=== PATIENT | female | born 1955 | race Caucasian/White ===

== ENCOUNTER 2016-10-30 17:52 | Emergency (ER) | payer OTHER, MEDICAID ==
--- NOTE | 2016-10-30 17:57 | EDPHY ---
H & P Time Seen by Provider: 10/30/16 17:57 - Personal History Tetanus Vaccine Date: Within last 5 years - Medical/Surgical History Hx Asthma: No Hx Chronic Respiratory Disease: No Hx Diabetes: Yes Hx Cardiac Disease: Yes Hx Renal Disease: No Hx Cirrhosis: No Hx Alcoholism: No Hx HIV/AIDS: No Hx Splenectomy or Spleen Trauma: No Other PMH: PMH: Quadripalegia, A-fib, HTN, GERD, hypothyroid, T2DM, anxiety, insomnia - Social History Smoking Status: Never smoked Constitutional: Initial Vital Signs Temperature (C) 36.6 C 10/30/16 18:04 Heart Rate 67 10/30/16 18:04 Respiratory Rate 16 10/30/16 18:04 Blood Pressure 104/75 10/30/16 18:04 O2 Sat (%) 91 L 10/30/16 18:04 O2 Delivery Mode Room Air Allergies/Adverse Reactions: codeine [Codeine] Allergy (Verified 11/03/15 02:46) Home Medications: Medication Instructions Recorded Baclofen [Baclofen 10 mg (*)] 10 mg PO QID 11/03/15 Bisacodyl [Dulcolax] 10 mg RC Q2D@09 11/03/15 Citalopram Hydrobromide [Celexa] 40 mg PO DAILY 11/03/15 Diazepam [Valium 10 MG (*)] 10 mg PO Q8 PRN 11/03/15 Docusate Sodium [Colace 100 MG (*)] 100 mg PO DAILY 11/03/15 Gabapentin [Neurontin 100 MG (*)] 200 mg PO TID 11/03/15 Herbals/Supplements -Info Only 1 ea PO DAILY 11/03/15 Insulin Glargine [Lantus 100 10 units SC HS 11/03/15 UNITS/ML (*)] Levothyroxine [Synthroid 88 mcg 88 mcg PO DAILY06 11/03/15 (*)] Metformin HCl [Metformin 1000 mg] 1,000 mg PO DAILY 11/03/15 Multivitamins [Multivitamin (*)] 1 each PO DAILY 11/03/15 Ondansetron Odt [Zofran Odt 4 mg 4 mg PO Q8 PRN 11/03/15 (*)] Polyethylene Glycol 3350 [Miralax 17 gm PO DAILY PRN 11/03/15 17 gm (*)] QUEtiapine FUMARATE [Seroquel 50 50 mg PO HS 11/03/15 mg (*)] Ranitidine HCl 150 mg PO BID 11/03/15 Sennosides/Docusate Sodium 1 each PO BID 11/03/15 [Senokot-S] Simethicone [GAS-X] 160 mg PO Q4 PRN 11/03/15 metFORMIN HCL [Glucophage 500 mg 500 mg PO DAILY@17 11/03/15 (*)] traMADol [Ultram 50 mg (*)] 11/03/15 traZODone [traZODONE 50MG (*)] 50 mg PO HS 11/03/15 Lidoderm 5% Patch (*) 06/26/16 Methenamine Estephania 06/26/16 Mucinex 06/26/16 Medical Decision Making - Diagnostics Imaging: Imaging Impressions Shoulder X-Ray 10/30/16 18:38 Impression: Nothing acute identified in this severely osteoporotic patient. Recommendation: This patient might benefit from a DEXA scan and bone building pharmacologic intervention. 2. Left Shoulder , 3 Views History: Pain post trauma. Fall from wheelchair. Findings: The humeral head is well rounded and normally located. No shoulder joint fracture or dislocation is identified. It is difficult for me to exclude a distal clavicle fracture, which is suggested on the axillary view.. Impression: Possible distal clavicle fracture. Consider dedicated clavicle ankle x-rays. Wrist X-Ray 10/30/16 18:38 Impression: Nothing acute identified in this severely osteoporotic patient. Recommendation: This patient might benefit from a DEXA scan and bone building pharmacologic intervention. 2. Left Shoulder , 3 Views History: Pain post trauma. Fall from wheelchair. Findings: The humeral head is well rounded and normally located. No shoulder joint fracture or dislocation is identified. It is difficult for me to exclude a distal clavicle fracture, which is suggested on the axillary view.. Impression: Possible distal clavicle fracture. Consider dedicated clavicle ankle x-rays. ED Course/Re-evaluation: CHIEF COMPLAINT: Headache, left shoulder pain, right wrist pain. HISTORY OF PRESENT ILLNESS: The patient is a 60-year-old female with a history of quadriplegia who presents after falling backwards in her wheelchair earlier today, striking her head and left shoulder. She did not lose consciousness. She is complaining of left shoulder pain, right wrist pain, and headache. She denies numbness, weakness, confusion, vomiting, or other complaints at this time. REVIEW OF SYSTEMS: A 10 point review of systems was performed and is negative with the exception of the elements mentioned in the history of present illness. PHYSICAL EXAM: HR, BP, O2 Sat, RR. Temp noted General Appearance: Alert, well hydrated, appropriate, and non-toxic appearing. Head: Atraumatic without scalp tenderness or obvious injury Eyes: Pupils equal, round, reactive to light and accommodation, EOMI, no trauma , no injection. Ears: Clear bilaterally, no perforation, normal landmarks Nose: Atraumatic, no rhinorrhea, clear. Throat: There is no erythema or exudates, no lesions, normal tonsils, mucus membranes moist. Neck: Supple, 2+ carotid upstroke, nontender, no lymphadenopathy. Respiratory: No retractions, no distress, no wheezes, and no accessory muscle use. Lungs are clear to auscultation bilaterally. Cardiovascular: Regular rate and rhythm, no murmurs, rubs, or gallops. Bilateral carotid, radial, dorsalis pedis, and posterior tibial pulses intact. Good capillary refill all extremities. Gastrointestinal: Abdomen is soft, nontender, non-distended, no masses, no rebound, no guarding, no peritoneal signs. Musculoskeletal: Normal active ROM of all extremities, atraumatic. Neurological: Alert, appropriate, and interactive. The patient has normal DTRs and non-focal cranial nerves, motor, sensory, and cerebellar exam. Skin: No rashes, good turgor, no nodules on palpation. Past medical history: Quadriplegia, atrial fibrillation, HTN, GERD, hypothyroid , type II diabetes, anxiety, insomnia. Past surgical history: Unknown. Family history: N/A. Social history: Lives in [place]. DIAGNOSTICS/PROCEDURES/CRITICAL CARE TIME: I independently reviewed the patient's films on the PACS system. See "imaging" section for radiologist reports. DIFFERENTIAL DIAGNOSIS: The differential diagnosis includes but is not limited to: fracture, rotator cuff injury, sprain, strain, intracranial injury. MEDICAL DECISION MAKIN-year-old quadriplegic female presents after she fell backward in her wheelchair, striking her head, left shoulder, and right wrist on pavement. She has no neuro deficits on exam. She did not lose consciousness and has not vomited. I do not believe head imaging is warranted at this time and she is [place] Head CT criteria negative. We will obtain x-rays of the shoulder and wrist. 1919: Dr. Maria reports distal left clavicle fracture and no fracture on the wrist. Staff is looking into whether or not the patient can be safely discharged with this diagnosis as she is quadriplegic and relies on a wheelchair. 2005: [facility] reports they will be unable to take care of the patient tonight with the nature of her injury. Hospitalist paged. 2014: Consulted with Dr. Barraza, hospitalist. She accepts admission. 2023: [facility] will re-accept the patient and she will be discharged home. Departure - Departure Disposition: Home, Routine, Self-Care Clinical Impression: Closed head injury Qualifiers: Encounter type: initial encounter Qualified Code(s): S09.90XA - Unspecified injury of head, initial encounter Clavicle fracture Qualifiers: Encounter type: initial encounter Clavicle location: lateral end Fracture type : closed Fracture alignment: nondisplaced Laterality: left Qualified Code(s): S42.035A - Nondisplaced fracture of lateral end of left clavicle, initial encounter for closed fracture Condition: Good Instructions: Head Injury (ED), Clavicle Fracture (ED) Additional Instructions: Take 600mg Ibuprofen every 6-8 hours as needed for pain. Follow up with Dr. Hansen, orthopedics, this week for reevaluation. Return to the emergency department for any serious worsening of condition. Referrals: Brandt Hansen MD [Medical Doctor] - As per Instructions Report Scribed for: Gabo Bass Report Scribed by: Juan Bui Date of Report: 10/30/16 Time of Report: 18:36
[2016-10-30 18:08] VITALS: RESP 16; TEMP 97.9
[2016-10-30] MEDS ORDERED: HYDROCODONE/APAP 5/325 TAB PO ONE (20:40)
[2016-10-30 22:00] VITALS: BP 115/74; PULSE 78; O2SAT 93
[2016-10-30] MEDS ORDERED: HYDROCOD/APAP 5/325 PREPACK#6 BTL TAKEHOME ONE (22:00)
== END 2016-10-30 22:21 | disposition home or self-care (01) ==
LOC: EDUNIT#
DX: S42.035A Nondisplaced fracture of lateral end of left clavicle, initial encounter for closed fracture (principal); S09.90XA Unspecified injury of head, initial encounter; E11.9 Type 2 diabetes mellitus without complications; I10 Essential (primary) hypertension; Z79.4 Long term (current) use of insulin; Z79.84 Long term (current) use of oral hypoglycemic drugs; W05.0XXA Fall from non-moving wheelchair, initial encounter
CPT/HCPCS: 73030; 73110; 99284; A4565

== ENCOUNTER 2017-01-02 07:34 | Inpatient (IN) | payer OTHER, MEDICAID ==
--- NOTE | 2017-01-02 07:38 | EDPHY ---
H & P Time Seen by Provider: 01/02/17 07:38 HPI/ROS: CHIEF COMPLAINT: Right-sided weakness HISTORY OF PRESENT ILLNESS: The patient is a 60-year-old female, quadripalegic , who presents via EMS as a stroke alert. The patient has known quadriplegia from a fall. She is currently half-way resident. She does have use of her bilateral hands and minimal arm movement. She states that for the past 2- 3 days she has felt more weak than normal. This morning at 3:00 a.m. she felt "crummy." On my evaluation, she denies any new weakness or numbness since this morning. No visual change or focal deficits. She states she just generally feels weak and fatigued. This is similar to her previous UTIs. When EMS initially evaluated the patient, the paramedics felt that she has slightly decreased parking lot chauffeur on the right when compared to the left. This is why activated the stroke alert. The radio communication coordinator reports that upon arrival to the hospital the patient's parking lot chauffeur strength seemed equal. The patient denies chest pain or shortness of breath. No abdominal pain. No nausea or vomiting. No fevers or chills. REVIEW OF SYSTEMS: My complete review of systems is negative except as mentioned in the HPI. Past Medical/Surgical History: Includes quadriplegia, atrial fibrillation, hypertension, GERD, hypothyroidism, anxiety, insomnia Past surgical history: Includes Social history: The patient is a half-way resident. Smoking Status: Never smoked Physical Exam: Vitals noted GENERAL: No acute distress, alert. Obese. HEENT: Eyes normal to inspection, normal pharynx, no signs of dehydration. NECK: No thyromegaly, no lymphadenopathy, supple. RESPIRATORY: Clear to auscultation bilaterally, no rales, rhonchi or wheezing. CVS: Regular rate and rhythm, no rubs, murmurs, or gallops. ABDOMEN: Soft, nontender, nondistended, no organomegaly. Benign. BACK: Decubitus ulcer, no CVA tenderness. SKIN: Normal color, no rash, warm, dry. No pallor. EXTREMITIES: No pedal edema, no Homans sign or cords, no joint swelling. NEURO/PSYCH: Higher functions: Alert and Oriented x3. Normal speech and cognition. Normal mood and affect. Cranial nerves: Normal as tested. Cerebellar: Difficult to test. The patient has no movement on her lower extremities and decreased movement on her upper extremities. Peripheral exam: Patient is a quadriplegic. She has minimal movement of her bilateral upper hands. Her parking lot chauffeur strength appears equal. She seems to have symmetric upper extremity movement. Constitutional: Initial Vital Signs Temperature (C) 36.8 C 01/02/17 07:40 Heart Rate 74 01/02/17 07:40 Respiratory Rate 18 01/02/17 07:40 Blood Pressure 136/79 H 01/02/17 07:40 O2 Sat (%) 96 01/02/17 07:40 O2 Delivery Mode Nasal Cannula O2 (L/minute) 2 Allergies/Adverse Reactions: codeine [Codeine] Allergy (Verified 11/03/15 02:46) Home Medications: Medication Instructions Recorded Baclofen [Baclofen 10 mg (*)] 10 mg PO QID 11/03/15 Bisacodyl [Dulcolax] 10 mg RC Q2D@09 11/03/15 Citalopram Hydrobromide [Celexa] 40 mg PO DAILY 11/03/15 Diazepam [Valium 10 MG (*)] 10 mg PO Q8 PRN 11/03/15 Docusate Sodium [Colace 100 MG (*)] 100 mg PO DAILY 11/03/15 Gabapentin [Neurontin 100 MG (*)] 200 mg PO TID 11/03/15 Herbals/Supplements -Info Only 1 ea PO DAILY 11/03/15 Insulin Glargine [Lantus 100 10 units SC HS 11/03/15 UNITS/ML (*)] Levothyroxine [Synthroid 88 mcg 88 mcg PO DAILY06 11/03/15 (*)] Metformin HCl [Metformin 1000 mg] 1,000 mg PO DAILY 11/03/15 Multivitamins [Multivitamin (*)] 1 each PO DAILY 11/03/15 Ondansetron Odt [Zofran Odt 4 mg 4 mg PO Q8 PRN 11/03/15 (*)] Polyethylene Glycol 3350 [Miralax 17 gm PO DAILY PRN 11/03/15 17 gm (*)] QUEtiapine FUMARATE [Seroquel 50 50 mg PO HS 11/03/15 mg (*)] Ranitidine HCl 150 mg PO BID 11/03/15 Sennosides/Docusate Sodium 1 each PO BID 11/03/15 [Senokot-S] Simethicone [GAS-X] 160 mg PO Q4 PRN 11/03/15 metFORMIN HCL [Glucophage 500 mg 500 mg PO DAILY@17 11/03/15 (*)] traMADol [Ultram 50 mg (*)] 11/03/15 traZODone [traZODONE 50MG (*)] 50 mg PO HS 11/03/15 Lidoderm 5% Patch (*) 06/26/16 Methenamine Estephania 06/26/16 Mucinex 06/26/16 HYDROcodone/APAP 10/325 [[place] 1 - 2 each PO Q4-6PRN PRN #20 tab 10/30/16 10325] Coumadin 01/02/17 Medical Decision Making - Diagnostics Imaging Results: Imaging Impressions Head CT 01/02/17 07:36 Impression: Normal CT scan of the head normal for age. Results called and discussed with CANDICE RODRIGUEZ M.D. on 01/02/2017 at 8:02 Chest X-Ray 01/02/17 07:58 Impression: Mild hypoventilatory and leftward rotational changes with stable borderline-cardiomegaly and some left basilar subsegmental atelectasis. ED Course/Re-evaluation: I met EMS on arrival. I took report from the radio communication coordinator. The patient was kept on the EMS prominent sent directly to CT imaging. I discussed the plan with the patient. Glucose 134. I reviewed the patient's previous medical record while she was at CT imaging. 745: The patient return to the ER. I met the patient in the room. I took further report from the patient. I discussed the plan with the patient. I answered all her questions. The patient is not a tPA candidate. After my evaluation I feel the patient does not have a new focal neurologic deficit. She has known quadriplegic that is unchanged. She states her subjective feeling of weakness started 2-3 days ago. This puts her outside the time window for tPA treatment. Head CT: No acute disease noted. Please refer the dictated report by the radiologist. I discussed the result with the patient. I answered all her questions. 855: I rechecked the patient. No change in her neuro exam. EKG: Sinus rhythm. Left anterior fascicular block. Flipped T-waves V2 through V5. 803: Head CT: Negative for acute disease. Please refer the dictated report by Dr. Papa Leslie. I discussed the case with Dr. Leslie. 805: xray in room. Pt's vitals stable. I rechecked the patient. She had no change. I reviewed the patient's laboratory studies. Of note the patient has a mildly elevated white count of 10. The patient is anemic with hematocrit 31. The patient's chemistry panel was abnormal with a low sodium 121. I compared this with a previous values. She has not previously been significantly hyponatremic in the past. I discussed the results with the patient. I answered all her questions. She had no change on her repeat exam. The hospitalist was paged for admission. Dr. Marx will admit. Wound care was consulted. Differential Diagnosis: My differential includes but is not limited to ischemic CVA, hemorrhagic CVA, dissection, aneurysm, electrolyte abnormality, sugar abnormality, ACS, acute [place] , dehydration UTI, bacteremia, sepsis Critical Care Time: The patient required 35 minutes of critical care time. This was exclusive of any unbundled procedure. This was due to the patient's presentation, stroke alert, need for multiple re-evaluations, time spent at the bedside., noted significant hyponatremia the knee oscar fluid hydration - Data Points Laboratory Results: Laboratory Results 01/02/17 07:50 01/02/17 07:50 01/02/17 01/02/17 01/02/17 08:04 08:04 07:50 WBC RBC Hgb Hct MCV MCH MCHC RDW Plt Count MPV Neut % (Auto) Lymph % (Auto) [place] % (Auto) Eos % (Auto) Baso % (Auto) Nucleat RBC Rel Count Absolute Neuts (auto) Absolute Lymphs (auto) Absolute Monos (auto) Absolute Eos (auto) Absolute Basos (auto) Absolute Nucleated RBC Immature Gran % Immature Gran # PT INR APTT Sodium 121 mEq/L L mEq/L (134-144) Potassium 4.2 mEq/L mEq/L (3.5-5.2) Chloride 87 mEq/L L mEq/L (97-110) Carbon Dioxide 24 mEq/l mEq/l (22-31) Anion Gap 10 mEq/L mEq/L (8-16) BUN 11 mg/dL mg/dL (7-23) Creatinine 0.5 mg/dL L mg/dL (0.6-1.0) Estimated GFR > 60 Glucose 157 mg/dL H mg/dL (70-100) Calcium 8.1 mg/dL L mg/dL (8.5-10.4) Troponin I < 0.012 ng/mL ng/mL (0-0.034) Urine Color PALE YELLOW Urine Appearance CLEAR Urine pH 6.0 (5.0-7.5) Ur Specific [place] 1.002 (1.002-1.030) Urine Protein NEGATIVE (NEGATIVE) Urine Ketones NEGATIVE (NEGATIVE) Urine Blood 3+ H (NEGATIVE) Urine Nitrate NEGATIVE (NEGATIVE) Urine Bilirubin NEGATIVE (NEGATIVE) Urine Urobilinogen NEGATIVE EU EU (0.2-1.0) Ur Leukocyte Esterase TRACE H (NEGATIVE) Urine RBC 1-3 /hpf /hpf (0-3) Urine WBC 1-3 /hpf /hpf (0-3) Ur Epithelial Cells NONE SEEN /lpf /lpf (NONE-1+) Urine Bacteria 1+ /hpf H /hpf (NONE SEEN) Urine Mucus TRACE /lpf /lpf (NONE-1+) Urine Osmolality 93 mosmo/kg L mosmo/kg (300-900) Ur Random Sodium Pending Urine Glucose NEGATIVE (NEGATIVE) 01/02/17 01/02/17 07:50 07:50 WBC 10.90 10^3/uL H 10^3/uL (3.80-9.50) RBC 3.76 10^6/uL L 10^6/uL (4.18-5.33) Hgb 11.1 g/dL L g/dL (12.6-16.3) Hct 31.8 % L % (38.0-47.0) MCV 84.6 fL fL (81.5-99.8) MCH 29.5 pg pg (27.9-34.1) MCHC 34.9 g/dL g/dL (32.4-36.7) RDW 13.8 % % (11.5-15.2) Plt Count 295 10^3/uL 10^3/uL (150-400) MPV 10.1 fL fL (8.7-11.7) Neut % (Auto) 69.5 % % (39.3-74.2) Lymph % (Auto) 17.2 % % (15.0-45.0) [place] % (Auto) 11.4 % % (4.5-13.0) Eos % (Auto) 0.6 % % (0.6-7.6) Baso % (Auto) 0.1 % L % (0.3-1.7) Nucleat RBC Rel Count 0.0 % % (0.0-0.2) Absolute Neuts (auto) 7.58 10^3/uL H 10^3/uL (1.70-6.50) Absolute Lymphs (auto) 1.87 10^3/uL 10^3/uL (1.00-3.00) Absolute Monos (auto) 1.24 10^3/uL H 10^3/uL (0.30-0.80) Absolute Eos (auto) 0.07 10^3/uL 10^3/uL (0.03-0.40) Absolute Basos (auto) 0.01 10^3/uL L 10^3/uL (0.02-0.10) Absolute Nucleated RBC 0.00 10^3/uL 10^3/uL (0-0.01) Immature Gran % 1.2 % H % (0.0-1.1) Immature Gran # 0.13 10^3/uL H 10^3/uL (0.00-0.10) PT 15.4 SEC H SEC (12.0-15.0) INR 1.22 H (0.83-1.16) APTT 21.8 SEC L SEC (23.0-38.0) Sodium Potassium Chloride Carbon Dioxide Anion Gap BUN Creatinine Estimated GFR Glucose Calcium Troponin I Urine Color Urine Appearance Urine pH Ur Specific [place] Urine Protein Urine Ketones Urine Blood Urine Nitrate Urine Bilirubin Urine Urobilinogen Ur Leukocyte Esterase Urine RBC Urine WBC Ur Epithelial Cells Urine Bacteria Urine Mucus Urine Osmolality Ur Random Sodium Urine Glucose Medications Given: Discontinued Medications Sodium Chloride (Ns) 500 mls @ 500 mls/hr IV EDNOW ONE PRN Reason: Protocol Stop: 01/02/17 08:56 Last Admin: 01/02/17 08:10 Dose: 500 mls Ceftriaxone Sodium/Dextrose (Rocephin 1 Gm (Premix)) 50 mls @ 100 mls/hr IV EDNOW ONE PRN Reason: Protocol Stop: 01/02/17 10:39 Last Admin: 01/02/17 10:24 Dose: 50 mls Departure - Departure Disposition: [facility] Inpatient Acute Clinical Impression: Weakness, Quadriplegia, Hyponatremia Condition: Good
[2017-01-02] MEDS ORDERED: NS 500 ML IV ONE (07:57)
--- NOTE | 2017-01-02 08:00 | CPEKG ---
Heart Rate: 72 RR Interval: 833 P-R Interval: 156 QRSD Interval: 118 QT Interval: 468 QTC Interval: 513 P [place]: -4 QRS [place]: -55 T Wave [place]: -13 EKG Severity - ABNORMAL ECG - EKG Impression: SINUS RHYTHM EKG Impression: LEFT ANTERIOR FASCICULAR BLOCK EKG Impression: PROBABLE LEFT VENTRICULAR HYPERTROPHY Electronically Signed By: Laly Erickson 02-Jan-2017 15:37:30
[2017-01-02 08:13] LABS: % IMMATURE GRANULYOCYTES 1.2 % (0.0-1.1); ABSOLUTE IMMATURE GRANULOCYTES 0.13 10^3/uL (0.00-0.10); ADD DIFF? NO; ADD MORPH? NO; ADD SCAN? NO; ATYPICAL LYMPHOCYTE FLAG 10 (0-99); FRAGMENT RBC FLAG 0 (0-99); HEMATOCRIT 31.8 % (38.0-47.0); HEMOGLOBIN 11.1 g/dL (12.6-16.3); LEFT SHIFT FLG 0 (0-99); LIPEMIA HEMOLYSIS FLAG 90 (0-99); MEAN CELL HEMOGLOBIN 29.5 pg (27.9-34.1); MEAN CELL HEMOGLOBIN CONCENTR. 34.9 g/dL (32.4-36.7); MEAN CELL VOLUME 84.6 fL (81.5-99.8); MEAN PLATELET VOLUME 10.1 fL (8.7-11.7); PLATELET CLUMPS FLAG 20 (0-99); PLATELET COUNT 295 10^3/uL (150-400); RED BLOOD CELL COUNT 3.76 10^6/uL (4.18-5.33); RED CELL DISTRIBUTION WIDTH 13.8 % (11.5-15.2)
[2017-01-02 08:19] LABS: COLOR PALE YELLOW; LEUKOCYTE ESTERASE,URINE TRACE (NEGATIVE); NITRITE,URINE NEGATIVE (NEGATIVE)
[2017-01-02 08:23] LABS: INR 1.22 (0.83-1.16); PROTIME(PATIENT) 15.4 SEC (12.0-15.0)
[2017-01-02 08:24] LABS: APTT 21.8 SEC (23.0-38.0)
[2017-01-02 08:27] LABS: ANION GAP 10 mEq/L (8-16); CALCIUM 8.1 mg/dL (8.5-10.4); CARBON DIOXIDE 24 mEq/l (22-31); CHLORIDE 87 mEq/L (97-110); CREATININE 0.5 mg/dL (0.6-1.0); GLOMERULAR FILTRATION RATE > 60; GLUCOSE 157 mg/dL (70-100); POTASSIUM 4.2 mEq/L (3.5-5.2); SODIUM 121 mEq/L (134-144)
[2017-01-02 08:30] LABS: BACTERIA 1+ /hpf (NONE SEEN); MUCUS TRACE /lpf (NONE-1+)
[2017-01-02 08:39] LABS: TROPONIN I < 0.012 ng/mL (0-0.034)
[2017-01-02] MEDS ORDERED: ONDANSETRON DISINTEGRATING 4 MG TAB PO PRN (11:29)
[2017-01-02] MEDS ORDERED: ONDANSETRON 4 MG/2 ML VIAL IVP PRN (11:29)
--- NOTE | 2017-01-02 13:29 | GHP ---
[f rep st] HISTORY AND PHYSICAL DATE OF ADMISSION: 01/02/2017 CHIEF COMPLAINT: Weakness. HISTORY OF PRESENT ILLNESS: The patient is a 61-year-old female with a history of partial quadriplegia and an indwelling Morris catheter as well as diabetes who presents to the emergency department from her halfway facility with new onset of weakness. She came in as a stroke alert but had a normal neuro exam and a negative head CT. She reports being treated for a urinary tract infection approximately 1 week ago. During that time, she did have some fevers. Since she completed her antibiotic course, she denies any further fevers, abdominal pain, or flank pain. She has been depressed lately and has had decreased oral intake. She denies nausea or vomiting. She has no chest pain, shortness of breath, cough, or respiratory symptoms. She denies headaches or vision changes. Over the past 1-2 days, she has felt foggy in her head. She has limited use of her upper extremities and was thought to be maybe slightly weaker on the right side at her halfway facility, [facility]. Thus, she was transferred to the emergency department. In the emergency department, she had a negative head CT. Her laboratory studies revealed a sodium of 121, which is new for this patient. She is admitted to the hospital for further management. PAST MEDICAL HISTORY: 1. Partial quadriplegia, C6-7 spinal cord injury secondary to a fall on the stairs. 2. Indwelling Morris catheter secondary to neurogenic bladder. 3. Diabetes mellitus. 4. Anxiety and depression. 5. Hypothyroidism. 6. GERD. 7. History of paroxysmal atrial fibrillation. MEDICATIONS: Please see CallApp for complete updated outpatient medication list. ALLERGIES: Codeine. FAMILY HISTORY: Reviewed and noncontributory. SOCIAL HISTORY: The patient lives at [facility]. She denies tobacco or alcohol use. REVIEW OF SYSTEMS: A 10-point review of systems was performed and was negative except as per HPI. OBJECTIVE: VITAL SIGNS: Temperature is 36.8, blood pressure 124/78, heart rate 68, respiratory rate 18. She is 99% on 2 L of oxygen by nasal cannula. GENERAL: The patient is awake, alert, and oriented, in no acute distress. She has a flat affect, appears depressed. HEENT: Head is atraumatic, normocephalic. Pupils equal, round, reactive to light. Extraocular muscles intact. Conjunctivae are pale. Oropharynx is clear. Mucous membranes are moist. NECK: Supple. There is no JVD. HEART: Regular rate and rhythm without murmur. LUNGS: Clear to auscultation bilaterally with decreased breath sounds secondary to poor effort. ABDOMEN: Soft, obese, nondistended. She has mild suprapubic tenderness to palpation. No rebound, rigidity, or guarding. Normoactive bowel sounds. EXTREMITIES: She has chronic flexures of her hands with minimal and symmetric self pay specialist strength. She moves both upper extremities equally. Lower extremities reveal trace edema. 2+ peripheral pulses. She has involuntary movements of the lower extremities, which are warm and well perfused. Her right lower extremity has an old scar with some chronic tissue changes. SKIN: She has chronic pressure injuries of her buttocks and bilateral ischia. NEUROLOGIC: Pronator drift is negative. There is no facial droop. Quadriplegia, as above. Decreased sensation of the lower extremities. Her speech is fluent. LABORATORY DATA: CBC reveals a white count of 10.9, hemoglobin 11.8. She has 69% neutrophils. INR is 1.2. Basic metabolic panel reveals a sodium of 121, a chloride of 87, creatinine 0.5, glucose 157. Troponin is negative. Urinalysis shows 3+ blood, trace leukocytes, 1+ bacteria. Urine osmolality is 93. Urine sodium is pending. Blood cultures and urine culture are pending. ASSESSMENT AND PLAN: The patient is a 61-year-old female with a history of quadriplegia, indwelling Morris catheter, diabetes, and depression, who presents to the hospital with weakness and is admitted for hyponatremia. 1. Hyponatremia. I suspect this is hypovolemic hyponatremia, given her poor oral intake in the setting of recent infection. Celexa can cause this, though she has been on this for a number of years and has previously had sodiums in the high 130s. Her urine osmolality is low. Urine sodium is also low. She received 500 cc's NS in ED and Na corrected from 121 to 127 in less than 8 hrs ( delay in labs due to difficulty with IV access and blood draws). Thus, will slow down her rate of correction with D5W at 100/hr for now. PICC line placed. Follow q4h BMP's. Renal consult if difficulty with rate of correction. 2. Possible urinary tract infection. The patient is afebrile and recently completed an antibiotic course for a previous urinary tract infection. UCx is pending from ED. She received 1g IV Ceftriaxone in ED. Given her indwelling Morris catheter, she is likely to be colonized. In the absence of fever or classic symptoms, I am going to defer further antibiotics and await her culture data. 3. Neurogenic bladder with indwelling Morris catheter. As above. 4. Diabetes mellitus type 2. Her blood sugar on arrival is 157. We have no recent A1c data, so we will check a hemoglobin A1c. We will plan to continue her outpatient insulin regimen along with metformin once her medication reconciliation is completed. 5. Anxiety and depression. I will go ahead and hold her SSRI for now in the setting of acute hyponatremia, though I think it is unlikely this is the cause. We will continue her Seroquel and other outpatient medications. 6. Hypothyroidism. Check a TSH and continue her outpatient meds. 7. Gastroesophageal reflux disease. Continue PPI. 8. Deep venous thrombosis prophylaxis, Lovenox. 9. Code status. I reviewed her MOLST form from her halfway facility. She is a DNR. 10. Disposition. The patient is admitted to inpatient status, as she will likely require greater than 48 hours' hospitalization for ongoing management of her weakness and hyponatremia. /[id number]/MODL MTDD
[2017-01-02] MEDS ORDERED: NS 1,000 ML IV SCH (13:30)
[2017-01-02 13:34] LABS: HEMOGLOBIN A1C 6.6 % (4.0-6.0)
[2017-01-02] MEDS ORDERED: ALTEPLASE 2 MG VIAL IVP PRN (14:05)
--- NOTE | 2017-01-02 14:53 | WOCRNPDOC ---
JESSICA Advanced Assessment Note - Skin Integrity Problem, Advanced Assess Coccyx Pressure Injury Dressing Type: Open to Air Exudate Amount: Minimal Exudate Color: Reddish/Yellow Exudate Characteristic(s): Serosanguinous Integumentary Issue Intervention: Dressing Applied, Dressing Initialed & Dated, Hydrogel Applied Tatum Wound Tissue: Blanching, Erythema, Non-blanching, Raw, Denuded, Scarred, Painful/Tender Tatum Wound Swelling: Mild Wound Bed Color: Black, Red, Yellow Wound Bed Constitution: Smooth Tissue, Mixed Loose & Adhered Slough/Eschar Wound Edges: Irregular Site Odor: None Site Measurement - Head-to-Toe Length X Width X Depth (cm): 3.1cmx2.5cmx0.5cm Pressure Injury Stage: Unstageable Pressure Injury Present on Admit: Yes (Noted in H&P) Skin Integrity Problem Comment: Full-thickness, slough and eschar-filled wound noted over coccyx, consistent in appearance w/ an unstageable pressure injury. Constellation of satellite wounds on tatum-wound skin, w/ a combination of blanching and non-blanching sites. Skin across this area is raw and denuded, and patient c/o pain during assessment and cleaning of the wound. Of note is copious, linear scar tissue extending from this wound across lower right buttock , indicating patient may have had a myocutaneous flap surgery for a previous pressure injury. She denies any surgical history to this site. Hydrogel wound gel applied to wound bed, and wound covered by a [employer] hydrocolloid to help w/ autolysis and softening of the necrotic tissue. Allevyn sacral dressing applied over this for additional protection. Patient was switched to an ICU sport bed, and placed on a TAPS system w/ orders for q2 turns. machine tank operator Carlie present and assisting w/ dressing changes. Wound RN will round on patient again on Friday 01/05. Right Ischial Tuberosity Pressure Injury Dressing Type: Open to Air Exudate Amount: None Exudate Characteristic(s): None Integumentary Issue Intervention: Dressing Applied, Hydrogel Applied Tatum Wound Tissue: Blanching, Erythema, Non-blanching, Raw, Denuded, Dry, Scarred Tatum Wound Swelling: None Wound Bed Color: Red Site Odor: None Site Measurement - Head-to-Toe Length X Width X Depth (cm): 0.4cmx0.5cmx0.1cm Pressure Injury Stage: Stage 2 Pressure Injury Present on Admit: Yes (Documented in H&P) Skin Integrity Problem Comment: Partial-thickness wound noted over R ischial tuberosity, consistent in appearance w/ stage 2 pressure injury. Presently wound bed is comprised of 100% dry, red tissue w/ no exudate. Tatum-wound skin is both xerotic and scarred (see above note regarding scar tissue). Covered site w/ Hydrogel wound gel and large Allevyn Life sacral dressing. Left Lower Buttock Pressure Injury Dressing Type: Open to Air Exudate Amount: None Exudate Characteristic(s): None Integumentary Issue Intervention: Dressing Applied Tatum Wound Tissue: Blanching, Ecchymotic, Erythema, Non-blanching, Raw, Denuded , Dry Tatum Wound Swelling: None Wound Bed Color: Red Site Odor: None Site Measurement - Head-to-Toe Length X Width X Depth (cm): 1.9cmx1.1cmx0.1cm Pressure Injury Stage: Stage 2 Pressure Injury Present on Admit: Yes (Documented in H&P) Skin Integrity Problem Comment: Partial-thickness tissue injury noted on L lower buttock, consistent in appearance w/ stage 2 pressure injury. This wound is comprised of 100% dry, red tissue w/ friable margins, suggesting a component of shear as well. Tatum-wound tissue has some ecchymosis noted, potentially a deep tissue injury. Protective dressing and pressure-relieving precautions initiated. Left Ischial Tuberosity Pressure Injury Dressing Type: Open to Air Exudate Amount: None Exudate Characteristic(s): None Integumentary Issue Intervention: Dressing Applied, Dressing Initialed & Dated Tatum Wound Tissue: Blanching, Erythema, Non-blanching, Raw, Dry Tatum Wound Swelling: None Wound Bed Color: Purple Site Measurement - Head-to-Toe Length X Width X Depth (cm): [id number] Pressure Injury Stage: Deep Tissue Injury (DTI) Pressure Injury Present on Admit: Yes (Documented in H&P) Skin Integrity Problem Comment: Small, circular area of ecchymosis noted over L ischial tuberosity, indicative of a suspected deep tissue injury. Presently skin is intact w/ negligible swelling. Wound care will continue to follow this wound as it evolves. Bilateral Heel Dressing Type: Open to Air Exudate Amount: None Exudate Characteristic(s): None Skin Integrity Problem Comment: Blanching erythema noted to bilateral heels, skin presently intact w/ no associated swelling. Given patient's generally immobile status, off-loading heel boots were ordered as a precaution.
[2017-01-02] MEDS ORDERED: traMADol 50 MG TAB PO PRN (16:57)
[2017-01-02] MEDS ORDERED: POLYETHYLENE GLYCOL 3350 17 GM PKT PO PRN (16:57)
[2017-01-02] MEDS ORDERED: guaiFENesin 600 MG TAB.ER PO PRN (16:57)
[2017-01-02] MEDS ORDERED: SIMETHICONE 80 MG TAB CHEW PO PRN (16:57)
[2017-01-02] MEDS ORDERED: DIAZEPAM 2 MG TAB PO PRN (16:57)
[2017-01-02] MEDS ORDERED: BISACODYL 10 MG SUPP PR PRN (16:57)
[2017-01-02] MEDS ORDERED: D50W 25 GM/50 ML SYR IVP PRN (17:03)
[2017-01-02 17:13] LABS: ANION GAP 9 mEq/L (8-16); CALCIUM 8.1 mg/dL (8.5-10.4); CARBON DIOXIDE 28 mEq/l (22-31); CHLORIDE 90 mEq/L (97-110); CREATININE 0.6 mg/dL (0.6-1.0); GLOMERULAR FILTRATION RATE > 60; GLUCOSE 122 mg/dL (70-100); POTASSIUM 3.6 mEq/L (3.5-5.2); SODIUM 127 mEq/L (134-144)
[2017-01-02] MEDS ORDERED: D5W 1,000 ML IV SCH (17:30)
[2017-01-02] MEDS: INSULIN LISPRO 100 UNIT/ML SC SCH (17:37)
[2017-01-02] MEDS: oxyCODONE IR 5 MG TAB PO PRN ×2 (17:37→21:21)
[2017-01-02] MEDS: MICONAZOLE 2% TP SCH (20:26)
[2017-01-02] MEDS: DIAZEPAM 2 MG TAB PO SCH (20:31)
[2017-01-02 20:54] LABS: ANION GAP 7 mEq/L (8-16); CALCIUM 8.2 mg/dL (8.5-10.4); CARBON DIOXIDE 26 mEq/l (22-31); CHLORIDE 89 mEq/L (97-110); CREATININE 0.5 mg/dL (0.6-1.0); GLOMERULAR FILTRATION RATE > 60; GLUCOSE 199 mg/dL (70-100); POTASSIUM 3.2 mEq/L (3.5-5.2); SODIUM 122 mEq/L (134-144)
[2017-01-02] MEDS: GABAPENTIN 100 MG CAP PO SCH (21:20)
[2017-01-02] MEDS: QUEtiapine FUMARATE 25 MG TAB PO SCH (21:20)
[2017-01-02] MEDS: traZODone 50 MG TAB PO SCH (21:21)
[2017-01-02] MEDS: BACLOFEN 10 MG TAB PO SCH (21:21)
[2017-01-02] MEDS: SENNOSIDES/DOCUSATE SODIUM TAB PO SCH (21:21)
[2017-01-02] MEDS: ACETAMINOPHEN 325 MG TAB PO PRN (21:22)
[2017-01-02] MEDS: METHENAMINE HIPP 1 GM TAB PO SCH (21:22)
[2017-01-02] MEDS: INSULIN GLARGINE 100 UNITS/ML SYRINGE SC SCH (21:22)
[2017-01-02] MEDS ORDERED: D5W 1/2 NS W/ 20 KCl/L 1,000 ML IV SCH (23:00)
[2017-01-03] MEDS: oxyCODONE IR 5 MG TAB PO PRN ×3 (01:23→21:24)
[2017-01-03 01:50] LABS: ANION GAP 9 mEq/L (8-16); CALCIUM 7.9 mg/dL (8.5-10.4); CARBON DIOXIDE 27 mEq/l (22-31); CHLORIDE 92 mEq/L (97-110); CREATININE 0.5 mg/dL (0.6-1.0); GLOMERULAR FILTRATION RATE > 60; GLUCOSE 167 mg/dL (70-100); POTASSIUM 3.3 mEq/L (3.5-5.2); SODIUM 128 mEq/L (134-144)
[2017-01-03] MEDS ORDERED: D5W 1,000 ML IV SCH (02:05)
[2017-01-03 06:19] LABS: % IMMATURE GRANULYOCYTES 0.7 % (0.0-1.1); ABSOLUTE IMMATURE GRANULOCYTES 0.06 10^3/uL (0.00-0.10); ADD DIFF? NO; ADD MORPH? NO; ADD SCAN? NO; ATYPICAL LYMPHOCYTE FLAG 0 (0-99); FRAGMENT RBC FLAG 0 (0-99); HEMATOCRIT 30.3 % (38.0-47.0); HEMOGLOBIN 10.3 g/dL (12.6-16.3); LEFT SHIFT FLG 0 (0-99); LIPEMIA HEMOLYSIS FLAG 90 (0-99); MEAN CELL HEMOGLOBIN 29.3 pg (27.9-34.1); MEAN CELL VOLUME 86.3 fL (81.5-99.8); MEAN PLATELET VOLUME 9.7 fL (8.7-11.7); PLATELET CLUMPS FLAG 0 (0-99); PLATELET COUNT 292 10^3/uL (150-400); RED BLOOD CELL COUNT 3.51 10^6/uL (4.18-5.33)
[2017-01-03] MEDS: MICONAZOLE 2% TP SCH ×4 (06:30→20:09)
[2017-01-03] MEDS: LEVOTHYROXINE 88 MCG TAB PO SCH (06:32)
[2017-01-03] MEDS: BACLOFEN 10 MG TAB PO SCH ×4 (06:32→19:59)
[2017-01-03 06:45] LABS: ANION GAP 8 mEq/L (8-16); CARBON DIOXIDE 28 mEq/l (22-31); CHLORIDE 96 mEq/L (97-110); CREATININE 0.5 mg/dL (0.6-1.0); GLOMERULAR FILTRATION RATE > 60; GLUCOSE 132 mg/dL (70-100); POTASSIUM 3.1 mEq/L (3.5-5.2); SODIUM 132 mEq/L (134-144)
[2017-01-03 07:15] LABS: CORTISOL-AM 5.5 ug/dL (4.5-22.7)
[2017-01-03] MEDS: INSULIN LISPRO 100 UNIT/ML SC SCH ×3 (08:05→17:50)
[2017-01-03] MEDS: METHENAMINE HIPP 1 GM TAB PO SCH ×2 (09:11→22:37)
[2017-01-03] MEDS: GABAPENTIN 100 MG CAP PO SCH ×3 (09:12→22:36)
[2017-01-03] MEDS: LIDOCAINE 5% 1 EA PATCH TD SCH (09:12)
[2017-01-03] MEDS: CHOLECALCIFEROL VIT D3 1,000 UNITS TAB PO SCH (09:12)
[2017-01-03] MEDS: ENOXAPARIN 40 MG/0.4 ML SYR SC SCH (09:12)
[2017-01-03] MEDS: SENNOSIDES/DOCUSATE SODIUM TAB PO SCH ×2 (09:13→19:59)
[2017-01-03] MEDS: DOCUSATE SODIUM 100 MG CAP PO SCH (09:13)
[2017-01-03] MEDS: ACETAMINOPHEN 325 MG TAB PO PRN ×2 (10:13→19:58)
[2017-01-03] MEDS ORDERED: PROTOCOL MAGNESIUM 1 DOSE IV PRN (10:20)
[2017-01-03] MEDS ORDERED: PROTOCOL POTASSIUM 1 DOSE MISC PRN (10:20)
[2017-01-03] MEDS ORDERED: K PHOS 20 MMOL in D5W 250 ML IV ONE (10:21)
--- NOTE | 2017-01-03 11:58 | HOSPPROG ---
Hospitalist Progress Note Assessment/Plan: Hyponatremia - Symptoms improved. Initial urine Na and urine osm low. Rapidly corrected with NS bolus in ED (121 --> 128) and required D5W overnight to slow down rate of correction. Na now up to 131 from 121. Appears euvolemic though bp 90's/40's this am. Less concern for ODS with Na now >130 and presenting Na > 120. AM cortisol 5.5 concerning for adrenal insufficiency. -Stop D5W -cont fluid restriction -repeat BMP this afternoon -recheck urine studies -ACTH stim test in am to eval for adrenal insufficiency -encouraged high solute diet ?UTI - doubt. UCx low colony count. Received IV Ceftriaxone in ED -defer further atbx Partial quad with C6-7 spinal cord injury due to fall down stairs >10 yrs ago - has some UE movement. Neurogenic bladder with chronic indwelling mirza Pressure injury b/l buttocks - wound care consult DM type 2 - BG's 100's. Cont basal / bolus insulin Hypothyroidism - check TSH, cont outpt meds Anxiety and Depression - Celexa held on admission with hyponatremia, though this can probably be resumed at discharge as she's been on this for years thus is unlikely to be cause of low Na. GERD - cont PPI. DVT PPLX - Lovenox DNR Dispo - cont inpt, transfer to med/surg Subjective: Pt feels better. Mentation is improved, her cloudy feeling is resolved. No fevers, abdominal pain, N/V. Taking better po. Objective: Vital Signs Temp Pulse Resp BP Pulse Ox 35.8 C L 66 14 96/58 L 98 01/03/17 07:42 01/03/17 07:42 01/03/17 07:42 01/03/17 07:42 01/03/17 07:42 Laboratory Results 01/03/17 06:05 01/03/17 10:10 01/02/17 01/03/17 01/04/17 05:59 05:59 05:59 Intake Total 1601 Output Total 4400 400 Balance -2799 -400 PT 15.4 SEC (12.0-15.0) H 01/02/17 07:50 INR 1.22 (0.83-1.16) H 01/02/17 07:50 - Physical Exam Constitutional: no apparent distress Eyes: PERRL Ears, Nose, Mouth, Throat: moist mucous membranes Cardiovascular: regular rate and rhythym Respiratory: no respiratory distress Gastrointestinal: normoactive bowel sounds, soft, non-tender abdomen Skin: warm Musculoskeletal: other (decreased sensation b/l LE's) Neurologic: AAOx3 Psychiatric: interacting appropriately ICD10 Worksheet Patient Problems: Problems Problem Status Onset Hyponatremia Acute Quadriplegia Acute Weakness Acute Chronic incomplete flaccid quadriplegia Acute Severe sepsis Acute UTI (urinary tract infection) Acute
[2017-01-03] MEDS ORDERED: NS 1,000 ML IV SCH (12:00)
[2017-01-03] MEDS ORDERED: MAGNESIUM SULF 1 GM/DEXTROSE 100 ML IV ONE (12:20)
[2017-01-03] MEDS ORDERED: NS 500 ML IV ONE (16:19)
[2017-01-03 16:54] LABS: ANION GAP 6 mEq/L (8-16); CALCIUM 8.1 mg/dL (8.5-10.4); CARBON DIOXIDE 29 mEq/l (22-31); CHLORIDE 94 mEq/L (97-110); CREATININE 0.5 mg/dL (0.6-1.0); GLOMERULAR FILTRATION RATE > 60; GLUCOSE 106 mg/dL (70-100); POTASSIUM 3.6 mEq/L (3.5-5.2); SODIUM 129 mEq/L (134-144)
[2017-01-03] MEDS: QUEtiapine FUMARATE 25 MG TAB PO SCH (19:59)
[2017-01-03] MEDS: DIAZEPAM 2 MG TAB PO SCH (19:59)
[2017-01-03] MEDS: traZODone 50 MG TAB PO SCH (19:59)
[2017-01-03] MEDS ORDERED: PATCH REMOVAL 1 EA PATCH TD SCH (21:00)
[2017-01-03] MEDS: INSULIN GLARGINE 100 UNITS/ML SYRINGE SC SCH (22:36)
[2017-01-04] MEDS: MICONAZOLE 2% TP SCH ×2 (05:32→12:03)
[2017-01-04] MEDS: BACLOFEN 10 MG TAB PO SCH ×2 (05:32→12:34)
[2017-01-04] MEDS: LEVOTHYROXINE 88 MCG TAB PO SCH (05:32)
[2017-01-04 05:51] LABS: ANION GAP 7 mEq/L (8-16); CALCIUM 8.1 mg/dL (8.5-10.4); CARBON DIOXIDE 28 mEq/l (22-31); CHLORIDE 99 mEq/L (97-110); CREATININE 0.5 mg/dL (0.6-1.0); GLOMERULAR FILTRATION RATE > 60; GLUCOSE 109 mg/dL (70-100); POTASSIUM 3.7 mEq/L (3.5-5.2); SODIUM 134 mEq/L (134-144)
[2017-01-04] MEDS ORDERED: COSYNTROPIN 0.25 MG/2 ML SYRINGE IVP ONE (06:00)
[2017-01-04] MEDS: INSULIN LISPRO 100 UNIT/ML SC SCH ×2 (07:47→12:34)
[2017-01-04] MEDS ORDERED: POTASSIUM CL 10 MEQ TAB PO ONE (08:47)
[2017-01-04] MEDS: LIDOCAINE 5% 1 EA PATCH TD SCH (09:29)
[2017-01-04] MEDS: CHOLECALCIFEROL VIT D3 1,000 UNITS TAB PO SCH (09:30)
[2017-01-04] MEDS: ENOXAPARIN 40 MG/0.4 ML SYR SC SCH (09:30)
[2017-01-04] MEDS: GABAPENTIN 100 MG CAP PO SCH (09:30)
[2017-01-04] MEDS: SENNOSIDES/DOCUSATE SODIUM TAB PO SCH (09:30)
[2017-01-04] MEDS: DOCUSATE SODIUM 100 MG CAP PO SCH (09:30)
[2017-01-04] MEDS: METHENAMINE HIPP 1 GM TAB PO SCH (09:31)
[2017-01-04 11:35] VITALS: BP 96/51; PULSE 87; RESP 17; TEMP 99.8; O2SAT 91
--- NOTE | 2017-01-04 12:12 | GDS ---
[f rep st] DISCHARGE SUMMARY DISCHARGE DIAGNOSES: 1. Weakness, thought to be due to hypovolemic hyponatremia. 2. Possible urinary tract infection. 3. Neurogenic bladder with indwelling Morris. 4. Type 2 diabetes mellitus. 5. Anxiety and depression. 6. Hypothyroidism. 7. Gastroesophageal reflux disease. HOSPITAL COURSE: Weakness and hyponatremia: The patient was admitted to the hospital, where her in itial sodium was 121. Within 24 hours, her sodium increased to 132; and on the day of discharge, he r sodium is up to 134. Currently, she states she is feeling well and is much stronger. The diagnos is of adrenal insufficiency was entertained. Cortisol level was sent that was within normal range a t 5.5. A cosyntropin test was attempted; however, the cortisol levels, pre and post, were not drawn . On the day of discharge, the patient states she is feeling better and is agreeable to discharge h ome. Her urine culture has grown Enterococcus with 20-30,000 colonies. This likely represents colo nization. She has not received antibiotics while here in the hospital. PHYSICAL EXAM: VITAL SIGNS: On the day of discharge, blood pressure 96/51, pulse of 87, respirator y rate 17, O2 sat 91% on 0.5 L. GENERAL: No acute distress. PERTINENT LABORATORY AND X-RAY DATA: Urine culture grew 20-30,000 colonies of Enterococcus faecalis . Sensitivities are pending. Chest x-ray done 01/02/2017, refer to report. DISCHARGE MEDICATIONS: Please refer to discharge medication reconciliation in [facility] for details. DISCHARGE INSTRUCTIONS: The patient will be discharged back to her residential facility. She s hould be monitored to ensure that she is maintaining adequate hydration and oral nutrition. If she does develop signs and symptoms of a urinary tract infection, I would recommend following up the uri ne culture done to see the sensitivities for the Enterococcus that was in her urine. It would be re asonable to pursue further diagnosis of adrenal insufficiency if she continues to have problems with hyponatremia. Greater than 30 minutes were spent on the discharge of this patient. /[id number]/MODL
--- NOTE | 2017-01-04 13:45 | PDIAF ---
- Diagnosis Diagnosis: hyponatremia Code Status: Do Not Resuscitate - Medication Management Discharge Medications: Medications to Continue on Transfer Baclofen [Baclofen 10 mg (*)] 10 mg PO QID 11/03/15 [Last Taken 07/11/16 07:30] Citalopram Hydrobromide [Celexa] 40 mg PO DAILY 11/03/15 [Last Taken 07/11/16 07 :30] Docusate Sodium [Colace 100 MG (*)] 100 mg PO DAILY 11/03/15 [Last Taken 1 Day Ago] Gabapentin [Neurontin 100 MG (*)] 200 mg PO TID 11/03/15 [Last Taken 07/11/16 07 :30] Insulin Glargine [Lantus 100 UNITS/ML (*)] 10 units SC HS 11/03/15 [Last Taken 07/10/16 20:00] Levothyroxine [Synthroid 88 mcg (*)] 88 mcg PO DAILY06 11/03/15 [Last Taken 1 Day Ago] Multivitamins [Multivitamin (*)] 1 each PO DAILY 11/03/15 [Last Taken 07/04/16] Ondansetron Odt [Zofran Odt 4 mg (*)] 4 mg PO Q8 PRN 11/03/15 [Last Taken 1 Month Ago] Polyethylene Glycol 3350 [Miralax 17 gm (*)] 17 gm PO DAILY PRN 11/03/15 [Last Taken 1 Day Ago] Sennosides/Docusate Sodium [Senokot-S] 1 each PO BID 11/03/15 [Last Taken 1 Day Ago] Simethicone [GAS-X] 160 mg PO Q4 PRN 11/03/15 [Last Taken 1 Day Ago] traMADol [Ultram 50 mg (*)] 50 mg PO Q6HRS PRN 11/03/15 [Last Taken 1 Day Ago] traZODone [traZODONE 50MG (*)] 50 mg PO HS 11/03/15 [Last Taken 1 Day Ago] Lidocaine 5% [Lidoderm 5% Patch (*)] 1 ea TD DAILY 06/26/16 [Last Taken Unknown] Acetaminophen [Tylenol 325mg (*)] 650 mg PO Q6HRS PRN 01/02/17 [Last Taken Unknown] Amox Tr/K Clav (Augmentin) [Augmentin 500/125 MG TAB (*)] 1 each PO BID [Last Taken Unknown] Bisacodyl [Dulcolax] 10 mg NV Q2D PRN 01/02/17 [Last Taken Unknown] Cholecalciferol Vit D3 [Vitamin D3 (*)] 1,000 units PO DAILY 01/02/17 [Last Taken Unknown] Dextrose Oral Gel [Glucose Gel (*)] 15 gm PO PRN PRN 01/02/17 [Last Taken Unknown] Diazepam [Valium 2 MG (*)] 2 mg PO DAILY PRN 01/02/17 [Last Taken Unknown] Diazepam [Valium 2 MG (*)] 2 mg PO HS 01/02/17 [Last Taken Unknown] Glucagon,Human Recombinant [Glucagon Emergency Kit] 1 mg IM PRN PRN 01/02/17 [ Last Taken Unknown] LORazepam [Ativan (*)] 0.5 mg PO BID PRN 01/02/17 [Last Taken Unknown] Metformin HCl [Metformin 1000 mg] 1,000 mg PO DAILY 01/02/17 [Last Taken Unknown ] Methenamine Estephania [Hiprex 1 gm (*)] 0.5 gm PO BID 01/02/17 [Last Taken Unknown] Miconazole Powder 2% 1 jaron TP QID 01/02/17 [Last Taken Unknown] QUEtiapine FUMARATE [Seroquel 25 mg (*)] 37.5 mg PO HS 01/02/17 [Last Taken Unknown] Santyl/Mupirocin 1:1 Oint 1 jaron TP DAILY 01/02/17 [Last Taken Unknown] guaiFENesin [Mucinex 600 MG (*)] 600 mg PO Q12HRS PRN 01/02/17 [Last Taken Unknown] metFORMIN HCL [Glucophage 500 mg (*)] 500 mg PO HS 01/02/17 [Last Taken Unknown] oxyCODONE IR [Oxycodone Ir (*)] 5 mg PO Q4HRS PRN 01/02/17 [Last Taken Unknown] oxyCODONE IR [Oxycodone Ir (*)] 10 mg PO Q4HRS PRN 01/02/17 [Last Taken Unknown] traMADol [Ultram 50 mg (*)] 50 mg PO DAILY 01/02/17 [Last Taken Unknown] Discharge Medications: Refer to the Discharge Home Medication list for PRN reason. - Orders Diet Recommendation: no restrictions on diet Diet Texture: Regular Texture Diet - Follow Up Care Current Providers and Referrals: Patient,NotPresent [Unknown] - As per Instructions
== END 2017-01-04 14:38 | DRG 640 ==
LOC: EDUNIT# → OBSVTOIN 11:29 → F2N 13:27 → F3E 01-03 14:44
PROVIDERS: ADMIT Hospitalist; ATTEND Hospitalist
PROC: 02HV33Z Insertion of Infusion Device into Superior Vena Cava, Percutaneous Approach (ICD-10-PCS; principal; 2017-01-02)
DX: E87.1 Hypo-osmolality and hyponatremia (principal); N39.0 Urinary tract infection, site not specified; G82.54 Quadriplegia, C5-C7 incomplete; N31.9 Neuromuscular dysfunction of bladder, unspecified; E11.9 Type 2 diabetes mellitus without complications; L89.150 Pressure ulcer of sacral region, unstageable; L89.302 Pressure ulcer of unspecified buttock, stage 2; I48.0 Paroxysmal atrial fibrillation; E03.9 Hypothyroidism, unspecified; K21.9 Gastro-esophageal reflux disease without esophagitis; Z96.0 Presence of urogenital implants
CPT/HCPCS: 96365; C1751; J0696; J0834; J1650; J1815; J2405; J3475

== ENCOUNTER → 2017-01-07 | Outpatient (CLI) | payer OTHER, MEDICAID | LOC: FIMAGING 10:37 | DX: Z13.820 Encounter for screening for osteoporosis (principal); M81.0 Age-related osteoporosis without current pathological fracture; Z78.0 Asymptomatic menopausal state; S42.002D Fracture of unspecified part of left clavicle, subsequent encounter for fracture with routine healing ==

== ENCOUNTER 2017-01-23 06:17 | Day surgery (SDC) | payer OTHER, MEDICAID ==
--- NOTE | 2017-01-22 15:25 | GHP ---
[f rep st] PREOP HISTORY AND PHYSICAL DATE OF ADMISSION: 01/23/2017 ADMISSION DIAGNOSIS: Neurogenic bladder with urinary incontinence. HISTORY OF PRESENT ILLNESS: This is a 61-year-old lady who has presented from [facility] because of neurogenic bladder and desiring to have a suprapubic catheter placed. She has had indwelling joseph ter and has had multiple UTIs with Proteus, Enterococcus and E coli in the past. We have discussed the various options and at the present time, with her being a quadriplegic secondary to a C-spine in [facility], she has requested a suprapubic catheter and she is admitted for the above procedure. MEDICATIONS: Include Ativan, Celexa, Colace, Dulcolax. She has a Glucagon emergency kit, Lantus, l evothyroxine, methenamine. PAST SURGERIES: Back surgery and neck surgery. PAST MEDICAL HISTORY: Adrenal mass left, arthritis, neurologic deficit. ALLERGIES: Codeine. FAMILY HISTORY: Noncontributory. SOCIAL HISTORY: Nondrinker and nonsmoker. . REVIEW OF SYSTEMS: Negative cardiac, respiratory, GI and endocrine. Positive musculoskeletal, whee lchair confined. PHYSICAL EXAMINATION: GENERAL: She is confined to the wheelchair. EYES: Normal, no scleral icter us. RESPIRATORY: Effort normal without accessory muscle use. ABDOMEN: Obese. SKIN: Normal. LO WER EXTREMITIES: Normal. At the present time she is admitted for suprapubic catheter placement. Indications and complication s have all been discussed. Written and verbal consent was obtained. /[id number]/MODL
[2017-01-23] MEDS ORDERED: CLINDAMYCIN 900 MG/DEXTROSE 50 ML IV ONE (06:42)
--- NOTE | 2017-01-23 06:42 | PDHPUP ---
History & Physical Update H&P update statement: This history and physical update is based on an assessment of the patient which was completed after admission or registration (within 24 hours), but prior to the surgery/procedure.
[2017-01-23] MEDS ORDERED: PROPOFOL 200 MG/20 ML VIAL ONE ×2 (06:52)
[2017-01-23] MEDS ORDERED: fentaNYL 100 MCG/2 ML INJ ONE (06:52)
--- NOTE | 2017-01-23 07:06 | PDANEPAE ---
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 MINIMAL USE OF ARMS - Endocrine History Hx Diabetes: Yes Endocrine History Comment: DMII. HYPOTHYROID - Renal History Hx Renal Disorders: Yes Renal History Comment: NEUROGENIC BLADDER. S/P CATHETER - Neurological & Psychiatric Hx Hx Neurological and Psychiatric Disorders: Yes Neurological / Psychiatric History Comment: ANXIETY/DEPRESSION - GI History Hx Gastrointestinal Disorders: Yes Gastrointestinal History Comment: GERD - Chronic Pain History Chronic Pain: Yes ANE Review of Systems - Exercise capacity Exercise capacity: limited by disability (paraplegic, wheelchair bound) ANE Patient History - Allergies Allergies/Adverse Reactions: codeine [Codeine] Allergy (Verified 11/03/15 02:46) - Home Medications Home medications: home medication list seen and reviewed Home Medications: Baclofen [Baclofen 10 mg (*)] 10 mg PO QID 11/03/15 [Last Taken 07/11/16 07:30] Citalopram Hydrobromide [Celexa] 40 mg PO DAILY 11/03/15 [Last Taken 07/11/16 07 :30] Docusate Sodium [Colace 100 MG (*)] 100 mg PO DAILY 11/03/15 [Last Taken 1 Day Ago] Gabapentin [Neurontin 100 MG (*)] 200 mg PO TID 11/03/15 [Last Taken 07/11/16 07 :30] Insulin Glargine [Lantus 100 UNITS/ML (*)] 10 units SC HS 11/03/15 [Last Taken 07/10/16 20:00] Levothyroxine [Synthroid 88 mcg (*)] 88 mcg PO DAILY06 11/03/15 [Last Taken 1 Day Ago] Multivitamins [Multivitamin (*)] 1 each PO DAILY 11/03/15 [Last Taken 07/04/16] Ondansetron Odt [Zofran Odt 4 mg (*)] 4 mg PO Q8 PRN 11/03/15 [Last Taken 1 Month Ago] Polyethylene Glycol 3350 [Miralax 17 gm (*)] 17 gm PO DAILY PRN 11/03/15 [Last Taken 1 Day Ago] Sennosides/Docusate Sodium [Senokot-S] 1 each PO BID 11/03/15 [Last Taken 1 Day Ago] Simethicone [GAS-X] 160 mg PO Q4 PRN 11/03/15 [Last Taken 1 Day Ago] traMADol [Ultram 50 mg (*)] 50 mg PO Q6HRS PRN 11/03/15 [Last Taken 1 Day Ago] traZODone [traZODONE 50MG (*)] 50 mg PO HS 11/03/15 [Last Taken 1 Day Ago] Lidocaine 5% [Lidoderm 5% Patch (*)] 1 ea TD DAILY 06/26/16 [Last Taken Unknown] Acetaminophen [Tylenol 325mg (*)] 650 mg PO Q6HRS PRN 01/02/17 [Last Taken Unknown] Amox Tr/K Clav (Augmentin) [Augmentin 500/125 MG TAB (*)] 1 each PO BID [Last Taken Unknown] Bisacodyl [Dulcolax] 10 mg [place] Q2D PRN 01/02/17 [Last Taken Unknown] Cholecalciferol Vit D3 [Vitamin D3 (*)] 1,000 units PO DAILY 01/02/17 [Last Taken Unknown] Dextrose Oral Gel [Glucose Gel (*)] 15 gm PO PRN PRN 01/02/17 [Last Taken Unknown] Diazepam [Valium 2 MG (*)] 2 mg PO DAILY PRN 01/02/17 [Last Taken Unknown] Diazepam [Valium 2 MG (*)] 2 mg PO HS 01/02/17 [Last Taken Unknown] Glucagon,Human Recombinant [Glucagon Emergency Kit] 1 mg IM PRN PRN 01/02/17 [ Last Taken Unknown] LORazepam [Ativan (*)] 0.5 mg PO BID PRN 01/02/17 [Last Taken Unknown] Metformin HCl [Metformin 1000 mg] 1,000 mg PO DAILY 01/02/17 [Last Taken Unknown ] Methenamine Estephania [Hiprex 1 gm (*)] 0.5 gm PO BID 01/02/17 [Last Taken Unknown] Miconazole Powder 2% 1 jaron TP QID 01/02/17 [Last Taken Unknown] QUEtiapine FUMARATE [Seroquel 25 mg (*)] 37.5 mg PO HS 01/02/17 [Last Taken Unknown] Santyl/Mupirocin 1:1 Oint 1 jaron TP DAILY 01/02/17 [Last Taken Unknown] guaiFENesin [Mucinex 600 MG (*)] 600 mg PO Q12HRS PRN 01/02/17 [Last Taken Unknown] metFORMIN HCL [Glucophage 500 mg (*)] 500 mg PO HS 01/02/17 [Last Taken Unknown] oxyCODONE IR [Oxycodone Ir (*)] 5 mg PO Q4HRS PRN 01/02/17 [Last Taken Unknown] oxyCODONE IR [Oxycodone Ir (*)] 10 mg PO Q4HRS PRN 01/02/17 [Last Taken Unknown] traMADol [Ultram 50 mg (*)] 50 mg PO DAILY 01/02/17 [Last Taken Unknown] - NPO status NPO Since - Liquids (Date): 01/23/17 NPO Since - Liquids (Time): 04:00 NPO Since - Solids (Date): 01/22/17 NPO Since - Solids (Time): 18:00 - Anes Hx Anes Hx: no prior problems - Smoking Hx Smoking Status: Never smoked ANE Labs/Vital Signs - Vital Signs Height: 157.48 cm Weight: 82.024 kg ANE Physical Exam - Airway Neck exam: FROM Mallampati Score: Class 3 Mouth exam: small mouth opening - Pulmonary Pulmonary: no respiratory distress - Cardiovascular Cardiovascular: regular rate and rhythym - ASA Status ASA Status: III ANE Anesthesia Plan Anesthesia Plan: general endotracheal anesthesia
[2017-01-23] MEDS ORDERED: MIDAZOLAM 2 MG/2 ML VIAL IVP ONE (07:10)
[2017-01-23] MEDS ORDERED: LIDOCAINE 1% 2 ML INJ ONE (07:11)
[2017-01-23] MEDS ORDERED: MIDAZOLAM 2 MG/2 ML VIAL ONE (07:15)
[2017-01-23] MEDS ORDERED: LR 1,000 ML IV ONE (07:33)
[2017-01-23] MEDS ORDERED: LIDOCAINE 1% 2 ML INJ ID PRN (07:33)
[2017-01-23] MEDS ORDERED: ROCURONIUM 100 MG/10 ML VIAL ONE (08:10)
[2017-01-23] MEDS ORDERED: ONDANSETRON 4 MG/2 ML VIAL IVP PRN (08:11)
[2017-01-23] MEDS ORDERED: OXYCODONE/APAP 5/325 TAB PO PRN (08:11)
[2017-01-23] MEDS ORDERED: fentaNYL 100 MCG/2 ML INJ IVP PRN (08:11)
[2017-01-23] MEDS ORDERED: NALOXONE HCL 0.4 MG/ML INJ IVP PRN (08:11)
[2017-01-23] MEDS ORDERED: DEXAMETHASONE 4 MG/ML VIAL IVP PRN (08:11)
[2017-01-23] MEDS ORDERED: HYDROmorphONE/DILAUDID 1 MG/ML SYR IVP PRN (08:11)
[2017-01-23] MEDS ORDERED: ACETAMINOPHEN 500 MG TAB PO PRN (08:11)
[2017-01-23] MEDS ORDERED: SUGAMMADEX SODIUM 200 MG/2 ML VIAL IVP ONE ×2 (08:15)
--- NOTE | 2017-01-23 08:31 | POSTANESTH ---
Post Anesthetic Evaluation Cardiovascular Status: Normal, Stable Respiratory Status: Normal, Stable Level of Consciousness/Mental Status: Can Participate in Eval Pain Control: Adequate, Prn Tx Ordered Nausea/Vomiting Control: Adequate, Prn Tx Ordered Complications Possibly Related to Anesthesia: None Noted
--- NOTE | 2017-01-23 08:52 | POSTOPPROG ---
Post Op Note Date of Operation: 01/23/17 Surgeon: Kevin De León Anesthesia: GET(General Endotracheal) Pre-op Diagnosis: neurogenic bladder Post-op Diagnosis: same + patulous incompetent bladder neck / ext sphincter Procedure: Transurethral Suprapubic endo-Cystostomy (TSPeC T14) Findings: pataulous urethra Inf/Abcess present in the surg proc area at time of surgery?: No EBL: Minimal Complications: none Drains: Other (SP cath 16 luxembourgish, dictated note)
--- NOTE | 2017-01-23 09:04 | GOP ---
[f rep st] OPERATIVE REPORT DATE OF OPERATION: 01/23/2017 SURGEON: Kevin De León MD PREOPERATIVE DIAGNOSIS: Neurogenic bladder with urinary incontinence. POSTOPERATIVE DIAGNOSIS: Neurogenic bladder with urinary incontinence. PROCEDURE PERFORMED: Suprapubic catheter placement. FINDINGS: SPECIMENS: No specimens obtained. ESTIMATED BLOOD LOSS: Less than 5 mL. DESCRIPTION OF PROCEDURE: After undergoing appropriate discussion preoperatively, a time-out was pe rformed. After being prepped and draped in normal sterile fashion and with general anesthesia, insp ection of her urethra noted a large patulous urethra. Catheter was removed. Cystoscopy revealed a normal bladder with no tumors. I filled her bladder to capacity and then was able to take a T-SPeC T14 transurethral suprapubic endo cystotomy device, place that in the urethra, and then went to the posterior part of the pubis and drove back so there was pressure on the top of the pubic bone. Coul d feel the device just above that. At that point, the skin guidance attachment was placed, then eng aged the cystotomy blade, and it was brought up through the skin. I was able to undo the blade from the device and attach the catheter. Then at that point, I brought the catheter out to the urethra and was able to pass it back into the bladder where I could identify the balloon. Inflated the ball oon and that irrigated well. My concern on this patient is she has a very large patulous urethra th at could accommodate my index finger and could feel inside the bladder. This was definitely not in the vagina. This may not be effective, and she may need to have her bladder neck closed off in the future because of the wide patulous urethra from her long-term catheterization with her neurologic s tatus. We will discuss that with her postop, and she will need to be in diapers. If she has total incontinence, then further procedure in the future will be recommended. COMPLICATIONS: None. /[id number]/MODL
[2017-01-23 10:01] VITALS: PULSE 86; RESP 16; TEMP 98.1
[2017-01-23 11:37] VITALS: BP 133/64; O2SAT 96
== END 2017-01-23 10:31 | disposition home or self-care (01) ==
LOC: FSGY 06:17
PROVIDERS: ATTEND Specialist
PROC: 0T9B30Z Drainage of Bladder with Drainage Device, Percutaneous Approach (ICD-10-PCS; principal; 2017-01-23 07:15)
DX: N31.9 Neuromuscular dysfunction of bladder, unspecified (principal); R32 Unspecified urinary incontinence; Z66 Do not resuscitate
CPT/HCPCS: 51102; C2627; J2250; J2704; J3010

== ENCOUNTER 2017-01-29 10:47 | Inpatient (IN) | payer OTHER, MEDICAID ==
--- NOTE | 2017-01-29 12:27 | EDPHY ---
H & P Stated Complaint: eval pressure ulcer and hyponatremia Time Seen by Provider: 01/29/17 12:26 - Personal History Current Tetanus/Diphtheria Vaccine: Yes Current Tetanus Diphtheria and Acellular Pertussis (TDAP): Yes Tetanus Vaccine Date: Within last 5 years - Medical/Surgical History Hx Asthma: No Hx Chronic Respiratory Disease: No Hx Diabetes: Yes Hx Cardiac Disease: Yes Hx Renal Disease: No Hx Cirrhosis: No Hx Alcoholism: No Hx HIV/AIDS: No Hx Splenectomy or Spleen Trauma: No Other PMH: PMH: Quadripalegia, A-fib, HTN, GERD, hypothyroid, DM2, anxiety, insomnia, chronic hyponatremia, pressure ulcer coccyx - Social History Smoking Status: Never smoked Constitutional: Initial Vital Signs Temperature (C) 37.1 C 01/29/17 11:01 Heart Rate 88 01/29/17 11:01 Respiratory Rate 16 01/29/17 11:01 Blood Pressure 96/63 L 01/29/17 11:01 O2 Sat (%) 86 L 01/29/17 11:01 O2 Delivery Mode Nasal Cannula O2 (L/minute) 2 Allergies/Adverse Reactions: ceftriaxone Allergy (Verified 01/29/17 16:00) codeine [Codeine] Allergy (Verified 11/03/15 02:46) Home Medications: Medication Instructions Recorded Baclofen [Baclofen 10 mg (*)] 10 mg PO QID 11/03/15 Citalopram Hydrobromide [Celexa] 40 mg PO DAILY 11/03/15 Docusate Sodium [Colace 100 MG (*)] 100 mg PO DAILY 11/03/15 Gabapentin [Neurontin 100 MG (*)] 200 mg PO TID 11/03/15 Insulin Glargine [Lantus 100 10 units SC HS 11/03/15 UNITS/ML (*)] Levothyroxine [Synthroid 88 mcg 88 mcg PO DAILY06 11/03/15 (*)] Multivitamins [Multivitamin (*)] 1 each PO DAILY 11/03/15 Ondansetron Odt [Zofran Odt 4 mg 4 mg PO Q8 PRN 11/03/15 (*)] Polyethylene Glycol 3350 [Miralax 17 gm PO DAILY PRN 11/03/15 17 gm (*)] Sennosides/Docusate Sodium 1 each PO BID 11/03/15 [Senokot-S] Simethicone [GAS-X] 160 mg PO Q4 PRN 11/03/15 traZODone [traZODONE 50MG (*)] 50 mg PO HS 11/03/15 Acetaminophen [Tylenol 325mg (*)] 650 mg PO Q6HRS PRN 01/02/17 Bisacodyl [Dulcolax] 10 mg [place] Q2D PRN 01/02/17 Cholecalciferol Vit D3 [Vitamin D3 1,000 units PO DAILY 01/02/17 (*)] Dextrose Oral Gel [Glucose Gel (*)] 15 gm PO PRN PRN 01/02/17 Diazepam [Valium 2 MG (*)] 2 mg PO DAILY PRN 01/02/17 Diazepam [Valium 2 MG (*)] 2 mg PO HS 01/02/17 Glucagon,Human Recombinant 1 mg IM PRN PRN 01/02/17 [Glucagon Emergency Kit] Metformin HCl [Metformin 1000 mg] 1,000 mg PO DAILY 01/02/17 Methenamine Estephania [Hiprex 1 gm (*)] 0.5 gm PO BID 01/02/17 Miconazole Powder 2% 1 jaron TP QID 01/02/17 QUEtiapine FUMARATE [Seroquel 25 37.5 mg PO HS 01/02/17 mg (*)] guaiFENesin [Mucinex 600 MG (*)] 600 mg PO Q12HRS PRN 01/02/17 oxyCODONE IR [Oxycodone Ir (*)] 5 mg PO Q4HRS PRN 01/02/17 oxyCODONE IR [Oxycodone Ir (*)] 10 mg PO Q4HRS PRN 01/02/17 Albuterol [Proventil Neb] 3 ml IH Q6HRS PRN 01/29/17 Budesonide/Formoterol 160/4.5 2 puffs IH BID 01/29/17 [Symbicort 160-4.5 Mcg Inh (*)] Herbals/Supplements -Info Only 1 ea PO DAILY 01/29/17 cefTRIAXone [Rocephin 1 gm Vial] 1 gm IM DAILY PRN 01/29/17 clonazePAM [klonoPIN (*)] 1 mg PO BID PRN 01/29/17 metFORMIN HCL [Glucophage 500 mg 500 mg PO HS 01/29/17 (*)] Medical Decision Making - Diagnostics Imaging Results: Imaging Impressions Chest X-Ray 01/29/17 14:42 Impression: 1. No definite pneumonia or pulmonary edema. 2. Consider chest two views when the patient's medical condition permits. ED Course/Re-evaluation: CHIEF COMPLAINT: Decubitus ulcer management HISTORY OF PRESENT ILLNESS: This patient is a pleasant 61 year old female with partial quadriplegia secondary to trauma 8 years ago presenting with worsening decubitus ulcer to her back and buttocks. She is followed by wound care for this, and presents today due to worsening condition and development of systemic symptoms including fever, loss of appetite, and nausea. She has been treated with antibiotics by her wound care team. REVIEW OF SYSTEMS: A 10 point review of systems was performed and is negative with the exception of the elements mentioned in the history of present illness. PHYSICAL EXAM: HR, BP, O2 Sat, RR. Temp noted General Appearance: Alert, well hydrated, appropriate, and non-toxic appearing. Head: Atraumatic without scalp tenderness or obvious injury Throat: Mucus membranes moist. Neck: Supple Respiratory: No retractions, no distress, no wheezes, and no accessory muscle use. Cardiovascular: Regular rate and rhythm. Good capillary refill all extremities. Gastrointestinal: Abdomen is soft, non-distended. Musculoskeletal: Atraumatic. Neurological: Quadriplegic Skin: [id number] stage 4 decubitus ulcer to back and buttocks. Eschar and cellulitis present. Truncal distribution rash. Past medical/surgical history: Quadripalegia (C5, 8 years ago), A-fib, Hypertension, GERD, hypothyroid, type II diabetes mellitus, anxiety, insomnia, chronic hyponatremia Family history: Noncontributory. Social history: [facility] at [facility]. DIFFERENTIAL DIAGNOSIS: Includes but not limited to decubitus ulcer stage IV, acute anaphylactoid reaction, urticarial reaction, and other infectious causes for skin rash MEDICAL DECISION MAKING: This patient is a 61 year old female with history of chronic decubitus ulcer presenting for advanced management of this wound. Physical exam reveals [id number] stage 4 decubitus ulcer to back and buttocks with eschar and cellulitis. Truncal distribution rash, likely secondary to antibiotic administration. The wound will require surgical debridement and continuing wound care management. Plan to admit. Plan for labs including I-Stat, CBC, BMP. Plan to administer 125mg IV methylprednisolone for symptom management. 12:[address] Spoke to hospitalist service. Dr. Escobar accepts admission for decubitus ulcer and wound management. - Data Points Laboratory Results: Laboratory Results 01/29/17 15:56 01/29/17 15:56 01/29/17 01/29/17 01/29/17 15:56 15:56 15:56 WBC Pending 12.73 10^3/uL H 10^3/uL (3.80-9.50) RBC Pending 3.93 10^6/uL L 10^6/uL (4.18-5.33) Hgb Pending 11.0 g/dL L g/dL (12.6-16.3) POC Hgb Hct Pending 33.8 % L % (38.0-47.0) POC Hct MCV Pending 86.0 fL fL (81.5-99.8) MCH Pending 28.0 pg pg (27.9-34.1) MCHC Pending 32.5 g/dL g/dL (32.4-36.7) RDW Pending 14.4 % % (11.5-15.2) Plt Count Pending 442 10^3/uL H 10^3/uL (150-400) MPV 9.2 fL fL (8.7-11.7) Neut % (Auto) 66.5 % % (39.3-74.2) Lymph % (Auto) 20.8 % % (15.0-45.0) Benzie % (Auto) 9.1 % % (4.5-13.0) Eos % (Auto) 2.7 % % (0.6-7.6) Baso % (Auto) 0.4 % % (0.3-1.7) Nucleat RBC Rel Count 0.0 % % (0.0-0.2) Absolute Neuts (auto) 8.47 10^3/uL H 10^3/uL (1.70-6.50) Absolute Lymphs (auto) 2.65 10^3/uL 10^3/uL (1.00-3.00) Absolute Monos (auto) 1.16 10^3/uL H 10^3/uL (0.30-0.80) Absolute Eos (auto) 0.34 10^3/uL 10^3/uL (0.03-0.40) Absolute Basos (auto) 0.05 10^3/uL 10^3/uL (0.02-0.10) Absolute Nucleated RBC 0.00 10^3/uL 10^3/uL (0-0.01) Immature Gran % 0.5 % % (0.0-1.1) Immature Gran # 0.06 10^3/uL 10^3/uL (0.00-0.10) POC Sodium Sodium 134 mEq/L mEq/L (134-144) POC Potassium Potassium 4.2 mEq/L mEq/L (3.5-5.2) POC Chloride Chloride 101 mEq/L mEq/L (97-110) Carbon Dioxide 27 mEq/l mEq/l (22-31) Anion Gap 6 mEq/L L mEq/L (8-16) POC BUN BUN 8 mg/dL mg/dL (7-23) Creatinine 0.5 mg/dL L mg/dL (0.6-1.0) POC Creatinine Estimated GFR > 60 Glucose 116 mg/dL H mg/dL (70-100) POC Glucose Calcium 8.6 mg/dL mg/dL (8.5-10.4) 01/29/17 11:45 WBC RBC Hgb POC Hgb 12.2 gm/dL L gm/dL (12.6-16.3) Hct POC Hct 36 % L % (38-47) MCV MCH MCHC RDW Plt Count MPV Neut % (Auto) Lymph % (Auto) Benzie % (Auto) Eos % (Auto) Baso % (Auto) Nucleat RBC Rel Count Absolute Neuts (auto) Absolute Lymphs (auto) Absolute Monos (auto) Absolute Eos (auto) Absolute Basos (auto) Absolute Nucleated RBC Immature Gran % Immature Gran # POC Sodium 135 mEq/L mEq/L (134-144) Sodium POC Potassium 4.6 mEq/L mEq/L (3.3-5.0) Potassium POC Chloride 95 mEq/L L mEq/L (97-110) Chloride Carbon Dioxide Anion Gap POC BUN 5 mg/dL L mg/dL (7-23) BUN Creatinine POC Creatinine 0.6 mg/dL mg/dL (0.6-1.0) Estimated GFR Glucose POC Glucose 130 mg/dL H mg/dL (70-100) Calcium Medications Given: Discontinued Medications Methylprednisolone Sodium Succinate (Solu-Medrol) 125 mg IVP EDNOW ONE Stop: 01/29/17 12:53 Last Admin: 01/29/17 16:52 Dose: Not Given Point of Care Test Results: 01/29/17 11:45 POC Sodium 135 POC Potassium 4.6 POC Chloride 95 L POC BUN 5 L POC Creatinine 0.6 POC Glucose 130 H Departure - Departure Disposition: [facility] Inpatient Acute Clinical Impression: Decubital ulcer Qualifiers: Pressure ulcer location: contiguous region involving back and buttock Pressure ulcer stage: stage 4 Laterality: unspecified laterality Qualified Code(s): L89.44 - Pressure ulcer of contiguous site of back, buttock and hip, stage 4 Condition: Fair Instructions: [facility] Patient Education, Infection Prevention Referrals: REY OSMAN [Other] - As per Instructions Report Scribed for: Gabo Bass Report Scribed by: Garima Hurtado Date of Report: 01/29/17 Time of Report: 12:36
[2017-01-29] MEDS ORDERED: methylPREDNISolone SOD SUCC 125 MG/2 ML VIAL IVP ONE (12:52)
[2017-01-29] MEDS ORDERED: ACETAMINOPHEN 325 MG TAB PO PRN (14:36)
[2017-01-29] MEDS ORDERED: NS 1,000 ML IV ONE (14:36)
[2017-01-29] MEDS ORDERED: ONDANSETRON DISINTEGRATING 4 MG TAB PO PRN (14:36)
[2017-01-29] MEDS ORDERED: ONDANSETRON 4 MG/2 ML VIAL IVP PRN ×2 (14:36→20:43)
--- NOTE | 2017-01-29 14:36 | WOCRNPDOC ---
JESSICA Advanced Assessment Note - Skin Integrity Problem, Advanced Assess Sacrum Pressure Injury Dressing Type: Gauze Dressing Description: Intact, Shadowed Exudate Amount: Minimal Exudate Characteristic(s): Serosanguinous Integumentary Issue Intervention: Dressing Changed Candis Wound Tissue: Erythema Candis Wound Swelling: None Wound Bed Color: Black, Red, Yellow Wound Bed Constitution: Granulation Tissue (10%), Undermining (12-5 oclock 4 cm) , Bone (approx 5 cm of sacrum palpable/exposed), Adhered Slough (10%), Unstable Eschar (80%) Wound Edges: Not Attached Site Odor: Strong, Foul Site Measurement - Head-to-Toe Length X Width X Depth (cm): 7.5x12.5x3 Pressure Injury Stage: Stage 4 Pressure Injury Present on Admit: Yes Skin Integrity Problem Comment: Large necrotic pressure injury with extensive exposed sacrum. Candis wound skin is erythematic to 1.5 cm around edges of wound. Patient has a large scar approximately 12 cm long extending from right ischial tuberosity through right buttock and joining in sacral pressure injury at 3 oclock. Patient reports having only had surgery on her leg as a result of her fall several years ago. Patient denies any previous surgical pressure injury repair. Discussed findings with patient as well as need for surgical debridement. Also discussed likely wound vac application after debridement and the need to order a clinitron support surface for her. All questions answered. Susan STAFFORD in room for care. Education done with patient about need to offload the area at all times and completely for pressure injury healing to be possible. Consent to photograph signed by patient and a photograph was obtained and placed in the patient's chart. Right Ischial Tuberosity Pressure Injury Dressing Type: Open to Air Exudate Amount: None Wound Bed Constitution: Smooth Tissue Site Measurement - Head-to-Toe Length X Width X Depth (cm): 1.2x0.5x0.1 Pressure Injury Stage: Stage 3 Pressure Injury Present on Admit: Yes Skin Integrity Problem Comment: Healing pressure injury that was a full thickness injury and is now healing. Unknow original stage (charting it as a stage 3 as it is a best guess) and now presents as a partial thickness wound. No sign of infection. Healing appropriately. Left First Toe Pressure Injury Dressing Type: Open to Air Site Measurement - Head-to-Toe Length X Width X Depth (cm): 0.5x0.5x0 Pressure Injury Stage: Stage 1 Pressure Injury Present on Admit: Yes Skin Integrity Problem Comment: Tip of toe. Likely device related. Bilateral heels intact and blanching. Offloading boots placed.
[2017-01-29] MEDS ORDERED: ALTEPLASE 2 MG VIAL IVP PRN (14:40)
[2017-01-29] MEDS ORDERED: guaiFENesin 600 MG TAB.ER PO PRN (15:00)
[2017-01-29] MEDS ORDERED: GLUCOSE-INSTA 15 GM TUBE PO PRN (15:00)
[2017-01-29] MEDS ORDERED: POLYETHYLENE GLYCOL 3350 17 GM PKT PO PRN (15:00)
[2017-01-29] MEDS ORDERED: ALBUTEROL 3 ML DEYVIAL IH PRN (15:00)
[2017-01-29] MEDS ORDERED: SIMETHICONE 80 MG TAB CHEW PO PRN (15:00)
[2017-01-29] MEDS ORDERED: clonazePAM 1 MG TAB PO PRN (15:00)
[2017-01-29] MEDS ORDERED: D50W 25 GM/50 ML SYR IVP PRN (15:14)
--- NOTE | 2017-01-29 15:44 | GHP ---
[f rep st] HISTORY AND PHYSICAL DATE OF ADMISSION: 01/29/2017 CHIEF COMPLAINT: Rash and fever. HISTORY OF PRESENT ILLNESS: A 61-year-old female with a history of a C6 spinal cord injury with par tial quadriplegia and a chronic decubitus wound, who presents with 2 days of subjective fevers and c hills, anorexia, fatigue, and mild nausea, and no vomiting. The patient has had a chronic, large, d ecubitus wound managed by the wound team at [facility] for many months and has not had systemic symp toms during her care and then developed new fevers and systemic symptoms in the last [address] [facility] districte, they initiated IV ceftriaxone therapy, which the patient developed a diffuse, maculopapular rash to. She was transferred to the emergency department for evaluation of her wound and more aggr essive wound management. Patient denies any vomiting, denies any diarrhea, denies any known changes to her urine color or smell from her suprapubic catheter. Patient reports increasing pain of her d ecubitus ulceration. Denies any chest pain. Endorses some increased shortness of breath recently, particularly when she is lying flat. Denies any dysphagia, vision changes, or headache. PAST MEDICAL HISTORY: 1. Partial quadriplegia C6-7 spinal cord injury secondary to a fall. 2. Neurogenic bladder status post suprapubic catheter placement in December 2016. 3. Diabetes mellitus. 4. Hypothyroidism. 5. Gastroesophageal reflux disease. 6. History of paroxysmal atrial fibrillation. 7. Anxiety and depression. SOCIAL HISTORY: Patient lives at [facility]. Denies tobacco, alcohol, or illicit drugs. FAMILY HISTORY: Negative for any heart or lung disease. REVIEW OF SYSTEMS: A 10-point review of systems is negative with the exception of that reported in the HPI. PHYSICAL EXAMINATION: VITAL SIGNS: Blood pressure is 86/51, respiratory rate 17, 95% on 2 L, 37.4. GENERAL: This is a very pleasant, middle-aged female, lying flat in bed, in no acute distress. H EENT: Notable for dry mucous membranes. Eye exam is negative for any icterus. CARDIAC: Patient i s regular rate and rhythm. PULMONARY: Diminished breath sounds at bilateral bases. GASTROINTESTIN AL: Positive bowel sounds. ABDOMEN: Obese, soft, and nontender. MUSCULOSKELETAL: Negative for a ny lower extremity edema. SKIN: Notable for maculopapular rash that involves bilateral arms, the a bdomen, legs, and chest. NEUROLOGIC: Patient is alert and oriented x3. PSYCHIATRIC: She is pleas ant and cooperative on interview and examination. LABORATORY AND X-RAY DATA: Hemoglobin is 12, which is up from recent baseline. Creatinine is 0.6. Blood glucose is 130. Chest x-ray, which I personally reviewed and interpreted, showed no acute in filtrates or edema. ASSESSMENT AND PLAN: This is a 61-year-old diabetic female, presenting with fever and rash. 1. Acute drug reaction. Patient appears to be having a reaction to the ceftriaxone received at [facility]. Will list this as an active allergy and discuss other options with Infectious Disease afte r wound debridement. Can use Benadryl p.r.n. if needed. 2. Severe decubitus ulceration stage IV. This is a large wound extending across the back and botto m depths with visible bone at deepest areas and notable eschars on the periphery of the wound. Have consulted General Surgery, Wound Care, and Infectious Disease. Plan is for original debridement th is evening and then initiation of IV antibiotics with ongoing wound care and a wound plan ongoing, w hich may involve an LTAC and flap. Have ordered a PICC for IV antibiotics and will decide on what a ntibiotics later with Infectious Disease. Blood cultures are being ordered now and p.r.n. pain medi cations written for. 3. Hypotension. It does appear the patient can have fluctuations in her blood pressure. Will flui d resuscitate as she is n.p.o. and monitor. 4. Diabetes mellitus. Will continue her scheduled Lantus and add sliding scale insulin as needed. 5. Partial quadriplegia. Will continue patient's chronic medication regimens for bowel, bladder, a nd musculoskeletal health. 6. Hypothyroidism. Will continue her levothyroxine. 7. Acute hypoxic respiratory failure. I have ordered a chest x-ray that does not show an infiltrat e. Suspect patient may benefit from incentive spirometry alone. Will continue her inhaled medicati ons. 8. Prophylaxis. Will hold Lovenox until after the operating room. 9. Diet. N.p.o. for the operating room. 10. Disposition: Expecting greater than 2 midnights as patient is presenting with complicated medi sarah situation requiring surgical debridement, additional diagnostics, IV antibiotics, and pain medic ations. Discussed the case with Dr. Hernandez, Dr. Garner. We will proceed first with original debridem ent and then treat with IV antibiotics. /[id number]/MODL
[2017-01-29] MEDS ORDERED: MICONAZOLE 2% TP SCH (16:00)
[2017-01-29 16:07] LABS: % IMMATURE GRANULYOCYTES 0.5 % (0.0-1.1); ABSOLUTE IMMATURE GRANULOCYTES 0.06 10^3/uL (0.00-0.10); ADD DIFF? NO; ADD MORPH? NO; ADD SCAN? NO; ATYPICAL LYMPHOCYTE FLAG 20 (0-99); FRAGMENT RBC FLAG 0 (0-99); HEMATOCRIT 33.8 % (38.0-47.0); LEFT SHIFT FLG 10 (0-99); LIPEMIA HEMOLYSIS FLAG 80 (0-99); MEAN CELL HEMOGLOBIN CONCENTR. 32.5 g/dL (32.4-36.7); MEAN PLATELET VOLUME 9.2 fL (8.7-11.7); PLATELET CLUMPS FLAG 0 (0-99); PLATELET COUNT 442 10^3/uL (150-400); RED BLOOD CELL COUNT 3.93 10^6/uL (4.18-5.33); RED CELL DISTRIBUTION WIDTH 14.4 % (11.5-15.2)
[2017-01-29 16:23] LABS: ANION GAP 6 mEq/L (8-16); CALCIUM 8.6 mg/dL (8.5-10.4); CARBON DIOXIDE 27 mEq/l (22-31); CHLORIDE 101 mEq/L (97-110); CREATININE 0.5 mg/dL (0.6-1.0); GLOMERULAR FILTRATION RATE > 60; GLUCOSE 116 mg/dL (70-100); POTASSIUM 4.2 mEq/L (3.5-5.2); SODIUM 134 mEq/L (134-144)
[2017-01-29] MEDS ORDERED: IOPAMIDOL (ISOVUE-300) 100 ML BTL ONE (16:57)
[2017-01-29] MEDS: MICONAZOLE 2% TP SCH ×2 (17:09→22:42)
[2017-01-29] MEDS ORDERED: IOPAMIDOL (ISOVUE 370) 100 ML BTL IV ONE (17:42)
[2017-01-29] MEDS: GABAPENTIN 100 MG CAP PO SCH ×2 (18:08→22:41)
[2017-01-29] MEDS: BACLOFEN 10 MG TAB PO SCH ×2 (18:08→22:41)
[2017-01-29] MEDS: INSULIN LISPRO 100 UNIT/ML SC SCH (18:09)
[2017-01-29] MEDS ORDERED: fentaNYL 100 MCG/2 ML INJ IVP PRN (20:43)
[2017-01-29] MEDS ORDERED: HYDROmorphONE/DILAUDID 1 MG/ML SYR IVP PRN (20:43)
[2017-01-29] MEDS ORDERED: MIDAZOLAM 2 MG/2 ML VIAL IVP ONE (20:43)
[2017-01-29] MEDS ORDERED: NALOXONE HCL 0.4 MG/ML INJ IVP PRN (20:43)
--- NOTE | 2017-01-29 20:43 | PDANEPAE ---
ANE History of Present Illness HERE FOR SURGERY FOR DECUBITUS ULCER ANE Past Medical History - Cardiovascular History Hx Hypertension: No Hx Arrhythmias: No Hx Chest Pain: No Hx Coronary Artery / Peripheral Vascular Disease: No Hx CHF / Valvular Disease: No Hx Palpitations: No Cardiovascular History Comment: PER H&P - REMOTE HX PAF - Pulmonary History Hx COPD: No Hx Asthma/Reactive Airway Disease: No Hx Recent Upper Respiratory Infection: No Hx Oxygen in Use at Home: Yes O2 in Use at Home (L/minute): 2 Hx Sleep Apnea: No Sleep Apnea Screening Result - Last Documented: Positive - Neurologic History Hx Cerebrovascular Accident: No Hx Seizures: No Hx Dementia: No Neurologic History Comment: 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 MINIMAL USE OF ARMS - Endocrine History Hx Diabetes: Yes Endocrine History Comment: DMII. HYPOTHYROID - Renal History Hx Renal Disorders: Yes Renal History Comment: NEUROGENIC BLADDER. S/P CATHETER - Neurological & Psychiatric Hx Hx Neurological and Psychiatric Disorders: Yes Neurological / Psychiatric History Comment: ANXIETY/DEPRESSION - GI History Hx Gastrointestinal Disorders: Yes Gastrointestinal History Comment: GERD - Chronic Pain History Chronic Pain: Yes - Surgical History Prior Surgeries: CYSTO ANE Review of Systems Review of systems is: negative - Exercise capacity Exercise capacity: <4 METS ANE Patient History - Allergies Allergies/Adverse Reactions: ceftriaxone Allergy (Verified 01/29/17 16:00) codeine [Codeine] Allergy (Verified 11/03/15 02:46) - Home Medications Home Medications: Baclofen [Baclofen 10 mg (*)] 10 mg PO QID 11/03/15 [Last Taken 01/22/17] Citalopram Hydrobromide [Celexa] 40 mg PO DAILY 11/03/15 [Last Taken 01/22/17] Docusate Sodium [Colace 100 MG (*)] 100 mg PO DAILY 11/03/15 [Last Taken ] Gabapentin [Neurontin 100 MG (*)] 200 mg PO TID 11/03/15 [Last Taken 01/22/17] Insulin Glargine [Lantus 100 UNITS/ML (*)] 10 units SC HS 11/03/15 [Last Taken 01/22/17] Levothyroxine [Synthroid 88 mcg (*)] 88 mcg PO DAILY06 11/03/15 [Last Taken ] Multivitamins [Multivitamin (*)] 1 each PO DAILY 11/03/15 [Last Taken 01/22/17] Ondansetron Odt [Zofran Odt 4 mg (*)] 4 mg PO Q8 PRN 11/03/15 [Last Taken 1 Month Ago] Polyethylene Glycol 3350 [Miralax 17 gm (*)] 17 gm PO DAILY PRN 11/03/15 [Last Taken 1 Day Ago] Sennosides/Docusate Sodium [Senokot-S] 1 each PO BID 11/03/15 [Last Taken ] Simethicone [GAS-X] 160 mg PO Q4 PRN 11/03/15 [Last Taken 01/22/17] traZODone [traZODONE 50MG (*)] 50 mg PO HS 11/03/15 [Last Taken 01/22/17] Acetaminophen [Tylenol 325mg (*)] 650 mg PO Q6HRS PRN 01/02/17 [Last Taken Unknown] Bisacodyl [Dulcolax] 10 mg MO Q2D 01/02/17 [Last Taken Unknown] Cholecalciferol Vit D3 [Vitamin D3 (*)] 1,000 units PO DAILY 01/02/17 [Last Taken 01/22/17] Dextrose Oral Gel [Glucose Gel (*)] 15 gm PO PRN PRN 01/02/17 [Last Taken Unknown] Diazepam [Valium 2 MG (*)] 2 mg PO DAILY PRN 01/02/17 [Last Taken Unknown] Diazepam [Valium 2 MG (*)] 2 mg PO HS 01/02/17 [Last Taken 01/22/17] Glucagon,Human Recombinant [Glucagon Emergency Kit] 1 mg IM PRN PRN 01/02/17 [ Last Taken Unknown] Metformin HCl [Metformin 1000 mg] 1,000 mg PO DAILY 01/02/17 [Last Taken ] Methenamine Estephania [Hiprex 1 gm (*)] 0.5 gm PO BID 01/02/17 [Last Taken 01/22/17] Miconazole Powder 2% 1 jaron TP QID 01/02/17 [Last Taken 01/22/17] QUEtiapine FUMARATE [Seroquel 25 mg (*)] 37.5 mg PO HS 01/02/17 [Last Taken ] guaiFENesin [Mucinex 600 MG (*)] 600 mg PO Q12HRS PRN 01/02/17 [Last Taken Unknown] oxyCODONE IR [Oxycodone Ir (*)] 5 mg PO Q4HRS PRN 01/02/17 [Last Taken 01/22/17] oxyCODONE IR [Oxycodone Ir (*)] 10 mg PO Q4HRS PRN 01/02/17 [Last Taken Unknown] Albuterol [Proventil Neb] 3 ml IH Q6HRS PRN 01/29/17 [Last Taken Unknown] Budesonide/Formoterol 160/4.5 [Symbicort 160-4.5 Mcg Inh (*)] 2 puffs IH BID 12/11 [Last Taken Unknown] Herbals/Supplements -Info Only 1 ea PO DAILY 01/29/17 [Last Taken Unknown] cefTRIAXone [Rocephin 1 gm Vial] 1 gm IM DAILY PRN 01/29/17 [Last Taken Unknown] clonazePAM [klonoPIN (*)] 1 mg PO BID PRN 01/29/17 [Last Taken Unknown] metFORMIN HCL [Glucophage 500 mg (*)] 500 mg PO HS 01/29/17 [Last Taken Unknown] - NPO status NPO Status: no food or drink >8 hours NPO Since - Liquids (Date): 01/29/17 NPO Since - Liquids (Time): 10:00 NPO Since - Solids (Date): 01/29/17 NPO Since - Solids (Time): 10:00 - Smoking Hx Smoking Status: Never smoked ANE Labs/Vital Signs - Labs Result Diagrams: 01/29/17 15:56 01/29/17 15:56 - Vital Signs Blood Pressure: 109/56 Heart Rate: 74 Respiratory Rate: 12 O2 Sat (%): 99 Height: 162.56 cm Weight: 83.91 kg ANE Physical Exam - Airway Neck exam: FROM Mallampati Score: Class 2 Mouth exam: normal dental/mouth exam - Pulmonary Pulmonary: no respiratory distress - Cardiovascular Cardiovascular: regular rate and rhythym - ASA Status ASA Status: III ANE Anesthesia Plan Anesthesia Plan: general endotracheal anesthesia
[2017-01-29] MEDS ORDERED: fentaNYL 100 MCG/2 ML INJ ONE (20:47)
[2017-01-29] MEDS ORDERED: PROPOFOL 200 MG/20 ML VIAL ONE ×2 (20:48→22:11)
[2017-01-29] MEDS ORDERED: MIDAZOLAM 2 MG/2 ML VIAL ONE (20:52)
[2017-01-29] MEDS ORDERED: PHENYLEPHRINE HCL 100 MCG/ML SYR ONE ×2 (22:17)
--- NOTE | 2017-01-29 22:30 | POSTOPPROG ---
Post Op Note Date of Operation: 01/29/17 Surgeon: Emre Hernandez Anesthesiologist: Donnie Livingston Anesthesia: GET(General Endotracheal) Pre-op Diagnosis: stage IV sacral decubitus Post-op Diagnosis: same Procedure: debridement skin, subcut fat, muscle and bone/wound vac placement Inf/Abcess present in the surg proc area at time of surgery?: Yes Depth: Deep Incisional (Fascial) EBL: 100-500 (150) Drains: Wound Vac
[2017-01-29] MEDS: INSULIN GLARGINE 100 UNITS/ML SYRINGE SC SCH (22:41)
[2017-01-29] MEDS: SENNOSIDES/DOCUSATE SODIUM TAB PO SCH (23:12)
[2017-01-29] MEDS: traZODone 50 MG TAB PO SCH (23:12)
[2017-01-29] MEDS: QUEtiapine FUMARATE 25 MG TAB PO SCH (23:13)
[2017-01-29] MEDS: DIAZEPAM 2 MG TAB PO SCH (23:14)
[2017-01-29] MEDS: BUDESONIDE/FORMOTEROL 160/4.5 60 PUFFS/MDI IH SCH (23:21)
[2017-01-30] MEDS: traZODone 50 MG TAB PO SCH ×2 (00:43→21:10)
[2017-01-30] MEDS: METHENAMINE HIPP 1 GM TAB PO SCH ×3 (00:43→21:07)
--- NOTE | 2017-01-30 04:02 | GCON ---
[f rep st] CONSULTATION INFECTIOUS DISEASE CONSULTATION. DATE OF CONSULTATION: 01/29/2017 REFERRING PHYSICIAN: Shama Escobar MD REASON FOR CONSULTATION: Antibiotic rash and decubitus ulcer. HISTORY OF PRESENT ILLNESS: A 61-year-old woman with a C6 spinal cord injury 8 years ago secondary to a fall with partial quadriplegia, who presents to the emergency room following a dose of Rocephin and subsequent diffuse maculopapular rash. Apparently patient was given a dose of Rocephin after 2 days of subjective fevers, chills, anorexia, fatigue, mild nausea. The patient also was found to have a large decubitus wound that is significantly larger than her admission on 01/02/2017, per documentation. Specifically, wound was a couple centimeter large and is now 7.5 x 12.5 x 3. In addition, it was noticed that the wound tracked to bone and patient was unaware of that until today. She says she has some mild discomfort related to this wound at baseline. She states that she is only rotated at [facility] per request. PAST MEDICAL HISTORY: 1. Partial quadriplegia C6-C7 secondary to fall approximately 8 years ago. 2. Neurogenic bladder. Has a suprapubic catheter in place, December 2016. 3. Diabetes. 4. Hypothyroidism. 5. Gastroesophageal reflux disease. 6. History of paroxysmal atrial fibrillation. 7. Anxiety and depression. SOCIAL HISTORY: Patient lives at [facility]. She has a daughter who is present in the room. No tobacco, alcohol, or illicit drugs. No recent travel. FAMILY HISTORY: Negative for heart and lung disease. ALLERGIES: Previous to today NKDA but today had a rash to ceftriaxone. MEDICATIONS: Include Tylenol, [place], Proventil, Kaflo, baclofen, Dulcolax, Symbicort 2 puffs b.i.d., vitamin D, Celexa, Klonopin, Valium, Benadryl, Colace , glucose gel for hypoglycemia, Mucinex as needed, Dilaudid as needed, Lantus, lispro, methenamine 0.5 g twice daily, multivitamin, Zofran, Seroquel 37.5 at night, Senokot 1 twice daily, simethicone 160 q.4 p.r.n., and trazodone 50 mg q.h.s. REVIEW OF SYSTEMS: A complete 10-point review of systems is performed and is negative. PHYSICAL EXAM: VITAL SIGNS: Blood pressure 138/96 to 86/51. Heart rate is 99. Saturation 95% on 2 L. temperature 37.4. GENERAL: This is a mildly obese woman, sitting in bed, pleasant, in no acute distress. HEENT: Fair dentition. Moist mucous membranes. No conjunctival hemorrhages. NECK: Supple. No lymphadenopathy. CARDIOVASCULAR: Regular rate and rhythm. No murmurs. CHEST: Clear to auscultation bilaterally. ABDOMEN: Soft, nontender. : She has a suprapubic catheter in place with no abnormalities at the insertion site. EXTREMITIES: Lower extremities demonstrated some wasting consistent with paralysis. NEUROLOGIC: She has strength in upper extremities and she is alert and oriented x4. SKIN: Patient is examined with Wound Care. She has a stage IV wound on her sacrum with a foul odor, that has obvious palpable bone but a large area of necrotic tissue that is approximately 7.5 x 12.5 x 3. No surrounding cellulitis. LABS: Creatinine 0.5. CBC is pending. IMAGING: CT scan of the pelvis is pending. Chest x-ray showed no focal infiltrates. ASSESSMENT AND PLAN: This is a 61-year-old woman with partial quadriplegia, who has a rapidly progressive # sacral decubitus stage IV with obvious exposed bone (clinical OM) but majority of the wound is not non-stageable. Patient is hemodynamically currently stageable. Would recommend: 1. Surgical consult for assessment of initial debridement. 2. Agree with imaging. CT scan or MRI imaging as recommended by surgery to understand extent of disease. 3. Cultures in the OR to guide antibiotic therapy, to treat likely osteomyelitis of the sacral bone. 4. Obtain blood cultures. 5. Would start IV antibiotic therapy after debridement. Would recommend empiric IV vancomycin and ertapenem. Ertapenem was selected due to recent reaction to ceftriaxone. Suspect Enterobacteriaceae, staphylococcus and streptococcus. Primary gap in coverage includes pseudomonas. # Allergy to Ceftriaxone 1. Would discontinue steroids for rash as patient without respiratory compromise and would treat with Benadryl alone. 2. Would add ceftriaxone to allergy list Thank you for this consultation. Will continue to see on a daily basis. Cased discussed with Dr. Escobar and Dr. Hernandez /[id number]/MODL MTDD
[2017-01-30] MEDS: HYDROCODONE/APAP 5/325 TAB PO PRN ×3 (04:49→14:50)
[2017-01-30] MEDS: LEVOTHYROXINE 88 MCG TAB PO SCH (04:49)
[2017-01-30] MEDS: BACLOFEN 10 MG TAB PO SCH ×4 (04:49→21:10)
[2017-01-30 04:54] LABS: % IMMATURE GRANULYOCYTES 0.6 % (0.0-1.1); ABSOLUTE IMMATURE GRANULOCYTES 0.07 10^3/uL (0.00-0.10); ADD DIFF? NO; ADD MORPH? NO; ADD SCAN? NO; ATYPICAL LYMPHOCYTE FLAG 20 (0-99); FRAGMENT RBC FLAG 0 (0-99); HEMATOCRIT 29.3 % (38.0-47.0); HEMOGLOBIN 9.2 g/dL (12.6-16.3); LEFT SHIFT FLG 0 (0-99); LIPEMIA HEMOLYSIS FLAG 80 (0-99); MEAN CELL HEMOGLOBIN CONCENTR. 31.4 g/dL (32.4-36.7); MEAN CELL VOLUME 89.3 fL (81.5-99.8); PLATELET CLUMPS FLAG 40 (0-99); PLATELET COUNT 386 10^3/uL (150-400); RED BLOOD CELL COUNT 3.28 10^6/uL (4.18-5.33); RED CELL DISTRIBUTION WIDTH 14.7 % (11.5-15.2)
[2017-01-30 05:15] LABS: ANION GAP 6 mEq/L (8-16); CARBON DIOXIDE 27 mEq/l (22-31); CHLORIDE 105 mEq/L (97-110); CREATININE 0.5 mg/dL (0.6-1.0); GLOMERULAR FILTRATION RATE > 60; GLUCOSE 92 mg/dL (70-100); POTASSIUM 3.9 mEq/L (3.5-5.2); SODIUM 138 mEq/L (134-144)
--- NOTE | 2017-01-30 06:07 | GOP ---
[f rep st] OPERATIVE REPORT DATE OF OPERATION: 01/29/2017 SURGEON: Emre Hernandez MD, FACS PREOPERATIVE DIAGNOSIS: 1. C6 paraplegia. 2. Stage IV sacrococcygeal decubitus ulcer. POSTOPERATIVE DIAGNOSIS: 1. C6 paraplegia. 2. Stage IV sacrococcygeal decubitus ulcer. PROCEDURE PERFORMED: Debridement of skin, subcutaneous tissue, muscle and bone with subsequent application of wound VAC. Final wound dimensions 15 x 9 x 2 cm. Tissue is submitted for permanent section. FINDINGS: ESTIMATED BLOOD LOSS: 150 mL. DESCRIPTION OF PROCEDURE: After informed consent was obtained, the patient was brought to the operating room and placed under general anesthesia. She was then positioned prone, carefully padding all pressure points. The large eschar around the open sacrococcygeal wound displayed full-thickness necrosis and was excised sharply down to healthy bleeding tissue. This included skin, subcutaneous tissues, muscle and subsequently rongeuring of the bone specimens of the bone were submitted for deep wound culture. Hemostasis was secured with cautery and 3-0 Vicryl suture ligature. Subsequently, after hemostasis was secured, the wound was irrigated aggressively with a Pulsavac and a wound VAC applied with Adaptic over the bone followed by white foam, followed by black foam. There was a good seal on the wound VAC. She was extubated and brought to the recovery room in satisfactory condition. Needle, sponge, and instrument count were correct. COMPLICATIONS: None. /[id number]/MODL MTDD
[2017-01-30] MEDS: MICONAZOLE 2% TP SCH ×4 (06:28→21:27)
[2017-01-30] MEDS: diphenhydrAMINE 25 MG CAP PO PRN ×3 (07:23→23:37)
[2017-01-30] MEDS: GABAPENTIN 100 MG CAP PO SCH ×3 (08:24→21:10)
[2017-01-30] MEDS: CHOLECALCIFEROL VIT D3 1,000 UNITS TAB PO SCH (08:25)
[2017-01-30] MEDS: CITALOPRAM 20 MG TAB PO SCH (08:25)
[2017-01-30] MEDS: MULTIVITAMINS 1 EACH TAB PO SCH (08:25)
[2017-01-30] MEDS: SENNOSIDES/DOCUSATE SODIUM TAB PO SCH ×2 (08:25→21:09)
[2017-01-30] MEDS: INSULIN LISPRO 100 UNIT/ML SC SCH ×4 (08:26→21:11)
[2017-01-30] MEDS: VANCOMYCIN 1.25 GM in D5W 250 ML IV SCH ×2 (08:28→19:28)
[2017-01-30 08:40] LABS: ALBUMIN 2.1 g/dL (3.5-5.0); BILIRUBIN,TOTAL 0.6 mg/dL (0.1-1.4); BILIRUBIN-CONJUGATED 0.3 mg/dL (0.0-0.5); BILIRUBIN-UNCONJUGATED 0.3 mg/dL (0.0-1.1); TOTAL PROTEIN 5.1 g/dL (6.3-8.2)
[2017-01-30] MEDS: DOCUSATE SODIUM 100 MG CAP PO SCH (08:42)
[2017-01-30] MEDS: BUDESONIDE/FORMOTEROL 160/4.5 60 PUFFS/MDI IH SCH ×2 (08:54→21:18)
[2017-01-30 08:58] LABS: C-REACTIVE PROTEIN 140.6 mg/L (<10.0)
[2017-01-30] MEDS ORDERED: NON-FORMULARY NEW DRUG (Citalopram Hydrobromide [Celexa] 40 MG) PO SCH (09:00)
[2017-01-30] MEDS ORDERED: ENOXAPARIN 40 MG/0.4 ML SYR SC SCH (09:00)
[2017-01-30] MEDS ORDERED: Herbals/Supplements -Info Only PO SCH (09:00)
[2017-01-30] MEDS: ERTAPENEM 1 GM in NS 100 ML IV SCH (10:30)
[2017-01-30] MEDS: DIAZEPAM 2 MG TAB PO PRN (13:33)
--- NOTE | 2017-01-30 13:56 | SOAPPROG ---
SOAP Progress Note Assessment/Plan: Assessment: Plan: Subjective: vss, af s/p debridement of sacral decub yesterday. wound vac in place and functioning. Objective: Vital Signs Temp Pulse Resp BP Pulse Ox 36.6 C 82 16 83/34 L 94 01/30/17 11:43 01/30/17 11:43 01/30/17 11:43 01/30/17 11:43 01/30/17 11:43 Microbiology 01/29/17 22:10 Gram Stain - Final Other - Tissue Laboratory Results 01/30/17 04:45 01/30/17 04:45 01/29/17 01/30/17 01/31/17 05:59 05:59 05:59 Intake Total 1350 1000 Output Total 1950 Balance -600 1000 ICD10 Worksheet Patient Problems: Problems Problem Status Onset Decubital ulcer Acute Chronic incomplete flaccid quadriplegia Acute Hyponatremia Acute Quadriplegia Acute Severe sepsis Acute UTI (urinary tract infection) Acute Weakness Acute
--- NOTE | 2017-01-30 14:30 | HOSPPROG ---
Hospitalist Progress Note Assessment/Plan: # severe decubitus ulceration- status post surgical debridement yesterday- surgery/Infectious Disease/wound care all following CT pelvis(personally reviewed and interpreted) shows medial gluteal phlegmon right greater than left - cultures from OR pending - continue empiric vancomycin and ertapenem - continue wound care/ rotation /air bed # acute drug reaction presumed secondary to ceftriaxone- maculopapular rash persists- oxygen saturations 94% on 2 L - continue p.r.n. Benadryl - ceftriaxone listed as an allergy # diabetes mellitus- glycemic control will be important for wound healing- blood sugars well controlled overnight 92-137 - Continue Lantus and sliding scale insulin # partial quadriplegia- suprapubic catheter in place - continue home meds and supportive care # anxiety/depression-certainly contributing to the patient's compliance at [facility] - continue home medication # prophylaxis Lovenox # diet diabetic # disposition greater than 2 midnights as the patient requiring aggressive care for serious decubitus wound Have discussed the case with ancillary services manager therapy- appears the patient was very noncompliant [facility] in her wheelchair all day long not rotating offer wound Subjective: Did not sleep great Objective: Vital Signs Temp Pulse Resp BP Pulse Ox 36.6 C 82 16 83/34 L 94 01/30/17 11:43 01/30/17 11:43 01/30/17 11:43 01/30/17 11:43 01/30/17 11:43 Microbiology 01/29/17 22:10 Gram Stain - Final Other - Tissue Laboratory Results 01/30/17 04:45 01/30/17 04:45 01/29/17 01/30/17 01/31/17 05:59 05:59 05:59 Intake Total 1350 1000 Output Total 1950 Balance -600 1000 - Physical Exam Constitutional: appears nourished, chronically ill appearing Eyes: anicteric sclera Ears, Nose, Mouth, Throat: moist mucous membranes Cardiovascular: regular rate and rhythym Respiratory: no respiratory distress, no rales or rhonchi Gastrointestinal: normoactive bowel sounds, soft, non-tender abdomen Genitourinary: no bladder fullness Skin: warm Musculoskeletal: No asymmetric calves Neurologic: AAOx3 Psychiatric: interacting appropriately Lymph, Heme, Immunologic: no cervical LAD ICD10 Worksheet Patient Problems: Problems Problem Status Onset Decubital ulcer Acute Chronic incomplete flaccid quadriplegia Acute Hyponatremia Acute Quadriplegia Acute Severe sepsis Acute UTI (urinary tract infection) Acute Weakness Acute
--- NOTE | 2017-01-30 17:46 | PCMIDPN ---
Assessment/Plan: Assessment: stage IV sacral decubitus ulcer. Covered with Vanco in ertapenem empirically. Definition is de facto osteomyelitis. Plan: 1. continue empiric vancomycin ertapenem. 2. follow up with surgery about if wound care stools with improvement in granulation whether we can direct the patient for flap coverage. 01/30/17 19:42 01/30/17 19:44 Subjective: Patient resting in her hospital bed. No new complaint. She states that the sacral area is somewhat tender. No fevers or chills. Objective: Vancomycin # 2 Ertapenem # 2 Vital Signs Temp Pulse Resp BP Pulse Ox 36.8 C 78 16 88/63 L 99 01/30/17 15:13 01/30/17 15:13 01/30/17 15:13 01/30/17 15:13 01/30/17 15:13 Microbiology 01/29/17 22:10 Gram Stain - Final Other - Tissue Laboratory Results 01/30/17 04:45 01/30/17 04:45 01/29/17 01/30/17 01/31/17 05:59 05:59 05:59 Intake Total 1350 2250 Output Total 1950 650 Balance -600 1600 C-Reactive Protein 140.6 mg/L (<10.0) H 01/30/17 00:45 - Physical Exam General Appearance: WD/WN, alert, no apparent distress, non-toxic Respiratory: lungs clear, normal breath sounds, No respiratory distress Cardiac/Chest: regular rate, rhythm, No tachycardia Skin: normal color, warm/dry, No rash Neuro/Psych: alert, normal mood/affect, oriented x 3 ICD10 Worksheet Patient Problems: Problems Problem Status Onset Decubital ulcer Acute Chronic incomplete flaccid quadriplegia Acute Hyponatremia Acute Quadriplegia Acute Severe sepsis Acute UTI (urinary tract infection) Acute Weakness Acute
[2017-01-30] MEDS: QUEtiapine FUMARATE 25 MG TAB PO SCH (21:08)
[2017-01-30] MEDS: DIAZEPAM 2 MG TAB PO SCH (21:10)
[2017-01-30] MEDS: INSULIN GLARGINE 100 UNITS/ML SYRINGE SC SCH (21:11)
[2017-01-31] MEDS: BACLOFEN 10 MG TAB PO SCH ×4 (06:17→20:48)
[2017-01-31] MEDS: MICONAZOLE 2% TP SCH ×4 (06:17→20:53)
[2017-01-31] MEDS: LEVOTHYROXINE 88 MCG TAB PO SCH (06:17)
[2017-01-31 06:24] LABS: HEMATOCRIT 28.1 % (38.0-47.0); HEMOGLOBIN 8.9 g/dL (12.6-16.3); MEAN CELL HEMOGLOBIN 27.9 pg (27.9-34.1); MEAN CELL HEMOGLOBIN CONCENTR. 31.7 g/dL (32.4-36.7); MEAN CELL VOLUME 88.1 fL (81.5-99.8); RED BLOOD CELL COUNT 3.19 10^6/uL (4.18-5.33); RED CELL DISTRIBUTION WIDTH 14.7 % (11.5-15.2)
[2017-01-31] MEDS: BISACODYL 10 MG SUPP PR SCH (08:57)
[2017-01-31] MEDS: GABAPENTIN 100 MG CAP PO SCH ×3 (08:57→20:48)
[2017-01-31] MEDS: MULTIVITAMINS 1 EACH TAB PO SCH (08:57)
[2017-01-31] MEDS: DOCUSATE SODIUM 100 MG CAP PO SCH (08:57)
[2017-01-31] MEDS: METHENAMINE HIPP 1 GM TAB PO SCH ×2 (08:57→20:49)
[2017-01-31] MEDS: CITALOPRAM 20 MG TAB PO SCH (08:57)
[2017-01-31] MEDS: CHOLECALCIFEROL VIT D3 1,000 UNITS TAB PO SCH (08:57)
[2017-01-31] MEDS: INSULIN LISPRO 100 UNIT/ML SC SCH ×3 (08:58→17:13)
[2017-01-31] MEDS: VANCOMYCIN 1.25 GM in D5W 250 ML IV SCH (08:58)
[2017-01-31] MEDS: ERTAPENEM 1 GM in NS 100 ML IV SCH (08:58)
[2017-01-31] MEDS: SENNOSIDES/DOCUSATE SODIUM TAB PO SCH ×2 (08:59→20:50)
[2017-01-31] MEDS: BUDESONIDE/FORMOTEROL 160/4.5 60 PUFFS/MDI IH SCH ×2 (09:14→23:41)
--- NOTE | 2017-01-31 10:45 | HOSPPROG ---
Hospitalist Progress Note Assessment/Plan: # severe decubitus ulceration- status post surgical debridement yesterday- surgery/Infectious Disease/wound care all following CT pelvis- shows medial gluteal phlegmon right greater than left WBC 12->6 on antibiotics - cultures from OR still pending - continue empiric vancomycin and ertapenem - continue wound care/ rotation /air bed # Acute hypoxic Respiratory failure - CXR (personally reviewed and interpreted) no infiltrates or edema-oxygen saturations 96% on 1 L suspect much is body habitus and atelectasis - cont IS # acute drug reaction presumed secondary to ceftriaxone- maculopapular rash persists today on chest/arms/abd and legs - continue p.r.n. Benadryl - ceftriaxone listed as an allergy # diabetes mellitus- glycemic control will be important for wound healing- blood sugars well controlled overnight 100-201 - Continue Lantus and sliding scale insulin # partial quadriplegia- suprapubic catheter in place - continue home meds and supportive care # anxiety/depression-certainly contributing to the patient's compliance at [facility] - continue home medication # prophylaxis Lovenox # diet diabetic # disposition greater than 2 midnights as the patient requiring aggressive care for serious decubitus wound Have discussed the case with ID - patient will need coordinated disposition planning for rat exterminator care of her wound Subjective: rash less pruritic - tolerating normal PO Objective: Vital Signs Temp Pulse Resp BP Pulse Ox 37.1 C 77 18 128/67 H 96 01/31/17 08:00 01/31/17 08:00 01/31/17 08:00 01/31/17 08:00 01/31/17 08:00 Microbiology 01/29/17 22:10 Gram Stain - Final Other - Tissue Laboratory Results 01/31/17 06:05 01/30/17 04:45 01/30/17 01/31/17 02/01/17 05:59 05:59 05:59 Intake Total 1350 2800 Output Total 1950 2600 Balance -600 200 - Physical Exam Constitutional: appears nourished, obese Eyes: anicteric sclera Ears, Nose, Mouth, Throat: moist mucous membranes Cardiovascular: regular rate and rhythym Respiratory: no respiratory distress, no rales or rhonchi Gastrointestinal: normoactive bowel sounds Genitourinary: no bladder fullness Skin: rash Musculoskeletal: No asymmetric calves Neurologic: AAOx3 Psychiatric: interacting appropriately, not anxious Lymph, Heme, Immunologic: no cervical LAD ICD10 Worksheet Patient Problems: Problems Problem Status Onset Decubital ulcer Acute Chronic incomplete flaccid quadriplegia Acute Hyponatremia Acute Quadriplegia Acute Severe sepsis Acute UTI (urinary tract infection) Acute Weakness Acute
[2017-01-31] MEDS: diphenhydrAMINE 25 MG CAP PO PRN ×2 (11:15→17:13)
[2017-01-31] MEDS: HYDROmorphONE/DILAUDID 1 MG/ML SYR IVP PRN (13:36)
--- NOTE | 2017-01-31 13:54 | PCMIDPN ---
Assessment/Plan: #Stage 4 Sacral decubitus s/p debridement. Will eventually need advanced wound care, likely flap to cure. WBC elevated at admit, now normalized --plan 2 weeks of antibiotics --no staph aureus, dc vancomycin #drug rash to ceftriaxone: improved today --prn Benadryl micro 01/29 blood cx (2) 01/29 tissue cx: polymicrobial GI hazel meds, #2 vancomycin 1.25gm IV q12 ertapenem 1gm IV daily Subjective: denies pain associated with sacral decub Objective: Vital Signs Temp Pulse Resp BP Pulse Ox 36.9 C 72 18 108/67 97 01/31/17 11:29 01/31/17 11:29 01/31/17 11:29 01/31/17 11:29 01/31/17 11:29 Microbiology 01/29/17 22:10 Gram Stain - Final Other - Tissue Laboratory Results 01/31/17 06:05 01/30/17 04:45 01/30/17 01/31/17 02/01/17 05:59 05:59 05:59 Intake Total 1350 2800 500 Output Total 1950 2600 450 Balance -600 200 50 C-Reactive Protein 140.6 mg/L (<10.0) H 01/30/17 00:45 - Physical Exam General Appearance: alert, no apparent distress EENT: No scleral icterus Respiratory: No accessory muscle use Cardiac/Chest: regular rate, rhythm Back: other (large sacral decub s/p debridement [id number]; bone easily palpable but much less necrotic material, 10% or less ) Skin: rash (Diffuse maculopapular eruption mush less prominent today) Neuro/Psych: alert, oriented x 3, depressed affect - Line/s RUE PICC Lines: No drainage, No erythema ICD10 Worksheet Patient Problems: Problems Problem Status Onset Decubital ulcer Acute Chronic incomplete flaccid quadriplegia Acute Hyponatremia Acute Quadriplegia Acute Severe sepsis Acute UTI (urinary tract infection) Acute Weakness Acute
[2017-01-31] MEDS: HYDROCODONE/APAP 5/325 TAB PO PRN (15:48)
--- NOTE | 2017-01-31 17:07 | WOCRNPDOC ---
WOCRN Advanced Assessment Note - Skin Integrity Problem, Advanced Assess Sacrum Pressure Injury Dressing Type: Adaptic Touch, Black Vac Foam, White Vac Foam, Wound Vac Dressing Description: Not Intact (open along distal margin, no vac alarm.) Exudate Amount: Moderate Exudate Color: Red Exudate Characteristic(s): Serosanguinous Integumentary Issue Intervention: Dressing Changed Candis Wound Tissue: Erythema, Macerated Candis Wound Swelling: Mild Wound Bed Color: Black, Red, Yellow Wound Bed Constitution: Granulation Tissue, Smooth Tissue, Undermining, Bone, Mixed Loose & Adhered Slough/Eschar Site Odor: Slight Site Measurement - Head-to-Toe Length X Width X Depth (cm): [id number], undermining 3cm from 11-3 o'clock Pressure Injury Stage: Stage 4 Pressure Injury Present on Admit: Yes (documented) Skin Integrity Problem Comment: Large sacral wound w/ visible sacrum at wound base, consistent w/ stage 4 pressure injury. Site was debrided in the OR on 01/29 , and vac was placed at that time. During this assessment, the vac dressing had come loose r/t moisture along the distal aspect, but no vac alarm was sounding. Wound bed is 20% granulation, 30% smooth tissue, 40% adhered slough, and 10% scattered eschar. There is undermining between 11-3 o'clock, varying in depths between 3cm and 1.5cm, with the greatest depth noted at 12 o'clock. Conversely, wound is most shallow along the distal aspect. This pattern is consistent w/ additional shearing injury, in addition to pressure. Adaptic touch placed over visible bone, and two pieces of white vac foam placed to cover the Adpatic and fill undermined areas. 2 pieces of black vac foam were applied over this in the wound bed, and then 2 additional pieces of black vac foam were used to bridge this dressing over patient's R hip to her R flank. Vac set to 125mmHg, low continuous suction w/ no leaks. Report given to Dr. Hernandez and active directory architectNYDIA Callahan.
[2017-01-31] MEDS: INSULIN GLARGINE 100 UNITS/ML SYRINGE SC SCH (20:48)
[2017-01-31] MEDS: QUEtiapine FUMARATE 25 MG TAB PO SCH (20:50)
[2017-01-31] MEDS: traZODone 50 MG TAB PO SCH (20:51)
[2017-01-31] MEDS: DIAZEPAM 2 MG TAB PO SCH (20:51)
[2017-01-31] MEDS ORDERED: VANCOMYCIN 1.25 GM in D5W 250 ML IV SCH (21:00)
[2017-02-01] MEDS: BACLOFEN 10 MG TAB PO SCH ×4 (05:35→22:07)
[2017-02-01] MEDS: LEVOTHYROXINE 88 MCG TAB PO SCH (05:35)
[2017-02-01] MEDS: MICONAZOLE 2% TP SCH ×4 (05:36→22:09)
[2017-02-01 06:00] LABS: HEMATOCRIT 29.3 % (38.0-47.0); HEMOGLOBIN 9.1 g/dL (12.6-16.3); MEAN CELL HEMOGLOBIN 27.8 pg (27.9-34.1); MEAN CELL HEMOGLOBIN CONCENTR. 31.1 g/dL (32.4-36.7); MEAN CELL VOLUME 89.6 fL (81.5-99.8); RED BLOOD CELL COUNT 3.27 10^6/uL (4.18-5.33); RED CELL DISTRIBUTION WIDTH 14.7 % (11.5-15.2)
[2017-02-01] MEDS: BUDESONIDE/FORMOTEROL 160/4.5 60 PUFFS/MDI IH SCH ×2 (08:56→19:26)
[2017-02-01] MEDS: ERTAPENEM 1 GM in NS 100 ML IV SCH (09:15)
[2017-02-01] MEDS: diphenhydrAMINE 25 MG CAP PO PRN ×3 (09:15→23:57)
[2017-02-01] MEDS: MULTIVITAMINS 1 EACH TAB PO SCH (09:17)
[2017-02-01] MEDS: GABAPENTIN 100 MG CAP PO SCH ×3 (09:17→22:00)
[2017-02-01] MEDS: CHOLECALCIFEROL VIT D3 1,000 UNITS TAB PO SCH (09:17)
[2017-02-01] MEDS: METHENAMINE HIPP 1 GM TAB PO SCH ×2 (09:17→22:05)
[2017-02-01] MEDS: DOCUSATE SODIUM 100 MG CAP PO SCH (09:22)
[2017-02-01] MEDS: INSULIN LISPRO 100 UNIT/ML SC SCH ×3 (09:23→17:44)
[2017-02-01] MEDS: SENNOSIDES/DOCUSATE SODIUM TAB PO SCH ×2 (09:23→22:05)
[2017-02-01] MEDS: CITALOPRAM 20 MG TAB PO SCH (09:27)
--- NOTE | 2017-02-01 10:32 | HOSPPROG ---
Hospitalist Progress Note Assessment/Plan: 61-year-old with a history of a C6 spinal cord injury and partial quadriplegia who was in long-term care at [facility], essentially bed-bound. She has a suprapubic catheter in place and a history of a decubitus ulceration that has been treated at [facility]. They started her on ceftriaxone when she develops systemic symptoms including fevers and chills. She developed a maculopapular rash thought secondary to this ceftriaxone and was transferred here for more aggressive wound care and treatment. # severe decubitus ulceration- status post surgical debridement 01/30- surgery/ Infectious Disease/wound care all following * CT pelvis- shows medial gluteal phlegmon right greater than left WBC 12->6 on antibiotics * cultures from show enterococcus and Proteus, currently on Vanco and ertapenem until final sensitivities are done * Continue air mattress * Appreciate ID and surgery follow-up, antibiotics per ID # Acute hypoxic Respiratory failure - CXR show no infiltrates or edema-oxygen saturations 96% on 1 L, she typically does need oxygen at night chronically * Continue oxygen and IS as needed # acute drug reaction presumed secondary to ceftriaxone- maculopapular rash persists today on chest/arms/abd and legs * Slow improvement * Continue Benadryl p.r.n. # diabetes mellitus- glycemic control will be important for wound healing- blood sugars well controlled overnight 100-201 * Continue Lantus and sliding scale insulin # partial quadriplegia- suprapubic catheter in place * continue home meds and supportive care, will return to [facility] post hospitalization # anxiety/depression-certainly contributing to the patient's compliance at [facility] * continue home medication # prophylaxis Lovenox # diet diabetic Subjective: Patient new to me and chart reviewed. No new complaints today. Specifically she denies any itching from her rash, denies any nausea vomiting. Denies any shortness of breath or chest pain. She denies any bowel changes. Objective: Vital Signs Temp Pulse Resp BP Pulse Ox 37.1 C 83 16 101/64 95 02/01/17 08:10 02/01/17 08:10 02/01/17 08:10 02/01/17 08:10 02/01/17 08:10 Microbiology 01/29/17 22:10 Gram Stain - Final Other - Tissue Laboratory Results 02/01/17 05:50 01/30/17 04:45 01/31/17 02/01/17 02/02/17 05:59 05:59 05:59 Intake Total 2800 2260 Output Total 2600 1925 Balance 200 335 - Physical Exam Constitutional: chronically ill appearing, uncomfortable Eyes: PERRL, anicteric sclera, EOMI Ears, Nose, Mouth, Throat: moist mucous membranes Cardiovascular: regular rate and rhythym Respiratory: no respiratory distress, clear to auscultation, reduced air movement Gastrointestinal: normoactive bowel sounds, soft, non-tender abdomen Genitourinary: other (Suprapubic catheter) Skin: warm, rash (Diffuse maculopapular rash most notable on her upper extremities and thorax) Musculoskeletal: other (Partial quadriplegia from C6 injury, chronic. Significant atrophy noted) Neurologic: AAOx3 Psychiatric: interacting appropriately, not anxious ICD10 Worksheet Patient Problems: Problems Problem Status Onset Chronic incomplete flaccid quadriplegia Acute UTI (urinary tract infection) Acute Severe sepsis Acute Weakness Acute Quadriplegia Acute Hyponatremia Acute Decubital ulcer Acute
[2017-02-01] MEDS ORDERED: methylPREDNISolone SOD SUCC 125 MG/2 ML VIAL IVP ONE (14:40)
--- NOTE | 2017-02-01 14:40 | PCMIDPN ---
Assessment/Plan: #Stage 4 Sacral decubitus s/p debridement. Will eventually need advanced wound care, likely flap to cure. WBC elevated at admit, subsequently normalized --plan 2 weeks of antibiotics and may have to retreat at time of formal flapping --resume vancomycin for enterococcal coverage. Reluctant to change to Zosyn due to reaction to ceftriaxone #drug rash to ceftriaxone: Unchanged as compared to yesterday -- try dose of Solu-Medrol, if persists may have to consider cross reactivity with ertapenem -- continue Benadryl micro 01/29 blood cx (2) NGTD 01/29 tissue cx: Proteus and Enterococcus meds, resume today 02/01 : vancomycin 1.25gm IV q12 ertapenem 1gm IV daily, #3 Subjective: c/o itching from rash no issues with BMs no oral pain Objective: Vital Signs Temp Pulse Resp BP Pulse Ox 37 C 77 16 92/46 L 97 02/01/17 12:05 02/01/17 12:05 02/01/17 12:05 02/01/17 12:05 02/01/17 12:05 Microbiology 01/29/17 22:10 Gram Stain - Final Other - Tissue Laboratory Results 02/01/17 05:50 01/30/17 04:45 01/31/17 02/01/17 02/02/17 05:59 05:59 05:59 Intake Total 2800 2260 320 Output Total 2600 1925 Balance 200 335 320 C-Reactive Protein 140.6 mg/L (<10.0) H 01/30/17 00:45 - Physical Exam General Appearance: alert, no apparent distress EENT: other (no oral lesions), No scleral icterus Respiratory: lungs clear Cardiac/Chest: regular rate, rhythm Extremities: No pedal edema Pelvic Exam: other ( suprapubic catheter) Skin: rash ( diffuse maculopapular eruption, flatter than at admission but stable as compared to yesterday) Neuro/Psych: alert, normal mood/affect, oriented x 3 - Line/s RUE PICC Lines: No drainage, No erythema - Time Spent With Patient Time Spent with Patient: greater than 25 minutes Time Spent with Patient: Greater than 25 minutes spent on this patients care, greater than 50% of time spent counseling, educating, and coordinating care regarding the above mentioned plan. ICD10 Worksheet Patient Problems: Problems Problem Status Onset Decubital ulcer Acute Chronic incomplete flaccid quadriplegia Acute Hyponatremia Acute Quadriplegia Acute Severe sepsis Acute UTI (urinary tract infection) Acute Weakness Acute
[2017-02-01] MEDS: VANCOMYCIN 1.25 GM in D5W 250 ML IV SCH (14:56)
[2017-02-01] MEDS: DIAZEPAM 2 MG TAB PO SCH (22:04)
[2017-02-01] MEDS: QUEtiapine FUMARATE 25 MG TAB PO SCH (22:06)
[2017-02-01] MEDS: traZODone 50 MG TAB PO SCH (22:07)
[2017-02-01] MEDS: INSULIN GLARGINE 100 UNITS/ML SYRINGE SC SCH (22:08)
[2017-02-02] MEDS: VANCOMYCIN 1.25 GM in D5W 250 ML IV SCH ×2 (02:23→15:27)
[2017-02-02] MEDS: BACLOFEN 10 MG TAB PO SCH ×4 (05:07→21:08)
[2017-02-02] MEDS: LEVOTHYROXINE 88 MCG TAB PO SCH (05:07)
[2017-02-02] MEDS: INSULIN GLARGINE 100 UNITS/ML SYRINGE SC SCH ×2 (05:08→21:05)
[2017-02-02] MEDS: MICONAZOLE 2% TP SCH ×4 (05:09→23:08)
[2017-02-02] MEDS: diphenhydrAMINE 25 MG CAP PO PRN ×3 (08:21→21:11)
[2017-02-02] MEDS: BUDESONIDE/FORMOTEROL 160/4.5 60 PUFFS/MDI IH SCH ×2 (08:41→19:19)
--- NOTE | 2017-02-02 09:06 | HOSPPROG ---
Hospitalist Progress Note Assessment/Plan: 61-year-old with a history of a C6 spinal cord injury and partial quadriplegia who was in long-term care at [facility], essentially bed-bound. She has a suprapubic catheter in place and a history of a decubitus ulceration that has been treated at [facility]. They started her on ceftriaxone when she develops systemic symptoms including fevers and chills. She developed a maculopapular rash thought secondary to this ceftriaxone and was transferred here for more aggressive wound care and treatment. # severe decubitus ulceration- status post surgical debridement 01/30- surgery/ Infectious Disease/wound care all following * CT pelvis- shows medial gluteal phlegmon right greater than left WBC 12->6 on antibiotics * cultures from show enterococcus and Proteus, currently on Vanco and ertapenem Defer to ID re: LOT and abx * Continue air mattress * Appreciate ID and surgery follow-up, antibiotics per ID # Acute hypoxic Respiratory failure - CXR show no infiltrates or edema-oxygen saturations 96% on 1 L, she typically does need oxygen at night chronically * Continue oxygen and IS as needed # acute drug reaction presumed secondary to ceftriaxone- maculopapular rash persists today on chest/arms/abd and legs. Better but still present. * Slow improvement * Continue Benadryl p.r.n. * Add steroid cream to localized areas of itching only. # diabetes mellitus- glycemic control will be important for wound healing- blood sugars well controlled overnight 100-201 * Continue Lantus and sliding scale insulin # partial quadriplegia- suprapubic catheter in place * continue home meds and supportive care, will return to [facility] post hospitalization # anxiety/depression-certainly contributing to the patient's compliance at [facility] * continue home medication # prophylaxis Lovenox # diet diabetic Subjective: no new complaints today. still some itching but better. Localized spot on left shoulder and neck. the right side is OK Objective: Vital Signs Temp Pulse Resp BP Pulse Ox 36.7 C 82 16 157/90 H 96 02/02/17 04:00 02/02/17 08:48 02/02/17 08:48 02/02/17 04:00 02/02/17 08:48 Microbiology 01/29/17 22:10 Gram Stain - Final Other - Tissue Laboratory Results 02/01/17 05:50 01/30/17 04:45 02/01/17 02/02/17 02/03/17 05:59 05:59 05:59 Intake Total 2259 2016 Output Total 0788 4404 Balance 335 -183 - Physical Exam Constitutional: chronically ill appearing, uncomfortable Eyes: PERRL Ears, Nose, Mouth, Throat: moist mucous membranes Cardiovascular: regular rate and rhythym, no murmur, rub, or gallop Respiratory: no respiratory distress, no rales or rhonchi, reduced air movement Skin: warm, rash (mac/pap on arms and chest, back pretty clear.) Neurologic: AAOx3, weakness Psychiatric: interacting appropriately, not anxious ICD10 Worksheet Patient Problems: Problems Problem Status Onset Chronic incomplete flaccid quadriplegia Acute UTI (urinary tract infection) Acute Severe sepsis Acute Weakness Acute Quadriplegia Acute Hyponatremia Acute Decubital ulcer Acute
[2017-02-02] MEDS: MULTIVITAMINS 1 EACH TAB PO SCH (09:16)
[2017-02-02] MEDS: ERTAPENEM 1 GM in NS 100 ML IV SCH (09:16)
[2017-02-02] MEDS: CHOLECALCIFEROL VIT D3 1,000 UNITS TAB PO SCH (09:18)
[2017-02-02] MEDS: GABAPENTIN 100 MG CAP PO SCH ×3 (09:18→21:08)
[2017-02-02] MEDS: SENNOSIDES/DOCUSATE SODIUM TAB PO SCH ×2 (09:18→21:09)
[2017-02-02] MEDS: CITALOPRAM 20 MG TAB PO SCH (09:18)
[2017-02-02] MEDS: METHENAMINE HIPP 1 GM TAB PO SCH ×2 (09:19→21:07)
[2017-02-02] MEDS: DOCUSATE SODIUM 100 MG CAP PO SCH (09:21)
[2017-02-02] MEDS: INSULIN LISPRO 100 UNIT/ML SC SCH ×3 (09:42→18:21)
[2017-02-02] MEDS: BISACODYL 10 MG SUPP PR SCH (11:53)
[2017-02-02] MEDS: ENOXAPARIN 40 MG/0.4 ML SYR SC SCH (15:28)
--- NOTE | 2017-02-02 16:10 | PCMIDPN ---
Assessment/Plan: #Stage 4 Sacral decubitus s/p debridement, de facto OM but also Bone cx positive for enterococcus and proteus . My exam on Friday showed excellent debridement --plan approx 2 weeks of antibiotics then could dc until definitive therapy with coverage of bone then can re-assess length of treatment needed --continue ertapenem + vancomycin --check vanco T tomorrow -- plan placement in LTAC for further wound management, discussed w case management #drug rash to ceftriaxone - better today after 1 dose steroid micro 01/29 blood cx (2) NGTD 01/29 tissue cx: Proteus and Enterococcus meds, vancomycin 1.25gm IV q12, #1 ertapenem 1gm IV daily, #4 Subjective: patient without specific complaints. She notes less itching than yesterday Objective: Vital Signs Temp Pulse Resp BP Pulse Ox 36.6 C 78 16 103/49 L 95 02/02/17 12:00 02/02/17 12:00 02/02/17 12:00 02/02/17 12:00 02/02/17 12:00 Microbiology 01/29/17 22:10 Gram Stain - Final Other - Tissue Laboratory Results 02/01/17 05:50 01/30/17 04:45 02/01/17 02/02/17 02/03/17 05:59 05:59 05:59 Intake Total 2260 2016 Output Total 1925 2200 Balance 335 -183 C-Reactive Protein 140.6 mg/L (<10.0) H 01/30/17 00:45 - Physical Exam General Appearance: alert, no apparent distress EENT: No scleral icterus Respiratory: No accessory muscle use Neck: supple Cardiac/Chest: regular rate, rhythm Abdomen: non-tender, soft Skin: rash ( faint maculopapular rash most prominent on abdomen) Neuro/Psych: alert, normal mood/affect, oriented x 3 - Line/s RUE PICC Lines: No drainage, No erythema ICD10 Worksheet Patient Problems: Problems Problem Status Onset Decubital ulcer Acute Chronic incomplete flaccid quadriplegia Acute Hyponatremia Acute Quadriplegia Acute Severe sepsis Acute UTI (urinary tract infection) Acute Weakness Acute
[2017-02-02] MEDS: QUEtiapine FUMARATE 25 MG TAB PO SCH (21:06)
[2017-02-02] MEDS: traZODone 50 MG TAB PO SCH (21:08)
[2017-02-02] MEDS: DIAZEPAM 2 MG TAB PO SCH (21:09)
[2017-02-03] MEDS: VANCOMYCIN 1.25 GM in D5W 250 ML IV SCH ×2 (03:31→14:29)
[2017-02-03] MEDS: LEVOTHYROXINE 88 MCG TAB PO SCH (05:48)
[2017-02-03] MEDS: BACLOFEN 10 MG TAB PO SCH ×4 (05:48→21:27)
[2017-02-03] MEDS: diphenhydrAMINE 25 MG CAP PO PRN ×2 (05:48→12:54)
[2017-02-03] MEDS: MICONAZOLE 2% TP SCH ×4 (06:07→22:37)
[2017-02-03 06:13] LABS: HEMATOCRIT 30.2 % (38.0-47.0); HEMOGLOBIN 9.6 g/dL (12.6-16.3); MEAN CELL HEMOGLOBIN 28.5 pg (27.9-34.1); MEAN CELL HEMOGLOBIN CONCENTR. 31.8 g/dL (32.4-36.7); MEAN CELL VOLUME 89.6 fL (81.5-99.8); RED BLOOD CELL COUNT 3.37 10^6/uL (4.18-5.33); RED CELL DISTRIBUTION WIDTH 14.8 % (11.5-15.2)
[2017-02-03 06:27] LABS: ANION GAP 5 mEq/L (8-16); CALCIUM 8.4 mg/dL (8.5-10.4); CARBON DIOXIDE 31 mEq/l (22-31); CHLORIDE 105 mEq/L (97-110); CREATININE 0.5 mg/dL (0.6-1.0); GLOMERULAR FILTRATION RATE > 60; GLUCOSE 93 mg/dL (70-100); POTASSIUM 4.2 mEq/L (3.5-5.2); SODIUM 141 mEq/L (134-144)
[2017-02-03] MEDS: INSULIN LISPRO 100 UNIT/ML SC SCH ×3 (08:31→17:41)
[2017-02-03] MEDS: BUDESONIDE/FORMOTEROL 160/4.5 60 PUFFS/MDI IH SCH ×2 (09:16→21:31)
[2017-02-03] MEDS: METHENAMINE HIPP 1 GM TAB PO SCH ×2 (09:58→21:29)
[2017-02-03] MEDS: CHOLECALCIFEROL VIT D3 1,000 UNITS TAB PO SCH (09:59)
[2017-02-03] MEDS: GABAPENTIN 100 MG CAP PO SCH ×3 (09:59→21:28)
[2017-02-03] MEDS: ENOXAPARIN 40 MG/0.4 ML SYR SC SCH (09:59)
[2017-02-03] MEDS: DOCUSATE SODIUM 100 MG CAP PO SCH (09:59)
[2017-02-03] MEDS: MULTIVITAMINS 1 EACH TAB PO SCH (09:59)
[2017-02-03] MEDS: CITALOPRAM 20 MG TAB PO SCH (09:59)
[2017-02-03] MEDS: SENNOSIDES/DOCUSATE SODIUM TAB PO SCH ×2 (09:59→21:27)
[2017-02-03] MEDS: ERTAPENEM 1 GM in NS 100 ML IV SCH (10:06)
--- NOTE | 2017-02-03 10:26 | HOSPPROG ---
Hospitalist Progress Note Assessment/Plan: 61-year-old with a history of a C6 spinal cord injury and partial quadriplegia who was in long-term care at [facility], essentially bed-bound. She has a suprapubic catheter in place and a history of a decubitus ulceration that has been treated at [facility]. They started her on ceftriaxone when she develops systemic symptoms including fevers and chills. She developed a maculopapular rash thought secondary to this ceftriaxone and was transferred here for more aggressive wound care and treatment. # severe decubitus ulceration- status post surgical debridement 01/30- surgery/ Infectious Disease/wound care all following * CT pelvis- shows medial gluteal phlegmon right greater than left WBC 12->6 on antibiotics * cultures from show enterococcus and Proteus, currently on Vanco and ertapenem Defer to ID re: LOT and abx * Continue air mattress * Appreciate ID and surgery follow-up, antibiotics per ID * Will likely need LTAC on discharge for ongoing wound care, patient high risk for worsening ulcerations. # Acute hypoxic Respiratory failure - CXR show no infiltrates or edema-oxygen saturations 96% on 1 L, she typically does need oxygen at night chronically * Continue oxygen and IS as needed # acute drug reaction presumed secondary to ceftriaxone- maculopapular rash persists today on chest/arms/abd and legs. Better but still present. * Slow improvement * Continue Benadryl p.r.n. * Add steroid cream to localized areas of itching only. # diabetes mellitus- glycemic control will be important for wound healing- blood sugars well controlled overnight 100-201 * Continue Lantus and sliding scale insulin # partial quadriplegia- suprapubic catheter in place * continue home meds and supportive care, will return to [facility] post hospitalization # anxiety/depression-certainly contributing to the patient's compliance at [facility] * continue home medication # prophylaxis Lovenox # diet diabetic Subjective: No new complaints. Less itchy today Objective: Vital Signs Temp Pulse Resp BP Pulse Ox 36.6 C 68 16 125/69 H 95 02/03/17 09:10 02/03/17 09:10 02/03/17 09:10 02/03/17 09:10 02/03/17 09:10 Microbiology 01/29/17 22:10 Gram Stain - Final Other - Tissue Laboratory Results 02/03/17 05:50 02/03/17 05:50 02/02/17 02/03/17 02/04/17 05:59 05:59 05:59 Intake Total 2016 Output Total 0633 2400 Balance -183 -227 - Physical Exam Constitutional: no apparent distress Eyes: PERRL Cardiovascular: regular rate and rhythym Respiratory: no respiratory distress Skin: rash (Maculopapular seem slightly improved.) Psychiatric: interacting appropriately ICD10 Worksheet Patient Problems: Problems Problem Status Onset Chronic incomplete flaccid quadriplegia Acute UTI (urinary tract infection) Acute Severe sepsis Acute Weakness Acute Quadriplegia Acute Hyponatremia Acute Decubital ulcer Acute
[2017-02-03] MEDS: DIAZEPAM 2 MG TAB PO PRN (10:40)
[2017-02-03] MEDS: HYDROmorphONE/DILAUDID 1 MG/ML SYR IVP PRN (10:40)
--- NOTE | 2017-02-03 13:17 | WOCRNPDOC ---
WOCRN Advanced Assessment Note - Skin Integrity Problem, Advanced Assess Sacrum Pressure Injury Dressing Type: Adaptic Touch, Black Vac Foam, White Vac Foam, Wound Vac Dressing Description: Intact Exudate Amount: Moderate Exudate Color: Reddish/Yellow Exudate Characteristic(s): Serosanguinous Integumentary Issue Intervention: Dressing Changed Tatum Wound Tissue: Macerated, Weeping, Denuded, Hypertrophic Tatum Wound Swelling: Mild Wound Bed Color: Black, Red, Yellow Wound Bed Constitution: Granulation Tissue, Smooth Tissue, Undermining, Mixed Loose & Adhered Slough/Eschar Wound Edges: Irregular Site Odor: None Site Measurement - Head-to-Toe Length X Width X Depth (cm): [id number], undermining 1-3cm from 11-3 o'clock Pressure Injury Stage: Stage 4 Skin Integrity Problem Comment: Per nursing report, wound continuing to be exudative; 500 mL cannister replaced x 2 since Friday. While wound dimensions are smaller, and previously exposed bone is now covered by a thin layer of granulation, wound continues to be slough-filled, approximately 40%. There is tatum-wound denudement noted from 1-7 o'clock. To this I applied a light layer of stoma powder, followed by hydrocolloid dressing. Area with previously exposed bone in medial aspect was covered w/ Adaptic touch contact layer, and two pieces of black vac foam applied and bridged over patient's R hip. Vac set to 125mmHg, low, continuous, no leaks. Discussed with Richard YU the possiblity of adding Veraflo to vac tx to help with debridement, but the concern is that there will not be an adequate seal w/ the addition of instillation fluid. Per report from data assistant Elma, nursing has struggled to maintain a seal on this dressing, due in large part to the wound's location. Wound vac orders include instruction to apply wet to dry dressing in the event that a seal cannot be established, and nursing should not attempt to reapply the dressing. Case managment working to place patient in an LTAC that specialized in sacral wound closures.
[2017-02-03] MEDS: HYDROCODONE/APAP 5/325 TAB PO PRN ×2 (13:37→19:43)
[2017-02-03] MEDS: QUEtiapine FUMARATE 25 MG TAB PO SCH (21:26)
[2017-02-03] MEDS: traZODone 50 MG TAB PO SCH (21:27)
[2017-02-03] MEDS: DIAZEPAM 2 MG TAB PO SCH (21:28)
[2017-02-04] MEDS: VANCOMYCIN 1.25 GM in D5W 250 ML IV SCH ×2 (02:36→15:05)
[2017-02-04] MEDS: BACLOFEN 10 MG TAB PO SCH ×4 (05:03→21:44)
[2017-02-04] MEDS: MICONAZOLE 2% TP SCH ×4 (05:03→22:00)
[2017-02-04] MEDS: LEVOTHYROXINE 88 MCG TAB PO SCH (05:03)
[2017-02-04] MEDS: ENOXAPARIN 40 MG/0.4 ML SYR SC SCH (09:14)
[2017-02-04] MEDS: GABAPENTIN 100 MG CAP PO SCH ×3 (09:15→21:44)
[2017-02-04] MEDS: CITALOPRAM 20 MG TAB PO SCH (09:15)
[2017-02-04] MEDS: DOCUSATE SODIUM 100 MG CAP PO SCH (09:15)
[2017-02-04] MEDS: METHENAMINE HIPP 1 GM TAB PO SCH ×2 (09:15→21:45)
[2017-02-04] MEDS: SENNOSIDES/DOCUSATE SODIUM TAB PO SCH ×2 (09:15→21:45)
[2017-02-04] MEDS: MULTIVITAMINS 1 EACH TAB PO SCH (09:15)
[2017-02-04] MEDS: CHOLECALCIFEROL VIT D3 1,000 UNITS TAB PO SCH (09:15)
[2017-02-04] MEDS: BISACODYL 10 MG SUPP PR SCH (09:15)
[2017-02-04] MEDS: INSULIN LISPRO 100 UNIT/ML SC SCH ×3 (09:16→18:24)
[2017-02-04] MEDS: ERTAPENEM 1 GM in NS 100 ML IV SCH (09:16)
[2017-02-04] MEDS: BUDESONIDE/FORMOTEROL 160/4.5 60 PUFFS/MDI IH SCH ×2 (10:24→21:08)
--- NOTE | 2017-02-04 15:08 | HOSPPROG ---
Hospitalist Progress Note Assessment/Plan: 61-year-old with a history of a C6 spinal cord injury and partial quadriplegia who was in long-term care at [facility], essentially bed-bound. She has a suprapubic catheter in place and a history of a decubitus ulceration that has been treated at [facility]. They started her on ceftriaxone when she develops systemic symptoms including fevers and chills. She developed a maculopapular rash thought secondary to this ceftriaxone and was transferred here for more aggressive wound care and treatment. # severe decubitus ulceration- status post surgical debridement 01/30- surgery/ Infectious Disease/wound care all following * CT pelvis- shows medial gluteal phlegmon right greater than left WBC 12->6 on antibiotics * cultures from show enterococcus and Proteus, currently on Vanco and ertapenem Defer to ID re: LOT and abx * Continue air mattress * Appreciate ID and surgery follow-up, antibiotics per ID * Will likely need LTAC on discharge for ongoing wound care, patient high risk for worsening ulcerations. # Acute hypoxic Respiratory failure - CXR show no infiltrates or edema-oxygen saturations 96% on 1 L, she typically does need oxygen at night chronically * Continue oxygen and IS as needed # acute drug reaction presumed secondary to ceftriaxone- maculopapular rash persists today on chest/arms/abd and legs. Better but still present. * Slow improvement * Continue Benadryl p.r.n. * Add steroid cream to localized areas of itching only. # diabetes mellitus- glycemic control will be important for wound healing- blood sugars well controlled overnight 100-201 * Continue Lantus and sliding scale insulin # partial quadriplegia- suprapubic catheter in place * continue home meds and supportive care, will return to [facility] post hospitalization # anxiety/depression-certainly contributing to the patient's compliance at [facility] * continue home medication # prophylaxis Lovenox # diet diabetic disposition: Has been evaluated and accepted by [facility] but currently waiting for insurance to agree to pay for LTAC. Can transfer as soon as lets us know she can go to [facility]. Subjective: no new complaints Objective: Vital Signs Temp Pulse Resp BP Pulse Ox 37.1 C 80 16 107/66 93 02/04/17 15:02 02/04/17 15:02 02/04/17 15:02 02/04/17 15:02 02/04/17 15:02 Microbiology 01/29/17 22:10 Gram Stain - Final Other - Tissue 01/29/17 18:38 Blood Culture - Final Blood 01/29/17 15:56 Blood Culture - Final Blood Laboratory Results 02/03/17 05:50 02/03/17 05:50 02/03/17 02/04/17 02/05/17 05:59 05:59 05:59 Intake Total 2340 2425 Output Total 2575 2100 Balance -227 325 - Physical Exam Constitutional: chronically ill appearing, obese Cardiovascular: regular rate and rhythym Respiratory: no respiratory distress Skin: rash (continues to improve) Neurologic: AAOx3, weakness (incomplete quad) ICD10 Worksheet Patient Problems: Problems Problem Status Onset Chronic incomplete flaccid quadriplegia Acute UTI (urinary tract infection) Acute Severe sepsis Acute Weakness Acute Quadriplegia Acute Hyponatremia Acute Decubital ulcer Acute
[2017-02-04] MEDS: diphenhydrAMINE 25 MG CAP PO PRN (18:13)
[2017-02-04] MEDS: INSULIN GLARGINE 100 UNITS/ML SYRINGE SC SCH (21:43)
[2017-02-04] MEDS: traZODone 50 MG TAB PO SCH (21:44)
[2017-02-04] MEDS: DIAZEPAM 2 MG TAB PO SCH (21:44)
[2017-02-04] MEDS: QUEtiapine FUMARATE 25 MG TAB PO SCH (21:45)
[2017-02-05] MEDS: VANCOMYCIN 1.25 GM in D5W 250 ML IV SCH ×2 (02:40→16:12)
[2017-02-05] MEDS: LEVOTHYROXINE 88 MCG TAB PO SCH (05:00)
[2017-02-05] MEDS: BACLOFEN 10 MG TAB PO SCH ×3 (05:00→16:45)
[2017-02-05] MEDS: MICONAZOLE 2% TP SCH ×3 (05:04→16:45)
[2017-02-05] MEDS: BUDESONIDE/FORMOTEROL 160/4.5 60 PUFFS/MDI IH SCH (08:45)
[2017-02-05] MEDS: METHENAMINE HIPP 1 GM TAB PO SCH (09:53)
[2017-02-05] MEDS: MULTIVITAMINS 1 EACH TAB PO SCH (09:54)
[2017-02-05] MEDS: CITALOPRAM 20 MG TAB PO SCH (09:54)
[2017-02-05] MEDS: ENOXAPARIN 40 MG/0.4 ML SYR SC SCH (09:54)
[2017-02-05] MEDS: DOCUSATE SODIUM 100 MG CAP PO SCH (09:54)
[2017-02-05] MEDS: SENNOSIDES/DOCUSATE SODIUM TAB PO SCH (09:54)
[2017-02-05] MEDS: ERTAPENEM 1 GM in NS 100 ML IV SCH (09:54)
[2017-02-05] MEDS: CHOLECALCIFEROL VIT D3 1,000 UNITS TAB PO SCH (09:54)
[2017-02-05] MEDS: GABAPENTIN 100 MG CAP PO SCH ×2 (09:54→16:45)
[2017-02-05] MEDS: INSULIN LISPRO 100 UNIT/ML SC SCH ×3 (09:55→18:40)
--- NOTE | 2017-02-05 12:48 | HOSPPROG ---
Hospitalist Progress Note Assessment/Plan: 61-year-old with a history of a C6 spinal cord injury and partial quadriplegia who was in long-term care at [facility], essentially bed-bound. She has a suprapubic catheter in place and a history of a decubitus ulceration that has been treated at [facility]. They started her on ceftriaxone when she develops systemic symptoms including fevers and chills. She developed a maculopapular rash thought secondary to this ceftriaxone and was transferred here for more aggressive wound care and treatment. # severe Stage 4 decubitus ulceration- status post surgical debridement 01/30- surgery/Infectious Disease/wound care all following * CT pelvis- shows medial gluteal phlegmon right greater than left WBC 12->6 on antibiotics * cultures from show enterococcus and Proteus, currently on Vanco and ertapenem Defer to ID re: LOT and abx * Continue air mattress * Appreciate ID and surgery follow-up, antibiotics per ID * Will likely need LTAC on discharge for ongoing wound care, patient high risk for worsening ulcerations. #Hypotension, ?Autonomic insufficiency: She reports that she often has a low BP but not as low as 80's. She is not symptomatic and there is no evidence of worsening infection. Denies SOB, Cough, or other. Urine output is good. Urine is not concentrated, she is afebrile. Does not look dehydrated. There is no leukocytosis. She is on Vancomycin and Ertapenem. The etiology is likely due to Autonomic insufficiency * Start Midodrine. * Follow clinical response # Acute hypoxic Respiratory failure - CXR show no infiltrates or edema-oxygen saturations 96% on 1 L, she typically does need oxygen at night chronically * Continue oxygen and IS as needed # acute drug reaction presumed secondary to ceftriaxone- maculopapular rash persists today on chest/arms/abd and legs. Better but still present. * Slow improvement * Continue Benadryl p.r.n. * Add steroid cream to localized areas of itching only. # diabetes mellitus- glycemic control will be important for wound healing- blood sugars well controlled overnight 100-201 * Continue Lantus and sliding scale insulin # partial quadriplegia- suprapubic catheter in place * continue home meds and supportive care, will return to [facility] post hospitalization # anxiety/depression-certainly contributing to the patient's compliance at [facility] * continue home medication # PCMN: She has been given protein supplements. Will check protein tomorrow. Needs to optimize this for adequate wound healing. # prophylaxis Lovenox # diet diabetic disposition: Has been evaluated and accepted by [facility] but currently waiting for insurance to agree to pay for LTAC. Can transfer as soon as lets us know she can go to [facility]. Subjective: Low BP. No fever or SOB. No cough. Good urine output. Denies Fever. Objective: Vital Signs Temp Pulse Resp BP Pulse Ox 36.8 C 87 16 87/48 L 94 02/05/17 08:00 02/05/17 08:00 02/05/17 08:00 02/05/17 08:00 02/05/17 08:00 Microbiology 01/29/17 22:10 Gram Stain - Final Other - Tissue 01/29/17 18:38 Blood Culture - Final Blood Laboratory Results 02/03/17 05:50 02/03/17 05:50 02/04/17 02/05/17 02/06/17 05:59 05:59 05:59 Intake Total 2425 1100 Output Total 2100 2150 650 Balance 325 -1050 -650 - Physical Exam Constitutional: no apparent distress, appears nourished, not in pain Eyes: PERRL, EOMI Ears, Nose, Mouth, Throat: moist mucous membranes, hearing normal Cardiovascular: regular rate and rhythym, No JVD, No tachycardia Respiratory: no respiratory distress, reduced air movement Gastrointestinal: normoactive bowel sounds, soft, non-tender abdomen Genitourinary: no bladder fullness, other (mirza draining dilute urine) Skin: warm Neurologic: AAOx3, No weakness Psychiatric: interacting appropriately, not anxious, not encephalopathic, thought process linear ICD10 Worksheet Patient Problems: Problems Problem Status Onset Decubital ulcer Acute Chronic incomplete flaccid quadriplegia Acute Hyponatremia Acute Quadriplegia Acute Severe sepsis Acute UTI (urinary tract infection) Acute Weakness Acute
[2017-02-05] MEDS: MIDODRINE HCL 5 MG TAB PO SCH ×2 (14:14→16:45)
[2017-02-05 14:57] LABS: ALANINE AMINOTRANSFERASE 26 IU/L (9-52); ALBUMIN 2.6 g/dL (3.5-5.0); ALKALINE PHOSPHATASE 82 IU/L (38-126); ANION GAP 6 mEq/L (8-16); ASPARTATE AMINOTRANSFERASE 18 IU/L (14-46); BILIRUBIN,TOTAL 0.3 mg/dL (0.1-1.4); CALCIUM 8.4 mg/dL (8.5-10.4); CARBON DIOXIDE 29 mEq/l (22-31); CHLORIDE 102 mEq/L (97-110); CREATININE 0.6 mg/dL (0.6-1.0); GLOMERULAR FILTRATION RATE > 60; GLUCOSE 113 mg/dL (70-100); POTASSIUM 4.2 mEq/L (3.5-5.2); SODIUM 137 mEq/L (134-144); TOTAL PROTEIN 5.5 g/dL (6.3-8.2)
[2017-02-05] MEDS: HYDROmorphONE/DILAUDID 1 MG/ML SYR IVP PRN (15:31)
--- NOTE | 2017-02-05 15:35 | PDDCSUM ---
Discharge Summary Discharge Summary: HPI/Hospital Course: 61-year-old with a history of a C6 spinal cord injury and partial quadriplegia who was in long-term care at [facility], essentially bed- bound. She has a suprapubic catheter in place and a history of a decubitus ulceration that has been treated at [facility]. They started her on ceftriaxone when she develops systemic symptoms including fevers and chills. She developed a maculopapular rash thought secondary to this ceftriaxone and was transferred here for more aggressive wound care and treatment. Ceftriaxone has been added to her allergy list. She was evaluated by our wound care team and ID team. She had a wound vac placed. Wound cx's were c/w Proteus and Enterococcus and she was started on Vancomycin and Ertapenem. She is to continue with this until February 13 per our ID team. Wound vac has been removed in anticipation of possible wound culture [facility] Wound Care team. She has been noted to have labile BP and today had BP in the mid 80's during which she was not symptomatic. She had no Leukocytosis, fever, or signs of poor urine output. She has been started on Midodrine with improvement to her BP. She has PCMN and will need a complete evaluation at [facility]. DDX: # severe Stage 4 decubitus ulceration- status post surgical debridement 01/30- surgery/Infectious Disease/wound care all following * CT pelvis- shows medial gluteal phlegmon right greater than left WBC 12->6 on antibiotics * cultures from show enterococcus and Proteus, currently on Vanco and ertapenem * Continue air mattress #Hypotension, ?Autonomic insufficiency: She reports that she often has a low BP but not as low as 80's. She is not symptomatic and there is no evidence of worsening infection. Denies SOB, Cough, or other. Urine output is good. Urine is not concentrated, she is afebrile. Does not look dehydrated. There is no leukocytosis. She is on Vancomycin and Ertapenem. The etiology is likely due to Autonomic insufficiency * Start Midodrine today. * Follow clinical response # Acute hypoxic Respiratory failure - CXR show no infiltrates or edema-oxygen saturations 96% on 1 L, she typically does need oxygen at night chronically * Continue oxygen and IS as needed # acute drug reaction presumed secondary to ceftriaxone- maculopapular rash persists today on chest/arms/abd and legs. Better but still present. * Slow improvement * Continue Benadryl p.r.n. * Add steroid cream to localized areas of itching only. # diabetes mellitus- glycemic control will be important for wound healing- blood sugars well controlled overnight 100-201 * Continue Lantus and sliding scale insulin # partial quadriplegia- suprapubic catheter in place # anxiety/depression-certainly contributing to the patient's compliance at [facility] * continue home medication # PCMN: She has been given protein supplements. # prophylaxis Lovenox # diet diabetic Exam: see progress note from today Discharge meds: see med rec F/u: Per [place] [facility].
--- NOTE | 2017-02-05 15:41 | PDIAF ---
- Diagnosis Diagnosis: Sacral decubitus wound, The patient is being transferred to [facility] ([facility]) Code Status: Full Code - Medication Management Discharge Medications: Medications to Continue on Transfer Baclofen [Baclofen 10 mg (*)] 10 mg PO QID 11/03/15 [Last Taken 01/22/17] Citalopram Hydrobromide [Celexa] 40 mg PO DAILY 11/03/15 [Last Taken 01/22/17] Docusate Sodium [Colace 100 MG (*)] 100 mg PO DAILY 11/03/15 [Last Taken ] Gabapentin [Neurontin 100 MG (*)] 200 mg PO TID 11/03/15 [Last Taken 01/22/17] Insulin Glargine [Lantus 100 UNITS/ML (*)] 10 units SC HS 11/03/15 [Last Taken 01/22/17] Levothyroxine [Synthroid 88 mcg (*)] 88 mcg PO DAILY06 11/03/15 [Last Taken ] Multivitamins [Multivitamin (*)] 1 each PO DAILY 11/03/15 [Last Taken 01/22/17] Ondansetron Odt [Zofran Odt 4 mg (*)] 4 mg PO Q8 PRN 11/03/15 [Last Taken 1 Month Ago] Polyethylene Glycol 3350 [Miralax 17 gm (*)] 17 gm PO DAILY PRN 11/03/15 [Last Taken 1 Day Ago] Sennosides/Docusate Sodium [Senokot-S] 1 each PO BID 11/03/15 [Last Taken ] Simethicone [GAS-X] 160 mg PO Q4 PRN 11/03/15 [Last Taken 01/22/17] traZODone [traZODONE 50MG (*)] 50 mg PO HS 11/03/15 [Last Taken 01/22/17] Acetaminophen [Tylenol 325mg (*)] 650 mg PO Q6HRS PRN 01/02/17 [Last Taken Unknown] Bisacodyl [Dulcolax] 10 mg IL Q2D 01/02/17 [Last Taken Unknown] Cholecalciferol Vit D3 [Vitamin D3 (*)] 1,000 units PO DAILY 01/02/17 [Last Taken 01/22/17] Dextrose Oral Gel [Glucose Gel (*)] 15 gm PO PRN PRN 01/02/17 [Last Taken Unknown] Diazepam [Valium 2 MG (*)] 2 mg PO DAILY PRN 01/02/17 [Last Taken Unknown] Diazepam [Valium 2 MG (*)] 2 mg PO HS 01/02/17 [Last Taken 01/22/17] Glucagon,Human Recombinant [Glucagon Emergency Kit] 1 mg IM PRN PRN 01/02/17 [ Last Taken Unknown] Metformin HCl [Metformin 1000 mg] 1,000 mg PO DAILY 01/02/17 [Last Taken ] Methenamine Estephania [Hiprex 1 gm (*)] 0.5 gm PO BID 01/02/17 [Last Taken 01/22/17] Miconazole Powder 2% 1 jaron TP QID 01/02/17 [Last Taken 01/22/17] QUEtiapine FUMARATE [Seroquel 25 mg (*)] 37.5 mg PO HS 01/02/17 [Last Taken ] guaiFENesin [Mucinex 600 MG (*)] 600 mg PO Q12HRS PRN 01/02/17 [Last Taken Unknown] oxyCODONE IR [Oxycodone Ir (*)] 5 mg PO Q4HRS PRN 01/02/17 [Last Taken 01/22/17] oxyCODONE IR [Oxycodone Ir (*)] 10 mg PO Q4HRS PRN 01/02/17 [Last Taken Unknown] Albuterol [Proventil Neb] 3 ml IH Q6HRS PRN 01/29/17 [Last Taken Unknown] Budesonide/Formoterol 160/4.5 [Symbicort 160-4.5 Mcg Inh (*)] 2 puffs IH BID 12/11 [Last Taken Unknown] Herbals/Supplements -Info Only 1 ea PO DAILY 01/29/17 [Last Taken Unknown] cefTRIAXone [Rocephin 1 gm Vial] 1 gm IM DAILY PRN 01/29/17 [Last Taken Unknown] clonazePAM [klonoPIN (*)] 1 mg PO BID PRN 01/29/17 [Last Taken Unknown] metFORMIN HCL [Glucophage 500 mg (*)] 500 mg PO HS 01/29/17 [Last Taken Unknown] Discharge Medications: Refer to the Discharge Home Medication list for PRN reason. - Follow Up Care Current Providers and Referrals: REY OSMAN [Other] - As per Instructions
[2017-02-05 16:03] VITALS: BP 121/67; PULSE 85; RESP 18; TEMP 98.9; O2SAT 92
[2017-02-05] MEDS: diphenhydrAMINE 25 MG CAP PO PRN (17:51)
--- NOTE | 2017-02-05 18:37 | WOCRNPDOC ---
WOCRN Advanced Assessment Note - Skin Integrity Problem, Advanced Assess Sacrum Pressure Injury Dressing Type: Adaptic Touch, Black Vac Foam, Wound Vac Dressing Description: Not Intact (vac not intact at distal end) Exudate Amount: Minimal Exudate Color: Yellow Exudate Characteristic(s): Cloudy, Thick Integumentary Issue Intervention: Dressing Changed Candis Wound Tissue: Erythema, Macerated, Raw Candis Wound Swelling: None Wound Bed Color: Red, Yellow Wound Bed Constitution: Granulation Tissue (30%), Smooth Tissue (30%), Undermining, Adhered Slough (40%) Pressure Injury Stage: Stage 4 Pressure Injury Present on Admit: Yes Skin Integrity Problem Comment: Vac dressing with inferior 1/3 not intact and leaking with part of the black foam hanging out. May have been reinforced with an Allevyn Life dressing as there was one covering some of the vac dressing. Removed all foam and contact layer. Cleaned with ns. Moist to dry placed. NYDIA Daigle observed dressing change. Wound care will round again Wednesday 02/07.
[2017-02-05] MEDS ORDERED: VANCOMYCIN HCL/NORMAL SALINE 250 ML IV SCH (20:00)
== END 2017-02-05 18:42 | DRG 579 ==
LOC: EDUNIT# → F1N 13:49 → OBSVTOIN 14:36 → F1N 02-02 12:18
PROVIDERS: ADMIT Hospitalist; ATTEND Hospitalist
PROC: 02HV33Z Insertion of Infusion Device into Superior Vena Cava, Percutaneous Approach (ICD-10-PCS; 2017-01-29)
PROC: 0KBP0ZZ Excision of Left Hip Muscle, Open Approach (ICD-10-PCS; principal; 2017-01-29 20:00)
PROC: 2W15X6Z Compression of Back using Pressure Dressing (ICD-10-PCS; principal; 2017-01-29 20:00)
PROC: 0KBN0ZZ Excision of Right Hip Muscle, Open Approach (ICD-10-PCS; principal; 2017-01-29 20:00)
DX: L89.154 Pressure ulcer of sacral region, stage 4 (principal); L27.0 Generalized skin eruption due to drugs and medicaments taken internally; T36.1X5A Adverse effect of cephalosporins and other beta-lactam antibiotics, initial encounter; J96.01 Acute respiratory failure with hypoxia; M60.08 Infective myositis, other site; B96.4 Proteus (mirabilis) (morganii) as the cause of diseases classified elsewhere; B95.2 Enterococcus as the cause of diseases classified elsewhere; G82.54 Quadriplegia, C5-C7 incomplete; N31.9 Neuromuscular dysfunction of bladder, unspecified; E87.1 Hypo-osmolality and hyponatremia; L89.891 Pressure ulcer of other site, stage 1; L89.43 Pressure ulcer of contiguous site of back, buttock and hip, stage 3; I48.0 Paroxysmal atrial fibrillation; G47.00 Insomnia, unspecified; I10 Essential (primary) hypertension; K21.9 Gastro-esophageal reflux disease without esophagitis; E03.9 Hypothyroidism, unspecified; E11.9 Type 2 diabetes mellitus without complications; F41.8 Other specified anxiety disorders; Z79.4 Long term (current) use of insulin; Z96.0 Presence of urogenital implants
CPT/HCPCS: 82947-QW; C1751; C1769; J1170; J1335; J1650; J1815; J2250; J2370; J2405; J2704; J2997; J3010; J3370; Q9967

== ENCOUNTER 2017-07-17 13:47 | Emergency (ER) | payer OTHER, MEDICAID ==
--- NOTE | 2017-07-17 13:57 | EDPHY ---
H & P HPI/ROS: Chief Complaint: Morris catheter out, possible UTI HPI: 61-year-old paraplegic woman coming from home. Patient states her Morris catheter came out last night. She currently has both a Morris catheter and suprapubic catheter. She is scheduled to have her urethra sewn shut because of persistent leakage which is why she continues to have a Morris catheter in addition to her suprapubic catheter. Last night the Morris catheter came out. She also believes she might have a urinary tract infection because she has got pain in her lower pelvis consistent with prior UTIs. She does have a history of colonization. She denies any fevers or chills. No nausea or vomiting. No abdominal pain. No back pain. ROS: 10 point Review of Systems is negative except as noted in the HPI. PMH: Paraplegia, diabetes, chronic indwelling Morris catheter Social History: No smoking, no alcohol, no recreational drug use Family History: non-contributory Physical Exam: Gen: Awake, Alert, No Distress HEENT: Nose: no rhinorrhea Eyes: PERRLA, EOMI Mouth: Moist mucosa Neck: Supple, no JVD Chest: nontender, lungs clear to auscultation Heart: S1, S2 normal, no murmur Abd: Soft, non-tender, no guarding, obese, suprapubic catheter with scant erythema, no purulent discharge. Ext: no edema, non-tender Skin: no rash Neuro: CN II-XII intact, Sensation grossly intact in upper extremities, Strength 5/5 in bilateral upper extremities. - Personal History Tetanus Vaccine Date: Within last 5 years - Medical/Surgical History Hx Asthma: No Hx Chronic Respiratory Disease: No Hx Diabetes: Yes Hx Cardiac Disease: Yes Hx Renal Disease: No Hx Cirrhosis: No Hx Alcoholism: No Hx HIV/AIDS: No Hx Splenectomy or Spleen Trauma: No Other PMH: PMH: Quadripalegia, A-fib, HTN, GERD, hypothyroid, DM2, anxiety, insomnia, chronic hyponatremia, pressure ulcer coccyx - Social History Smoking Status: Never smoked Constitutional: Initial Vital Signs Temperature (C) 37.4 C 07/17/17 13:59 Heart Rate 70 07/17/17 13:59 Respiratory Rate 16 07/17/17 13:59 Blood Pressure 106/57 L 07/17/17 13:59 O2 Sat (%) 93 07/17/17 13:59 O2 Delivery Mode Room Air Allergies/Adverse Reactions: ceftriaxone Allergy (Intermediate, Verified 07/09/17 16:48) Other-Enter Comments codeine [Codeine] Allergy (Verified 11/03/15 02:46) Home Medications: Medication Instructions Recorded Baclofen [Baclofen 10 mg (*)] 11/03/15 Citalopram Hydrobromide [Celexa] 11/03/15 Docusate Sodium [Colace 100 MG (*)] 11/03/15 Gabapentin [Neurontin 100 MG (*)] 11/03/15 Levothyroxine [Synthroid 88 mcg 11/03/15 (*)] Multivitamins [Multivitamin (*)] 11/03/15 Ondansetron Odt [Zofran Odt 4 mg 11/03/15 (*)] Polyethylene Glycol 3350 [Miralax 11/03/15 17 gm (*)] Sennosides/Docusate Sodium 11/03/15 [Senokot-S] Simethicone [GAS-X] 11/03/15 traZODone [traZODONE 50MG (*)] 11/03/15 Acetaminophen [Tylenol 325mg (*)] 01/02/17 Bisacodyl [Dulcolax] 01/02/17 Cholecalciferol Vit D3 [Vitamin D3 01/02/17 (*)] Dextrose Oral Gel [Glucose Gel (*)] 01/02/17 Diazepam [Valium 2 MG (*)] 01/02/17 Diazepam [Valium 2 MG (*)] 01/02/17 Glucagon,Human Recombinant 01/02/17 [Glucagon Emergency Kit] Methenamine Estephania [Hiprex 1 gm (*)] 01/02/17 Miconazole Powder 2% 01/02/17 QUEtiapine FUMARATE [Seroquel 25 01/02/17 mg (*)] guaiFENesin [Mucinex 600 MG (*)] 01/02/17 oxyCODONE IR [Oxycodone Ir (*)] 01/02/17 oxyCODONE IR [Oxycodone Ir (*)] 01/02/17 Albuterol [Proventil Neb] 01/29/17 Budesonide/Formoterol 160/4.5 01/29/17 [Symbicort 160-4.5 Mcg Inh (*)] Herbals/Supplements -Info Only 01/29/17 clonazePAM [klonoPIN (*)] 01/29/17 Acetaminophen [Tylenol 325mg (*)] 07/09/17 Hydrocodone/APAP 5/325 [Alpha 07/09/17 5/325 (*)] Midodrine HCl [Proamatine/Midodrin] 07/09/17 Ondansetron HCl Pf [Zofran 4 mg 07/09/17 Inj (*)] Ondansetron Odt [Zofran Odt 4 mg 07/09/17 (*)] diphenhydrAMINE [Benadryl 25 MG 07/09/17 (*)] Nitrofurantoin Monohyd/M-Cryst 100 mg PO BID #10 capsule 07/17/17 [Macrobid 100 mg Capsule] Medical Decision Making ED Course/Re-evaluation: Morris catheter placed. Urinalysis after catheter placement is consistent with urinary tract infection or chronic colonization. Given her increasing symptoms will start her on nitrofurantoin. Primary care physician can follow the urine cultures. Will discharge with instructions to return for any concerns. - Data Points Laboratory Results: 07/17/17 14:26 Urine Color YELLOW Urine Appearance MODERATELY TURBID Urine pH 5.0 (5.0-7.5) Ur Specific [place] 1.017 (1.002-1.030) Urine Protein NEGATIVE (NEGATIVE) Urine Ketones NEGATIVE (NEGATIVE) Urine Blood 1+ H (NEGATIVE) Urine Nitrate NEGATIVE (NEGATIVE) Urine Bilirubin NEGATIVE (NEGATIVE) Urine Urobilinogen NEGATIVE EU EU (0.2-1.0) Ur Leukocyte Esterase 3+ H (NEGATIVE) Urine RBC 50-182 /hpf H /hpf (0-3) Urine WBC 50-182 /hpf H /hpf (0-3) Ur Epithelial Cells TRACE /lpf /lpf (NONE-1+) Urine Mucus TRACE /lpf /lpf (NONE-1+) Urine Yeast PRESENT /hpf /hpf (NONE SEEN) Urine Glucose NEGATIVE (NEGATIVE) Medications Given: Discontinued Medications Sodium Chloride (Ns) 1,000 mls @ 0 mls/hr IV ONCE ONE PRN Reason: Wide Open Stop: 07/17/17 15:02 Last Admin: 07/17/17 15:04 Dose: 1,000 mls Departure - Departure Disposition: Home, Routine, Self-Care Clinical Impression: Morris catheter problem, UTI (urinary tract infection) Condition: Good Instructions: Urinary Tract Infection in Women (ED), Morris Catheter Placement and Care (ED) Additional Instructions: Please take her full course of antibiotics. Follow up with her primary care physician in the next 1-2 days to check on your urine culture results. Return to the emergency department for increasing pain, confusion, nausea, vomiting, fevers, chills, or any other concerns. Referrals: Patient,NotPresent [Unknown] - As per Instructions Prescriptions: Nitrofurantoin Monohyd/M-Cryst [Macrobid 100 mg Capsule] 100 mg PO BID #10 capsule
[2017-07-17 14:01] VITALS: RESP 16
[2017-07-17] MEDS ORDERED: NS 1,000 ML IV ONE (15:01)
[2017-07-17] MEDS ORDERED: NITROFURANTOIN MACROBID 100 MG CAP PO ONE (15:09)
[2017-07-17] MEDS ORDERED: HYDROCODONE/APAP 5/325 TAB PO ONE (15:09)
[2017-07-17] MEDS ORDERED: NITROFURANTOIN 100MG PREPACK#2 BTL TAKEHOME ONE (15:11)
[2017-07-17 15:41] VITALS: O2SAT 93
[2017-07-17 16:27] VITALS: BP 108/60; PULSE 68; TEMP 99
== END 2017-07-17 16:33 | disposition home or self-care (01) ==
LOC: EDUNIT#
PROC: 0T9B70Z Drainage of Bladder with Drainage Device, Via Natural or Artificial Opening (ICD-10-PCS; principal; 2017-07-17)
DX: T83.098A Other mechanical complication of other urinary catheter, initial encounter (principal); T83.511A Infection and inflammatory reaction due to indwelling urethral catheter, initial encounter; E11.9 Type 2 diabetes mellitus without complications; I10 Essential (primary) hypertension; Y73.2 Prosthetic and other implants, materials and accessory gastroenterology and urology devices associated with adverse incidents

== ENCOUNTER 2017-07-20 11:12 | Observation (INO) | payer OTHER, MEDICAID ==
--- NOTE | 2017-07-20 11:13 | EDPHY ---
H & P HPI/ROS: CHIEF COMPLAINT: Diarrhea HISTORY OF PRESENT ILLNESS: The patient is a 51 y/o female arriving via EMS complaining of diarrhea for the last 5 days. She is a T9 quadriplegic from a partial spinal injury 8 years ago and retains some use of her upper extremities and sensation below the waist. She lives independently and has a caregiver come over for a few hours every day. She was diagnosed with a UTI recently and has been on Macrobid for 3 days. She reports 3-4 episodes of watery diarrhea daily and has been using Imodium without change in symptoms. She is only able to feel bowel movements occasionally. She has some associated chills, but denies fever, vomiting, abdominal pain, dyspnea, cough. She does report an ongoing pressure ulcer on her coccyx and c.difficile diagnosis 7 months ago, for which she was treated. REVIEW OF SYSTEMS: A ten point review of systems was performed and is negative with the exception of the items mentioned in the HPI. Past medical history: 1. Spinal cord injury C6 due to fall down stairs 18 years ago - full use of arms , reduced motor in hands, below waist has sensation only 2. Diabetes - not on medication 3. UTI 4. Pressure ulcer 5. C.diff 7 months ago 6. MRSA Past surgical history: Suprapubic catheter Family history: Noncontributory Social history: Recently moved from [facility] to independent living apartment. Not employed. . General Appearance: Alert. Vital signs reviewed. * Eyes: Pupils equal and round, no conjunctival injection, no discharge. Anicteric. ENT, Mouth: Mucous membranes are moist, no oropharyngeal erythema or edema. Neck: No lymphadenopathy, supple. Respiratory: Lungs are clear to auscultation; no wheezes, rales, or rhonchi. Cardiovascular: Regular rate and rhythm; no murmur, rub, or gallop. Gastrointestinal: Abdomen is soft and nontender, no masses or organomegaly, bowel sounds normal. Urinary catheter and suprapubic catheter in place with small amount of surrounding erythema. Skin: Warm and dry, no rashes on exposed skin, normal color. Back: Nontender to palpation over the thoracolumbar spine. No CVAT. Extremities: No lower extremity edema, no calf tenderness or swelling. Neurological: Alert and oriented. Movement and sensation at baseline. Psychiatric: Normal affect. Constitutional: Initial Vital Signs Temperature (C) 36.6 C 07/20/17 11:15 Heart Rate 59 L 07/20/17 11:15 Respiratory Rate 18 07/20/17 11:15 Blood Pressure 96/41 L 07/20/17 11:15 O2 Sat (%) 94 07/20/17 11:15 O2 Delivery Mode Room Air Allergies/Adverse Reactions: ceftriaxone Allergy (Intermediate, Verified 07/09/17 16:48) Other-Enter Comments codeine [Codeine] Allergy (Verified 11/03/15 02:46) Home Medications: Medication Instructions Recorded Baclofen [Baclofen 10 mg (*)] 11/03/15 Citalopram Hydrobromide [Celexa] 11/03/15 Docusate Sodium [Colace 100 MG (*)] 11/03/15 Gabapentin [Neurontin 100 MG (*)] 11/03/15 Levothyroxine [Synthroid 88 mcg 11/03/15 (*)] Multivitamins [Multivitamin (*)] 11/03/15 Ondansetron Odt [Zofran Odt 4 mg 11/03/15 (*)] Polyethylene Glycol 3350 [Miralax 11/03/15 17 gm (*)] Sennosides/Docusate Sodium 11/03/15 [Senokot-S] Simethicone [GAS-X] 11/03/15 traZODone [traZODONE 50MG (*)] 11/03/15 Acetaminophen [Tylenol 325mg (*)] 01/02/17 Bisacodyl [Dulcolax] 01/02/17 Cholecalciferol Vit D3 [Vitamin D3 01/02/17 (*)] Dextrose Oral Gel [Glucose Gel (*)] 01/02/17 Diazepam [Valium 2 MG (*)] 01/02/17 Diazepam [Valium 2 MG (*)] 01/02/17 Glucagon,Human Recombinant 01/02/17 [Glucagon Emergency Kit] Methenamine Estephania [Hiprex 1 gm (*)] 01/02/17 Miconazole Powder 2% 01/02/17 QUEtiapine FUMARATE [Seroquel 25 01/02/17 mg (*)] guaiFENesin [Mucinex 600 MG (*)] 01/02/17 oxyCODONE IR [Oxycodone Ir (*)] 01/02/17 oxyCODONE IR [Oxycodone Ir (*)] 01/02/17 Albuterol [Proventil Neb] 01/29/17 Budesonide/Formoterol 160/4.5 01/29/17 [Symbicort 160-4.5 Mcg Inh (*)] Herbals/Supplements -Info Only 01/29/17 clonazePAM [klonoPIN (*)] 01/29/17 Acetaminophen [Tylenol 325mg (*)] 07/09/17 Hydrocodone/APAP 5/325 [[place] 07/09/17 5/325 (*)] Midodrine HCl [Proamatine/Midodrin] 07/09/17 Ondansetron HCl Pf [Zofran 4 mg 07/09/17 Inj (*)] Ondansetron Odt [Zofran Odt 4 mg 07/09/17 (*)] diphenhydrAMINE [Benadryl 25 MG 07/09/17 (*)] Nitrofurantoin Monohyd/M-Cryst 100 mg PO BID #10 capsule 07/17/17 [Macrobid 100 mg Capsule] Medical Decision Making ED Course/Re-evaluation: This is a 61 y/o female with quadriplegia who retains some use of her upper body and sensation in her lower extremities who presents with a 5-day history of watery diarrhea. Her exam is at baseline. Plan for IV, labs, stool sample, UA , and symptom management. 1L IV NS administered. - Data Points Laboratory Results: Laboratory Results 07/20/17 12:30 07/20/17 07/20/17 12:30 12:30 WBC 11.02 10^3/uL H 10^3/uL (3.80-9.50) RBC 4.34 10^6/uL 10^6/uL (4.18-5.33) Hgb 12.8 g/dL g/dL (12.6-16.3) Hct 37.2 % L % (38.0-47.0) MCV 85.7 fL fL (81.5-99.8) MCH 29.5 pg pg (27.9-34.1) MCHC 34.4 g/dL g/dL (32.4-36.7) RDW 15.4 % H % (11.5-15.2) Plt Count 290 10^3/uL 10^3/uL (150-400) MPV 9.3 fL fL (8.7-11.7) Neut % (Auto) 64.8 % % (39.3-74.2) Lymph % (Auto) 26.9 % % (15.0-45.0) [place] % (Auto) 6.2 % % (4.5-13.0) Eos % (Auto) 1.2 % % (0.6-7.6) Baso % (Auto) 0.4 % % (0.3-1.7) Nucleat RBC Rel Count 0.0 % % (0.0-0.2) Absolute Neuts (auto) 7.16 10^3/uL H 10^3/uL (1.70-6.50) Absolute Lymphs (auto) 2.96 10^3/uL 10^3/uL (1.00-3.00) Absolute Monos (auto) 0.68 10^3/uL 10^3/uL (0.30-0.80) Absolute Eos (auto) 0.13 10^3/uL 10^3/uL (0.03-0.40) Absolute Basos (auto) 0.04 10^3/uL 10^3/uL (0.02-0.10) Absolute Nucleated RBC 0.00 10^3/uL 10^3/uL (0-0.01) Immature Gran % 0.5 % % (0.0-1.1) Immature Gran # 0.05 10^3/uL 10^3/uL (0.00-0.10) Sodium Pending Potassium Pending Chloride Pending Carbon Dioxide Pending Anion Gap Pending BUN Pending Creatinine Pending Estimated GFR Pending Glucose Pending Calcium Pending Medications Given: Discontinued Medications Sodium Chloride (Ns) 1,000 mls @ 0 mls/hr IV EDNOW ONE; Wide Open PRN Reason: Protocol Stop: 07/20/17 11:32 Last Admin: 07/20/17 12:31 Dose: 1,000 mls Departure - Departure Referrals: Patient,NotPresent [Primary Care Provider] - As per Instructions Report Scribed for: Isela Winkler Report Scribed by: Tatiana Ibarra Date of Report: 07/20/17 Time of Report: 11:13 Physician Review and Approval Statement: 07/20/17 11:12 Portions of this note were transcribed by the medical device sales. I, Dr. Isela Winkler, personally performed the history, physical exam, and medical decision- making; and confirmed the accuracy of the information in the transcribed note.
[2017-07-20] MEDS ORDERED: NS 1,000 ML IV ONE (11:31)
[2017-07-20 12:35] LABS: % IMMATURE GRANULYOCYTES 0.5 % (0.0-1.1); ABSOLUTE IMMATURE GRANULOCYTES 0.05 10^3/uL (0.00-0.10); ADD DIFF? NO; ADD MORPH? NO; ADD SCAN? NO; ATYPICAL LYMPHOCYTE FLAG 0 (0-99); FRAGMENT RBC FLAG 0 (0-99); HEMATOCRIT 37.2 % (38.0-47.0); HEMOGLOBIN 12.8 g/dL (12.6-16.3); LEFT SHIFT FLG 0 (0-99); LIPEMIA HEMOLYSIS FLAG 90 (0-99); MEAN CELL HEMOGLOBIN 29.5 pg (27.9-34.1); MEAN CELL HEMOGLOBIN CONCENTR. 34.4 g/dL (32.4-36.7); MEAN CELL VOLUME 85.7 fL (81.5-99.8); MEAN PLATELET VOLUME 9.3 fL (8.7-11.7); PLATELET CLUMPS FLAG 0 (0-99); PLATELET COUNT 290 10^3/uL (150-400); RED BLOOD CELL COUNT 4.34 10^6/uL (4.18-5.33); RED CELL DISTRIBUTION WIDTH 15.4 % (11.5-15.2)
[2017-07-20 12:50] LABS: ANION GAP 10 mEq/L (8-16); CARBON DIOXIDE 23 mEq/l (22-31); CHLORIDE 109 mEq/L (97-110); CREATININE 0.5 mg/dL (0.6-1.0); GLOMERULAR FILTRATION RATE > 60; GLUCOSE 122 mg/dL (70-100); POTASSIUM 3.9 mEq/L (3.5-5.2); SODIUM 142 mEq/L (134-144)
[2017-07-20] MEDS ORDERED: oxyCODONE IR 5 MG TAB PO PRN (13:53)
[2017-07-20] MEDS ORDERED: PROMETHAZINE HCL 25 MG/ML INJ IVP PRN (13:53)
[2017-07-20] MEDS ORDERED: ONDANSETRON DISINTEGRATING 4 MG TAB PO PRN ×2 (13:53→13:55)
[2017-07-20] MEDS ORDERED: LORazepam 0.5 MG TAB PO PRN (13:53)
[2017-07-20] MEDS ORDERED: ONDANSETRON 4 MG/2 ML VIAL IVP PRN (13:53)
[2017-07-20] MEDS ORDERED: HYDROCODONE/APAP 5/325 TAB PO PRN (13:55)
[2017-07-20] MEDS ORDERED: DIAZEPAM 5 MG TAB PO PRN (13:55)
--- NOTE | 2017-07-20 15:11 | PDGENHP ---
History and Physical - Chief Complaint diarrhea - History of Present Illness 61 yo F with hx of partial quadriplegia s/p fall down the stairs in 2010 with chronic neurogenic bladder, chronic indwelling mirza and recurrent UTIs presenting with diarrhea several days into treatment for presumed UTI. Patient was having her typical urinary sxs that she gets with UTI and was seen in ER and prescribed macrobid that she has been on for several days. Yesterday she developed diarrhea that was occurring about every 2 hours without associated abdominal pain/n/v or fever or chills. She stopped having diarrhea yesterday evening around 10pm and has had no BM today. She came to the ER because she was concerned that the diarrhea was related to her abx medication. History Information - Allergies/Home Medication List Allergies/Adverse Reactions: ceftriaxone Allergy (Intermediate, Verified 07/09/17 16:48) Other-Enter Comments codeine [Codeine] Allergy (Verified 11/03/15 02:46) Home Medications: Baclofen [Baclofen 10 mg (*)] 10 mg PO TID 07/20/17 [Last Taken Unknown] Baclofen [Baclofen 20 mg (*)] 20 mg PO HS 07/20/17 [Last Taken Unknown] Citalopram Hydrobromide [Celexa] 40 mg PO DAILY 07/20/17 [Last Taken Unknown] Diazepam [Valium 5 MG (*)] 2.5 mg PO DAILY PRN 07/20/17 [Last Taken Unknown] Gabapentin [Neurontin 100 MG (*)] 100 mg PO TID 07/20/17 [Last Taken Unknown] Glucagon,Human Recombinant [Glucagon Emergency Kit] 1 mg IJ ONCE 07/20/17 [Last Taken Unknown] Hydrocodone/APAP 5/325 [[place] 5/325 (*)] 1 tab PO Q6H PRN 07/20/17 [Last Taken Unknown] Levothyroxine [Synthroid 88 mcg (*)] 88 mcg PO DAILY06 07/20/17 [Last Taken Unknown] Methenamine Estephania [Hiprex 1 gm (*)] 1 gm PO DAILY 07/20/17 [Last Taken Unknown] Nitrofurantoin Monohyd/M-Cryst [Macrobid 100 mg Capsule] 100 mg PO BID 07/20/17 [Last Taken Unknown] Ondansetron Odt [Zofran Odt 4 mg (*)] 4 mg PO Q6H PRN 07/20/17 [Last Taken Unknown] traZODone [traZODONE 50MG (*)] 150 mg PO HS 07/20/17 [Last Taken Unknown] I have personally reviewed and updated: family history, medical history, social history, surgical history - Past Medical History atrial fibrillation, diabetes type 2, GERD Additional medical history: chronic decubs. partial c6-c7 quad. neurogenic bladder/recurrent uti - Surgical History Reports: no pertinent surgical hx - Family History Positive for: non-pertinent - Social History Smoking Status: Never smoked Alcohol Use: Rarely Drug Use: None Review of Systems Review of Systems: ROS: 10pt was reviewed & negative except for what was stated in HPI & below Physical Exam Physical Exam: Temp Pulse Resp BP Pulse Ox 36.6 C 58 L 18 101/48 L 93 07/20/17 13:48 07/20/17 13:48 07/20/17 13:48 07/20/17 13:48 07/20/17 13:48 Constitutional: no apparent distress, appears nourished Eyes: PERRL Ears, Nose, Mouth, Throat: moist mucous membranes Cardiovascular: regular rate and rhythym, no murmur, rub, or gallop, systolic murmur Respiratory: no respiratory distress, no rales or rhonchi Gastrointestinal: normoactive bowel sounds, soft, non-tender abdomen Genitourinary: no bladder tenderness Skin: warm, normal color Musculoskeletal: full muscle strength Neurologic: AAOx3, weakness Psychiatric: interacting appropriately, not anxious, not encephalopathic Lab Data & Imaging Review 07/20/17 12:30 07/20/17 12:30 WBC 11.02 10^3/uL (3.80-9.50) H 07/20/17 12:30 RBC 4.34 10^6/uL (4.18-5.33) 07/20/17 12:30 Hgb 12.8 g/dL (12.6-16.3) 07/20/17 12:30 Hct 37.2 % (38.0-47.0) L 07/20/17 12:30 MCV 85.7 fL (81.5-99.8) 07/20/17 12:30 MCH 29.5 pg (27.9-34.1) 07/20/17 12:30 MCHC 34.4 g/dL (32.4-36.7) 07/20/17 12:30 RDW 15.4 % (11.5-15.2) H 07/20/17 12:30 Plt Count 290 10^3/uL (150-400) 07/20/17 12:30 MPV 9.3 fL (8.7-11.7) 07/20/17 12:30 Neut % (Auto) 64.8 % (39.3-74.2) 07/20/17 12:30 Lymph % (Auto) 26.9 % (15.0-45.0) 07/20/17 12:30 [place] % (Auto) 6.2 % (4.5-13.0) 07/20/17 12:30 Eos % (Auto) 1.2 % (0.6-7.6) 07/20/17 12:30 Baso % (Auto) 0.4 % (0.3-1.7) 07/20/17 12:30 Nucleat RBC Rel Count 0.0 % (0.0-0.2) 07/20/17 12:30 Absolute Neuts (auto) 7.16 10^3/uL (1.70-6.50) H 07/20/17 12:30 Absolute Lymphs (auto) 2.96 10^3/uL (1.00-3.00) 07/20/17 12:30 Absolute Monos (auto) 0.68 10^3/uL (0.30-0.80) 07/20/17 12:30 Absolute Eos (auto) 0.13 10^3/uL (0.03-0.40) 07/20/17 12:30 Absolute Basos (auto) 0.04 10^3/uL (0.02-0.10) 07/20/17 12:30 Absolute Nucleated RBC 0.00 10^3/uL (0-0.01) 07/20/17 12:30 Immature Gran % 0.5 % (0.0-1.1) 07/20/17 12:30 Immature Gran # 0.05 10^3/uL (0.00-0.10) 07/20/17 12:30 Sodium 142 mEq/L (134-144) 07/20/17 12:30 Potassium 3.9 mEq/L (3.5-5.2) 07/20/17 12:30 Chloride 109 mEq/L (97-110) 07/20/17 12:30 Carbon Dioxide 23 mEq/l (22-31) 07/20/17 12:30 Anion Gap 10 mEq/L (8-16) 07/20/17 12:30 BUN 9 mg/dL (7-23) 07/20/17 12:30 Creatinine 0.5 mg/dL (0.6-1.0) L 07/20/17 12:30 Estimated GFR > 60 07/20/17 12:30 Glucose 122 mg/dL (70-100) H 07/20/17 12:30 Calcium 9.0 mg/dL (8.5-10.4) 07/20/17 12:30 Assessment & Plan Assessment: 61 yo F with hx of partial quadriplegia admitted with diarrhea # diarrhea: now resolved, in the setting of abx therapy and possibly related to the same versus related to GI infection such as c diff. Given complete lack of sxs currently and rapid resolution will not tx empirically. GI pathogen panel pending. # UTI: recent diagnosis of UTI in setting of chronic indwelling mirza, staph growing that is garland sensitive, was on macrobid but possibly with diarrhea related to abx so will transition to bactrim # chronic decubs: will have wound care evaluate # chronic medical issues: dm2, hypothyroid, obesity, GERD, p af--no change in oupatient management observation status, if no recurrence of diarrhea will likely be ready for dc in am
[2017-07-20] MEDS: BACLOFEN 10 MG TAB PO SCH (16:12)
[2017-07-20] MEDS: GABAPENTIN 100 MG CAP PO SCH ×2 (16:12→21:14)
[2017-07-20 19:02] VITALS: O2SAT 93
[2017-07-20] MEDS ORDERED: BACLOFEN 20 MG TAB PO SCH (21:00)
[2017-07-20] MEDS ORDERED: traZODone 50 MG TAB PO SCH (21:00)
[2017-07-20] MEDS ORDERED: NITROFURANTOIN MACROBID 100 MG CAP PO SCH (21:00)
[2017-07-20] MEDS: SULFAMETHOX/TMP 800/160 MG 1 TAB PO SCH (21:14)
[2017-07-20] MEDS: ACETAMINOPHEN 325 MG TAB PO PRN (21:25)
[2017-07-21 04:40] VITALS: RESP 16
[2017-07-21 04:48] LABS: % IMMATURE GRANULYOCYTES 0.7 % (0.0-1.1); ABSOLUTE IMMATURE GRANULOCYTES 0.06 10^3/uL (0.00-0.10); ADD DIFF? NO; ADD MORPH? NO; ADD SCAN? NO; ATYPICAL LYMPHOCYTE FLAG 10 (0-99); FRAGMENT RBC FLAG 0 (0-99); HEMATOCRIT 34.5 % (38.0-47.0); HEMOGLOBIN 11.5 g/dL (12.6-16.3); LEFT SHIFT FLG 0 (0-99); LIPEMIA HEMOLYSIS FLAG 80 (0-99); MEAN CELL HEMOGLOBIN CONCENTR. 33.3 g/dL (32.4-36.7); MEAN CELL VOLUME 87.1 fL (81.5-99.8); MEAN PLATELET VOLUME 10.1 fL (8.7-11.7); PLATELET CLUMPS FLAG 0 (0-99); PLATELET COUNT 262 10^3/uL (150-400); RED BLOOD CELL COUNT 3.96 10^6/uL (4.18-5.33); RED CELL DISTRIBUTION WIDTH 15.4 % (11.5-15.2)
[2017-07-21 05:00] LABS: ANION GAP 12 mEq/L (8-16); CALCIUM 8.7 mg/dL (8.5-10.4); CARBON DIOXIDE 24 mEq/l (22-31); CHLORIDE 107 mEq/L (97-110); CREATININE 0.6 mg/dL (0.6-1.0); GLOMERULAR FILTRATION RATE > 60; GLUCOSE 124 mg/dL (70-100); POTASSIUM 3.6 mEq/L (3.5-5.2); SODIUM 143 mEq/L (134-144)
[2017-07-21] MEDS: ACETAMINOPHEN 325 MG TAB PO PRN (05:15)
[2017-07-21] MEDS ORDERED: LR 1,000 ML IV SCH (05:30)
[2017-07-21] MEDS ORDERED: LEVOTHYROXINE 88 MCG TAB PO SCH (06:00)
[2017-07-21 08:13] VITALS: BP 125/66; PULSE 66; TEMP 97.7
[2017-07-21] MEDS: SULFAMETHOX/TMP 800/160 MG 1 TAB PO SCH (08:17)
[2017-07-21] MEDS: BACLOFEN 10 MG TAB PO SCH ×2 (08:18→12:02)
[2017-07-21] MEDS: GABAPENTIN 100 MG CAP PO SCH (08:18)
--- NOTE | 2017-07-21 08:29 | HOSPPROG ---
Hospitalist Progress Note Objective: Vital Signs Temp Pulse Resp BP Pulse Ox 36.5 C 66 16 125/66 H 93 07/21/17 08:00 07/21/17 08:00 07/21/17 08:00 07/21/17 08:00 07/21/17 08:00 Laboratory Results 07/21/17 06:00 07/21/17 04:17 07/20/17 07/21/17 07/22/17 05:59 05:59 05:59 Intake Total 2460 Output Total 800 Balance 1660 ICD10 Worksheet Patient Problems: Problems Problem Status Onset Chronic incomplete flaccid quadriplegia Acute Decubital ulcer Acute Hyponatremia Acute Quadriplegia Acute Severe sepsis Acute UTI (urinary tract infection) Acute Weakness Acute
--- NOTE | 2017-07-21 08:30 | WOCRNPDOC ---
WOCRN Advanced Assessment Note - Skin Integrity Problem, Advanced Assess Coccyx Dressing Type: Allevyn Life Dressing Description: Clean/Dry, Intact Exudate Amount: Minimal Exudate Color: Clear, Yellow Exudate Characteristic(s): Serous Integumentary Issue Intervention: Dressing Changed Candis Wound Tissue: Erythema, Scarred (extensive from previous flap) Candis Wound Swelling: None Wound Bed Color: Red Wound Bed Constitution: Granulation Tissue (100%), Undermining (8 to 11 oclocl 0.6 cm with patient on right side. ) Wound Edges: Attached Site Measurement - Head-to-Toe Length X Width X Depth (cm): 2.5x2.2x0.9 Pressure Injury Stage: Stage 4 Pressure Injury Present on Admit: Yes Skin Integrity Problem Comment: Healing. Continue with plan of care. Wound care will round again next week. NYDIA Holm in room for care. Be cautious placing the TAPS that patient isnt lying on the bottom wedge.
[2017-07-21] MEDS ORDERED: METHENAMINE HIPP 1 GM TAB PO SCH (09:00)
[2017-07-21] MEDS ORDERED: ENOXAPARIN 40 MG/0.4 ML SYR SC SCH (09:00)
[2017-07-21] MEDS ORDERED: NON-FORMULARY NEW DRUG (Citalopram Hydrobromide [Celexa] 40 MG) PO SCH (09:00)
[2017-07-21] MEDS ORDERED: CITALOPRAM 20 MG TAB PO SCH (09:00)
--- NOTE | 2017-07-21 11:52 | PDIAF ---
- Diagnosis Diagnosis: UTI Code Status: Do Not Resuscitate - Medication Management Discharge Medications: Medications to Continue on Transfer Baclofen [Baclofen 10 mg (*)] 10 mg PO TID 07/20/17 [Last Taken Unknown] Baclofen [Baclofen 20 mg (*)] 20 mg PO HS 07/20/17 [Last Taken Unknown] Citalopram Hydrobromide [Celexa] 40 mg PO DAILY 07/20/17 [Last Taken Unknown] Diazepam [Valium 5 MG (*)] 2.5 mg PO DAILY PRN 07/20/17 [Last Taken Unknown] Gabapentin [Neurontin 100 MG (*)] 100 mg PO TID 07/20/17 [Last Taken Unknown] Glucagon,Human Recombinant [Glucagon Emergency Kit] 1 mg IJ ONCE 07/20/17 [Last Taken Unknown] Hydrocodone/APAP 5/325 [[place] 5/325 (*)] 1 tab PO Q6H PRN 07/20/17 [Last Taken Unknown] Levothyroxine [Synthroid 88 mcg (*)] 88 mcg PO DAILY06 07/20/17 [Last Taken Unknown] Methenamine Estephania [Hiprex 1 gm (*)] 1 gm PO DAILY 07/20/17 [Last Taken Unknown] Ondansetron Odt [Zofran Odt 4 mg (*)] 4 mg PO Q6H PRN 07/20/17 [Last Taken Unknown] traZODone [traZODONE 50MG (*)] 150 mg PO HS 07/20/17 [Last Taken Unknown] Sulfamethox/Tmp 800/160 mg [Bactrim DS] 1 ea PO BID #6 tab 07/21/17 [Last Taken Unknown] Discharge Medications: Refer to the Discharge Home Medication list for PRN reason. - Orders Services needed: Home Care, Registered Nurse Home Care Face to Face: I certify that this patient was under my care and that I had the required [id number] encounter meeting the encounter requirements on the discharge day. My findings support the fact that the patient is homebound as defined in Home Care Face to Face Continued: CMS Chapter 7 Medicare Benefits Manual 30.1.1 , The condition of the patient is such that there exists a normal inability to leave home and consequently, leaving home would require a considerable and taxing effort. Isolation Type: Contact Isolation Diet Recommendation: no restrictions on diet Diet Texture: Regular Texture Diet - Follow Up Care Current Providers and Referrals: Patient,NotPresent [Unknown] - As per Instructions
--- NOTE | 2017-07-21 12:07 | ASMTCMCOM ---
CM Note CM Note Notes: Patient is a T9 quadriplegic, admitted with diarrhea. Symptoms have resolved and she is being discharged home. Per patient, she is current with [facility] RN for wound care; I sent orders for them to resume care. Transport home arranged through [facility] stretcher. PCS form filled out and given to transporters. Date Signed: 07/21/2017 12:08 PM Electronically Signed By:Elma Souza RN
--- NOTE | 2017-07-21 12:20 | GDS ---
[f rep st] DISCHARGE SUMMARY DISCHARGE DIAGNOSES: 1. Staph aureus urinary tract infection. 2. Diarrhea. 3. Quadriplegia, chronic neurogenic bladder, chronic indwelling Morris. 4. Recurrent urinary tract infections. 5. Chronic decubitus ulcers present on admission. 6. Diabetes type 2. 7. Hypothyroidism. 8. Obesity. 9. Gastroesophageal reflux disease. 10. Paroxysmal atrial fibrillation. 11. Hypotension. A 61-year-old female with history of partial quadriplegia, status post fall in 2010 with chronic neur ogenic bladder, indwelling Morris, and recurrent UTIs, presents with diarrhea for several days. She h ad a urine drawn 07/17 that was positive for Staph aureus and was started on Macrobid. She was havin g her typical urinary symptoms when she is getting a UTI and was prescribed Macrobid. She had diarrh ea day before admission every 2 hours without associated nausea, vomiting, or blood. No fevers or ch ills. She stopped having diarrhea at 10 p.m. last night. She came to the ER because she was concern ed the diarrhea was related to her antibiotics. 1. Diarrhea, now resolved, likely secondary to antibiotics. Her Macrobid has been switched to Bactr im. I advised her if this was to recur, she needs to go to her primary care physician and be checked for C diff. 2. Complicated UTI: Secondary to chronic indwelling Morris. Positive culture 07/17 for Staph aureus . Switched to Bactrim to complete 7 days total antibiotics. Given Macrobid may have been causing di arrhea. She has a Urology appointment 08/09 and recommend this to be exchanged. 3. Chronic decubitus ulcers: Present on admission, stable. 4. Diabetes, not on home medications for that. 5. Hypothyroidism. Levothyroxine. 6. Obesity. 7. GERD. 8. Paroxysmal atrial fibrillation. She is not on anticoagulations or beta amanda. She is normal s inus rhythm here. 9. Hypotension: Systolic 75 last night, asymptomatic. This quickly resolved with IV fluids. Likel y dehydrated with diffuse diarrhea and decreased p.o. intake. PHYSICAL EXAMINATION: VITAL SIGNS: Temperature 36.5, blood pressure 125/66, heart rate 66, respirat ions 16, 93% on room air. GENERAL: Well-appearing female, obese, in no acute distress. HEENT: PER RLA. EOMI. Oropharynx clear. CV: Regular rate and rhythm. No murmurs, gallops, rubs. LUNGS: Cl ear anteriorly. ABDOMEN: Obese, soft, nontender. No distention. : Chronic Morris in place. No significant tenderness. MUSCULOSKELETAL: Moving upper extremities. NEURO: Two through 12 intact. PSYCH: Alert and oriented x3. DISPOSITION: Patient chooses to go home. I have advised her she will not receive her evening dose o f Bactrim. I have explained the risks of progression of infection, and she is okay with this risk. I have sent a script to [facility] to be picked up in the morning. NEW MEDICATIONS: Bactrim Double Strength for 3 more days. FOLLOWUP: 1. Her primary care physician. 2. Urology. /[id number]/MODL
--- NOTE | 2017-07-22 10:07 | ASDISCHSUM ---
Discharge Information Plan Status:Home with Home Health Medically Cleared to Leave: Discharge Date:07/21/2017 01:03 PM CM D/C Disposition:Home Health Service ADT D/C Disposition:Home, Routine, Self-Care Projected Discharge Date:07/21/2017 11:00 AM Transportation at D/C:ALS/BLS Discharge Delay Reason: Follow-Up Date:07/21/2017 11:00 AM Discharge Slot: Final Diagnosis: Placement Information Referral Type:*Home Health Care Services Referral ID:[id number] Provider Name:[facility] Address 1:[address] Address 2: City:[place] Selection Factors: State:[place] Patient Contact Information Contact Name:SERGO Relationship:Cousin Address: Work Phone: City: [facility] Phone: [facility] Code: Email: Financial Information Financial Class:Medicare Advantage Plans Primary Plan Desc:[facility] [employer] Primary Plan Number:[id number] Secondary Plan Desc:[employer] [place] Secondary Plan Number:[id number] Assessment Information [facility] CM Progress Note CM Note CM Note Notes: Patient is a T9 quadriplegic, admitted with diarrhea. Symptoms have resolved and she is being discharged home. Per patient, she is current with [facility] RN for wound care; I sent orders for them to resume care. Transport home arranged through [facility]. PCS form filled out and given to transporters. Date Signed: 07/21/2017 12:08 PM Electronically Signed By:Elma Souza RN Intervention Information
== END 2017-07-21 13:03 | disposition home or self-care (01) ==
LOC: EDUNIT# → INTOOBSV 12:45 → F3E 13:26
PROVIDERS: ADMIT Internal Medicine; ATTEND Internal Medicine
DX: N39.0 Urinary tract infection, site not specified (principal); B95.8 Unspecified staphylococcus as the cause of diseases classified elsewhere; R19.7 Diarrhea, unspecified; G82.50 Quadriplegia, unspecified; L89.159 Pressure ulcer of sacral region, unspecified stage; E11.9 Type 2 diabetes mellitus without complications; E03.9 Hypothyroidism, unspecified; E66.9 Obesity, unspecified; K21.9 Gastro-esophageal reflux disease without esophagitis; I48.0 Paroxysmal atrial fibrillation; I95.9 Hypotension, unspecified
CPT/HCPCS: G0378; J1650; J2405

== ENCOUNTER 2017-07-28 20:22 | Inpatient (IN) | payer OTHER, MEDICAID ==
--- NOTE | 2017-07-28 20:44 | EDPHY ---
H & P Time Seen by Provider: 07/28/17 20:41 HPI/ROS: CHIEF COMPLAINT: Diarrhea HISTORY OF PRESENT ILLNESS: The patient presents to the ED with a several day history of mucousy diarrhea. The patient has a history of partial quadriplegia from a prior accident. She has a history of neurogenic bladder and chronic decubitus ulcers. The patient was recently in the hospital with diarrhea and and a urinary tract infection. She has been on several antibiotics recently including Bactrim and Macrobid. The patient denies any fever, vomiting, cough for shaking chills. She denies any complaints of acute abdominal pain. The patient typically has 24 hr home care nursing however her home care nurse this evening did not feel that he could adequately care for her and sent her to the hospital for admission. REVIEW OF SYSTEMS: A comprehensive 10 point review of systems is otherwise negative aside from elements mentioned in the history of present illness. Source: Patient Exam Limitations: No limitations - Personal History Tetanus Vaccine Date: Within last 5 years - Medical/Surgical History Hx Asthma: No Hx Chronic Respiratory Disease: No Hx Diabetes: Yes Hx Cardiac Disease: Yes Hx Renal Disease: No Hx Cirrhosis: No Hx Alcoholism: No Hx HIV/AIDS: No Hx Splenectomy or Spleen Trauma: No Other PMH: PMH: Quadripalegia, A-fib, HTN, GERD, hypothyroid, DM2, anxiety, insomnia, chronic hyponatremia, pressure ulcer coccyx - Social History Smoking Status: Never smoked - Physical Exam Exam: General Appearance: Obese female, no acute distress Eyes: Pupils equal and round no pallor or injection ENT, Mouth: Mucous membranes moist Respiratory: There are no retractions, lungs are clear to auscultation Cardiovascular: Regular rate and rhythm Gastrointestinal: Abdomen is soft and nontender, no masses, bowel sounds normal , chronic catheter Neurological: Alert and oriented x4, chronic weakness secondary to quadriplegia Musculoskeletal: Neck is supple nontender Extremities: symmetrical, full range of motion Constitutional: Initial Vital Signs Temperature (C) 37.2 C 07/28/17 20:37 Heart Rate 83 07/28/17 20:37 Respiratory Rate 16 07/28/17 20:37 Blood Pressure 97/57 L 07/28/17 20:37 O2 Sat (%) 91 L 07/28/17 20:37 O2 Delivery Mode Room Air Allergies/Adverse Reactions: ceftriaxone Allergy (Intermediate, Verified 07/09/17 16:48) Other-Enter Comments codeine [Codeine] Allergy (Verified 11/03/15 02:46) Home Medications: Medication Instructions Recorded Baclofen [Baclofen 10 mg (*)] 10 mg PO TID 07/20/17 Baclofen [Baclofen 20 mg (*)] 20 mg PO HS 07/20/17 Citalopram Hydrobromide [Celexa] 40 mg PO DAILY 07/20/17 Diazepam [Valium 5 MG (*)] 2.5 mg PO DAILY PRN 07/20/17 Gabapentin [Neurontin 100 MG (*)] 100 mg PO TID 07/20/17 Glucagon,Human Recombinant 1 mg IJ ONCE 07/20/17 [Glucagon Emergency Kit] Hydrocodone/APAP 5/325 [[place] 1 tab PO Q6H PRN 07/20/17 5/325 (*)] Levothyroxine [Synthroid 88 mcg 88 mcg PO DAILY06 07/20/17 (*)] Methenamine Estephania [Hiprex 1 gm (*)] 1 gm PO DAILY 07/20/17 Ondansetron Odt [Zofran Odt 4 mg 4 mg PO Q6H PRN 07/20/17 (*)] traZODone [traZODONE 50MG (*)] 150 mg PO HS 07/20/17 Sulfamethox/Tmp 800/160 mg 1 ea PO BID #6 tab 07/21/17 [Bactrim DS] Medical Decision Making ED Course/Re-evaluation: The patient presents to the ED with several days of mucousy diarrhea and leukocytosis. The patient certainly is at risk for Clostridium difficile colitis given her recent antibiotic use. The patient tells me that her home care nurse is unable to care for her this evening and that she needs to be admitted to the hospital. The patient is nontoxic and otherwise well- appearing. We will attempt to obtain a stool sample in the emergency department.. I did discuss the case with Dr. Pepe Sherwood from the hospitalist service who is willing to admit the patient for observation this evening. The patient will be started on empiric vancomycin orally pending the results of her C diff test. Differential Diagnosis: Differential diagnosis considered includes Clostridium difficile colitis, dehydration, renal failure - Data Points Laboratory Results: Laboratory Results 07/28/17 20:28 07/28/17 20:28 07/28/17 07/28/17 20:28 20:28 WBC 17.93 10^3/uL H 10^3/uL (3.80-9.50) RBC 4.37 10^6/uL 10^6/uL (4.18-5.33) Hgb 12.7 g/dL g/dL (12.6-16.3) Hct 37.7 % L % (38.0-47.0) MCV 86.3 fL fL (81.5-99.8) MCH 29.1 pg pg (27.9-34.1) MCHC 33.7 g/dL g/dL (32.4-36.7) RDW 15.8 % H % (11.5-15.2) Plt Count 311 10^3/uL 10^3/uL (150-400) MPV 9.5 fL fL (8.7-11.7) Neut % (Auto) 72.0 % % (39.3-74.2) Lymph % (Auto) 20.0 % % (15.0-45.0) [place] % (Auto) 5.8 % % (4.5-13.0) Eos % (Auto) 1.4 % % (0.6-7.6) Baso % (Auto) 0.4 % % (0.3-1.7) Nucleat RBC Rel Count 0.0 % % (0.0-0.2) Absolute Neuts (auto) 12.90 10^3/uL H 10^3/uL (1.70-6.50) Absolute Lymphs (auto) 3.58 10^3/uL H 10^3/uL (1.00-3.00) Absolute Monos (auto) 1.04 10^3/uL H 10^3/uL (0.30-0.80) Absolute Eos (auto) 0.25 10^3/uL 10^3/uL (0.03-0.40) Absolute Basos (auto) 0.08 10^3/uL 10^3/uL (0.02-0.10) Absolute Nucleated RBC 0.00 10^3/uL 10^3/uL (0-0.01) Immature Gran % 0.4 % % (0.0-1.1) Immature Gran # 0.08 10^3/uL 10^3/uL (0.00-0.10) Sodium 140 mEq/L mEq/L (134-144) Potassium 4.4 mEq/L mEq/L (3.5-5.2) Chloride 105 mEq/L mEq/L (97-110) Carbon Dioxide 22 mEq/l mEq/l (22-31) Anion Gap 13 mEq/L mEq/L (8-16) BUN 17 mg/dL mg/dL (7-23) Creatinine 0.7 mg/dL mg/dL (0.6-1.0) Estimated GFR > 60 Glucose 146 mg/dL H mg/dL (70-100) Calcium 9.5 mg/dL mg/dL (8.5-10.4) Medications Given: Discontinued Medications Sodium Chloride (Ns) 1,000 mls @ 0 mls/hr IV EDNOW ONE; Wide Open PRN Reason: Protocol Stop: 07/28/17 20:55 Last Admin: 07/28/17 21:04 Dose: 1,000 mls Departure - Departure Disposition: [facility] Inpatient Acute Clinical Impression: Diarrhea, Chronic incomplete flaccid quadriplegia Condition: Good Referrals: Patient,NotPresent [Unknown] - As per Instructions
[2017-07-28 20:50] LABS: PLATELET COUNT 311 10^3/uL (150-400)
[2017-07-28] MEDS ORDERED: NS 1,000 ML IV ONE (20:54)
[2017-07-28] MEDS ORDERED: VANCOMYCIN 125 MG/2.5 ML UDL PO ONE (21:06)
[2017-07-28] MEDS ORDERED: VANCOMYCIN 125 MG/2.5 ML UDL ONE (21:23)
[2017-07-28] MEDS ORDERED: ONDANSETRON DISINTEGRATING 4 MG TAB PO PRN (22:38)
[2017-07-28] MEDS ORDERED: ONDANSETRON 4 MG/2 ML VIAL IVP PRN (22:38)
[2017-07-29] MEDS: LR 1,000 ML IV SCH ×2 (00:59→07:58)
[2017-07-29] MEDS: ACETAMINOPHEN 325 MG TAB PO PRN (04:06)
[2017-07-29 05:21] LABS: PLATELET COUNT 226 10^3/uL (150-400)
[2017-07-29] MEDS: ENOXAPARIN 40 MG/0.4 ML SYR SC SCH (07:58)
[2017-07-29] MEDS ORDERED: NON-FORMULARY NEW DRUG (Citalopram Hydrobromide [Celexa] 40 MG) PO SCH (09:00)
--- NOTE | 2017-07-29 10:09 | PDGENHP ---
History and Physical - Chief Complaint diarrhea - History of Present Illness DATE OF SERVICE: Please note this is a late entry note. Patient was seen prior to midnight on 07/28/2017. Source-patient provides history appears reliable. Her EMR was reviewed and case discussed with accepting provider. Chief complaint - diarrhea HPI-this is a pleasant 61-year-old female with past medical history significant for partial quadriplegia related to fall down the stairs with injury to the C6- 7 who is bed bound with chronic decubitus ulcer on chronic neurogenic bladder with placement of suprapubic catheter and also patient has an indwelling catheter as well with history of recurrent UTIs who presents to the emergency department today with complaints of several days of diarrhea. Patient denies any fever she denies any abdominal pain. She denies any knowledge of melena or hematochezia. Patient denies any shortness of breath cough rhinorrhea fevers or chills. Given patient's increased acuity of need her home health nurse was felt that she was not able to care for the patient and so she was transferred to the emergency department. Patient does have a known history of C difficile . Patient was recently placed on Macrobid and subsequently transitioned to Bactrim for a recurrent and persistent UTI. History Information - Allergies/Home Medication List Allergies/Adverse Reactions: ceftriaxone Allergy (Intermediate, Verified 07/09/17 16:48) Other-Enter Comments codeine [Codeine] Allergy (Verified 11/03/15 02:46) Home Medications: Acetaminophen [Tylenol 325mg (*)] 650 mg PO TID 07/28/17 [Last Taken Unknown] Acetic Acid Irr Soln 0.25% 30 ml IRR HS 07/28/17 [Last Taken Unknown] Baclofen [Baclofen 10 mg (*)] 10 mg PO BID@,12 07/28/17 [Last Taken Unknown] Baclofen [Baclofen 20 mg (*)] 20 mg PO HS 07/28/17 [Last Taken Unknown] Bisacodyl [Dulcolax] 10 mg RC EVERY OTHER DAY@07/28/17 [Last Taken Unknown] Bisacodyl [Dulcolax] 10 mg RC Q24H PRN 07/28/17 [Last Taken Unknown] Citalopram Hydrobromide [Celexa] 40 mg PO DAILY 07/28/17 [Last Taken Unknown] Dextran 70/Hypromellose [Artificial Tears] 2 drops EACHEYE DAILY PRN 07/28/17 [ Last Taken Unknown] Diazepam [Valium 5 MG (*)] 2.5 mg PO Q8H PRN 07/28/17 [Last Taken Unknown] Gabapentin [Neurontin 100 MG (*)] 200 mg PO TID 07/28/17 [Last Taken Unknown] Hydrocodone/Acetaminophen [[place] 5/325 (*)] 1 each PO Q4H PRN 07/28/17 [Last Taken Unknown] Levothyroxine [Synthroid 88 mcg (*)] 88 mcg PO DAILY06 07/28/17 [Last Taken Unknown] Methenamine Estephania [Hiprex 1 gm (*)] 500 mg PO BID 07/28/17 [Last Taken Unknown] Ondansetron Odt [Zofran Odt 4 mg (*)] 4 mg PO Q6H PRN 07/28/17 [Last Taken Unknown] Sennosides/Docusate Sodium [Senna-Docusate Sodium Tablet] 1 each PO TID [Last Taken Unknown] diphenhydrAMINE [Benadryl 25 MG (*)] 25 mg PO Q6H PRN 07/28/17 [Last Taken Unknown] traZODone [traZODONE 50MG (*)] 75 mg PO HS 07/28/17 [Last Taken Unknown] I have personally reviewed and updated: family history, medical history, social history, surgical history - Past Medical History atrial fibrillation, diabetes type 2, GERD Additional medical history: chronic decubs. partial c6-c7 quad - injury 2011 fall downstairs. neurogenic bladder/recurrent uti - indwelling and suprapubic catheters. C diff colitis. History of clavicular fracture. History close head injury. Hypothyroidism. Obesity BMI 36. GERD - Surgical History Additional surgical history: Suprapubic catheter. Patient with lower mid abdominal scar - Family History Positive for: non-pertinent. Negative for: vascular disease, CAD - Social History Smoking Status: Never smoked Alcohol Use: None Drug Use: None Additional social history: Patient resides in her private apartment with home care. Code status is full Review of Systems Review of Systems: ROS: 10pt was reviewed & negative except for what was stated in HPI & below Physical Exam Physical Exam: Selected Entries 07/28/17 07/28/1718 20:37 22:47 23:01 Blood Pressure Automatic Automatic Method Heart Rate 83 77 71 Respiratory 16 18 16 Rate O2 Sat (%) 91 L 92 93 Temperature (C) 37.2 C 36.9 C 37.1 C Blood Pressure 97/57 L 90/60 L 106/54 L Mean Arterial 70 70 71 Pressure (MAP) Activity During At Rest Vital Signs O2 Delivery Room Air Room Air Room Air Mode Blood Pressure Right Source Upper Arm Heart Rate/ Monitor Temperature Oral Oral Oral Source Heart Rate Heart Rate/ Source Monitor Constitutional: no apparent distress, appears nourished, chronically ill appearing, obese Eyes: PERRL, anicteric sclera, EOMI, No scleral injection Ears, Nose, Mouth, Throat: dry mucous membranes, other (No nasal discharge) Cardiovascular: regular rate and rhythym, no murmur, rub, or gallop, edema ( Trace) Peripheral Pulses: 1+: dorsalis-pedis (R), dorsalis-pedis (L) Respiratory: no respiratory distress, no rales or rhonchi, clear to auscultation , reduced air movement (Diminished at the bases. Poor inspiratory effort.) Gastrointestinal: normoactive bowel sounds, soft, non-tender abdomen, no palpable masses, No distension Genitourinary: no bladder tenderness, mirza in urethra (For suprapubic and indwelling Mirza present over) Skin: warm, pressure ulcer (Sacral additional areas of healed scarring noted on buttock and leg), No rash Neurologic: AAOx3, CN II-XII Intact, other (Partial quadriplegia), No sensation intact bilaterally (Diminished), No facial droop Psychiatric: interacting appropriately, not anxious, not encephalopathic, thought process linear, flat affect, No poor insight, No poor judgement, No poor memory Lab Data & Imaging Review 07/29/17 05:08 07/29/17 05:08 Laboratory Tests 07/28/17 07/28/17 20:28 20:28 WBC 17.93 H RBC 4.37 Hgb 12.7 Hct 37.7 L MCV 86.3 MCH 29.1 MCHC 33.7 RDW 15.8 H Plt Count 311 MPV 9.5 Neut % (Auto) 72.0 Lymph % (Auto) 20.0 [place] % (Auto) 5.8 Eos % (Auto) 1.4 Baso % (Auto) 0.4 Nucleat RBC Rel Count 0.0 Absolute Neuts (auto) 12.90 H Absolute Lymphs (auto) 3.58 H Absolute Monos (auto) 1.04 H Absolute Eos (auto) 0.25 Absolute Basos (auto) 0.08 Absolute Nucleated RBC 0.00 Immature Gran % 0.4 Immature Gran # 0.08 Sodium 140 Potassium 4.4 Chloride 105 Carbon Dioxide 22 Anion Gap 13 BUN 17 Creatinine 0.7 Estimated GFR > 60 Glucose 146 H Calcium 9.5 WBC 12.66 10^3/uL (3.80-9.50) H 07/29/17 05:08 RBC 3.84 10^6/uL (4.18-5.33) L 07/29/17 05:08 Hgb 11.3 g/dL (12.6-16.3) L 07/29/17 05:08 Hct 33.4 % (38.0-47.0) L 07/29/17 05:08 MCV 87.0 fL (81.5-99.8) 07/29/17 05:08 MCH 29.4 pg (27.9-34.1) 07/29/17 05:08 MCHC 33.8 g/dL (32.4-36.7) 07/29/17 05:08 RDW 15.8 % (11.5-15.2) H 07/29/17 05:08 Plt Count 226 10^3/uL (150-400) D 07/29/17 05:08 MPV 9.7 fL (8.7-11.7) 07/29/17 05:08 Neut % (Auto) 68.7 % (39.3-74.2) 07/29/17 05:08 Lymph % (Auto) 23.1 % (15.0-45.0) 07/29/17 05:08 [place] % (Auto) 5.6 % (4.5-13.0) 07/29/17 05:08 Eos % (Auto) 1.7 % (0.6-7.6) 07/29/17 05:08 Baso % (Auto) 0.5 % (0.3-1.7) 07/29/17 05:08 Nucleat RBC Rel Count 0.0 % (0.0-0.2) 07/29/17 05:08 Absolute Neuts (auto) 8.71 10^3/uL (1.70-6.50) H 07/29/17 05:08 Absolute Lymphs (auto) 2.92 10^3/uL (1.00-3.00) 07/29/17 05:08 Absolute Monos (auto) 0.71 10^3/uL (0.30-0.80) 07/29/17 05:08 Absolute Eos (auto) 0.21 10^3/uL (0.03-0.40) 07/29/17 05:08 Absolute Basos (auto) 0.06 10^3/uL (0.02-0.10) 07/29/17 05:08 Absolute Nucleated RBC 0.00 10^3/uL (0-0.01) 07/29/17 05:08 Immature Gran % 0.4 % (0.0-1.1) 07/29/17 05:08 Immature Gran # 0.05 10^3/uL (0.00-0.10) 07/29/17 05:08 Sodium 138 mEq/L (134-144) 07/29/17 05:08 Potassium 4.1 mEq/L (3.5-5.2) 07/29/17 05:08 Chloride 107 mEq/L (97-110) 07/29/17 05:08 Carbon Dioxide 24 mEq/l (22-31) 07/29/17 05:08 Anion Gap 7 mEq/L (8-16) L 07/29/17 05:08 BUN 13 mg/dL (7-23) 07/29/17 05:08 Creatinine 0.6 mg/dL (0.6-1.0) 07/29/17 05:08 Estimated GFR > 60 07/29/17 05:08 Glucose 133 mg/dL (70-100) H 07/29/17 05:08 Calcium 8.6 mg/dL (8.5-10.4) 07/29/17 05:08 Magnesium 1.8 mg/dL (1.6-2.3) 07/29/17 05:08 Total Bilirubin 0.6 mg/dL (0.1-1.4) 07/29/17 05:08 AST 10 IU/L (14-46) L 07/29/17 05:08 ALT 21 IU/L (9-52) 07/29/17 05:08 Alkaline Phosphatase 74 IU/L (38-126) 07/29/17 05:08 Total Protein 5.9 g/dL (6.3-8.2) L 07/29/17 05:08 Albumin 2.9 g/dL (3.5-5.0) L 07/29/17 05:08 Urine Color YELLOW 07/29/17 01:03 Urine Appearance MODERATELY TURBID 07/29/17 01:03 Urine pH 5.0 (5.0-7.5) 07/29/17 01:03 Ur Specific [place] 1.013 (1.002-1.030) 07/29/17 01:03 Urine Protein 2+ (NEGATIVE) H 07/29/17 01:03 Urine Ketones NEGATIVE (NEGATIVE) 07/29/17 01:03 Urine Blood 1+ (NEGATIVE) H 07/29/17 01:03 Urine Nitrate NEGATIVE (NEGATIVE) 07/29/17 01:03 Urine Bilirubin NEGATIVE (NEGATIVE) 07/29/17 01:03 Urine Urobilinogen NEGATIVE EU (0.2-1.0) 07/29/17 01:03 Ur Leukocyte Esterase 2+ (NEGATIVE) H 07/29/17 01:03 Urine RBC 10-15 /hpf (0-3) H 07/29/17 01:03 Urine WBC 50-182 /hpf (0-3) H 07/29/17 01:03 Ur Epithelial Cells TRACE /lpf (NONE-1+) 07/29/17 01:03 Amorphous Sediment PRESENT /hpf (NONE-1+) 07/29/17 01:03 Urine Bacteria 4+ /hpf (NONE SEEN) H 07/29/17 01:03 Urine Mucus TRACE /lpf (NONE-1+) 07/29/17 01:03 Urine Glucose NEGATIVE (NEGATIVE) 07/29/17 01:03 Assessment & Plan Assessment: #Diarrhea (Acute) - patient with recent antibiotic course and a history of C diff. She did receive a single dose of enteric vancomycin. Patient has not had any further episodes of diarrhea since arrival to the floor and will wait until we have a sample confirming C diff before continuing. #Hypotension - patient reports a history of some low blood pressures in the systolic of 90 she is asymptomatic however she does appear dehydrated will plan to provide patient with supplemental IV fluids overnight. Previous hospital stays had noted some #hypotension but also responded appropriately to IV fluids suspect that she has some more GI losses that she has been able to the compensated for with p.o. hydration so will assist with IV fluid hydration overnight. #Dehydration - IV fluids as noted above #History of recurrent UTI - exchange suprapubic and indwelling Mirza catheter. Obtain a new UA Chronic medical problems #Chronic incomplete flaccid quadriplegia - specialty mattress if available. #Decubitus ulcer POA - wound care consultation #Paroxysmal Atrial fib heart rate within normal regular. Monitor heart rate as Colace. Patient not currently on any rate control #Hypothyroidism-resume L-thyroxine next obesity BMI 36.3 limited mobility in this lady with the partial quadriplegia #GERD-patient without complaints of symptoms and not currently listed on any antacid. Will treat p.r.n. #FEN - IV fluids as noted above. Electrolyte replacement p.r.n.. Diet as tolerated. #PPX - SCDs if tolerated. Prophylactic anticoagulation #COR - FULL #Dispo - admitted to observation pending further evaluation of stool studies and possible need for treatment for C diff versus a viral illness.
[2017-07-29] MEDS: SENNOSIDES/DOCUSATE SODIUM TAB PO SCH ×3 (10:14→20:57)
[2017-07-29] MEDS: HYDROCODONE/APAP 5/325 TAB PO PRN ×3 (10:21→22:17)
[2017-07-29] MEDS: GABAPENTIN 100 MG CAP PO SCH ×3 (10:21→20:57)
[2017-07-29] MEDS: METHENAMINE HIPP 1 GM TAB PO SCH ×2 (10:22→20:56)
[2017-07-29] MEDS: BACLOFEN 10 MG TAB PO SCH ×2 (10:22→13:42)
[2017-07-29] MEDS: CITALOPRAM 20 MG TAB PO SCH (10:22)
[2017-07-29] MEDS: DIAZEPAM 5 MG TAB PO PRN (10:22)
[2017-07-29] MEDS: LEVOTHYROXINE 88 MCG TAB PO SCH (10:33)
[2017-07-29] MEDS: VANCOMYCIN 125 MG/2.5 ML UDL PO SCH ×3 (13:42→20:59)
--- NOTE | 2017-07-29 15:43 | ASMTCASEMG ---
Living Arrangements What is your living Answers: Alone arrangement? Who do you live with? Type Of Residence What kind of residence do Answers: House you live in? Discharge Plan Comments Coordination Status Comments Notes: Pt is a 61 y/o female admitted for diarrhea, positive c diff and dehydration. Pt is a quadriplegic. Pt has limited upper extremity mobility. Therapies have been ordered and awaiting recommendations. CM met w/ pt for dispo planning. Pt reports that she has caregivers and a RN through [facility] that come on a daily basis for 12hrs a day. CM left a msg for Ronda at [facility] and requested a call back. Therapies have been ordered and awaiting recommendations. Needs are TBD at this time. CM to follow. Plan: TBD Date Signed: 07/29/2017 03:43 PM Electronically Signed By:GRIFFIN Loredo
--- NOTE | 2017-07-29 18:54 | SOAPPROG ---
SOAP Progress Note Assessment/Plan: c diff colitis -po vanco -isolation precautions Decub coccyx area -local wound care as best as able -wound care consult pending Quadripelagic -lives at home with home health -? need for SNF depending upon wound care eval Hypotension, asymptomatic -IVFs, will stop as doesn't clinically appear dehydrated now and is taking diet/fluids History of recurrent UTI/neurogenic bladder/chronic cath in place -urology Dr De León per prev record review - suprapubic and indwelling Mirza cath -was supposed to FU with urology this month 'to sew shut' urethra/remove mirza per her report History of paroxysmal Atrial fib -sinus currently Hypothyroidism -home med #PPX - SCDs if tolerated. Prophylactic anticoagulation #COR - FULL #Dispo - changed to inpt bc of + c diff colitis with ongoing diarrhea/need for wound care Subjective: Burning type pain around decub sometimes.Denies n/v. No SOB/CP. Objective: Vital Signs Temp Pulse Resp BP Pulse Ox 98.3 F 81 18 121/65 H 91 L 07/29/17 15:31 07/29/17 15:31 07/29/17 15:31 07/29/17 15:31 07/29/17 15:31 Laboratory Results 07/29/17 05:08 07/29/17 05:08 07/28/17 07/29/17 07/30/17 11:59 11:59 11:59 Intake Total 2099 1649 Output Total 2049 2099 Balance 50 -450 - Time Spent With Patient Time Spent With Patient: 40 Physical Exam - Physical Exam General Appearance: alert, no apparent distress Respiratory: lungs clear, normal breath sounds, No respiratory distress Cardiac/Chest: regular rate, rhythm Abdomen: normal bowel sounds, non-tender, soft, No guarding, No rebound Neuro/Psych: alert, normal mood/affect, No cognition abnormalities, No speech abnormalities ICD10 Worksheet Patient Problems: Problems Problem Status Onset Chronic incomplete flaccid quadriplegia Acute Diarrhea Acute Decubital ulcer Acute Hyponatremia Acute Quadriplegia Acute Severe sepsis Acute UTI (urinary tract infection) Acute Weakness Acute
[2017-07-29] MEDS: traZODone 50 MG TAB PO SCH (20:56)
[2017-07-29] MEDS: BACLOFEN 20 MG TAB PO SCH (20:57)
[2017-07-29] MEDS: ACETIC ACID IRR SOLN 0.25% 1,000 ML BTL IRR SCH (22:54)
[2017-07-30] MEDS: DIAZEPAM 5 MG TAB PO PRN (00:10)
[2017-07-30] MEDS: ACETAMINOPHEN 325 MG TAB PO PRN (00:15)
[2017-07-30] MEDS: HYDROCODONE/APAP 5/325 TAB PO PRN ×2 (04:25→17:26)
[2017-07-30] MEDS: LEVOTHYROXINE 88 MCG TAB PO SCH (04:25)
[2017-07-30] MEDS: VANCOMYCIN 125 MG/2.5 ML UDL PO SCH ×4 (04:26→21:51)
--- NOTE | 2017-07-30 08:25 | HOSPPROG ---
Hospitalist Progress Note Assessment/Plan: #C diff colitis: vancomycin PO #Coccyx decub: present on admission. Wound care. #Hypotension: improved with IVFs #h/o UTI/neurogenic bladder/suprapubic catheter #h/o a fibrillation: NSR #Hypothyroidism: LT4 #Leukocytosis: improved with abx #Quadraplegia: baclofen, Diazepam #DVT ppx: Lovenox #Disp: cont inpatient admission with ongoing diarrhea. She doesn't have homecare at night. If had diarrhea, then would not have assistance to clean up which places her at risk for progression of decubitus ulcers and subsequent infections. DC once diarrhea improved # Subjective: several episodes of diarrhea this morning. No dizziness or lightheadedness Objective: Vital Signs Temp Pulse Resp BP Pulse Ox 36.8 C 67 16 103/61 91 L 07/29/17 23:53 07/29/17 23:53 07/29/17 23:53 07/29/17 23:53 07/29/17 23:53 07/29/17 07/30/17 07/31/17 05:59 05:59 05:59 Intake Total 2200 Output Total 4750 Balance -2550 - Physical Exam Constitutional: obese Eyes: PERRL Ears, Nose, Mouth, Throat: moist mucous membranes, hearing normal Cardiovascular: regular rate and rhythym Respiratory: no respiratory distress Gastrointestinal: normoactive bowel sounds, soft, non-tender abdomen, No tenderness Genitourinary: other (chronic suprapubic catheter) Skin: warm Neurologic: AAOx3, CN II-XII Intact Psychiatric: interacting appropriately ICD10 Worksheet Patient Problems: Problems Problem Status Onset Chronic incomplete flaccid quadriplegia Acute Diarrhea Acute Decubital ulcer Acute Hyponatremia Acute Quadriplegia Acute Severe sepsis Acute UTI (urinary tract infection) Acute Weakness Acute
[2017-07-30] MEDS: GABAPENTIN 100 MG CAP PO SCH ×3 (09:04→21:51)
[2017-07-30] MEDS: CITALOPRAM 20 MG TAB PO SCH (09:04)
[2017-07-30] MEDS: SENNOSIDES/DOCUSATE SODIUM TAB PO SCH ×3 (09:05→23:21)
[2017-07-30] MEDS: METHENAMINE HIPP 1 GM TAB PO SCH ×2 (09:05→21:50)
[2017-07-30] MEDS: ENOXAPARIN 40 MG/0.4 ML SYR SC SCH (09:06)
[2017-07-30] MEDS: BACLOFEN 10 MG TAB PO SCH ×2 (09:06→12:07)
--- NOTE | 2017-07-30 14:09 | WOCRNPDOC ---
WOCRN Advanced Assessment Note - Skin Integrity Problem, Advanced Assess Sacrum Pressure Injury Dressing Type: Allevyn Life Dressing Description: Clean/Dry, Intact Exudate Amount: Minimal Exudate Characteristic(s): Cloudy, Serosanguinous Integumentary Issue Intervention: Visualized Under Dressing Candis Wound Tissue: Blanching, Erythema Wound Bed Color: 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 Flap closure was done several years ago. Full thickness wound is stagnant and shiny. Will treat biofilm and slough with iodoflex. May be slightly larger than when patient was last assessed at [place]. Will round again next week. Patient should be on clinitron and turned side to side. Reported to Shannan STAFFORD.
--- NOTE | 2017-07-30 16:19 | ASMTCMCOM ---
CM Note CM Note Notes: Per PT, pt is bedbound & dependent for all cares at baseline; no PT needs identified. Per OT, pt currently at baseline level of function for ADLs (feeding herself & performing some grooming w/set up); no OT needs identified. Spoke with MD; states pt is still having diarrhea & has no Caregiver support at her home during the night; dc not anticipated until pt's diarrhea improves. Left another voicemail for NYDIA Bond ([phone]) at [facility]. CM will continue to follow. Date Signed: 07/30/2017 04:19 PM Electronically Signed By:Agatha Santiago RN
--- NOTE | 2017-07-30 18:54 | PDMN ---
Medical Necessity Medical necessity: Patient transitioned to inpatient status per physician note and CMS guidelines as LOS will be > 2 midnights for ongoing IV Zofran, Vancomycin and treatment of C Diff diarrhea.
[2017-07-30] MEDS: traZODone 50 MG TAB PO SCH (21:50)
[2017-07-30] MEDS: BACLOFEN 20 MG TAB PO SCH (21:51)
[2017-07-30] MEDS: ACETIC ACID IRR SOLN 0.25% 1,000 ML BTL IRR SCH (21:54)
[2017-07-31] MEDS: LEVOTHYROXINE 88 MCG TAB PO SCH (06:16)
[2017-07-31] MEDS: VANCOMYCIN 125 MG/2.5 ML UDL PO SCH ×4 (06:16→21:29)
[2017-07-31] MEDS: GABAPENTIN 100 MG CAP PO SCH ×3 (08:50→21:28)
[2017-07-31] MEDS: METHENAMINE HIPP 1 GM TAB PO SCH ×2 (08:50→21:27)
[2017-07-31] MEDS: BACLOFEN 10 MG TAB PO SCH ×2 (08:50→11:46)
[2017-07-31] MEDS: SENNOSIDES/DOCUSATE SODIUM TAB PO SCH ×3 (08:51→21:28)
[2017-07-31] MEDS: CITALOPRAM 20 MG TAB PO SCH (08:51)
[2017-07-31] MEDS: ENOXAPARIN 40 MG/0.4 ML SYR SC SCH (08:51)
--- NOTE | 2017-07-31 12:05 | HOSPPROG ---
Hospitalist Progress Note Assessment/Plan: New encounter Medically complex #C diff colitis: vancomycin PO #Coccyx decub: present on admission. Wound care. #Hypotension: improved with IVFs #h/o UTI/neurogenic bladder/suprapubic catheter #h/o a fibrillation: NSR #Hypothyroidism: LT4 #Leukocytosis: improved, check CBC in a.m. #Quadraplegia: baclofen, Diazepam #DVT ppx: Lovenox Plan: -Bp is improved with IVF. No additional need for IVF at this time -Pain mgmt, denies pain -Cont Baclofen, Diazepam -cont inpatient with ongoing diarrhea -Has been evaluated by PT, no acute needs. She is also at baseline from an OT perspective -She doesn't have homecare at night. If had diarrhea, then would not have assistance to clean up which places her at risk for progression of decubitus ulcers and subsequent infections. DC once diarrhea improved Subjective: still with diarrhea, although improving. Objective: Vital Signs Temp Pulse Resp BP Pulse Ox 36.6 C 60 16 102/57 L 96 07/31/17 08:00 07/31/17 08:00 07/31/17 08:00 07/31/17 08:00 07/31/17 08:00 Laboratory Results 07/31/17 04:59 07/30/17 07/31/17 08/01/17 05:59 05:59 05:59 Intake Total 2200 740 Output Total 4750 1800 400 Balance -2550 -1060 -400 - Physical Exam Constitutional: no apparent distress Eyes: PERRL Ears, Nose, Mouth, Throat: moist mucous membranes, hearing normal Cardiovascular: regular rate and rhythym, no murmur, rub, or gallop, No edema Respiratory: no respiratory distress, no rales or rhonchi, clear to auscultation Gastrointestinal: normoactive bowel sounds, soft, non-tender abdomen Skin: warm Neurologic: AAOx3 Psychiatric: interacting appropriately, not anxious, not encephalopathic Lymph, Heme, Immunologic: No petechiae ICD10 Worksheet Patient Problems: Problems Problem Status Onset Chronic incomplete flaccid quadriplegia Acute Diarrhea Acute Decubital ulcer Acute Hyponatremia Acute Quadriplegia Acute Severe sepsis Acute UTI (urinary tract infection) Acute Weakness Acute
[2017-07-31] MEDS: HYDROCODONE/APAP 5/325 TAB PO PRN (17:56)
[2017-07-31] MEDS: traZODone 50 MG TAB PO SCH (21:26)
[2017-07-31] MEDS: BACLOFEN 20 MG TAB PO SCH (21:28)
[2017-07-31] MEDS: ACETIC ACID IRR SOLN 0.25% 1,000 ML BTL IRR SCH (22:42)
[2017-08-01] MEDS: HYDROCODONE/APAP 5/325 TAB PO PRN (00:55)
[2017-08-01] MEDS: LEVOTHYROXINE 88 MCG TAB PO SCH (04:22)
[2017-08-01] MEDS: VANCOMYCIN 125 MG/2.5 ML UDL PO SCH (04:23)
[2017-08-01 05:10] LABS: PLATELET COUNT 327 10^3/uL (150-400)
[2017-08-01 08:28] VITALS: BP 122/80; PULSE 59; RESP 16; TEMP 98.2; O2SAT 99
[2017-08-01] MEDS: SENNOSIDES/DOCUSATE SODIUM TAB PO SCH (09:10)
[2017-08-01] MEDS: GABAPENTIN 100 MG CAP PO SCH (09:10)
[2017-08-01] MEDS: ENOXAPARIN 40 MG/0.4 ML SYR SC SCH (09:11)
[2017-08-01] MEDS: BACLOFEN 10 MG TAB PO SCH (09:11)
[2017-08-01] MEDS: METHENAMINE HIPP 1 GM TAB PO SCH (09:11)
[2017-08-01] MEDS: CITALOPRAM 20 MG TAB PO SCH (09:11)
--- NOTE | 2017-08-01 10:14 | PDDCSUM ---
Discharge Summary Discharge Summary: 61 yo with quadraplegia admitted for diarrhea, found to have c-diff. Had some weakness worse than baseline, but better. diarrhea has resolved on po vanco. Treat for total of 14 days now back to baseline Has been evaluated by PT, no acute needs. She is also at baseline from an OT perspective will discharge back to home with C f/u: wound care, pcp DDX: #C diff colitis: vancomycin PO #Coccyx decub: present on admission. Wound care. #Hypotension: improved with IVFs #h/o UTI/neurogenic bladder/suprapubic catheter #h/o a fibrillation: NSR #Hypothyroidism: LT4 #Leukocytosis: improved, check CBC in a.m. #Quadraplegia: baclofen, Diazepam #DVT ppx: Lovenox Exam: vss nad aaox3 rrr cta b s/nt/nd no edema meds: see med rec. Vancomycin added to her home regimen.
--- NOTE | 2017-08-01 10:20 | PDIAF ---
- Diagnosis Diagnosis: c-diff colitis Code Status: Full Code - Medication Management Discharge Medications: Medications to Continue on Transfer Acetaminophen [Tylenol 325mg (*)] 650 mg PO TID 07/28/17 [Last Taken Unknown] Acetic Acid Irr Soln 0.25% 30 ml IRR HS 07/28/17 [Last Taken Unknown] Baclofen [Baclofen 10 mg (*)] 10 mg PO BID@09,12 07/28/17 [Last Taken Unknown] Baclofen [Baclofen 20 mg (*)] 20 mg PO HS 07/28/17 [Last Taken Unknown] Bisacodyl [Dulcolax] 10 mg RC EVERY OTHER DAY@07/28/17 [Last Taken Unknown] Bisacodyl [Dulcolax] 10 mg RC Q24H PRN 07/28/17 [Last Taken Unknown] Citalopram Hydrobromide [Celexa] 40 mg PO DAILY 07/28/17 [Last Taken Unknown] Dextran 70/Hypromellose [Artificial Tears] 2 drops EACHEYE DAILY PRN 07/28/17 [ Last Taken Unknown] Diazepam [Valium 5 MG (*)] 2.5 mg PO Q8H PRN 07/28/17 [Last Taken Unknown] Gabapentin [Neurontin 100 MG (*)] 200 mg PO TID 07/28/17 [Last Taken Unknown] Hydrocodone/Acetaminophen [[place] 5/325 (*)] 1 each PO Q4H PRN 07/28/17 [Last Taken Unknown] Levothyroxine [Synthroid 88 mcg (*)] 88 mcg PO DAILY06 07/28/17 [Last Taken Unknown] Methenamine Estephania [Hiprex 1 gm (*)] 500 mg PO BID 07/28/17 [Last Taken Unknown] Ondansetron Odt [Zofran Odt 4 mg (*)] 4 mg PO Q6H PRN 07/28/17 [Last Taken Unknown] Sennosides/Docusate Sodium [Senna-Docusate Sodium Tablet] 1 each PO TID [Last Taken Unknown] diphenhydrAMINE [Benadryl 25 MG (*)] 25 mg PO Q6H PRN 07/28/17 [Last Taken Unknown] traZODone [traZODONE 50MG (*)] 75 mg PO HS 07/28/17 [Last Taken Unknown] Vancomycin [Vancocin Oral Liquid] 125 mg PO QID #24 udl 08/01/17 [Last Taken Unknown] Discharge Medications: Refer to the Discharge Home Medication list for PRN reason. - Orders Services needed: Home Care, Registered Nurse Home Care Face to Face: I certify that this patient was under my care and that I had the required [id number] encounter meeting the encounter requirements on the discharge day. My findings support the fact that the patient is homebound as defined in Home Care Face to Face Continued: [facility] Chapter 7 Medicare Benefits Manual 30.1.1 , The condition of the patient is such that there exists a normal inability to leave home and consequently, leaving home would require a considerable and taxing effort. Isolation Type: CDIFF Isolation, Contact Isolation Diet Recommendation: no restrictions on diet Diet Texture: Regular Texture Diet - Follow Up Care Current Providers and Referrals: Patient,NotPresent [Unknown] - As per Instructions
--- NOTE | 2017-08-01 15:05 | ASDISCHSUM ---
Discharge Information Plan Status:Home with Home Health Medically Cleared to Leave: Discharge Date:08/01/2017 12:38 PM CM D/C Disposition:Home Health Service ADT D/C Disposition:[id number] Projected Discharge Date:08/01/2017 12:38 PM Transportation at D/C:ALS/BLS Discharge Delay Reason: Follow-Up Date:08/01/2017 12:38 PM Discharge Slot: Final Diagnosis: Placement Information Patient Contact Information Contact Name:SERGO Relationship:Cousin Address: Work Phone: City: [facility] Phone: State/Zip Code: Email: Financial Information Financial Class:Medicare Advantage Plans Primary Plan Desc:[facility] [place] Primary Plan Number:[id number] Secondary Plan Desc:MED[place] [place] Secondary Plan Number:[id number] Assessment Information [facility] Initial CM Assessment Living Arrangements What is your living Answers: Alone arrangement? Who do you live with? Type Of Residence What kind of residence do Answers: House you live in? Discharge Plan Comments Coordination Status Comments Notes: Pt is a 61 y/o female admitted for diarrhea, positive c diff and dehydration. Pt is a quadriplegic. Pt has limited upper extremity mobility. Therapies have been ordered and awaiting recommendations. CM met w/ pt for dispo planning. Pt reports that she has caregivers and a RN through [facility] that come on a daily basis for 12hrs a day. CM left a msg for Ronda at [facility] and requested a call back. Therapies have been ordered and awaiting recommendations. Needs are TBD at this time. CM to follow. Plan: TBD Date Signed: 07/29/2017 03:43 PM Electronically Signed By:GRIFFIN Loredo [facility] CM Progress Note CM Note CM Note Notes: Per PT, pt is bedbound & dependent for all cares at baseline; no PT needs identified. Per OT, pt currently at baseline level of function for ADLs (feeding herself & performing some grooming w/set up); no OT needs identified. Spoke with MD; states pt is still having diarrhea & has no Caregiver support at her home during the night; dc not anticipated until pt's diarrhea improves. Left another voicemail for NYDIA Bond ([phone]) at [facility]. CM will continue to follow. Date Signed: 07/30/2017 04:19 PM Electronically Signed By:Agatha Santiago RN Case Management Discharge Plan Note Case Management Discharge Discharge Order Complete? Answers: Yes Patient to Obtain Answers: Independently Medications Transportation Arranged Answers: [employer] [facility] will Pick (Date 08/01/2017 12:30 PM & Time) Discharge Comments Notes: Patient discharged to home. She will resume home nursing services with [facility]. Her RN Ronda was informed of her discharge and will meet the patient at home. Transport set up through [employer] and billed to Medicaid - [place] notified. Date Signed: 08/01/2017 12:29 PM Electronically Signed By:Elma Souza RN Intervention Information Intervention Type:*SUMMERS-Signed Date of Service:07/29/2017 10:40 AM Patient Type:Observation Staff Member:Kate Griffin Hours: Discipline: Severity: Comment: Intervention Type:*IM-Signed Date of Service:08/01/2017 10:57 AM Patient Type:Inpatient Staff Member:Kate Griffin Hours: Discipline: Severity: Comment:
== END 2017-08-01 12:38 | disposition home health service (06) | DRG 371 ==
LOC: EDBD → EDUNIT# → F3E 22:57 → OBSVTOIN 07-29 16:26
PROVIDERS: ADMIT Student in an Organized Health Care Education/Training Program; ATTEND Student in an Organized Health Care Education/Training Program
DX: A04.72 Enterocolitis due to Clostridium difficile, not specified as recurrent (principal); L89.154 Pressure ulcer of sacral region, stage 4; G82.53 Quadriplegia, C5-C7 complete; E87.1 Hypo-osmolality and hyponatremia; N31.9 Neuromuscular dysfunction of bladder, unspecified; E11.9 Type 2 diabetes mellitus without complications; I48.0 Paroxysmal atrial fibrillation; E03.9 Hypothyroidism, unspecified; E66.9 Obesity, unspecified; Z68.36 Body mass index [BMI] 36.0-36.9, adult; K21.9 Gastro-esophageal reflux disease without esophagitis; Z87.440 Personal history of urinary (tract) infections; Z74.01 Bed confinement status; Z96.0 Presence of urogenital implants
CPT/HCPCS: G0378; J1650; J2405

== ENCOUNTER 2017-08-07 05:23 | Inpatient (IN) | payer OTHER, MEDICAID ==
--- NOTE | 2017-08-06 17:27 | GHP ---
[f rep st] PREOP HISTORY AND PHYSICAL DATE OF ADMISSION: 08/07/17 ADMISSION DIAGNOSIS: Quadriplegic with neurogenic bladder and totally defunctional urethra. At the present time, she is admitted for possible attempted closure of her bladder or ileal conduit. She is totally incontinent. We have tried to treat it with a suprapubic catheter without success, and her urethra is so patulous and absent because of long-term catheterization, she has total incontinence. After considerable thought about this, my impression is she would benefit most from the ileal conduit and will initiate the procedures trying to save the bladder, but if not possible, then an ileal conduit will be performed. PAST MEDICAL HISTORY: She has had an adrenal mass on the left. She has had diabetes, neurogenic bladder, quadriplegia, and recurrent cystitis. PAST SURGERIES: Back, neck, and suprapubic catheter. MEDICATIONS: Ativan, Celexa, Dulcolax, glucagon, Lantus, Levothroid, methenamine. ALLERGIES: Codeine. FAMILY HISTORY: Noncontributory. SOCIAL HISTORY: Nonsmoker, nondrinker. REVIEW OF SYSTEMS: Negative cardiac, respiratory, GI. PHYSICAL EXAMINATION: GENERAL: She is bed ridden. She is communicates with some normal communication ability. HEART: Regular rate and rhythm. LUNGS: Breathing nonlabored. ABDOMEN: Obesity and soft. At the present time, she is admitted for the above assessment evaluation and attempt at urinary diversion. /[id number]/MODL MTDD
[2017-08-07] MEDS ORDERED: ERTAPENEM 1 GM VIAL IVP ONE (07:01)
--- NOTE | 2017-08-07 07:02 | PDHPUP ---
History & Physical Update H&P update statement: This history and physical update is based on an assessment of the patient which was completed after admission or registration (within 24 hours), but prior to the surgery/procedure. H&P update: H&P reviewed & patient examined, no change in patient's condition since H&P completed
[2017-08-07] MEDS ORDERED: MIDAZOLAM 2 MG/2 ML VIAL IVP ONE (07:13)
[2017-08-07] MEDS ORDERED: MIDAZOLAM 2 MG/2 ML VIAL ONE (07:13)
--- NOTE | 2017-08-07 07:15 | PDANEPAE ---
ANE History of Present Illness 61 year old female w/ history of C5 spine injury presents for urethral closure due to incontience and suprapubic catheter re-positioning. ANE Past Medical History - Cardiovascular History Hx Hypertension: No Hx Arrhythmias: No Hx Chest Pain: No Hx Coronary Artery / Peripheral Vascular Disease: No Hx CHF / Valvular Disease: No Hx Palpitations: No Cardiovascular History Comment: PER H&P - REMOTE HX PAF. AFIB - Pulmonary History Hx COPD: No Hx Asthma/Reactive Airway Disease: No Hx Recent Upper Respiratory Infection: No Hx Oxygen in Use at Home: No Hx Sleep Apnea: No Sleep Apnea Screening Result - Last Documented: Negative - Neurologic History Hx Cerebrovascular Accident: No Hx Seizures: No Hx Dementia: No Neurologic History Comment: paraplegic DUE TO C-SPINE INJURY able to use arms - Endocrine History Hx Diabetes: No Obesity: mild Endocrine History Comment: HYPOTHYROID - Renal History Hx Renal Disorders: Yes Renal History Comment: NEUROGENIC BLADDER. SUPRAPUBIC AND RODRIGUEZ CATHETER CHANGED ON 06/04 - Liver History Hx Hepatic Disorders: No - Neurological & Psychiatric Hx Hx Neurological and Psychiatric Disorders: Yes Neurological / Psychiatric History Comment: ANXIETY/DEPRESSION - Cancer History Hx Cancer: No Cancer History Comment: BLADDER - Congenital Disorder History Hx Congenital Disorders: No - GI History Hx Gastrointestinal Disorders: No Gastrointestinal History Comment: GERD - Other Health History Other Health History: STAGE 1V PRESSURE ULCER TO COCCYX - Chronic Pain History Chronic Pain: Yes (NECK,PAIN) - Surgical History Prior Surgeries: C -5. hysterectomy. CYSTO ANE Review of Systems Review of systems is: negative Review of Systems: - Exercise capacity Exercise capacity: <4 METS, limited by disability ANE Patient History - Allergies Allergies/Adverse Reactions: codeine [Codeine] Allergy (Severe, Verified 08/06/17 15:18) Swelling/neck,face,throat - Home Medications Home medications: home medication list seen and reviewed Home Medications: Acetaminophen [Tylenol 325mg (*)] 650 mg PO TID 07/28/17 [Last Taken Unknown] Baclofen [Baclofen 10 mg (*)] 10 mg PO BID@09,12 07/28/17 [Last Taken Unknown] Baclofen [Baclofen 20 mg (*)] 20 mg PO HS 07/28/17 [Last Taken Unknown] Bisacodyl [Dulcolax] 10 mg RC EVERY OTHER DAY@07/28/17 [Last Taken Unknown] Bisacodyl [Dulcolax] 10 mg RC Q24H PRN 07/28/17 [Last Taken Unknown] Citalopram Hydrobromide [Celexa] 40 mg PO DAILY 07/28/17 [Last Taken Unknown] Dextran 70/Hypromellose [Artificial Tears] 2 drops EACHEYE DAILY PRN 07/28/17 [ Last Taken Unknown] Diazepam [Valium 5 MG (*)] 2.5 mg PO Q8H PRN 07/28/17 [Last Taken Unknown] Gabapentin [Neurontin 100 MG (*)] 200 mg PO TID 07/28/17 [Last Taken Unknown] Hydrocodone/Acetaminophen [[place] 5/325 (*)] 1 each PO Q4H PRN 07/28/17 [Last Taken Unknown] Levothyroxine [Synthroid 88 mcg (*)] 88 mcg PO DAILY06 07/28/17 [Last Taken Unknown] Methenamine Estephania [Hiprex 1 gm (*)] 500 mg PO BID 07/28/17 [Last Taken Unknown] Ondansetron Odt [Zofran Odt 4 mg (*)] 4 mg PO Q6H PRN 07/28/17 [Last Taken Unknown] Sennosides/Docusate Sodium [Senna-Docusate Sodium Tablet] 1 each PO TID [Last Taken Unknown] diphenhydrAMINE [Benadryl 25 MG (*)] 25 mg PO Q6H PRN 07/28/17 [Last Taken Unknown] traZODone [traZODONE 50MG (*)] 75 mg PO HS 07/28/17 [Last Taken Unknown] - NPO status NPO Status: no food or drink >8 hours - Anes Hx Anes Hx: no prior problems - Smoking Hx Smoking Status: Never smoked Marijuana use: No - Alcohol Use Alcohol Use: Rarely - Family Anes Hx Family Anes Hx: neg - N/A ANE Labs/Vital Signs - Vital Signs Vital Signs: reviewed preoperatively; see RN documention for details Height: 157.48 cm Weight: 83.915 kg ANE Physical Exam - Airway Neck exam: decreased ROM, short neck Mallampati Score: Class 3 Mouth exam: normal dental/mouth exam - Pulmonary Pulmonary: no respiratory distress - Cardiovascular Cardiovascular: regular rate and rhythym - ASA Status ASA Status: III ANE Anesthesia Plan Anesthesia Plan: general endotracheal anesthesia Total IV Anesthesia: No
[2017-08-07] MEDS ORDERED: PROPOFOL 200 MG/20 ML VIAL ONE (07:17)
[2017-08-07] MEDS ORDERED: fentaNYL 100 MCG/2 ML INJ ONE (07:17)
[2017-08-07] MEDS ORDERED: BUPIVACAINE/EPI 0.5% 30 ML SDV ONE (07:20)
[2017-08-07] MEDS ORDERED: BUPIVACAINE 0.5% 30 ML SDV ONE (07:21)
[2017-08-07] MEDS ORDERED: LR 1,000 ML IV ONE (07:27)
[2017-08-07] MEDS ORDERED: ONDANSETRON 4 MG/2 ML VIAL ONE (08:03)
[2017-08-07] MEDS ORDERED: DEXAMETHASONE 4 MG/ML VIAL ONE (08:03)
[2017-08-07] MEDS ORDERED: ROCURONIUM 50 MG/5 ML VIAL ONE (08:03)
[2017-08-07] MEDS ORDERED: LIDOCAINE 2% 5 ML SDV ONE (08:03)
[2017-08-07] MEDS ORDERED: PHENYLEPHRINE HCL 100 MCG/ML SYR ONE ×2 (08:54→10:25)
[2017-08-07] MEDS ORDERED: ONDANSETRON 4 MG/2 ML VIAL IVP PRN (10:20)
[2017-08-07] MEDS ORDERED: ZOLPIDEM TARTRATE 5 MG TAB PO PRN (10:20)
[2017-08-07] MEDS ORDERED: ONDANSETRON DISINTEGRATING 4 MG TAB PO PRN (10:20)
--- NOTE | 2017-08-07 10:28 | POSTOPPROG ---
Post Op Note Date of Operation: 08/07/17 Surgeon: Kevin De León Rac Specialist: Ronnie Anesthesia: GET(General Endotracheal) Pre-op Diagnosis: fistula Procedure: ileal conduit Inf/Abcess present in the surg proc area at time of surgery?: No EBL: 100-500 Drains: Chuck Daniels, Other Specimen(s): none
--- NOTE | 2017-08-07 11:03 | GOP ---
[f rep st] OPERATIVE REPORT DATE OF OPERATION: 08/07/2017 SURGEON: Kevin De León MD IT COMPLIANCE ANALYST: Shubham. ANESTHESIA: This lady underwent general anesthesia. PREOPERATIVE DIAGNOSIS: Urethral vesicle vaginal fistula, urinary incontinence, neurogenic bladder. POSTOPERATIVE DIAGNOSIS: Urethral vesicle vaginal fistula, urinary incontinence, neurogenic bladder. PROCEDURE PERFORMED: FINDINGS: DESCRIPTION OF PROCEDURE: After undergoing general anesthesia and an appropriate time-out, a midline incision was carried down with adhesions taken down intra-abdominally. I mobilized the left colon, identified the ureter and took that down as it entered the bladder posteriorly and transected it. I made an attempt to preserve all the blood supply to the ureter with being well away from the edges fo r hemostasis with little small clips. At that point, the right ureter was identified, dissected out down to the bladder and mobilized. I was able to bring the left ureter across anterior to the great vessels behind the mesentery of the bowel and then secluded 20 cm of small distal bowel for exclusion for the ileal conduit. I made sure there was good vascular supply and the blood supply was managed w ith the Harmonic Scalpel. A VENECIA stapler was used to divide the bowel and then I did a primary side-t o-side anastomosis with the VENECIA stapler and a TA 55. At the end, there was a good patency. There wa s no apparent leakage of the bowel anastomosis and I closed the peritoneal defect. Then at that point , sewed in each of the right and left ureters using 4-0 Vicryl and then reinforced the anastomosis wi th 3-0 silk. They appeared to be watertight and patent so I elected not to stent them because some i ndications that increased risk from the stents. At that point, the sponge count was correct. Change d the instrumentation and re-sterilization technique for abdominal closure. I placed a VINCE drain in t he right lower quadrant near the ureteral ileal anastomosis, and at that point closed the linea alba with a running #1 looped Prolene and the subcutaneous tissue was irrigated and skin jaime placed. The stoma had been placed to the right side of the umbilicus and brought just to the lateral edge of the rectus sheath and that was pexed to the rectus sheath with interrupted 0 Vicryl and then it was m atured with 4-0 Vicryl. We bridged with an 18-Syrian red Hurt catheter to be sewn in place. Marleni erated the procedure and will be admitted for postoperative care. There were no complications, no spe cimens and she tolerated the procedure well. I tried to make sure there was no internal herniation a t all with respect to the ureters going into the bowel and at the mesentery where the ileal conduit s egment was removed, there was no suggestion for internal hernia there. It should be said she had dat acolon dilated to approximately 10 cm but everything was placed in the abdomen and no tension placed on any of the suture lines, the bowel anastomosis or the wound closure. PROCEDURE PERFORMED: Urinary diversion with ileal conduit. SURGEON: Kevin De León MD. /[id number]/MODL
[2017-08-07] MEDS: ACETAMINOPHEN 325 MG TAB PO PRN (14:22)
[2017-08-07] MEDS: D5W 1/2 NS W/ 20 KCl/L 1,000 ML IV SCH (14:36)
[2017-08-07] MEDS ORDERED: NS 1,000 ML IV ONE (16:10)
[2017-08-07] MEDS: HYDROCODONE/APAP 10/325 TAB PO PRN ×2 (16:11→22:39)
--- NOTE | 2017-08-07 17:33 | POSTANESTH ---
Post Anesthetic Evaluation Cardiovascular Status: Normal, Stable, Similar to Pre-Op Cond Respiratory Status: Normal, Stable, Similar to Pre-op Cond. Level of Consciousness/Mental Status: Can Participate in Eval, Alert and Oriented Pain Control: Adequate, Prn Tx Ordered Nausea/Vomiting Control: Adequate, Prn Tx Ordered Complications Possibly Related to Anesthesia: None Noted
[2017-08-07] MEDS: VANCOMYCIN 125 MG/2.5 ML UDL PO SCH (22:37)
[2017-08-07] MEDS: traZODone 50 MG TAB PO SCH (22:38)
[2017-08-07] MEDS: BACLOFEN 20 MG TAB PO SCH (22:39)
[2017-08-07] MEDS: GABAPENTIN 100 MG CAP PO SCH (22:39)
[2017-08-08] MEDS: CITALOPRAM 20 MG TAB PO SCH ×2 (00:04→08:17)
[2017-08-08] MEDS: D5W 1/2 NS W/ 20 KCl/L 1,000 ML IV SCH ×2 (05:03→15:18)
[2017-08-08] MEDS: HYDROCODONE/APAP 10/325 TAB PO PRN ×2 (05:03→20:33)
[2017-08-08] MEDS: VANCOMYCIN 125 MG/2.5 ML UDL PO SCH ×4 (05:03→20:32)
[2017-08-08 05:29] LABS: PLATELET COUNT 326 10^3/uL (150-400)
[2017-08-08] MEDS: GABAPENTIN 100 MG CAP PO SCH ×3 (08:17→22:17)
--- NOTE | 2017-08-08 10:41 | ASMTCMCOM ---
CM Note CM Note Notes: Chart reviewed. Patient s/p bladder surgery. In contact precautions. Just dcd 06/01/18. She is a 61 year female quadriplegic with 24 hour care through [facility]. She will needs transportation home and resumption of care upon discharge. CM to follow. Date Signed: 08/08/2017 10:40 AM Electronically Signed By:Rachel Richards RN
--- NOTE | 2017-08-08 11:11 | SOAPPROG ---
SOAP Progress Note Assessment/Plan: Assessment: Urethrovaginal fistula Acute POD # 1 ileal conduit doing well, draining very well Plan: continue post op care, need bowel program 08/08/17 12:11 Subjective: feeling well Objective: Vital Signs Temp Pulse Resp BP Pulse Ox 36.3 C 53 L 18 93/42 L 98 08/08/17 08:24 08/08/17 08:24 08/08/17 04:00 08/08/17 08:24 08/08/17 08:24 Laboratory Results 08/08/17 04:31 08/08/17 04:31 08/07/17 08/08/17 08/09/17 05:59 05:59 05:59 Intake Total 3404 200 Output Total 2205 200 Balance 1199 0 Physical Exam - Physical Exam General Appearance: alert Neck: normal inspection Respiratory: No respiratory distress Abdomen: soft (stoma ok and dressing dry, VINCE drain ok) Back: No CVA tenderness Neuro/Psych: alert, oriented x 3 ICD10 Worksheet Patient Problems: Problems Problem Status Onset 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
[2017-08-08] MEDS ORDERED: MAGNESIUM HYDROXIDE 30 ML UDCUP PO PRN (14:09)
[2017-08-08] MEDS ORDERED: LACTULOSE 20 GM/30 ML UDCUP PO PRN (14:09)
[2017-08-08] MEDS ORDERED: POLYETHYLENE GLYCOL 3350 17 GM PKT PO PRN (14:09)
--- NOTE | 2017-08-08 15:01 | WOCRNPDOC ---
ADENIKEEnmanuel Advanced Assessment Note - Skin Integrity Problem, Advanced Assess Sacrum Pressure Injury Dressing Type: Allevyn Life Dressing Description: Clean/Dry, Intact Exudate Color: Yellow, Brown Exudate Characteristic(s): Cloudy Integumentary Issue Intervention: Dressing Changed Tatum Wound Tissue: Erythema, Scarred (from previous flap closure) Wound Bed Color: Red Wound Bed Constitution: Granulation Tissue (80%), Undermining (11-2 oclock 0.5 cm), Adhered Slough (20%) Wound Edges: Attached (20%), Not Attached (80%), Epibole Site Odor: None Site Measurement - Head-to-Toe Length X Width X Depth (cm): 3x2.5x0.8 Pressure Injury Stage: Stage 4 Pressure Injury Present on Admit: Yes Skin Integrity Problem Comment: Flushed with ns and gauze. Skin prep tatum wound and iodosorb to wound bed. Covered with Allevyn life dressing. Patient on clinitron mattress. Wound appears to be steadily reopening. Please perform aggressive and contstant offloading. Wound care will follow weekly. - Urostomy Assessment, Advanced Right Lower Abdomen Urostomy Urostomy Appliance Intact: Yes Urostomy Appliance Currently in Use: Two Piece Flat, 2 1/4, Cut to Fit Stoma Color: Red Stoma Turgor: Moist, Stents (x1 red rubber catheter) Stoma Shape: Round Stoma Height: Protruding Urostomy Effluent: Urine Urostomy Details: Ileal Conduit Urostomy Comment/Treatment Details: Patient unable to empty/change pouch by herself. Will have to be managed by home health nurse and nursing aid. Discussed need to emtpy pouch when 1/3 to 1/2 full, night bag drainage, pouch options and one vs 2 piece appliances as well as frequency of pouch change. Education left with patient. Emphasized need for adequete hydration. Preliminary order of supplies with coloplast initiated along with starter sample program for coloplast.
--- NOTE | 2017-08-08 16:47 | ASMTCMCOM ---
CM Note CM Note Notes: Per wound care request [facility] is faxed order form for new urostomy products. Date Signed: 08/08/2017 04:47 PM Electronically Signed By:TONIO Gordon
[2017-08-08] MEDS: BISACODYL 10 MG SUPP PR PRN (17:19)
[2017-08-08] MEDS: traZODone 50 MG TAB PO SCH (20:32)
[2017-08-08] MEDS: BACLOFEN 20 MG TAB PO SCH (20:33)
[2017-08-08] MEDS: SENNOSIDES/DOCUSATE SODIUM TAB PO SCH (20:34)
[2017-08-09] MEDS: VANCOMYCIN 125 MG/2.5 ML UDL PO SCH ×4 (05:37→20:23)
[2017-08-09] MEDS: GABAPENTIN 100 MG CAP PO SCH ×3 (09:26→20:23)
[2017-08-09] MEDS: SENNOSIDES/DOCUSATE SODIUM TAB PO SCH ×2 (09:27→20:23)
[2017-08-09] MEDS: CITALOPRAM 20 MG TAB PO SCH (09:27)
[2017-08-09] MEDS: ACETAMINOPHEN 325 MG TAB PO PRN ×2 (09:33→20:35)
[2017-08-09] MEDS: BISACODYL 10 MG SUPP PR PRN (09:34)
--- NOTE | 2017-08-09 13:44 | SOAPPROG ---
SOAP Progress Note Assessment/Plan: Assessment: s/p ileal conduit Plan: Advance diet Recheck labs in am likely home tomorrow Already has [facility] d/w senior case manager regarding transport 08/09/17 13:42 Subjective: Feels well. Had a small BM today. Pain manageable Objective: Vital Signs Temp Pulse Resp BP Pulse Ox 36.9 C 70 16 87/41 L 98 08/09/17 12:00 08/09/17 12:00 08/09/17 12:00 08/09/17 12:00 08/09/17 12:00 Laboratory Results 08/08/17 04:31 08/08/17 04:31 08/08/17 08/09/17 08/10/17 05:59 05:59 05:59 Intake Total 3404 1400 Output Total 2205 2105 220 Balance 1199 -705 -220 Physical Exam - Physical Exam General Appearance: alert, no apparent distress Respiratory: No respiratory distress Abdomen: non-tender, soft, other (stoma pink. 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
--- NOTE | 2017-08-09 13:50 | PDIAF ---
- Diagnosis Code Status: Full Code - Medication Management Discharge Medications: Medications to Continue on Transfer Acetaminophen [Tylenol 325mg (*)] 650 mg PO TID 07/28/17 [Last Taken 08/06/17] Baclofen [Baclofen 10 mg (*)] 10 mg PO BID@09,12 07/28/17 [Last Taken 08/06/17 12:00] Baclofen [Baclofen 20 mg (*)] 20 mg PO HS 07/28/17 [Last Taken 08/06/17] Bisacodyl [Dulcolax] 10 mg RC EVERY OTHER DAY@07/28/17 [Last Taken 08/06/17] Bisacodyl [Dulcolax] 10 mg RC Q24H PRN 07/28/17 [Last Taken 08/06/17] Citalopram Hydrobromide [Celexa] 40 mg PO DAILY 07/28/17 [Last Taken 08/06/17] Diazepam [Valium 5 MG (*)] 2.5 mg PO Q8H PRN 07/28/17 [Last Taken Unknown] Gabapentin [Neurontin 100 MG (*)] 200 mg PO TID 07/28/17 [Last Taken 08/06/17 20 :00] Hydrocodone/Acetaminophen [[place] 5/325 (*)] 1 each PO Q4H PRN 07/28/17 [Last Taken Unknown] Levothyroxine [Synthroid 88 mcg (*)] 88 mcg PO DAILY06 07/28/17 [Last Taken 05/14] Ondansetron Odt [Zofran Odt 4 mg (*)] 4 mg PO Q6H PRN 07/28/17 [Last Taken 07/28] traZODone [traZODONE 50MG (*)] 75 mg PO HS 07/28/17 [Last Taken 08/06/17] Vancomycin [Vancocin Oral Liquid] 125 mg PO QID #24 udl 08/01/17 [Last Taken 05/14 20:00] HYDROcodone/APAP 10/325 [[place] 10/325 (*)] 1 tab PO Q4H PRN #40 tab 08/09/17 [ Last Taken Unknown] Ondansetron HCl Pf [Zofran 4 mg Inj (*)] 4 mg IVP Q4HRS PRN vial 08/09/17 [ Last Taken Unknown] Ondansetron Odt [Zofran Odt 4 mg (*)] 4 mg PO Q4HRS PRN tab 08/09/17 [Last Taken Unknown] Polyethylene Glycol 3350 [Miralax 17 gm (*)] 17 gm PO DAILY PRN pkt 08/09/17 [ Last Taken Unknown] Sennosides/Docusate Sodium [Senokot-S] 1 - 2 tab PO BID tab 08/09/17 [Last Taken Unknown] traZODone [traZODONE 50MG (*)] 75 mg PO HS tab 08/09/17 [Last Taken Unknown] Discharge Medications: Refer to the Discharge Home Medication list for PRN reason. - Orders Services needed: Home [facility] Face to Face: I certify that this patient was under my care and that I had the required [id number] encounter meeting the encounter requirements on the discharge day. My findings support the fact that the patient is homebound as defined in Home Care Face to Face Continued: CMS Chapter 7 Medicare Benefits Manual 30.1.1 , The condition of the patient is such that there exists a normal inability to leave home and consequently, leaving home would require a considerable and taxing effort. Isolation Type: CDIFF Isolation, Contact Isolation Diet Recommendation: no restrictions on diet Diet Texture: Regular Texture Diet Date to Remove Sutures/[place]: 08/18/17 Additional: Please provide ostomy teaching and supplies. - Follow Up Care Current Providers and Referrals: PHYSICIANS,HOUSE CALLS [Other] Kevin De León MD [Medical Doctor] -
[2017-08-09] MEDS: HYDROCODONE/APAP 10/325 TAB PO PRN ×2 (16:03→22:01)
--- NOTE | 2017-08-09 17:56 | ASMTCMCOM ---
CM Note CM Note Notes: Spoke with RN & MD; anticipate dc home tomorrow. Met with pt to discuss. Pt states she does not have transportation home; states she has "no money & her caregivers cannot provide her with transport"; requesting "Via voucher". Pt does have Medicaid. Recent CM notes indicate [facility] stretcher transport has been arranged in the past & billed to Medicaid-[place] notified. Discussed with Agatha RIVERA; Agatha agrees with plan to arrange [facility] stretcher transport & notify [place]; Agatha also recommending CM fill out a PCS form to give to [facility]. Pt's power wheelchair is at bedside & will need to be transported with pt in ambulance. RN updated. Pt's home care nurse, Ronda ([phone]), updated that pt will dc tomorrow. Updates faxed; confirmed received. Ronda requesting "skilled RN" to assist pt. Spoke with Yadira, at [facility]; referral faxed; awaiting on response as to whether or not [facility] can accept pt. RN updated. CM will continue to follow. Date Signed: 08/09/2017 05:55 PM Electronically Signed By:Bernie Loredo RN
[2017-08-09] MEDS: BACLOFEN 20 MG TAB PO SCH (20:23)
[2017-08-09] MEDS: traZODone 50 MG TAB PO SCH (22:01)
[2017-08-10] MEDS: VANCOMYCIN 125 MG/2.5 ML UDL PO SCH ×3 (06:14→15:53)
[2017-08-10] MEDS: GABAPENTIN 100 MG CAP PO SCH ×2 (08:14→15:53)
[2017-08-10] MEDS: CITALOPRAM 20 MG TAB PO SCH (08:14)
--- NOTE | 2017-08-10 09:47 | SOAPPROG ---
SOAP Progress Note Assessment/Plan: Assessment: s/p ileal conduit Plan: D/C home with [facility] Interagency form complete D/C summary complete 08/09/17 13:42 08/10/17 09:46 Subjective: Feels well. Pain controlled. No n/v. +BM Objective: Vital Signs Temp Pulse Resp BP Pulse Ox 36.9 C 62 16 112/62 98 08/10/17 08:00 08/10/17 08:00 08/10/17 08:00 08/10/17 08:00 08/10/17 08:00 Laboratory Results 08/09/17 17:58 08/09/17 17:58 08/09/17 08/10/17 08/11/17 05:59 05:59 05:59 Intake Total 1400 900 Output Total 2105 1165 200 Balance -705 -265 -200 Physical Exam - Physical Exam General Appearance: alert, no apparent distress Abdomen: non-tender, soft, other (jaime intact with no evidence of infection. 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
--- NOTE | 2017-08-10 10:03 | PDIAF ---
- Diagnosis Diagnosis: urethrovaginal fistula Code Status: Full Code - Medication Management Discharge Medications: Medications to Continue on Transfer Acetaminophen [Tylenol 325mg (*)] 650 mg PO TID 07/28/17 [Last Taken 08/06/17] Baclofen [Baclofen 10 mg (*)] 10 mg PO BID@09,12 07/28/17 [Last Taken 08/06/17 12:00] Baclofen [Baclofen 20 mg (*)] 20 mg PO HS 07/28/17 [Last Taken 08/06/17] Bisacodyl [Dulcolax] 10 mg RC EVERY OTHER DAY@21 07/28/17 [Last Taken 08/06/17] Bisacodyl [Dulcolax] 10 mg RC Q24H PRN 07/28/17 [Last Taken 08/06/17] Citalopram Hydrobromide [Celexa] 40 mg PO DAILY 07/28/17 [Last Taken 08/06/17] Diazepam [Valium 5 MG (*)] 2.5 mg PO Q8H PRN 07/28/17 [Last Taken Unknown] Gabapentin [Neurontin 100 MG (*)] 200 mg PO TID 07/28/17 [Last Taken 08/06/17 20 :00] Levothyroxine [Synthroid 88 mcg (*)] 88 mcg PO DAILY06 07/28/17 [Last Taken 05/14] Ondansetron Odt [Zofran Odt 4 mg (*)] 4 mg PO Q6H PRN 07/28/17 [Last Taken 07/28] traZODone [traZODONE 50MG (*)] 75 mg PO HS 07/28/17 [Last Taken 08/06/17] Vancomycin [Vancocin Oral Liquid] 125 mg PO QID #24 udl 08/01/17 [Last Taken 05/14 20:00] HYDROcodone/APAP 10/325 [Varna 10/325 (*)] 1 tab PO Q4H PRN #40 tab 08/09/17 [ Last Taken Unknown] Ondansetron HCl Pf [Zofran 4 mg Inj (*)] 4 mg IVP Q4HRS PRN vial 08/09/17 [ Last Taken Unknown] Ondansetron Odt [Zofran Odt 4 mg (*)] 4 mg PO Q4HRS PRN tab 08/09/17 [Last Taken Unknown] Polyethylene Glycol 3350 [Miralax 17 gm (*)] 17 gm PO DAILY PRN pkt 08/09/17 [ Last Taken Unknown] Sennosides/Docusate Sodium [Senokot-S] 1 - 2 tab PO BID tab 08/09/17 [Last Taken Unknown] traZODone [traZODONE 50MG (*)] 75 mg PO HS tab 08/09/17 [Last Taken Unknown] Hydrocodone/Acetaminophen [Varna 5/325 (*)] 1 each PO Q4H PRN #40 tablet [Last Taken Unknown] Discharge Medications: Refer to the Discharge Home Medication list for PRN reason. - Orders Services needed: Home Care, Registered Nurse Home Care Face to Face: I certify that this patient was under my care and that I had the required [id number]-[id number] encounter meeting the encounter requirements on the discharge day. My findings support the fact that the patient is homebound as defined in Home Care Face to Face Continued: CMS Chapter 7 Medicare Benefits Manual 30.1.1 , The condition of the patient is such that there exists a normal inability to leave home and consequently, leaving home would require a considerable and taxing effort. Isolation Type: CDIFF Isolation, Contact Isolation Diet Recommendation: no restrictions on diet Diet Texture: Regular Texture Diet Wound Care Instructions: remove jaime at ordered on 08/09/17 Date to Remove Sutures/Jaime: 08/18/17 Additional: Please provide ostomy teaching and supplies. - Follow Up Care Current Providers and Referrals: PHYSICIANS,HOUSE CALLS [Other] Kevin De León MD [Medical Doctor] -
[2017-08-10] MEDS: SENNOSIDES/DOCUSATE SODIUM TAB PO SCH (10:06)
--- NOTE | 2017-08-10 10:16 | GDS ---
[f rep st] DISCHARGE SUMMARY ADMISSION DIAGNOSIS: Urethrovaginal fistula. DISCHARGE DIAGNOSES: Urethrovaginal fistula. PROCEDURES PERFORMED: Ileal conduit. CONSULTATIONS: None. INDICATION FOR ADMISSION: The patient is a woman who has a large urethrovaginal fistula and has extr sari limited mobility, who came in for creation of ileal conduit. HOSPITAL COURSE: The patient was admitted, taken to the operating room where she underwent creation of an ileal conduit. Postoperatively, she was started on a clear liquid diet. Case Management was c onsulted to help make transportation arrangements. Her pain was initially controlled with IV pain me dicine, but she had a bowel movement on postoperative day #2. We slowly advanced her diet and conver lenore her over to oral pain medication. On postoperative day #3, she was tolerating a diet. Her bowel s were functioning. Stoma was pink and producing clear urine. Labs were stable and, therefore, she was declared stable for discharge to home. DISCHARGE MEDICATIONS: Please see discharge medication reconciliation for medications. DISPOSITION: Discharged to home with established home health care and our agency discharge plan perf ormed. The patient will follow up with Dr. De León in a few weeks. /[id number]/MODL
--- NOTE | 2017-08-10 13:21 | WOCRNPDOC ---
WOCRN Advanced Assessment Note - Urostomy Assessment, Advanced Right Abdomen Urostomy Urostomy Appliance Intact: Yes Urostomy Appliance Currently in Use: Two Piece Flat, 2 1/4, Cut to Fit Urostomy Comment/Treatment Details: Patient preparing to discharge. Day 2 teachings provided - catalog marked to show patient/caregivers what products have been ordered. Anticipate ordered products to be delivered to patient's home near the end of the week. Requested that NY[employer] Bean supply patient with 4 appliances to take home as well as a night bag to contain drainage. Reminded patient that in 6-8 weeks, once ostomy swelling subsides, products can be ordered pre-cut. Loida had no questions for us at this time. NYDIA Bean and JEROD Strong present in room.
[2017-08-10] MEDS: HYDROCODONE/APAP 10/325 TAB PO PRN (15:53)
[2017-08-10 16:02] VITALS: BP 98/58; PULSE 69; RESP 16; TEMP 98.1; O2SAT 98
--- NOTE | 2017-08-11 15:30 | ASDISCHSUM ---
Discharge Information Plan Status:Home with Home Health Medically Cleared to Leave:08/09/2017 Discharge Date:08/10/2017 05:30 PM CM D/C Disposition:Home Health Service ADT D/C Disposition:[id number] Projected Discharge Date:08/10/2017 05:00 PM Transportation at D/C:Wheelchair Van Discharge Delay Reason: Follow-Up Date:08/10/2017 05:00 PM Discharge Slot: Final Diagnosis:Urethrovaginal fistula Placement Information Referral Type:*Home Health Care Services Referral ID:[id number] Provider Name:[facility] Care Address 1:[address] Address 2: City:[place] Selection Factors: State:[place] Patient Contact Information Contact Name:SERGO Relationship:Cousin Address: Work Phone: City: [facility] Phone: [facility] Code: Email: Financial Information Financial Class:Medicare Advantage Plans Primary Plan Desc:[facility] [place] Primary Plan Number:[id number] Secondary Plan Desc:[place] Secondary Plan Number:[id number] Assessment Information [facility] CM Progress Note CM Note CM Note Notes: Chart reviewed. Patient s/p bladder surgery. In contact precautions. Just dcd 06/01/18. She is a 61 year female quadriplegic with 24 hour care through [facility] She will needs transportation home and resumption of care upon discharge. CM to follow. Date Signed: 08/08/2017 10:40 AM Electronically Signed By:Rachel Richards RN [facility] CM Progress Note CM Note CM Note Notes: Per wound care request [facility] is faxed order form for new urostomy products. Date Signed: 08/08/2017 04:47 PM Electronically Signed By:TONIO Gordon [facility] CM Progress Note CM Note CM Note Notes: Spoke with RN & MD; anticipate dc home tomorrow. Met with pt to discuss. Pt states she does not have transportation home; states she has "no money & her caregivers cannot provide her with transport"; requesting "Via voucher". Pt does have Medicaid. Recent CM notes indicate [facility] stretcher transport has been arranged in the past & billed to Medicaid-[place] notified. Discussed with Agatha RIVERA; Agatha agrees with plan to arrange [facility] stretcher transport & notify [place]; Agatha also recommending CM fill out a PCS form to give to [facility]. Pt's power wheelchair is at bedside & will need to be transported with pt in ambulance. RN updated. Pt's home care nurse, Ronda ([phone]), updated that pt will dc tomorrow. Updates faxed; confirmed received. Ronda requesting "skilled RN" to assist pt. Spoke with Yadira at [facility]; referral faxed; awaiting on response as to whether or not [facility] can accept pt. RN updated. CM will continue to follow. Date Signed: 08/09/2017 05:55 PM Electronically Signed By:Bernie Loredo RN Case Management Discharge Plan Note Case Management Discharge Discharge Order Complete? Answers: Yes Followup Appointment 08/10/2017 05:00 PM Patient to Obtain Answers: Independently Medications Transportation Arranged Answers: [facility] W/C Transport will Pick (Date 08/10/2017 05:00 PM & Time) Case Management Transport Answers: Yes Form Complete Faxed Final Orders Answers: Yes Notes: [facility] Discharge Comments Notes: Patient has been discharged. Patient is a quadriplegic with Stage iv sacrum woundd. Spoke to the butt welder who reports that patient could go home in her electric W/C, that the only way for Patient to be off her wound would be if she was laying on her side. A strecher had been lined up but changed to W/C van so that she could arrive home with her W/C. [facility] contacted as well as [facility]. Conf # [id number] Date Signed: 08/10/2017 01:16 PM Electronically Signed By:Janis Chavez LCSW Intervention Information
== END 2017-08-10 17:30 | disposition home health service (06) | DRG 749 ==
LOC: F1N 05:23 → F2W 12:24 → F3N 22:30
PROVIDERS: ADMIT Specialist; ATTEND Specialist
PROC: 0T1807C Bypass Bilateral Ureters to Ileocutaneous with Autologous Tissue Substitute, Open Approach (ICD-10-PCS; principal; 2017-08-07 07:15)
DX: N82.1 Other female urinary-genital tract fistulae (principal); N31.9 Neuromuscular dysfunction of bladder, unspecified; G82.50 Quadriplegia, unspecified; L89.154 Pressure ulcer of sacral region, stage 4; E11.9 Type 2 diabetes mellitus without complications; Z74.01 Bed confinement status
CPT/HCPCS: J1100; J1335; J2250; J2370; J2405; J2704; J3010

== ENCOUNTER 2017-09-11 00:30 | Inpatient (IN) | payer OTHER, MEDICAID ==
[2017-09-11] MEDS ORDERED: NS 1,000 ML IV ONE (00:42)
[2017-09-11] MEDS ORDERED: ACETAMINOPHEN 500 MG TAB PO ONE (00:42)
[2017-09-11 01:08] LABS: PLATELET COUNT 336 10^3/uL (150-400)
[2017-09-11] MEDS ORDERED: LORazepam 0.5 MG TAB PO ONE (01:17)
[2017-09-11] MEDS ORDERED: IOPAMIDOL (ISOVUE-300) 100 ML BTL ONE (01:28)
--- NOTE | 2017-09-11 01:29 | EDPHY ---
H & P Stated Complaint: difficulty breathing, nausea, vomiting since afternoon Time Seen by Provider: 09/11/17 01:26 HPI/ROS: HPI The patient presents brought in by ambulance from her home for fever which began at approximately 4:00 p.m. Yesterday. The patient had a temperature as high as 102.7. This is associated with general malaise, lightheadedness, shortness of breath. She also felt nauseated though did not vomit. The patient did any cough, rhinorrhea, sore throat. She is homebound with a [employer] which visits her daily. She denies any sick contacts. She in the ambulance had a blood glucose of 270. Blood pressure was 109/65. She was recently in the hospital for aura ureteral vesicular fistula which was repaired by Dr. De León. She also had C diff colitis and was treated with a course of vancomycin which she has now finished. REVIEW OF SYSTEMS Constitutional: Positive for fever Eyes: No discharge. ENT: No sore throat. Cardiovascular: No chest pain, no palpitations. Respiratory: No cough, positive for shortness of breath. Gastrointestinal: No abdominal pain, no vomiting. Genitourinary: No hematuria. Musculoskeletal: No back pain. Skin: No rashes. Neurological: No headache. PMHx: Paraplegic Soc Hx: Lives at home alone PHYSICAL General Appearance: Alert, no distress Eyes: Pupils equal and round no pallor or injection ENT, Mouth: Mucous membranes moist, posterior pharynx without exudate or erythema Respiratory: There are no retractions, lungs are clear to auscultation Cardiovascular: Tachycardic with regular rhythm Gastrointestinal: Ostomy bag in place in right abdomen, midline surgical abdominal incision scar with slight wound dehiscence superiorly, tender to palpation in left lower quadrant Neurological: A&O, paraplegic with contractures of her lower extremities Skin: Warm and dry, large area of erythema in her sacral region with ulceration at superior gluteal cleft at the midline Musculoskeletal: Neck is supple non tender Extremities: symmetrical, full range of motion Psychiatric: Patient is oriented X 3, there is no agitation Source: Patient Exam Limitations: No limitations - Personal History Tetanus Vaccine Date: Within last 5 years - Medical/Surgical History Hx Asthma: No Hx Chronic Respiratory Disease: No Hx Diabetes: No Hx Cardiac Disease: Yes Hx Renal Disease: No Hx Cirrhosis: No Hx Alcoholism: No Hx HIV/AIDS: No Hx Splenectomy or Spleen Trauma: No Other PMH: PMH: Quadripalegia, A-fib, HTN, GERD, hypothyroid, DM2, anxiety, insomnia, chronic hyponatremia, pressure ulcer coccyx - Social History Smoking Status: Never smoked Constitutional: Initial Vital Signs Temperature (C) 38.1 C 09/11/17 00:36 Heart Rate 98 09/11/17 00:36 Respiratory Rate 20 09/11/17 00:36 Blood Pressure 94/61 L 09/11/17 00:36 O2 Sat (%) 92 09/11/17 00:36 O2 Delivery Mode Nasal Cannula O2 (L/minute) 4 Allergies/Adverse Reactions: codeine [Codeine] Allergy (Severe, Verified 08/07/17 07:17) Swelling/neck,face,throat Home Medications: Medication Instructions Recorded Acetaminophen [Tylenol 325mg (*)] 650 mg PO TID 07/28/17 Baclofen [Baclofen 10 mg (*)] 10 mg PO BID@09,12 07/28/17 Baclofen [Baclofen 20 mg (*)] 20 mg PO HS 07/28/17 Bisacodyl [Dulcolax] 10 mg RC EVERY OTHER DAY@07/28/17 Bisacodyl [Dulcolax] 10 mg RC Q24H PRN 07/28/17 Citalopram Hydrobromide [Celexa] 40 mg PO DAILY 07/28/17 Diazepam [Valium 5 MG (*)] 2.5 mg PO Q8H PRN 07/28/17 Gabapentin [Neurontin 100 MG (*)] 200 mg PO TID 07/28/17 Levothyroxine [Synthroid 88 mcg 88 mcg PO DAILY06 07/28/17 (*)] Ondansetron Odt [Zofran Odt 4 mg 4 mg PO Q6H PRN 07/28/17 (*)] traZODone [traZODONE 50MG (*)] 75 mg PO HS 07/28/17 Vancomycin [Vancocin Oral Liquid] 125 mg PO QID #24 udl 08/01/17 HYDROcodone/APAP 10/325 [Beller[place] 1 tab PO Q4H PRN #40 tab 08/09/17 10/325 (*)] Ondansetron HCl Pf [Zofran 4 mg 4 mg IVP Q4HRS PRN vial 08/09/17 Inj (*)] Ondansetron Odt [Zofran Odt 4 mg 4 mg PO Q4HRS PRN tab 08/09/17 (*)] Polyethylene Glycol 3350 [Miralax 17 gm PO DAILY PRN pkt 08/09/17 17 gm (*)] Sennosides/Docusate Sodium 1 - 2 tab PO BID tab 08/09/17 [Senokot-S] traZODone [traZODONE 50MG (*)] 75 mg PO HS tab 08/09/17 Hydrocodone/Acetaminophen [Bellerose 1 each PO Q4H PRN #40 tablet 08/10/17 5/325 (*)] Lactobacillus Acidophilus 09/11/17 Methenamine Estephania 09/11/17 Medical Decision Making - Diagnostics Imaging Results: Chest x-ray one view shows no infiltrate, interpreted by me, radiology interpretation is pending. Imaging: I viewed and interpreted images myself Differential Diagnosis: This is a 61-year-old female brought in by ambulance past medical history of paraplegia, recent urethrovaginal fistula repair with ileal conduit last month, sacral decubitus ulcer, recent C diff, presents with fever and shortness of breath. On arrival, vital signs demonstrate fever, blood pressure is slightly low. She does have tenderness to her abdomen as well as sacral ulceration that could very well be infected. The emergency department, she received fluid bolus. Initial lactate was 3. Labs were checked and did reveal leukocytosis. Chest x-ray was unremarkable. Urine appeared infected, however this is likely chronic because of indwelling Morris catheter. Given abdominal tenderness, CT scan of her abdomen was performed which did demonstrate constipation which could explain her pain. Repeat lactate was normal. Her fever could be coming from skin infection. She has received broad-spectrum antibiotics at this time. I have discussed her case with the hospitalist Dr. Barraza who will admit her. - Data Points Laboratory Results: Laboratory Results 09/11/17 00:35 09/11/17 00:35 09/11/17 09/11/17 09/11/17 01:10 00:45 00:35 WBC RBC Hgb Hct MCV MCH MCHC RDW Plt Count MPV Neut % (Auto) Lymph % (Auto) [place]quette % (Auto) Eos % (Auto) Baso % (Auto) Nucleat RBC Rel Count Absolute Neuts (auto) Absolute Lymphs (auto) Absolute Monos (auto) Absolute Eos (auto) Absolute Basos (auto) Absolute Nucleated RBC Immature Gran % Immature Gran # VBG Lactic Acid 3.0 mmol/L H mmol/L (0.7-2.1) Sodium Potassium Chloride Carbon Dioxide Anion Gap BUN Creatinine Estimated GFR Glucose Calcium Total Bilirubin 0.4 mg/dL mg/dL (0.1-1.4) Conjugated Bilirubin 0.3 mg/dL mg/dL (0.0-0.5) Unconjugated Bilirubin 0.1 mg/dL mg/dL (0.0-1.1) AST 14 IU/L IU/L (14-46) ALT 18 IU/L IU/L (9-52) Alkaline Phosphatase 103 IU/L IU/L (38-126) Total Protein 6.8 g/dL g/dL (6.3-8.2) Albumin 3.5 g/dL g/dL (3.5-5.0) Urine Color PALE YELLOW Urine Appearance HAZY Urine pH 7.0 (5.0-7.5) Ur Specific Hallett 1.005 (1.002-1.030) Urine Protein NEGATIVE (NEGATIVE) Urine Ketones NEGATIVE (NEGATIVE) Urine Blood 1+ H (NEGATIVE) Urine Nitrate NEGATIVE (NEGATIVE) Urine Bilirubin NEGATIVE (NEGATIVE) Urine Urobilinogen NEGATIVE EU EU (0.2-1.0) Ur Leukocyte Esterase 3+ H (NEGATIVE) Urine RBC 3-5 /hpf H /hpf (0-3) Urine WBC 25-50 /hpf H /hpf (0-3) Ur Epithelial Cells NONE SEEN /lpf /lpf (NONE-1+) Urine Bacteria TRACE /hpf H /hpf (NONE SEEN) Urine Mucus TRACE /lpf /lpf (NONE-1+) Urine Glucose NEGATIVE (NEGATIVE) Nasal Influenza A PCR Nasal Influenza B PCR RSV (PCR) 09/11/17 09/11/17 09/11/17 00:35 00:35 00:35 WBC 12.71 10^3/uL H 10^3/uL (3.80-9.50) RBC 4.11 10^6/uL L 10^6/uL (4.18-5.33) Hgb 11.8 g/dL L g/dL (12.6-16.3) Hct 34.7 % L % (38.0-47.0) MCV 84.4 fL fL (81.5-99.8) MCH 28.7 pg pg (27.9-34.1) MCHC 34.0 g/dL g/dL (32.4-36.7) RDW 14.4 % % (11.5-15.2) Plt Count 336 10^3/uL 10^3/uL (150-400) MPV 10.7 fL fL (8.7-11.7) Neut % (Auto) 59.7 % % (39.3-74.2) Lymph % (Auto) 26.7 % % (15.0-45.0) Marquette % (Auto) 12.1 % % (4.5-13.0) Eos % (Auto) 0.6 % % (0.6-7.6) Baso % (Auto) 0.5 % % (0.3-1.7) Nucleat RBC Rel Count 0.0 % % (0.0-0.2) Absolute Neuts (auto) 7.60 10^3/uL H 10^3/uL (1.70-6.50) Absolute Lymphs (auto) 3.39 10^3/uL H 10^3/uL (1.00-3.00) Absolute Monos (auto) 1.54 10^3/uL H 10^3/uL (0.30-0.80) Absolute Eos (auto) 0.07 10^3/uL 10^3/uL (0.03-0.40) Absolute Basos (auto) 0.06 10^3/uL 10^3/uL (0.02-0.10) Absolute Nucleated RBC 0.00 10^3/uL 10^3/uL (0-0.01) Immature Gran % 0.4 % % (0.0-1.1) Immature Gran # 0.05 10^3/uL 10^3/uL (0.00-0.10) VBG Lactic Acid Sodium 136 mEq/L mEq/L (135-145) Potassium 4.4 mEq/L mEq/L (3.5-5.2) Chloride 102 mEq/L mEq/L (97-110) Carbon Dioxide 18 mEq/l L mEq/l (22-31) Anion Gap 16 mEq/L mEq/L (8-16) BUN 15 mg/dL mg/dL (7-23) Creatinine 0.6 mg/dL mg/dL (0.6-1.0) Estimated GFR > 60 Glucose 213 mg/dL H mg/dL (70-100) Calcium 9.5 mg/dL mg/dL (8.5-10.4) Total Bilirubin 0.4 mg/dL mg/dL (0.1-1.4) Conjugated Bilirubin Unconjugated Bilirubin AST ALT Alkaline Phosphatase Total Protein Albumin Urine Color Urine Appearance Urine pH Ur Specific Hallett Urine Protein Urine Ketones Urine Blood Urine Nitrate Urine Bilirubin Urine Urobilinogen Ur Leukocyte Esterase Urine RBC Urine WBC Ur Epithelial Cells Urine Bacteria Urine Mucus Urine Glucose Nasal Influenza A PCR NEGATIVE FOR FLU A (NEGATIVE) Nasal Influenza B PCR NEGATIVE FOR FLU B (NEGATIVE) RSV (PCR) NEGATIVE FOR RSV (NEGATIVE) Medications Given: Sodium Chloride (Ns) 1,000 mls @ 100 mls/hr IV CONT MADISYN Stop: 03/10/18 04:14 Last Admin: 09/11/17 05:47 Dose: 1,000 mls Discontinued Medications Acetaminophen (Tylenol) 1,000 mg PO EDNOW ONE Stop: 09/11/17 00:43 Last Admin: 09/11/17 01:08 Dose: 1,000 mg Sodium Chloride (Ns) 1,000 mls @ 0 mls/hr IV EDNOW ONE; Wide Open PRN Reason: Protocol Stop: 09/11/17 00:43 Last Admin: 09/11/17 01:08 Dose: 1,000 mls Cefazolin Sodium/Dextrose (Ancef 2 Gm (Premix)) 100 mls @ 200 mls/hr IV EDNOW ONE PRN Reason: Protocol Stop: 09/11/17 02:03 Last Admin: 09/11/17 01:54 Dose: 100 mls Sodium Chloride (Ns) 2,500 mls @ 5,000 mls/hr 30 ml/kg infuse over 30 min ( 2500 ml) IV EDNOW ONE PRN Reason: Protocol Stop: 09/11/17 02:00 Last Admin: 09/11/17 01:47 Dose: 2,500 mls Vancomycin HCl 1.5 gm/ Sodium (Chloride) 250 mls @ 166.67 mls/hr IV EDNOW ONE PRN Reason: Protocol Stop: 09/11/17 03:59 Last Admin: 09/11/17 02:28 Dose: 250 mls Ceftriaxone Sodium/Dextrose (Rocephin 1 Gm (Premix)) 50 mls @ 100 mls/hr IV EDNOW ONE Stop: 09/11/17 06:29 Last Admin: 09/11/17 06:07 Dose: 50 mls Lorazepam (Ativan) 0.5 mg PO ONCE ONE Stop: 09/11/17 01:18 Last Admin: 09/11/17 01:20 Dose: 0.5 mg Morphine Sulfate (Morphine) 2 mg IVP EDNOW ONE Stop: 09/11/17 02:21 Last Admin: 09/11/17 02:21 Dose: 2 mg Departure - Departure Disposition: [facility] Inpatient Acute Clinical Impression: Decubital ulcer, Urethrovaginal fistula, Sepsis, Paraplegia Condition: Fair
[2017-09-11] MEDS ORDERED: NS 2,500 ML IV ONE (01:31)
[2017-09-11] MEDS ORDERED: ceFAZolin 2 GM/DEXTROSE 100 ML IV ONE (01:34)
[2017-09-11] MEDS ORDERED: VANCOMYCIN 1.5 GM in D5W 250 ML IV ONE (02:11)
[2017-09-11] MEDS ORDERED: VANCOMYCIN 1.5 GM in NS 250 ML IV ONE (02:30)
[2017-09-11] MEDS ORDERED: ONDANSETRON 4 MG/2 ML VIAL IVP PRN (02:54)
[2017-09-11] MEDS ORDERED: ONDANSETRON DISINTEGRATING 4 MG TAB PO PRN (02:54)
[2017-09-11] MEDS ORDERED: D50W 25 GM/50 ML SYR IVP PRN (03:02)
--- NOTE | 2017-09-11 05:02 | GHP ---
[f rep st] HISTORY AND PHYSICAL DATE OF ADMISSION: 09/11/2017 CHIEF COMPLAINT: Fever. PRIMARY UROLOGIST: Kevin De León MD. HISTORY OF PRESENT ILLNESS: A 61-year-old female, who is a partial quadriplegic , with neurogenic bladder, recent C difficile infection in July 2017, presenting with fever. This started yesterday at approximately 4 p.m. and it was as high as 102. She also reports malaise, dizziness, and left upper quadrant abdominal pain. Describes the pain as burning in nature that was relieved with morphine. She is having formed stools. "My sacral ulcer is angry ", stating it is more red than usual, which she attributes to sitting up more in the chair. She underwent urinary diversion with ileal conduit by Dr. De León on 08/07/2017. He removed the surgical sutures this week without issue. REVIEW OF SYSTEMS: I completed a 10-point review of systems, negative except as noted in HPI. PAST MEDICAL HISTORY: 1. 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 2. GERD. 3. Diet-controlled diabetes. 4. Atrial fibrillation. 5. Recent C difficile infection July 2017, completed vancomycin. 6. Stage IV sacrococcygeal ulcer status post debridement in January [address] Hernandez. 7. Hypothyroidism. 8. History of UTIs with E coli Enterococcus, Pseudomonas. PAST SURGICAL HISTORY: 1. Back surgery. 2. Suprapubic catheter placement. 3. Urinary diversion with ileal conduit, July 2017. ALLERGIES: Codeine. MEDICATIONS: At home, Methenamine hippurate, lactobacillus, trazodone 75 mg h.s., vancomycin course completed for C diff, senna, MiraLAX, Zofran, Synthroid 88 mcg, [place] 5/325 one q.4 hours p.r.n., 10/325 one tab q.4 p.r.n., gabapentin 200 mg t.i.d., Valium 2.5 q.8 p.r.n., citalopram 40 daily, Dulcolax, baclofen 20 q.h.s., 10 b.i.d., Tylenol as needed. PHYSICAL EXAMINATION: VITAL SIGNS: Temperature 38.1, now 37, blood pressure 108/60, heart rate in the 80s, respiration 20, 92% on 3 L. GENERAL: Tired- appearing falling asleep during interview. No acute distress. HEENT: PERRLA. Dry mucous membranes. CV: Regular rate and rhythm. No murmurs, gallops, rubs. LUNGS: Clear. No crackles or wheezing. ABDOMEN: Soft. Left upper quadrant tenderness to palpation, but no rebound or guarding. Positive bowel sounds. Has a formed stool. Abdominal surgical incision healing scabbed over lesion. No purulence or surrounding erythema. : Ileal conduit with clear yellow urine. MUSCULOSKELETAL: 5/5 upper extremity strength. NEURO: 2 through 12 intact. SKIN: Sacral stage III decubitus ulcer present on admission with granulation tissue, has surrounding erythema and warmth. No induration. PSYCH: Alert and oriented x3. LABORATORY DATA: WBC 12, hemoglobin 11, hematocrit 34, platelets 336. Lactate was 3, repeat is 1.9. Sodium 136, potassium 4.4, chloride 102, carbon dioxide 18, creatinine is 0.6, glucose is 213, calcium is 9.5. UA +3 leuks, 25-50 whites. Influenza negative. Negative RSV. Chest x-ray is personally reviewed by me. No effusion or opacity suggestive of pneumonia. Abdominal CT radiology read, gas and thick walled bladder, possible cysto rectal fistula, fecal impaction, mildly dilated renal collecting system with SP pouch right lower quadrant, gallstones, stable left adrenal adenoma, previous fusion L2, 3, 4. ASSESSMENT/PLAN: 1. Sepsis: Elevated white count,lactate of 3.8, and possible urinary versus skin source. Lactate normalized with intravenous fluids. No overt abscess on CT, CXR and influenza negative. Having formed stools and completed course of vanc for recent C diff infection. There is some gas in bladder wall that may be related to recent surgery; possible cysto rectal fistula. Will have Urology evaluate in the morning. The decubitus ulcer itself appears to be healing, but there is surrounding erythema. Treat broadly with vancomycin and CTX. Urine and blood cultures are pending. 2. Leukocytosis: plan as stated above. 3. Fever low-grade here. Urine and blood cultures pending. 4. Partial quadriplegia. Continue home medications. 5. Mild hypertension: Initially 94/61. This improved with intravenous fluids. Will continue these. 6. Lactic acidosis. Suspect decreased due to acute illness, dehydration. This resolved nicely with intravenous fluids. 7. Abdominal pain: constipation on CT, no overt abscess. 8. Hypothyroidism. Levothyroxine. 9. Sacral decubitus ulcer: present at admission. Wound care consult. IV Vanc for now 10. Urethrovaginal fistula: urinary diversion/ileal conduit Jul. 11. Deep venous thrombosis prophylaxis Lovenox. DIET: Regular. DISPOSITION: Patient warrants inpatient admission given acute sepsis warranting IV antibiotics, fluids, and urologic evaluation. /[id number]/MODL MTDD
[2017-09-11] MEDS: NS 1,000 ML IV SCH ×2 (05:47→20:13)
[2017-09-11] MEDS ORDERED: PIPERACILLIN/TAZO 3.375 GM/DEX 50 ML IV SCH (06:00)
[2017-09-11] MEDS ORDERED: cefTRIAXone 1 GM in STERILE WATER INJ 10 ML IV ONE (06:00)
[2017-09-11] MEDS: INSULIN LISPRO 100 UNIT/ML SC SCH ×3 (08:40→18:29)
[2017-09-11] MEDS ORDERED: cefTRIAXone 1 GM in STERILE WATER INJ 10 ML IV SCH (09:00)
[2017-09-11] MEDS: ENOXAPARIN 40 MG/0.4 ML SYR SC SCH (10:15)
--- NOTE | 2017-09-11 11:55 | WOCRNPDOC ---
WOCRN Advanced Assessment Note - Skin Integrity Problem, Advanced Assess Coccyx Pressure Injury Dressing Type: Open to Air Integumentary Issue Intervention: Dressing Applied, Silver Gel Applied Wound Bed Color: [place], Yellow Wound Bed Constitution: Red/[place] - Non Granular Tissue, Undermining (from 12-3 o 'clock, 0.7cm) Site Measurement - Head-to-Toe Length X Width X Depth (cm): 2.2x3.1x0.4 Pressure Injury Stage: Stage 4 Pressure Injury Present on Admit: Yes (MD aware) Skin Integrity Problem Comment: Patient rolled to her left side with assist from RN Carisa. Open, full thickness, chronic wound revealed. Patient states that this wound is "angry" and has been hurting her more recently. Wound cleaned with NS and gauze. Undermining present between 12-3 o'clock of up to 0.7cm. Candis wound skin prepped with skin prep and covered with Allevyn for now. Will initiate wound orders and wound care will round again next week.
--- NOTE | 2017-09-11 13:13 | PDMN ---
Medical Necessity Medical necessity: Patient meets inpatient criteria per physician note and MCG M -160 Sepsis and Other Febrile Illness, without Focal Infection (sepsis, poss urinary vs skin source: leukocytosis/WBC > 12,000 ; lactate of 3.0, presents with fever to 102, malaise, dizziness, LUQ abd pain; hx of partial quadriplegia , neurogenic bladder, recent C Diff infection 07/2017; anticipated LOS > 2 midnights for ongoing IV hydration, IV antibiotics, pending cultures.)
[2017-09-11] MEDS: VANCOMYCIN HCL/NORMAL SALINE 250 ML IV SCH (17:03)
[2017-09-11] MEDS: LORazepam 0.5 MG TAB PO PRN (23:56)
[2017-09-12] MEDS: VANCOMYCIN HCL/NORMAL SALINE 250 ML IV SCH ×2 (02:36→15:55)
[2017-09-12] MEDS: ACETAMINOPHEN 325 MG TAB PO PRN ×2 (04:02→22:33)
[2017-09-12] MEDS ORDERED: TEARS/DEXTRAN 70/HYPROMELLOSE 15 ML OPHT.BTL EACHEYE PRN (06:02)
[2017-09-12] MEDS ORDERED: BISACODYL 10 MG SUPP PR PRN (06:02)
[2017-09-12] MEDS: LEVOTHYROXINE 88 MCG TAB PO SCH (06:31)
[2017-09-12] MEDS: HYDROCODONE/APAP 5/325 TAB PO PRN (06:31)
[2017-09-12] MEDS: DIAZEPAM 5 MG TAB PO PRN (06:32)
[2017-09-12] MEDS: INSULIN LISPRO 100 UNIT/ML SC SCH ×3 (07:39→17:46)
[2017-09-12] MEDS: SENNOSIDES/DOCUSATE SODIUM TAB PO SCH ×4 (08:29→21:42)
[2017-09-12] MEDS: GABAPENTIN 100 MG CAP PO SCH ×3 (08:29→21:41)
[2017-09-12] MEDS: CITALOPRAM 20 MG TAB PO SCH (08:29)
[2017-09-12] MEDS: ENOXAPARIN 40 MG/0.4 ML SYR SC SCH (08:30)
--- NOTE | 2017-09-12 09:38 | HOSPPROG ---
Hospitalist Progress Note Assessment/Plan: 61-year-old with C6-7 quadriplegia and chronic sacral wound with recent ileal conduit creation presenting with sepsis and probable sacral decubitus ulcer cellulitis * stage IV chronic sacral decubitus with new cellulitis * Some surrounding erythema * Wound Care has seen and has written orders * Was started on vancomycin and ceftriaxone however there seems to be documentation of an allergy to ceftriaxone and she probably needs a little broader coverage anyway. Will have Infectious Disease see the patient and discontinue ceftriaxone until they see her. * status post recent ileal conduit * Discussed abdominal CT scan findings with Urology. They do not feel that she has a cysto rectal fistula after they reviewed CT scan findings * history of recent C diff colitis * Oral vancomycin while on antibiotics * history of paroxysmal atrial fibrillation * diet controlled diabetes * DVT prophylaxis - Lovenox Subjective: Feels little better overall. Back feels less painful. Objective: Vital Signs Temp Pulse Resp BP Pulse Ox 37.2 C 76 15 125/70 H 93 09/12/17 07:32 09/12/17 07:32 09/12/17 07:32 09/12/17 07:32 09/12/17 07:32 Laboratory Results 09/12/17 04:38 09/11/17 09/12/17 09/13/17 05:59 05:59 05:59 Intake Total 6213 Output Total 4750 900 Balance 1463 -900 - Physical Exam Constitutional: no apparent distress, appears nourished, not in pain Eyes: anicteric sclera, EOMI Ears, Nose, Mouth, Throat: moist mucous membranes, hearing normal Cardiovascular: regular rate and rhythym Respiratory: no respiratory distress Gastrointestinal: normoactive bowel sounds, soft, non-tender abdomen, other ( Ileal conduit intact) Skin: warm, other (Dressed sacral wound) Neurologic: AAOx3 Psychiatric: interacting appropriately, not anxious, not encephalopathic, thought process linear ICD10 Worksheet Patient Problems: Problems Problem Status Onset Decubital ulcer Acute Paraplegia Acute Sepsis Acute 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
--- NOTE | 2017-09-12 10:58 | ASMTCMCOM ---
CM Note CM Note Notes: Pt admitted with sepsi and sacral ulcer. Pt currently on IV ABX. ID to see pt. Pt's DC needs unclear at this time. CM to follow. Date Signed: 09/12/2017 10:57 AM Electronically Signed By:Jerri Phillips LCSW
--- NOTE | 2017-09-12 11:10 | WOCRNPDOC ---
WOCRN Advanced Assessment Note - Skin Integrity Problem, Advanced Assess Medial Abdomen Dressing Type: Gauze Dressing Description: Shadowed Exudate Amount: Minimal Exudate Color: Red, Reddish/Yellow Exudate Characteristic(s): Bloody Integumentary Issue Intervention: Visualized Under Dressing Candis Wound Tissue: Erythema (mild), Scarred Candis Wound Swelling: Mild Wound Bed Color: Red, Yellow Wound Bed Constitution: Red/[place] - Non Granular Tissue Site Odor: None Site Measurement - Head-to-Toe Length X Width X Depth (cm): proximal: 1.6cmx1.5cmx0.2cm. distal: 2cmx1.7cmx0.1cm Skin Integrity Problem Comment: Two, discrete wounds noted on patient's medial abdomen, both located on suture line from previous abdominal surgery. No apparent dehiscence, wounds both currently partial-thickness w/ no fluctuance evident. Proximal wound is bloody, and distal wound has pale yellow layer of biofilm over it. No apparent necrosis in either wound. Will have nursing apply dressing today to help manage wound better than gauze. Report given to radiology interventional physician December.
[2017-09-12] MEDS: VANCOMYCIN 125 MG/2.5 ML UDL PO SCH ×3 (11:19→21:40)
[2017-09-12] MEDS: BACLOFEN 10 MG TAB PO SCH ×2 (11:19→15:56)
[2017-09-12] MEDS: PIPERACILLIN/TAZO 3.375 GM/DEX 50 ML IV SCH ×2 (12:13→17:25)
--- NOTE | 2017-09-12 15:18 | GCON ---
[f rep st] CONSULTATION INPATIENT INFECTIOUS DISEASE CONSULTATION REFERRING PHYSICIAN: Sergio Hayes. REASON FOR REFERRAL: Possible infected chronic sacral decubitus ulcer. HISTORY OF PRESENT ILLNESS: Patient is a 61-year-old female, who is paraplegic, who was admitted to [facility] through the emergency department in the [place] of 09/11/2017. The pa kuldip complained upon presentation of fevers as high as 102 over the last few days. She also reporte d malaise, dizziness and left upper quadrant abdominal pain. She also complains that her sacral ulce r was angry and more red than usual, which she attributed to sitting up in the chair more. Patient w as evaluated in the emergency room and admitted to the hospitalist service. Abdominal CT scan showed some mild fecal impaction involving the rectosigmoid colon and some cholelithiasis, but no other mane rce for her abdominal discomfort. The patient also had a chest x-ray, which showed no acute thoracic abnormality. She was admitted, and since admission has not had any temperature elevation. Wound ca re has come by and made recommendations on management of the sacral decubitus ulcer. We are consulte d to adjudicate the treatment of possible infection there. The patient was started empirically on in travenous vancomycin and Zosyn. Currently, she is resting in her hospital bed. No other new complai nt. PAST MEDICAL HISTORY: 1. Paraplegia secondary to a fall down the stairs a number of years ago. 2. Diabetes mellitus. 3. Gastroesophageal reflux disease. 4. Atrial fibrillation. 5. Recent C difficile infection last month. 6. History of multiple urinary tract infections. 7. Bladder cancer. PAST SURGICAL HISTORY: 1. Status post back surgery. 2. Status post suprapubic catheter placement. 3. Status post urinary diversion with an ileal conduit construction in July of 2017. ANTIBIOTICS: 1. Vancomycin. 2. Zosyn. ALLERGIES: Patient is allergic to codeine. SOCIAL HISTORY: No significant tobacco, alcohol or drug use. FAMILY HISTORY: Reviewed, but noncontributory. REVIEW OF SYSTEMS: Other than that detailed above in history of present illness, a comprehensive 10- system review is negative. PHYSICAL EXAMINATION: VITAL SIGNS: Temperature maximum is 38.1, temperature current is 36.8, heart rate is 93, respiratory rate is 16, blood pressure is 113/64. GENERAL: The patient is a well- formed, overweight, older female, who is paraplegic. She is in no acute distress. She is not toxic in appearance. She is alert and oriented x3. She is pleasant in demeanor. HEENT: Normocephalic fo r age. Atraumatic. No scleral icterus. No oral lesion. No drainage from the nares. Eyes: Lids a nd conjunctivae are within normal limits. Pupils are equal and round bilaterally. NECK: Supple. N o meningismus. LUNGS: Clear to auscultation bilaterally, with good effort. HEART: Regular rate an d rhythm. No murmur, rub, or gallop noted. SKIN: Warm and dry to the touch. Patient has 2 areas o f breakdown on her abdomen, which are superficial. Patient also has a sacral decubitus ulcer, which was unable to be observed given the patient's ability to turn and recent dressing by wound care. No significant erythema noted around. MUSCULOSKELETAL: No muscle or belly tenderness is noted. No hillary nt line effusion or arthritis seen. NEURO: Cranial nerves 2 through 12 seem to be intact. Peripher al sensation obviously absent from chest down. LABORATORY DATA: Patient has a CBC dated 09/12/2017, shows a white blood cell count of 11.3, hemoglo bin 11.1, hematocrit of 33.6, platelet count of 326. Serum chemistries on 09/11, show a sodium of 13 6, potassium 4.4, chloride of 102, bicarbonate of 18, BUN of 15, creatinine is 0.6. Urinalysis on , shows 3-5 red cells and 25-50 white cells per high-power field. Influenza A and B, PCR is negative on 09/11. RSV, PCR are also negative on 09/11. MICROBIOLOGIC DATA: Patient has blood cultures dated 09/11/2017, which are no growth to date. Urine culture dated 09/11/2017 is growing Staph aureus and Proteus mirabilis. ASSESSMENT: 1. Initial fever complaint. No repetition of fever for over 24 hours. The patient has no other loc alizing complaint, although with paraplegia this can be quite misleading. Abdominal CT does not show any clear source of fever. Concern about sacral decubitus ulcer having some overlying wound infecti on or cellulitis quality. The patient is adequately covered with choice of vancomycin and Zosyn. I think we should observe the wound further over the next couple of days to decide duration of empiric treatment. The urine findings are typical for urine and an ileal conduit. Would not expect this uri ne to be sterile, and would expect there to be both red cells and white cells, likely with urine. At this point, I will not make any changes in empiric antibiotic regimen. We will follow he r clinical course and decide over the next 2 days about duration, extent of treatment. PLAN: 1. Continue vancomycin and Zosyn at current dose. 2. Follow culture data and clinical course. /[id number]/MODL
[2017-09-12] MEDS: LORazepam 0.5 MG TAB PO PRN (15:42)
[2017-09-12] MEDS: traZODone 50 MG TAB PO SCH (21:40)
[2017-09-12] MEDS: BACLOFEN 20 MG TAB PO SCH (21:40)
[2017-09-13] MEDS: PIPERACILLIN/TAZO 3.375 GM/DEX 50 ML IV SCH ×3 (00:03→13:03)
[2017-09-13] MEDS: VANCOMYCIN HCL/NORMAL SALINE 250 ML IV SCH ×2 (03:08→13:55)
[2017-09-13 04:45] LABS: PLATELET COUNT 352 10^3/uL (150-400)
[2017-09-13] MEDS: LEVOTHYROXINE 88 MCG TAB PO SCH (06:09)
[2017-09-13] MEDS: VANCOMYCIN 125 MG/2.5 ML UDL PO SCH ×3 (06:09→20:52)
[2017-09-13] MEDS: BACLOFEN 10 MG TAB PO SCH ×3 (06:09→16:46)
[2017-09-13] MEDS: INSULIN LISPRO 100 UNIT/ML SC SCH ×3 (08:56→18:35)
[2017-09-13] MEDS: CITALOPRAM 20 MG TAB PO SCH (08:57)
[2017-09-13] MEDS: GABAPENTIN 100 MG CAP PO SCH ×3 (08:57→20:51)
[2017-09-13] MEDS: ENOXAPARIN 40 MG/0.4 ML SYR SC SCH (08:57)
--- NOTE | 2017-09-13 13:52 | HOSPPROG ---
Hospitalist Progress Note Assessment/Plan: DIAGNOSES: -acute sepsis, most likely due to infection in her chronic pressure wound at the sacrum -chronic pressure wound of the sacrum -colostomy could looks good, 2 small skin ulcers adjacent to the incision near her colostomy are healing nicely and did not look infected -minimal pyuria and poly microbial growth from a urine culture and a woman with suprapubic catheter and no current urinary symptoms, doubtful clinical significance -chronic anemia -diabetes type 2 well controlled at present -history of atrial fibrillation currently stable PLANS: -continue current antibiotics -continue current wound care for her decubitus ulcer -follow sugars closely -will not specifically make any changes related to the urinary findings as I think they are of doubtful clinical significance -continue routine colostomy care and continue current wound care for the small skin wounds at the adjacent incision line I will review this with Dr. Shah and with surgery team, at this point I think she is getting appropriate care. As I have not seen her sacral wound it is unclear to me how long think we will be planning on antibiotic care but this will be 1 of the main questions moving forward SUBJECTIVE: States she feels better overall No pain at her wound sites No chills or sweats Eating well, ostomy working OBJECTIVE Vitals reviewed: Have been stable through night without any fever, however around mid day today there are some lower blood pressures without any other vital sign changes as low as 64 systolic Exam: alert oriented looks quite relaxed and comfortable skin warm dry color ok resps not labored lungs clear BSs heart regular abd her incision is healing nicely, the open wounds along it are looking very good with no sign of infection, good granulation, minimal fresh blood but no other drainage; ostomy looks good; Otherwise soft nondistended nontender, bowel sounds present limbs warm, no edema iv site ok Laboratory data: Stable anemia, otherwise unremarkable CBC and metabolic panel, sugars in good range Microbiologic data: There is growth of a Proteus organism from her urine, resistant to a couple of antibiotics as well as Staph aureus; if she really has no urinary symptoms and has a chronic suprapubic catheter, the presence of 2 different bacteria and a small number of white cells is of questionable significance Objective: Vital Signs Temp Pulse Resp BP Pulse Ox 36.7 C 79 15 66/40 L 95 09/13/17 12:36 09/13/17 12:36 09/13/17 12:36 09/13/17 12:36 09/13/17 12:36 Laboratory Results 09/13/17 04:32 09/13/17 04:32 09/12/17 09/13/17 09/14/17 06:59 06:59 06:59 Intake Total 6213 1550 Output Total 4750 4300 400 Balance 1463 -2750 -400 - Time Spent With Patient Time Spent with Patient: greater than 35 minutes Time Spent with Patient: Greater than 35 minutes spent on this patients care, greater than 50% of time spent counseling, educating, and coordinating care regarding the above mentioned plan. 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
--- NOTE | 2017-09-13 14:15 | PCMIDPN ---
Assessment/Plan: 1. History of fever with unclear source: I looked at her sacral decubitus ulceration. It looks clean, with no evidence of infection whatsoever. Growth of 2 different organisms from her ileal conduit is not particularly helpful, either. Blood cultures remain sterile. Her stools are formed. For now, will discontinue vancomycin intravenously and Zosyn, and narrow antibiotics to ceftriaxone 2 g IV daily for another few days, to complete perhaps 5 days of therapy. 2. History of C difficile colitis: Her stools are formed, and she is on treatment dose of vancomycin orally. Will back down to prophylactic dose of 125 twice daily, and continue for at least a week after antibiotics stop. 3. Sacral decubitus ulcer/abdominal wounds: These look clean. Continue wound care. I do not feel that additional imaging is necessary this point in time. 09/13/17 14:18 Subjective: Patient states feels much better. No shaking chills, stools are formed. Objective: Zosyn 3.375 g IV q.6 hours day 1 Vancomycin orally 125 four times daily day 1 Vancomycin intravenously 1 g IV q.12 hours day 2 Afebrile Vital Signs Temp Pulse Resp BP Pulse Ox 36.7 C 79 15 66/40 L 95 09/13/17 12:36 09/13/17 12:36 09/13/17 12:36 09/13/17 12:36 09/13/17 12:36 Laboratory Results 09/13/17 04:32 09/13/17 04:32 09/12/17 09/13/17 09/14/17 05:59 05:59 05:59 Intake Total 6213 1550 Output Total 4750 4300 400 Balance 1463 -2750 -400 Blood cultures negative Urine from ileal conduit with Proteus mirabilis and Staphylococcus aureus . previous staphylococci in this patient have been MSSA. - Physical Exam General Appearance: no apparent distress, obese EENT: pharynx normal, No thrush Respiratory: lungs clear Abdomen: non-tender, soft Skin: other (Nickel size ulceration consistent with sacral decubitus has a clean base, with no surrounding cellulitis. 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
[2017-09-13] MEDS ORDERED: cefTRIAXone 2 GM in STERILE WATER INJ 20 ML IV SCH (14:30)
[2017-09-13] MEDS: SENNOSIDES/DOCUSATE SODIUM TAB PO SCH ×3 (15:14→23:39)
[2017-09-13] MEDS: cefTRIAXone 2 GM in STERILE WATER INJ 20 ML IV SCH (16:50)
[2017-09-13] MEDS: traZODone 50 MG TAB PO SCH (20:51)
[2017-09-13] MEDS: BACLOFEN 20 MG TAB PO SCH (20:52)
[2017-09-14] MEDS: LEVOTHYROXINE 88 MCG TAB PO SCH (06:40)
[2017-09-14] MEDS: BACLOFEN 10 MG TAB PO SCH ×3 (06:40→18:12)
[2017-09-14] MEDS: ENOXAPARIN 40 MG/0.4 ML SYR SC SCH (08:50)
[2017-09-14] MEDS: GABAPENTIN 100 MG CAP PO SCH ×3 (08:50→20:44)
[2017-09-14] MEDS: VANCOMYCIN 125 MG/2.5 ML UDL PO SCH ×2 (08:50→20:47)
[2017-09-14] MEDS: CITALOPRAM 20 MG TAB PO SCH (08:50)
[2017-09-14] MEDS ORDERED: IBUPROFEN 200 MG TAB PO PRN (09:29)
[2017-09-14] MEDS: ACETAMINOPHEN 325 MG TAB PO PRN (09:43)
--- NOTE | 2017-09-14 10:03 | HOSPPROG ---
Hospitalist Progress Note Assessment/Plan: DIAGNOSES: -acute sepsis, at this time not really certain what the cause of her fever and sepsis was at admission -acute hypotension overnight of uncertain etiology; at present I do not think this was a recurrent infectious hypotension nor did she appear to be bleeding but there is no other identifiable cause at this time, she does not really show symptoms or signs of PE. This will need to be followed closely and I will recheck labs to make sure there is no bleeding or other consequence -new vaginal burning pain, uncertain etiology but reports of discharge present -chronic pressure wound of the sacrum has looked good on examination is -urostomy looks good; 2 small skin ulcers adjacent to the incision near her colostomy are healing nicely and did not look infected -minimal pyuria and poly microbial growth from a urine culture and a woman with suprapubic catheter and no current urinary symptoms, doubtful clinical significance -chronic anemia stable so far -diabetes type 2 well controlled at present -history of atrial fibrillation currently stable PLANS: -follow her vital signs closely, if she has any recurrent hypotension will begin assessments with CT to rule out PE and consider repeating cultures -will recheck CBC now to make sure there is no bleeding to explain her hypotension -will examine her decubitus ulcer with Dr. Hood, and also will do the vaginal examination with Dr. Hood for the patient's comfort of having a female provider -continue current wound care for her decubitus ulcer -follow sugars closely -will not specifically make any changes related to the urinary findings as I think they are of doubtful clinical significance -continue routine urostomy care and continue current wound care for the small skin wounds at the adjacent incision line SUBJECTIVE: Main new complaint today is a frontal headache without neurologic symptoms or nausea, this is not a symptoms she has had in the past Overnight had some significant hypotension and she did feel lightheaded with that, does not feel lightheaded at this time Denies any chest pain shortness of breath new abdominal discomfort, fever symptoms, URI symptoms or problems with her urostomy She has today a burning pain in the vagina which she says is new for her as well ; I am informed by her nurse that she has some vaginal discharge OBJECTIVE Vitals reviewed: Did have a decrease in systolic blood pressure to 60 overnight is now back up near 100, no tachycardia hypoxemia fevers tachypnea or other changes with that Exam: alert oriented looks quite relaxed and comfortable No cranial nerve or new motor abnormalities skin warm dry color ok resps not labored lungs clear BSs heart regular abd her incision is healing nicely, the open wounds along it are looking very good with no sign of infection, good granulation; urostomy looks good; Otherwise soft nondistended , bowel sounds present; today there is some mild mid left abdominal tenderness without flank or CVA tenderness, no rebound or guarding or palpable abnormality there limbs warm, no edema iv site ok Laboratory data: Stable anemia, otherwise unremarkable CBC and metabolic panel, sugars in good range Microbiologic data: There is growth of a Proteus organism from her urine, resistant to a couple of antibiotics as well as Staph aureus; as she really has no urinary symptoms and has a chronic urostomy, the presence of 2 different bacteria and a small number of white cells is of questionable significance Objective: Vital Signs Temp Pulse Resp BP Pulse Ox 36.6 C 62 16 99/57 L 93 09/14/17 08:35 09/14/17 08:35 09/14/17 08:35 09/14/17 08:35 09/14/17 08:35 Laboratory Results 09/13/17 04:32 09/13/17 04:32 09/13/17 09/14/17 09/15/17 06:59 06:59 06:59 Intake Total 1550 1200 Output Total 4300 1250 900 Balance -2750 -50 -900 - Time Spent With Patient Time Spent with Patient: greater than 35 minutes Time Spent with Patient: Greater than 35 minutes spent on this patients care, greater than 50% of time spent counseling, educating, and coordinating care regarding the above mentioned plan. 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
[2017-09-14 10:13] LABS: PLATELET COUNT 308 10^3/uL (150-400)
--- NOTE | 2017-09-14 11:40 | PCMIDPN ---
Assessment/Plan: 1. History of fever with unclear source: Afebrile since admission, and as per my prior note yesterday, her sacral decubitus looks clean. CT scan of the abdomen and pelvis shows no bony involvement of the sacrum, but the ulceration is very close. Antibiotics narrowed to ceftriaxone monotherapy. (am not targeting MRSA in urine) Will likely continue antibiotics another few days. Given her high level of care, suspect she may need a shelter facility. 2. History of C difficile colitis: Her stools are formed. Continue prophylactic vancomycin. 3. Sacral decubitus ulcer/abdominal wounds: These look clean. Continue wound care. I do not feel that additional imaging is necessary this point in time. 4. Candidal vaginitis: Will treat with fluconazole. Of note, she is on some QT prolonging agents including or dance drawn, and Celexa. Will obtain EKG for baseline QT. She will only need few days of therapy with fluconazole. 5. Labile blood pressure, with episode of hypotension: ? Autonomic dysfunction versus other. Suspect this is unrelated to an infectious etiology. Will obtain a.m. Cortisol level as well. 09/14/17 11:41 Subjective: In good spirits, but complaining of some burning in her vaginal introitus. The nurse tells me that he saw some whitish discharge this morning. No other real complaints. Said she felt mildly lightheaded during her episode of hypotension last night. Objective: Ceftriaxone 2 g IV daily day 2 (antibiotics day 3) Vancomycin 125 mg p.o. Twice daily Vital Signs Temp Pulse Resp BP Pulse Ox 36.6 C 62 16 99/57 L 93 09/14/17 08:35 09/14/17 08:35 09/14/17 08:35 09/14/17 08:35 09/14/17 08:35 Laboratory Results 09/14/17 10:05 09/14/17 10:05 09/13/17 09/14/17 09/15/17 05:59 05:59 05:59 Intake Total 1550 1200 Output Total 4300 1250 900 Balance -2750 -50 -900 Urine with [id number] colonies of Proteus and >100,000 colonies of MRSA - Physical Exam General Appearance: alert, no apparent distress EENT: pharynx normal, No thrush Respiratory: lungs clear Abdomen: non-tender, soft, other (Ileal conduit site looks fine. Stoma pink. Urine clear.) Pelvic Exam: other (I did my best to look at her vaginal introitus. It was extremely difficult for her to open her legs, and for me as well. 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
[2017-09-14] MEDS: FLUCONAZOLE 100 MG TAB PO SCH (12:06)
--- NOTE | 2017-09-14 14:30 | ASMTCMCOM ---
CM Note CM Note Notes: Pt has pvt caregivers from 7AM to 8PM. She will also have [facility] RN at [place]. Pt will be on IV ABX for a few more days. VANCE SNEED suggested SNF but pt's needs likely met by caregivers. Cm will continue to follow for potential higher level of care. Date Signed: 09/14/2017 02:30 PM Electronically Signed By:Jerri Phillips LCSW
--- NOTE | 2017-09-14 14:35 | CPEKG ---
Heart Rate: 56 RR Interval: 1071 QRSD Interval: 102 QT Interval: 464 QTC Interval: 448 QRS Bluebell: -57 T Wave Bluebell: -10 EKG Severity - ABNORMAL ECG - EKG Impression: LEFT ANTERIOR FASCICULAR BLOCK EKG Impression: PROBABLE LEFT VENTRICULAR HYPERTROPHY EKG Impression: BORDERLINE T ABNORMALITIES, INFERIOR LEADS EKG Impression: Normal Sinus Rhythm Electronically Signed By: Sathish Acevedo 15-Sep-2017 06:57:50
[2017-09-14] MEDS: cefTRIAXone 2 GM in STERILE WATER INJ 20 ML IV SCH (18:12)
[2017-09-14] MEDS: INSULIN LISPRO 100 UNIT/ML SC SCH ×4 (18:34→18:38)
[2017-09-14] MEDS: SENNOSIDES/DOCUSATE SODIUM TAB PO SCH ×3 (19:21→20:44)
[2017-09-14] MEDS: traZODone 50 MG TAB PO SCH (20:45)
[2017-09-14] MEDS: BACLOFEN 20 MG TAB PO SCH (20:45)
[2017-09-15 04:59] LABS: PLATELET COUNT 315 10^3/uL (150-400)
[2017-09-15] MEDS: BACLOFEN 10 MG TAB PO SCH ×3 (06:00→16:24)
[2017-09-15] MEDS: LEVOTHYROXINE 88 MCG TAB PO SCH (06:00)
[2017-09-15] MEDS: INSULIN LISPRO 100 UNIT/ML SC SCH ×3 (08:30→18:29)
[2017-09-15] MEDS: FLUCONAZOLE 100 MG TAB PO SCH (10:31)
[2017-09-15] MEDS: VANCOMYCIN 125 MG/2.5 ML UDL PO SCH ×2 (10:31→21:17)
[2017-09-15] MEDS: SENNOSIDES/DOCUSATE SODIUM TAB PO SCH ×3 (10:32→21:12)
[2017-09-15] MEDS: GABAPENTIN 100 MG CAP PO SCH ×3 (10:32→21:16)
[2017-09-15] MEDS: CITALOPRAM 20 MG TAB PO SCH (10:32)
[2017-09-15] MEDS: ENOXAPARIN 40 MG/0.4 ML SYR SC SCH (10:35)
--- NOTE | 2017-09-15 14:01 | PCMIDPN ---
Assessment/Plan: Assessment: Fever - manifested only at the point of admission. Currently afebrile. Multiple examinations of her chronic sacral ulcer do not reveal signs of infection. Bloodstream cultures are negative so far. Patient is on ceftriaxone monotherapy empirically. Plan to short course this for total of 5 days. Diagnosis unclear. Plan: 1. Continue IV ceftriaxone for 5 days total. Subjective: patient is resting in her hospital bed. She notes only ongoing mild left sided abdominal pain and that her legs are cold. No fevers or chills. Objective: Ceftriaxone # 4 Vital Signs Temp Pulse Resp BP Pulse Ox 36.4 C 57 L 17 118/71 96 09/15/17 11:29 09/15/17 11:29 09/15/17 11:29 09/15/17 11:29 09/15/17 11:29 Microbiology 09/11/17 04:25 Urine Culture - Final Urine,Catheterized Proteus Mirabilis MRSA Laboratory Results 09/15/17 04:45 09/14/17 10:05 09/14/17 09/15/17 09/16/17 05:59 05:59 05:59 Intake Total 1200 1890 Output Total 1250 2200 750 Balance -50 -310 -750 - Physical Exam General Appearance: WD/WN, alert, no apparent distress, non-toxic Respiratory: lungs clear, normal breath sounds, No respiratory distress Cardiac/Chest: regular rate, rhythm, No tachycardia Skin: normal color, warm/dry, No rash Neuro/Psych: alert, normal mood/affect, oriented x 3 ICD10 Worksheet Patient Problems: Problems Problem Status Onset Decubital ulcer Acute Paraplegia Acute Sepsis Acute 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
--- NOTE | 2017-09-15 15:13 | HOSPPROG ---
Hospitalist Progress Note Assessment/Plan: DIAGNOSES: -acute sepsis, at this time not really certain what the cause of her fever and sepsis was at admission -acute hypotension has not recurred, strongly suspect this was due to altered spinal physiology from her chronic injury -vaginal burning pain, likely candidiasis, responding to therapy -chronic pressure wound of the sacrum has looked good on examination -urostomy looks good; 2 small skin ulcers adjacent to the incision near her colostomy are healing nicely and did not look infected -minimal pyuria and poly microbial growth from a urine culture and a woman with suprapubic catheter and no current urinary symptoms, doubtful clinical significance -chronic anemia stable so far -diabetes type 2 well controlled at present -history of atrial fibrillation currently stable I reviewed her case today in detail with Dr. Gabo Shah, and we discussed her treatment plans further. PLANS: -complete 5 days of antibiotic therapy and then discontinue and observe, that would be last day of antibiotic tomorrow -continue current wound care for her decubitus ulcer -follow sugars closely -will not specifically make any changes related to the urinary findings as I think they are of doubtful clinical significance -continue routine urostomy care and continue current wound care for the small skin wounds at the adjacent incision line SUBJECTIVE: The headache she had yesterday is resolved at this time She does mentions feeling of some cold sensation in both legs from the knees down Otherwise feels well, no respiratory GI cardiac URI urinary or other symptoms OBJECTIVE Vitals reviewed: All stable past 24 hr without fever Exam: alert oriented looks quite relaxed and comfortable No cranial nerve or new motor abnormalities skin warm dry color ok resps not labored lungs clear BSs heart regular abd soft and nondistended, no problem with urostomy or the tatum-incisional wounds limbs warm, no edema; her legs are warm with very good color no edema no palpable abnormalities iv site ok Laboratory data: Sugars remain in reasonable range occasionally up to 200 CBC stable Objective: Vital Signs Temp Pulse Resp BP Pulse Ox 36.4 C 57 L 17 118/71 96 09/15/17 11:29 09/15/17 11:29 09/15/17 11:29 09/15/17 11:29 09/15/17 11:29 Microbiology 09/11/17 04:25 Urine Culture - Final Urine,Catheterized Proteus Mirabilis MRSA Laboratory Results 09/15/17 04:45 09/14/17 10:05 09/14/17 09/15/17 09/16/17 06:59 06:59 06:59 Intake Total 1200 1890 Output Total 1250 2200 750 Balance -50 -310 -750 ICD10 Worksheet Patient Problems: Problems Problem Status Onset Decubital ulcer Acute Paraplegia Acute Sepsis Acute 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
--- NOTE | 2017-09-15 16:09 | ASMTCMCOM ---
CM Note CM Note Notes: Pt's last dose of IV ABX is tomorrow. The plan is to observe her and continue to provide wound care. PT/OT have cleared pt. Anticipate pt will d/c home with her private duty caregivers and [facility] when ready for d/c. Date Signed: 09/15/2017 04:09 PM Electronically Signed By:TONIO Chan
[2017-09-15] MEDS: cefTRIAXone 2 GM in STERILE WATER INJ 20 ML IV SCH (18:23)
[2017-09-15] MEDS: BACLOFEN 20 MG TAB PO SCH (21:12)
[2017-09-15] MEDS: traZODone 50 MG TAB PO SCH (21:17)
[2017-09-15] MEDS: HYDROCODONE/APAP 5/325 TAB PO PRN (23:25)
[2017-09-16] MEDS: LORazepam 0.5 MG TAB PO PRN (02:16)
[2017-09-16 04:00] VITALS: BP 106/81
[2017-09-16] MEDS: BACLOFEN 10 MG TAB PO SCH ×2 (04:15→10:44)
[2017-09-16] MEDS: LEVOTHYROXINE 88 MCG TAB PO SCH (06:42)
[2017-09-16] MEDS: SENNOSIDES/DOCUSATE SODIUM TAB PO SCH ×2 (07:17→15:33)
[2017-09-16] MEDS: GABAPENTIN 100 MG CAP PO SCH ×2 (09:22→15:15)
[2017-09-16] MEDS: VANCOMYCIN 125 MG/2.5 ML UDL PO SCH (09:22)
[2017-09-16] MEDS: ENOXAPARIN 40 MG/0.4 ML SYR SC SCH (09:22)
[2017-09-16] MEDS: CITALOPRAM 20 MG TAB PO SCH (09:23)
[2017-09-16] MEDS: FLUCONAZOLE 100 MG TAB PO SCH (09:23)
[2017-09-16] MEDS: INSULIN LISPRO 100 UNIT/ML SC SCH ×2 (09:46→11:28)
[2017-09-16] MEDS ORDERED: cefTRIAXone 2 GM in STERILE WATER INJ 20 ML IV SCH (10:40)
--- NOTE | 2017-09-16 10:40 | PCMIDPN ---
Assessment/Plan: #Fever/leukocytosis on admit, source not entirely clear. Patient with significant improvement after 5 days antibiotic. Sacral wound significantly improved compared to my last exam - no signs of infection, no exposed bone. blood cx negative, reviewed CT on admit no clear source of infection --DC ceftriaxone after today's dose --DC okay from ID standpoint --no ID f/u needed. # History of C diff on vancomycin 125 mg p.o. Suppression --plan for 1 week vancomycin 125 mg p.o. Suppression after stop ceftriaxone # Bacteriuria with MRSA and Proteus --contact precautions for MRSA Meds Ceftriaxone 2 g IV daily day 4 (antibiotics day 5) Vancomycin 125 mg p.o. BID Subjective: LLQ pain cough improving Objective: Vital Signs Temp Pulse Resp BP Pulse Ox 36.8 C 79 15 106/81 H 94 09/16/17 03:58 09/16/17 03:58 09/16/17 03:58 09/16/17 03:58 09/16/17 03:58 Microbiology 09/11/17 04:25 Urine Culture - Final Urine,Catheterized Proteus Mirabilis MRSA Laboratory Results 09/15/17 04:45 09/14/17 10:05 09/15/17 09/16/17 09/17/17 05:59 05:59 05:59 Intake Total 1890 1700 Output Total 2200 2850 Balance -310 -1150 - Physical Exam General Appearance: alert, no apparent distress EENT: No thrush Respiratory: lungs clear, No accessory muscle use Neck: supple Cardiac/Chest: regular rate, rhythm Extremities: other (multiple well healed scars LE), No pedal edema Abdomen: normal bowel sounds, non-tender, soft, other (RLQ urostomy, healthy appearing; sacral wound 3x2.3x0.5cm no erythema or purulence, no bone), No distended, No peritoneal signs Skin: normal color, warm/dry, No rash Neuro/Psych: alert, normal mood/affect, depressed affect - Line/s PIV Lines: other (R hand), No drainage, No erythema - Time Spent With Patient Time Spent with Patient: greater than 35 minutes (care coordinated with wound healing team and Dr. Melendez) Time Spent with Patient: Greater than 35 minutes spent on this patients care, greater than 50% of time spent counseling, educating, and coordinating care regarding the above mentioned plan. 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
--- NOTE | 2017-09-16 10:43 | WOCRNPDOC ---
JESSICA Advanced Assessment Note - Skin Integrity Problem, Advanced Assess Coccyx Pressure Injury Dressing Type: Allevyn Life, Hydrofera Blue Ready Dressing Description: Clean/Dry, Intact Exudate Amount: None Integumentary Issue Intervention: Dressing Changed Candis Wound Tissue: Scarred (from previous flap surgery) Wound Bed Color: Red Wound Bed Constitution: Granulation Tissue, Undermining (from 9-11 oclock 1.1 cm with patient on right side) Wound Edges: Epithelizing Site Odor: None Site Measurement - Head-to-Toe Length X Width X Depth (cm): 3x2.3x0.5 Pressure Injury Stage: Stage 4 Pressure Injury Present on Admit: Yes Skin Integrity Problem Comment: Patient's wound much improved since previous assessment. Continue current plan of care. Wound care will round next week. Abdomen Dressing Type: Allevyn Life, Hydrofera Blue Ready Exudate Amount: None Integumentary Issue Intervention: Visualized Under Dressing Wound Bed Constitution: Granulation Tissue (100%) Site Measurement - Head-to-Toe Length X Width X Depth (cm): no change Skin Integrity Problem Comment: Both wounds look good. No concerns. Wound care will sign off these wounds. Continue current plan of care. Susan STAFFORD in room for assessment. Dr. Garner visualized all wounds.
[2017-09-16] MEDS ORDERED: cefTRIAXone 2 GM in STERILE WATER INJ 20 ML IV ONE (11:15)
--- NOTE | 2017-09-16 11:44 | PDIAF ---
- Diagnosis Diagnosis: fever uncertain cause, paraplegia Code Status: Full Code - Medication Management Discharge Medications: Medications to Continue on Transfer Acetaminophen [Tylenol 325mg (*)] 650 mg PO TID 07/28/17 [Last Taken 08/06/17] Baclofen [Baclofen 10 mg (*)] 10 mg PO 05,11,17 07/28/17 [Last Taken 08/06/17 12 :00] Baclofen [Baclofen 20 mg (*)] 20 mg PO HS 07/28/17 [Last Taken 08/06/17] Bisacodyl [Dulcolax] 10 mg RC Q24H PRN 07/28/17 [Last Taken 08/06/17] Citalopram Hydrobromide [Celexa] 40 mg PO DAILY 07/28/17 [Last Taken 09/10/17] Diazepam [Valium 5 MG (*)] 2.5 mg PO Q8H PRN 07/28/17 [Last Taken Unknown] Gabapentin [Neurontin 100 MG (*)] 200 mg PO TID 07/28/17 [Last Taken 08/06/17 20 :00] Levothyroxine [Synthroid 88 mcg (*)] 88 mcg PO DAILY06 07/28/17 [Last Taken 05/14] Ondansetron Odt [Zofran Odt 4 mg (*)] 4 mg PO Q6H PRN 07/28/17 [Last Taken 07/28] traZODone [traZODONE 50MG (*)] 75 mg PO HS 07/28/17 [Last Taken 08/06/17] Hydrocodone/Acetaminophen [[place] 5/325 (*)] 1 each PO Q4H PRN #40 tablet [Last Taken Unknown] Acetic Acid Irr Soln 0.25% 30 ml IRR HS 09/11/17 [Last Taken Unknown] Herbals/Supplements -Info Only 1 ea PO DAILY 09/11/17 [Last Taken Unknown] Methenamine Estephania [Hiprex 1 gm (*)] 0.5 gm PO BID 09/11/17 [Last Taken Unknown] Sennosides/Docusate Sodium [Senokot-S] 1 tab PO TID 09/11/17 [Last Taken Unknown ] Tears/Dextran 70/Hypromellose [Natural Balance Tears (*)] 1 drop EACHEYE DAILY PRN 09/11/17 [Last Taken Unknown] Vancomycin [Vancocin Oral Liquid] 125 mg PO BID #10 udl 09/16/17 [Last Taken Unknown] Discharge Medications: Refer to the Discharge Home Medication list for PRN reason. - Orders Services needed: Home Care, Registered Nurse, Certified Able Bodied Seaman Home Care Face to Face: I certify that this patient was under my care and that I had the required [id number] encounter meeting the encounter requirements on the discharge day. My findings support the fact that the patient is homebound as defined in Home Care Face to Face Continued: CMS Chapter 7 Medicare Benefits Manual 30.1.1 , The condition of the patient is such that there exists a normal inability to leave home and consequently, leaving home would require a considerable and taxing effort. Isolation Type: CDIFF Isolation, Contact Isolation Diet Recommendation: no restrictions on diet Diet Texture: Regular Texture Diet Equipment: electric wheelchair; urostomy supplies - Follow Up Care Current Providers and Referrals: Patient,NotPresent [Primary Care Provider] - As per Instructions
--- NOTE | 2017-09-16 14:28 | PDDCSUM ---
Discharge Summary Discharge Summary: DISCHARGE DIAGNOSES: -fever of uncertain etiology, resolved -chronic sacral decubitus ulcer, deep, greatly improved from past examinations no evidence of infection at this time -paraplegia with neurogenic bladder, urostomy, no convincing evidence of urinary tract infection at this time -yeast vaginitis, responded well to antifungals here CONSULTANTS: Dr. Abiola Hood PROCEDURES: CT scan of the abdomen with no acute findings HOSPITAL COURSE SUMMARY: This patient who has paraplegia, urostomy for neurogenic bladder, chronic sacral ulcer, came into the hospital because of fever. She had a single temperature, the 1st 1 we measured here, of 38 degrees. After that all of her temperatures have been normal. We could not find any convincing evidence of a specific site or source of infection. Her chronic sacral wound was in excellent condition and was reviewed by her Infectious Disease doctors who know this wound. She did have a few white cells in her urine and grew 2 different be organisms and a urine culture but had really no symptoms of UTI and there was not significant clinical suspicion that her current fever was due to UTI. Essentially there were no other findings are culture results to explain where her fever came from. She was treated with antibiotics empirically in case there were bacterial infection but these were stopped after 5 days and she has done well. The patient did have some yeast vaginitis symptoms with small discharge and this responded well to couple of days of Diflucan. The patient does have a history of C difficile colitis which occurred approximately a month and half ago. Because of this she was treated with oral vancomycin twice daily as a prophylaxis and she did not have any trouble with symptoms of C diff colitis here at this time. She was on contact precautions while she was here. She will take another 5 days of preventive oral vancomycin at home. PENDING TEST RESULTS: None MEDICATION CHANGES: None FOLLOW-UP PLAN: With her primary care physician within 1-2 weeks Greater than 35 minutes bedside and care coordination time today
[2017-09-16] MEDS: DIAZEPAM 5 MG TAB PO PRN (15:15)
--- NOTE | 2017-09-19 10:42 | PQFORM ---
PHYSICIAN QUERY FORM Needs Your Response This query form is being sent to you to assure this patient record is coded properly. Please respond to the question below: LOOM OVERHAULER QUESTION: Dr Melendez Acute Sepsis was documented through out this patients chart but the Summary only mentions Fever. Did this patient have Sepsis? ___ Yes ___ No ___ Unable to determine ___ Other (please specify ) Thank You Rand BLUNT Geophysical Drafter INSTRUCTIONS FOR RESPONSE: Answer question by clicking on the "Edit Document" button. Move cursor to area below the stars. When complete, hit "Save." Click on the "Sign" button, then click "Sign" again. Type in your PIN and hit "Enter." Diagnosis: suspected sepsis of uncertain source, etiology MTDD
== END 2017-09-16 16:44 | disposition home health service (06) | DRG 871 ==
LOC: EDUNIT# → F1N 08:07
PROVIDERS: ADMIT Internal Medicine; ATTEND Internal Medicine
DX: A41.9 Sepsis, unspecified organism (principal); L89.154 Pressure ulcer of sacral region, stage 4; B37.3 Candidiasis of vulva and vagina; G82.50 Quadriplegia, unspecified; Z93.3 Colostomy status; Z93.6 Other artificial openings of urinary tract status; N31.9 Neuromuscular dysfunction of bladder, unspecified; I48.0 Paroxysmal atrial fibrillation; K21.9 Gastro-esophageal reflux disease without esophagitis; E03.9 Hypothyroidism, unspecified; E11.9 Type 2 diabetes mellitus without complications; E87.1 Hypo-osmolality and hyponatremia; D53.9 Nutritional anemia, unspecified; I10 Essential (primary) hypertension; Z87.440 Personal history of urinary (tract) infections
CPT/HCPCS: 96365; 96366; 97162-GP; 97167-GO; G8978-GP-CM; G8979-GP-CM; G8980-GP-CM; G8987-GO-CM; G8988-GO-CM; G8989-GO-CM; J0690; J0696; J1650; J1815; J2270; J2543; J3370; Q9967

== ENCOUNTER 2017-09-19 23:52 | Emergency (ER) | payer OTHER, MEDICAID ==
[2017-09-20 00:08] VITALS: TEMP 98.4
[2017-09-20] MEDS ORDERED: NS 500 ML IV ONE (00:14)
--- NOTE | 2017-09-20 00:15 | EDPHY ---
H & P Stated Complaint: abd pain Time Seen by Provider: 09/19/17 23:56 HPI/ROS: HPI The patient presents with abdominal pain which began at approximately 11:00 p.m. The pain started suddenly and is located in her left lower quadrant. She describes it as a burning pressure like pain. His she comes in via ambulance from her home where she stays with a transcription typist checking in on her. The pain was associated with 1 episode of diarrhea. She does not have any nausea or vomiting. Preceding the pain, she did have shortness of breath and dizziness which she attributed to an anxiety attack and she took a benzodiazepine for this. She thinks she has had this pain before. She was recently admitted to the hospital and discharged on September 16 for a fever that she had with no obvious source identified. She has a known sacral decubitus ulcer though this did not impede year infected. She had urine cultures grow all positive but she does have a chronic Morris. REVIEW OF SYSTEMS Constitutional: No fever, no chills. Eyes: No discharge. ENT: No sore throat. Cardiovascular: No chest pain, no palpitations. Respiratory: No cough, no shortness of breath. Gastrointestinal: No abdominal pain, no vomiting. Genitourinary: No hematuria. Musculoskeletal: No back pain. Skin: No rashes. Neurological: No headache. PMHx: C6 C7 quadriplegia, atrial fibrillation, non sacral decubitus ulcer, catheter in place with history of ileal conduit Soc Hx: Lives at home with a transcription typist PHYSICAL General Appearance: Alert, no distress Eyes: Pupils equal and round no pallor or injection ENT, Mouth: Mucous membranes moist Respiratory: There are no retractions, lungs are clear to auscultation Cardiovascular: Regular rate and rhythm Gastrointestinal: Abdomen with midline surgical incision well healed, there is a bandage in the superior portion of the incision with no surrounding redness or edema is, soft , obese, tender in the left lower quadrant without rebound or guarding Neurological: A&O, moves upper extremities Skin: Warm and dry, no rashes Musculoskeletal: Neck is supple non tender Extremities: symmetrical, full range of motion Psychiatric: Patient is oriented X 3, there is no agitation Source: Patient, EMS Exam Limitations: No limitations - Personal History Tetanus Vaccine Date: Within last 5 years - Medical/Surgical History Hx Asthma: No Hx Chronic Respiratory Disease: No Hx Diabetes: No Hx Cardiac Disease: Yes Hx Renal Disease: No Hx Cirrhosis: No Hx Alcoholism: No Hx HIV/AIDS: No Hx Splenectomy or Spleen Trauma: No Other PMH: PMH: Quadripalegia, A-fib, HTN, GERD, hypothyroid, DM2, anxiety, insomnia, chronic hyponatremia, pressure ulcer coccyx - Social History Smoking Status: Never smoked Constitutional: Initial Vital Signs Temperature (C) 36.9 C 09/20/17 00:04 Heart Rate 92 09/20/17 00:04 Respiratory Rate 20 09/20/17 00:04 Blood Pressure 124/81 H 09/20/17 00:04 O2 Sat (%) 95 09/20/17 00:04 O2 Delivery Mode Room Air Allergies/Adverse Reactions: codeine [Codeine] Allergy (Severe, Verified 09/20/17 00:09) Swelling/neck,face,throat Home Medications: Medication Instructions Recorded Acetaminophen [Tylenol 325mg (*)] 650 mg PO TID 07/28/17 Baclofen [Baclofen 10 mg (*)] 10 mg PO 05,11,17 07/28/17 Baclofen [Baclofen 20 mg (*)] 20 mg PO HS 07/28/17 Bisacodyl [Dulcolax] 10 mg RC Q24H PRN 07/28/17 Citalopram Hydrobromide [Celexa] 40 mg PO DAILY 07/28/17 Diazepam [Valium 5 MG (*)] 2.5 mg PO Q8H PRN 07/28/17 Gabapentin [Neurontin 100 MG (*)] 200 mg PO TID 07/28/17 Levothyroxine [Synthroid 88 mcg 88 mcg PO DAILY06 07/28/17 (*)] Ondansetron Odt [Zofran Odt 4 mg 4 mg PO Q6H PRN 07/28/17 (*)] traZODone [traZODONE 50MG (*)] 75 mg PO HS 07/28/17 Hydrocodone/Acetaminophen [Davy 1 each PO Q4H PRN #40 tablet 08/10/17 5/325 (*)] Acetic Acid Irr Soln 0.25% 30 ml IRR HS 09/11/17 Herbals/Supplements -Info Only 1 ea PO DAILY 09/11/17 Methenamine Estephania [Hiprex 1 gm (*)] 0.5 gm PO BID 09/11/17 Sennosides/Docusate Sodium 1 tab PO TID 09/11/17 [Senokot-S] Tears/Dextran 70/Hypromellose 1 drop EACHEYE DAILY PRN 09/11/17 [Natural Balance Tears (*)] Vancomycin [Vancocin Oral Liquid] 125 mg PO BID #10 udl 09/16/17 Medical Decision Making - Diagnostics Imaging Results: CT abdomen pelvis with IV contrast demonstrates constipation, bilateral hydronephrosis decreased on the left as compared with prior CT scan. This was discussed with Dr. Leslie of Radiology. Differential Diagnosis: This is a 61-year-old female who is a C6-7 paraplegic, who lives at home with a transcription typist and presents now with about an hour of left lower quadrant abdominal pain which is burning in nature with associated diarrhea. On exam she has normal vital signs, is afebrile, does have significant tenderness in the left lower quadrant. Differential diagnosis includes diverticulitis, renal colic, less likely appendicitis. In the emergency department, the patient declined pain medication. She had basic labs checked which were all unremarkable. She had a CT scan performed which demonstrated constipation. She had soapsuds enema administered with return of large amount of stool. The patient felt better and was discharged home. - Data Points Laboratory Results: Laboratory Results 09/20/17 00:22 09/20/17 00:22 09/20/17 09/20/17 09/20/17 01:20 00:22 00:22 WBC 10.82 10^3/uL H 10^3/uL (3.80-9.50) RBC 4.40 10^6/uL 10^6/uL (4.18-5.33) Hgb 12.3 g/dL L g/dL (12.6-16.3) Hct 37.7 % L % (38.0-47.0) MCV 85.7 fL fL (81.5-99.8) MCH 28.0 pg pg (27.9-34.1) MCHC 32.6 g/dL g/dL (32.4-36.7) RDW 14.4 % % (11.5-15.2) Plt Count 418 10^3/uL H 10^3/uL (150-400) MPV 9.5 fL fL (8.7-11.7) Neut % (Auto) 45.8 % % (39.3-74.2) Lymph % (Auto) 44.3 % % (15.0-45.0) [place] % (Auto) 7.3 % % (4.5-13.0) Eos % (Auto) 1.6 % % (0.6-7.6) Baso % (Auto) 0.7 % % (0.3-1.7) Nucleat RBC Rel Count 0.0 % % (0.0-0.2) Absolute Neuts (auto) 4.96 10^3/uL 10^3/uL (1.70-6.50) Absolute Lymphs (auto) 4.79 10^3/uL H 10^3/uL (1.00-3.00) Absolute Monos (auto) 0.79 10^3/uL 10^3/uL (0.30-0.80) Absolute Eos (auto) 0.17 10^3/uL 10^3/uL (0.03-0.40) Absolute Basos (auto) 0.08 10^3/uL 10^3/uL (0.02-0.10) Absolute Nucleated RBC 0.00 10^3/uL 10^3/uL (0-0.01) Immature Gran % 0.3 % % (0.0-1.1) Immature Gran # 0.03 10^3/uL 10^3/uL (0.00-0.10) Sodium 138 mEq/L mEq/L (135-145) Potassium 4.5 mEq/L mEq/L (3.5-5.2) Chloride 105 mEq/L mEq/L (97-110) Carbon Dioxide 19 mEq/l L mEq/l (22-31) Anion Gap 14 mEq/L mEq/L (8-16) BUN 16 mg/dL mg/dL (7-23) Creatinine 0.7 mg/dL mg/dL (0.6-1.0) Estimated GFR > 60 Glucose 125 mg/dL H mg/dL (70-100) Calcium 10.1 mg/dL mg/dL (8.5-10.4) Total Bilirubin 0.3 mg/dL mg/dL (0.1-1.4) AST 17 IU/L IU/L (14-46) ALT 21 IU/L IU/L (9-52) Alkaline Phosphatase 99 IU/L IU/L (38-126) Total Protein 7.6 g/dL g/dL (6.3-8.2) Albumin 4.0 g/dL g/dL (3.5-5.0) Urine Color YELLOW Urine Appearance HAZY Urine pH 7.0 (5.0-7.5) Ur Specific [place] 1.009 (1.002-1.030) Urine Protein NEGATIVE (NEGATIVE) Urine Ketones NEGATIVE (NEGATIVE) Urine Blood NEGATIVE (NEGATIVE) Urine Nitrate NEGATIVE (NEGATIVE) Urine Bilirubin NEGATIVE (NEGATIVE) Urine Urobilinogen NEGATIVE EU EU (0.2-1.0) Ur Leukocyte Esterase TRACE H (NEGATIVE) Urine RBC 1-3 /hpf /hpf (0-3) Urine WBC 5-10 /hpf H /hpf (0-3) Ur Epithelial Cells Not Reported Calcium Phosphate Cryst PRESENT /hpf /hpf (NONE-1+) Urine Bacteria TRACE /hpf H /hpf (NONE SEEN) Urine Mucus TRACE /lpf /lpf (NONE-1+) Urine Glucose NEGATIVE (NEGATIVE) Medications Given: Discontinued Medications Sodium Chloride (Ns) 500 mls @ 1,000 mls/hr IV EDNOW ONE PRN Reason: Protocol Stop: 09/20/17 00:43 Last Admin: 09/20/17 00:55 Dose: 500 mls Departure - Departure Disposition: Home, Routine, Self-Care Clinical Impression: Constipation Qualifiers: Constipation type: unspecified constipation type Qualified Code(s): K59.00 - Constipation, unspecified Abdominal pain Qualifiers: Abdominal location: left lower quadrant Qualified Code(s): R10.32 - Left lower quadrant pain Condition: Good Instructions: Constipation (ED) Additional Instructions: Your CT scan today showed constipation. You can add MiraLax 17 g once daily to your medication regimen. This medication is available [id number]. This should help with your pain. Please follow-up with your regular doctor in a few days. Referrals: Patient,NotPresent [Unknown] - As per Instructions
[2017-09-20] MEDS ORDERED: IOPAMIDOL (ISOVUE-300) 100 ML BTL ONE ×2 (00:29→00:40)
[2017-09-20 00:31] LABS: PLATELET COUNT 418 10^3/uL (150-400)
[2017-09-20 04:16] VITALS: RESP 16
[2017-09-20 04:46] VITALS: BP 155/72; PULSE 67; O2SAT 97
== END 2017-09-20 04:35 | disposition home or self-care (01) ==
LOC: EDUNIT#
DX: K59.00 Constipation, unspecified (principal); I10 Essential (primary) hypertension; E11.9 Type 2 diabetes mellitus without complications; E86.9 Volume depletion, unspecified
CPT/HCPCS: 74177; 99285; Q9967

== ENCOUNTER 2017-09-27 16:30 | Emergency (ER) | payer OTHER, MEDICAID ==
--- NOTE | 2017-09-27 16:37 | EDPHY ---
H & P Time Seen by Provider: 09/27/17 16:31 - Personal History Tetanus Vaccine Date: Within last 5 years - Medical/Surgical History Hx Asthma: No Hx Chronic Respiratory Disease: No Hx Diabetes: No Hx Cardiac Disease: Yes Hx Renal Disease: No Hx Cirrhosis: No Hx Alcoholism: No Hx HIV/AIDS: No Hx Splenectomy or Spleen Trauma: No Other PMH: PMH: Quadripalegia, A-fib, HTN, GERD, hypothyroid, DM2, anxiety, insomnia, chronic hyponatremia, pressure ulcer coccyx - Social History Smoking Status: Never smoked Constitutional: Initial Vital Signs Temperature (C) 36.6 C 09/27/17 16:40 Heart Rate 58 L 09/27/17 16:40 Respiratory Rate 16 09/27/17 16:40 Blood Pressure 99/48 L 09/27/17 16:40 O2 Sat (%) 93 09/27/17 16:40 O2 Delivery Mode Room Air Allergies/Adverse Reactions: codeine [Codeine] Allergy (Severe, Verified 09/20/17 00:09) Swelling/neck,face,throat Home Medications: Medication Instructions Recorded Acetaminophen [Tylenol 325mg (*)] 650 mg PO TID 07/28/17 Baclofen [Baclofen 10 mg (*)] 10 mg PO 05,11,17 07/28/17 Baclofen [Baclofen 20 mg (*)] 20 mg PO HS 07/28/17 Bisacodyl [Dulcolax] 10 mg RC Q24H PRN 07/28/17 Citalopram Hydrobromide [Celexa] 40 mg PO DAILY 07/28/17 Diazepam [Valium 5 MG (*)] 2.5 mg PO Q8H PRN 07/28/17 Gabapentin [Neurontin 100 MG (*)] 200 mg PO TID 07/28/17 Levothyroxine [Synthroid 88 mcg 88 mcg PO DAILY06 07/28/17 (*)] Ondansetron Odt [Zofran Odt 4 mg 4 mg PO Q6H PRN 07/28/17 (*)] traZODone [traZODONE 50MG (*)] 75 mg PO HS 07/28/17 Hydrocodone/Acetaminophen [Manquin 1 each PO Q4H PRN #40 tablet 08/10/17 5/325 (*)] Acetic Acid Irr Soln 0.25% 30 ml IRR HS 09/11/17 Herbals/Supplements -Info Only 1 ea PO DAILY 09/11/17 Methenamine Estephania [Hiprex 1 gm (*)] 0.5 gm PO BID 09/11/17 Sennosides/Docusate Sodium 1 tab PO TID 09/11/17 [Senokot-S] Tears/Dextran 70/Hypromellose 1 drop EACHEYE DAILY PRN 09/11/17 [Natural Balance Tears (*)] Vancomycin [Vancocin Oral Liquid] 125 mg PO BID #10 udl 09/16/17 Medical Decision Making ED Course/Re-evaluation: CHIEF COMPLAINT: Diarrhea x 3 day HISTORY OF PRESENT ILLNESS: The patient is a 61 y/o female with a complex medical history complaining of diarrhea for the last 3 days. Her medical history includes partial C6-C7 quadriplegia, diabetes, atrial fibrillation, c.difficile infection 2017, frequent UTIs, and recent admission for sepsis on 09/11/17. She returned to the ED one week ago with abdominal pain and had no acute findings on abdominal CT apart from possible constipation. She developed diarrhea 3 days ago and says these symptoms feel the same as her c.difficile infection 1.5 months ago. She denies any recent antibiotics or close contact with people that have known C.diff. She denies abdominal pain, fever, chills, nausea, vomiting, dyspnea, cough, or other symptoms. REVIEW OF SYSTEMS: A 10 point review of systems was performed and is negative with the exception of the elements mentioned in the history of present illness. PHYSICAL EXAM: HR, BP, O2 Sat, RR. Temp noted General Appearance: Alert, well hydrated, appropriate, and non-toxic appearing. Head: Atraumatic without scalp tenderness or obvious injury Eyes: Pupils equal, round, reactive to light and accommodation, EOMI, no trauma , no injection. Nose: Atraumatic, no rhinorrhea, clear. Throat: Mucus membranes moist. Neck: Supple, non-tender, no lymphadenopathy. Respiratory: No retractions, no distress, no wheezes, and no accessory muscle use. Lungs are clear to auscultation bilaterally. Cardiovascular: Regular rate and rhythm, no murmurs, rubs, or gallops. Good capillary refill all extremities. Gastrointestinal: Abdomen is soft, non-tender, non-distended, no masses, no rebound, no guarding, no peritoneal signs. Musculoskeletal: Normal active ROM of all extremities, atraumatic. Neurological: Alert, appropriate, and interactive. Nonfocal. Skin: No rashes, good turgor, no nodules on palpation. PAST MEDICAL HISTORY: Partial C6-C7 quadriplegia, A-fib, HTN, GERD, hypothyroid , DM2, anxiety, insomnia, chronic hyponatremia, pressure ulcer coccyx PAST SURGICAL HISTORY: back surgery, suprapubic catheter placement, urinary diversion with ileal conduit 2017 SOCIAL HISTORY: Lives in [place]. Disabled. Unemployed. Prior medical records reviewed including admission 09/11/17 for fever. DIFFERENTIAL DIAGNOSIS: The differential diagnosis for the patient's diarrhea included but was not limited to c-difficile infection, gastroenteritis, gastritis, appendicitis, and medication side effect. MEDICAL DECISION MAKING: This is a 61 y/o female with complex medical history who presents with 3-day history of diarrhea that feels similar to prior c.difficile infection. No other symptoms. Her abdomen is benign. Plan for stool sample. Patient has been here for 3 hours and has been unable to provide a stool sample. She would like to go home and return a stool sample to the lab when able. Exam remains benign. I feel she is safe for discharge home. Return precautions discussed. Departure - Departure Disposition: Home, Routine, Self-Care Clinical Impression: Diarrhea Qualifiers: Diarrhea type: unspecified type Qualified Code(s): R19.7 - Diarrhea, unspecified Condition: Good Instructions: Acute Diarrhea (ED) Additional Instructions: Return stool sample to lab as directed to be tested for c.difficile infection. Practice good hand hygiene at home and limit contact with others while symptomatic. Return to the ED for worsening of condition. Referrals: Kamille Haq MD [Medical Doctor] - As per Instructions Report Scribed for: Gabo Bass Report Scribed by: Tatiana Ibarra Date of Report: 09/27/17 Time of Report: 16:37
[2017-09-27 19:43] VITALS: PULSE 68; O2SAT 95
[2017-09-27 20:56] VITALS: BP 139/79; RESP 18; TEMP 98.1
== END 2017-09-27 20:58 | disposition home or self-care (01) ==
LOC: EDUNIT#
DX: R19.7 Diarrhea, unspecified (principal); I10 Essential (primary) hypertension; E11.9 Type 2 diabetes mellitus without complications

== ENCOUNTER 2017-10-02 23:43 | Emergency (ER) | payer OTHER, MEDICAID ==
[2017-10-02] MEDS ORDERED: LORazepam 2 MG/ML INJ IVP ONE (23:46)
[2017-10-02] MEDS ORDERED: NS 1,000 ML IV ONE (23:46)
[2017-10-02] MEDS ORDERED: LORazepam 2 MG/ML INJ ONE (23:46)
--- NOTE | 2017-10-02 23:46 | EDPHY ---
H & P Time Seen by Provider: 10/02/17 23:55 HPI/ROS: HPI CHIEF COMPLAINT: Anxiety HISTORY OF PRESENT ILLNESS: This patient is 61-year-old female, she is paraplegic, history of chronic decubitus ulcer, neurogenic bladder, she presents emergency room with anxiety. Patient states she takes lorazepam and Valium for anxiety. Last dose 8:00 p.m. Or approximately 3 hr ago. She states she feels still very anxious. She denies chest pain or shortness of breath. She also reports she has chronic pain. Her neuropathy in her legs or acting up. Past Medical History: Neuropathy, chronic decubitus ulcer, neurogenic bladder, paraplegia Past Surgical History: Denies recent surgery Social History: Denies drugs alcohol tobacco. Family History: Noncontributory ROS REVIEW OF SYSTEMS: A comprehensive 10 point review of systems is otherwise negative aside from elements mentioned in the history of present illness. Exam Constitutional appears well nontoxic slightly anxious, triage nursing summary reviewed, vital signs reviewed, awake/alert. Eyes normal conjunctivae and sclera, EOMI, PERRLA. HENT normal inspection, atraumatic, moist mucus membranes, no epistaxis, neck supple/ no meningismus, no raccoon eyes. Respiratory clear to auscultation bilaterally, normal breath sounds, no respiratory distress, no wheezing. Cardiovascular rate normal, regular rhythm, no murmur, no edema, distal pulses normal. Gastrointestinal soft, non-tender, no rebound, no guarding, normal bowel sounds, no distension, no pulsatile mass. Genitourinary no CVA tenderness. Musculoskeletal no midline vertebral tenderness, full range of motion, no calf swelling, no tenderness of extremities, no meningismus, good pulses, neurovascularly intact. Skin pink, warm, & dry, no rash, skin atraumatic. Neurologic awake, alert and oriented x 3, AAOx3, moves all 4 extremities equally, motor intact, sensory intact, CN II-XII intact, normal cerebellar, normal vision, normal speech. Psychiatric anxious Heme/Lymph/Immune no lymphadenopathy. Differential Diagnosis: Includes but is not limited to in a particular order acute anxiety, panic attack, electrolyte disturbance, chronic pain, neuropathy Medical Decision Making: Plan for this patient IV establishment with basic blood draw, IV fluids, IV Ativan 1 mg and re-evaluate. Re-evaluation: 1243AM: Patient received 1 mg IV Ativan and is sleeping at this time. Resting comfortably. No complaints. 0145: Patient re-evaluated this time resting comfortably no complaints. States her anxiety is much better after IV Ativan. She was sleeping. She denies any chest pain or shortness of breath. Denies abdominal pain. She is agreeable discharge. Blood work and vital signs reviewed. While sleeping she had a blood pressure 89 systolic. It has improved now back to 100/58. Heart rate 66. 92% on room air. Source: Patient, EMS - Personal History Tetanus Vaccine Date: Within last 5 years - Medical/Surgical History Hx Asthma: No Hx Chronic Respiratory Disease: No Hx Diabetes: No Hx Cardiac Disease: Yes Hx Renal Disease: No Hx Cirrhosis: No Hx Alcoholism: No Hx HIV/AIDS: No Hx Splenectomy or Spleen Trauma: No Other PMH: PMH: Quadripalegia, A-fib, HTN, GERD, hypothyroid, DM2, anxiety, insomnia, chronic hyponatremia, pressure ulcer coccyx - Social History Smoking Status: Never smoked Constitutional: Initial Vital Signs Temperature (C) 36.9 C 10/02/17 23:50 Heart Rate 75 10/02/17 23:50 Respiratory Rate 18 10/02/17 23:50 Blood Pressure 108/69 10/02/17 23:50 O2 Sat (%) 95 10/02/17 23:50 O2 Delivery Mode Room Air Allergies/Adverse Reactions: codeine [Codeine] Allergy (Severe, Verified 10/02/17 23:50) Swelling/neck,face,throat Home Medications: Medication Instructions Recorded Acetaminophen [Tylenol 325mg (*)] 650 mg PO TID 07/28/17 Baclofen [Baclofen 10 mg (*)] 10 mg PO 05,11,17 07/28/17 Baclofen [Baclofen 20 mg (*)] 20 mg PO HS 07/28/17 Bisacodyl [Dulcolax] 10 mg RC Q24H PRN 07/28/17 Citalopram Hydrobromide [Celexa] 40 mg PO DAILY 07/28/17 Diazepam [Valium 5 MG (*)] 2.5 mg PO Q8H PRN 07/28/17 Gabapentin [Neurontin 100 MG (*)] 200 mg PO TID 07/28/17 Levothyroxine [Synthroid 88 mcg 88 mcg PO DAILY06 07/28/17 (*)] Ondansetron Odt [Zofran Odt 4 mg 4 mg PO Q6H PRN 07/28/17 (*)] traZODone [traZODONE 50MG (*)] 75 mg PO HS 07/28/17 Hydrocodone/Acetaminophen [Orr 1 each PO Q4H PRN #40 tablet 08/10/17 5/325 (*)] Acetic Acid Irr Soln 0.25% 30 ml IRR HS 09/11/17 Herbals/Supplements -Info Only 1 ea PO DAILY 09/11/17 Methenamine Estephania [Hiprex 1 gm (*)] 0.5 gm PO BID 09/11/17 Sennosides/Docusate Sodium 1 tab PO TID 09/11/17 [Senokot-S] Tears/Dextran 70/Hypromellose 1 drop EACHEYE DAILY PRN 09/11/17 [Natural Balance Tears (*)] Vancomycin [Vancocin Oral Liquid] 125 mg PO BID #10 udl 09/16/17 Medical Decision Making - Data Points Laboratory Results: Laboratory Results 10/03/17 00:10 10/03/17 00:10 10/03/17 10/03/17 00:10 00:10 WBC 10.48 10^3/uL H 10^3/uL (3.80-9.50) RBC 3.83 10^6/uL L 10^6/uL (4.18-5.33) Hgb 10.7 g/dL L g/dL (12.6-16.3) Hct 32.7 % L % (38.0-47.0) MCV 85.4 fL fL (81.5-99.8) MCH 27.9 pg pg (27.9-34.1) MCHC 32.7 g/dL g/dL (32.4-36.7) RDW 14.7 % % (11.5-15.2) Plt Count 241 10^3/uL 10^3/uL (150-400) MPV 10.4 fL fL (8.7-11.7) Neut % (Auto) 49.6 % % (39.3-74.2) Lymph % (Auto) 40.0 % % (15.0-45.0) [place] % (Auto) 8.4 % % (4.5-13.0) Eos % (Auto) 1.2 % % (0.6-7.6) Baso % (Auto) 0.6 % % (0.3-1.7) Nucleat RBC Rel Count 0.0 % % (0.0-0.2) Absolute Neuts (auto) 5.20 10^3/uL 10^3/uL (1.70-6.50) Absolute Lymphs (auto) 4.19 10^3/uL H 10^3/uL (1.00-3.00) Absolute Monos (auto) 0.88 10^3/uL H 10^3/uL (0.30-0.80) Absolute Eos (auto) 0.13 10^3/uL 10^3/uL (0.03-0.40) Absolute Basos (auto) 0.06 10^3/uL 10^3/uL (0.02-0.10) Absolute Nucleated RBC 0.00 10^3/uL 10^3/uL (0-0.01) Immature Gran % 0.2 % % (0.0-1.1) Immature Gran # 0.02 10^3/uL 10^3/uL (0.00-0.10) Sodium 138 mEq/L mEq/L (135-145) Potassium 4.1 mEq/L mEq/L (3.5-5.2) Chloride 110 mEq/L mEq/L (97-110) Carbon Dioxide 20 mEq/l L mEq/l (22-31) Anion Gap 8 mEq/L mEq/L (8-16) BUN 18 mg/dL mg/dL (7-23) Creatinine 0.6 mg/dL mg/dL (0.6-1.0) Estimated GFR > 60 Glucose 137 mg/dL H mg/dL (70-100) Calcium 8.4 mg/dL L mg/dL (8.5-10.4) Medications Given: Discontinued Medications Sodium Chloride (Ns) 1,000 mls @ 0 mls/hr IV ONCE ONE PRN Reason: Wide Open Stop: 10/02/17 23:47 Last Admin: 10/02/17 23:48 Dose: 1,000 mls Lorazepam (Ativan Injection) 1 mg IVP EDNOW ONE Stop: 10/02/17 23:47 Last Admin: 10/02/17 23:47 Dose: 1 mg Departure - Departure Disposition: Home, Routine, Self-Care Clinical Impression: Anxiety Condition: Good Instructions: Anxiety (ED) Referrals: Patient,NotPresent [Unknown] - As per Instructions
[2017-10-03 00:34] LABS: PLATELET COUNT 241 10^3/uL (150-400)
[2017-10-03 02:26] VITALS: BP 104/62; PULSE 68; RESP 18; TEMP 97.5; O2SAT 91
== END 2017-10-03 02:26 | disposition home or self-care (01) ==
LOC: EDUNIT#
DX: F41.9 Anxiety disorder, unspecified (principal); I10 Essential (primary) hypertension; E11.9 Type 2 diabetes mellitus without complications
CPT/HCPCS: 96361; 96374; 99284; J2060

== ENCOUNTER 2017-10-06 05:40 | Emergency (ER) | payer OTHER, MEDICAID ==
[2017-10-06] MEDS ORDERED: KETOROLAC 30 MG/1 ML SDV IM ONE (05:45)
[2017-10-06] MEDS ORDERED: DIAZEPAM 5 MG TAB PO ONE (05:45)
--- NOTE | 2017-10-06 06:27 | EDPHY ---
H & P Stated Complaint: neck pain Time Seen by Provider: 10/06/17 05:43 HPI/ROS: HPI The patient presents with neck pain which has been present for the last 1 day after caregiver repositioned her. The pain became worse over the last 2 hr and is described as an ache in the midline of her neck which radiates toward her shoulders. It is worse with any changes in position. She is a paraplegic and denies any new numbness or tingling in her upper extremities. She has no prior history of similar pain.. REVIEW OF SYSTEMS Constitutional: No fever, no chills. Eyes: No discharge. ENT: No sore throat. Cardiovascular: No chest pain, no palpitations. Respiratory: No cough, no shortness of breath. Gastrointestinal: No abdominal pain, no vomiting. Genitourinary: No hematuria. Musculoskeletal: No back pain. Skin: No rashes. Neurological: No headache. PMHx: C5 paraplegic, anxiety, recent admission for sepsis Soc Hx: Lives at home with caregiver who is with her daily PHYSICAL General Appearance: Alert, no distress Eyes: Pupils equal and round no pallor or injection ENT, Mouth: Mucous membranes moist Neck: There is posterior midline cervical spinal tenderness with limited range of motion of neck secondary to pain, there is paraspinal tenderness bilaterally Respiratory: There are no retractions, lungs are clear to auscultation Cardiovascular: Regular rate and rhythm Gastrointestinal: Abdomen is soft and non-tender, no masses, bowel sounds normal Neurological: A&O, paraplegic Skin: Warm and dry, no rashes Psychiatric: Patient is oriented X 3, there is no agitation Source: Patient, EMS Exam Limitations: No limitations - Personal History Current Tetanus/Diphtheria Vaccine: Yes Current Tetanus Diphtheria and Acellular Pertussis (TDAP): Yes Tetanus Vaccine Date: Within last 5 years - Medical/Surgical History Hx Asthma: No Hx Chronic Respiratory Disease: No Hx Diabetes: No Hx Cardiac Disease: Yes Hx Renal Disease: No Hx Cirrhosis: No Hx Alcoholism: No Hx HIV/AIDS: No Hx Splenectomy or Spleen Trauma: No Other PMH: PMH: Quadripalegia, A-fib, HTN, GERD, hypothyroid, DM2, anxiety, insomnia, chronic hyponatremia, pressure ulcer coccyx - Social History Smoking Status: Never smoked Constitutional: Initial Vital Signs Temperature (C) 37.2 C 10/06/17 05:49 Heart Rate 77 10/06/17 05:49 Respiratory Rate 18 10/06/17 05:49 Blood Pressure 102/65 10/06/17 05:49 O2 Sat (%) 88 L 10/06/17 05:49 O2 Delivery Mode Room Air O2 (L/minute) 2 Allergies/Adverse Reactions: codeine [Codeine] Allergy (Severe, Verified 10/06/17 21:23) Swelling/neck,face,throat Home Medications: Medication Instructions Recorded Acetaminophen [Tylenol 325mg (*)] 650 mg PO TID 07/28/17 Baclofen [Baclofen 10 mg (*)] 10 mg PO 05,11,17 07/28/17 Baclofen [Baclofen 20 mg (*)] 20 mg PO HS 07/28/17 Bisacodyl [Dulcolax] 10 mg RC Q24H PRN 07/28/17 Citalopram Hydrobromide [Celexa] 40 mg PO DAILY 07/28/17 Diazepam [Valium 5 MG (*)] 2.5 mg PO Q8H PRN 07/28/17 Gabapentin [Neurontin 100 MG (*)] 200 mg PO TID 07/28/17 Levothyroxine [Synthroid 88 mcg 88 mcg PO DAILY06 07/28/17 (*)] Ondansetron Odt [Zofran Odt 4 mg 4 mg PO Q6H PRN 07/28/17 (*)] traZODone [traZODONE 50MG (*)] 75 mg PO HS 07/28/17 Hydrocodone/Acetaminophen [[place] 1 each PO Q4H PRN #40 tablet 08/10/17 5/325 (*)] Acetic Acid Irr Soln 0.25% 30 ml IRR HS 09/11/17 Herbals/Supplements -Info Only 1 ea PO DAILY 09/11/17 Methenamine Estephania [Hiprex 1 gm (*)] 0.5 gm PO BID 09/11/17 Sennosides/Docusate Sodium 1 tab PO TID 09/11/17 [Senokot-S] Tears/Dextran 70/Hypromellose 1 drop EACHEYE DAILY PRN 09/11/17 [Natural Balance Tears (*)] Vancomycin [Vancocin Oral Liquid] 125 mg PO BID #10 udl 09/16/17 Medical Decision Making - Diagnostics Imaging Results: CT cervical spine demonstrates spinal stenosis at level of C7 through T1, discussed with Dr. Nieto commissioning agent for Radiology. Differential Diagnosis: 61-year-old female with paraplegia, anxiety, recent admission for sepsis, presents with neck pain after repositioning and prolonged sitting yesterday. On exam, she does have posterior midline cervical spinal tenderness in seems uncomfortable. Plan for pain medication here and will check CT scan of C-spine to evaluate for any fracture verses sprain. CT shows no acute fracture. I feel her pain could be related to her underlying cervical spinal stenosis which was exacerbated with this repositioning. She has received Toradol without much improvement in her symptoms, thus I will give her an injection of morphine. She is in agreement with this plan. She will be discharged back home afterwards. - Data Points Medications Given: Discontinued Medications Diazepam (Valium) 5 mg PO EDNOW ONE Stop: 10/06/17 05:46 Last Admin: 10/06/17 06:07 Dose: 5 mg Hydromorphone HCl (Dilaudid) 1 mg IM EDNOW ONE Stop: 10/06/17 06:38 Last Admin: 10/06/17 06:44 Dose: 1 mg Ketorolac Tromethamine (Toradol) 30 mg IM EDNOW ONE Stop: 10/06/17 05:46 Last Admin: 10/06/17 06:08 Dose: 30 mg Departure - Departure Disposition: Home, Routine, Self-Care Clinical Impression: Chronic incomplete flaccid quadriplegia, Cervical strain, Cervical stenosis of spine Condition: Good Instructions: Cervical Strain (ED) Additional Instructions: I recommend you use ice packs or heat packs to help with pain. You can take ibuprofen or Tylenol as needed for the next several days. I would recommend you take ibuprofen 400 mg with acetaminophen 650 mg every 6 hr until your pain improves. If you have ongoing pain I would recommend they follow up with your neurosurgeon. Referrals: Magui Salazar DO [Doctor of Osteopathy] - As per Instructions
[2017-10-06] MEDS ORDERED: HYDROmorphONE/DILAUDID 2 MG/ML INJ IM ONE (06:37)
[2017-10-06 06:45] VITALS: RESP 16
[2017-10-06 08:25] VITALS: BP 103/74; PULSE 99; TEMP 98.2; O2SAT 98
== END 2017-10-06 09:49 | disposition home or self-care (01) ==
LOC: EDUNIT#
DX: S16.1XXA Strain of muscle, fascia and tendon at neck level, initial encounter (principal); M48.02 Spinal stenosis, cervical region; G81.00 Flaccid hemiplegia affecting unspecified side; I10 Essential (primary) hypertension; E11.9 Type 2 diabetes mellitus without complications; X58.XXXA Exposure to other specified factors, initial encounter; Y93.89 Activity, other specified
CPT/HCPCS: 72125; 96372; 99285; J1170; J1885

== ENCOUNTER 2017-10-06 21:13 | Inpatient (IN) | payer OTHER, MEDICAID ==
[2017-10-06] MEDS ORDERED: NS 1,000 ML IV ONE ×2 (21:42→23:31)
[2017-10-06] MEDS ORDERED: ONDANSETRON 4 MG/2 ML VIAL IVP ONE (21:42)
[2017-10-06] MEDS ORDERED: ACETAMINOPHEN 325 MG TAB PO ONE (21:43)
--- NOTE | 2017-10-06 21:44 | EDPHY ---
H & P Time Seen by Provider: 10/06/17 21:42 HPI/ROS: CHIEF COMPLAINT: Neck pain, nausea, fever. HISTORY OF PRESENT ILLNESS: [Location, Duration, Severity, Quality, Context, Timing Modifying Factors, Associated S&S] This patient is a 61 y/o female with partial paraplegia complaining of neck pain , nausea, and fever. She was evaluated earlier today for neck pain and received a neck CT, which was negative for acute processes. REVIEW OF SYSTEMS: A 10 point review of systems was performed and is negative with the exception of the elements mentioned in the history of present illness. Past Medical/Surgical History: Partial paraplegic secondary to C6-C7 injury. Admission 09/11/17 for sepsis. GERD Diabetes mellitus (diet-controlled) Atrial fibrillation History of c-difficile (08/14) Stage IV sacrococcygeal ulcer s/p debridement Hypothyroidism History of recurrent UTIs Anxiety Suprapubic catheter placement Back surgery. Social History: Nonsmoker. Lives in [place]. Smoking Status: Never smoked Physical Exam: General Appearance: Alert, pleasant. BP 95/54 at triage. Low BP is chronic for this patient. Eyes: Pupils equal and round, no conjunctival pallor or injection ENT, Mouth: Mucous membranes moist Neck: Normal inspection Respiratory: Lungs are clear to auscultation Cardiovascular: Regular rate and rhythm Gastrointestinal: Abdomen is soft and non-tender Neurological: A&O, nonfocal exam Skin: Warm and dry, no rash Extremities: Nontender, no pedal edema Psychiatric: Mood and affect normal Constitutional: Initial Vital Signs Temperature (C) 37.8 C 10/06/17 21:23 Heart Rate 93 10/06/17 21:23 Respiratory Rate 18 10/06/17 21:23 Blood Pressure 95/54 L 10/06/17 21:23 O2 Sat (%) 98 10/06/17 21:23 O2 Delivery Mode Nasal Cannula O2 (L/minute) 3 Allergies/Adverse Reactions: codeine [Codeine] Allergy (Severe, Verified 10/06/17 21:23) Swelling/neck,face,throat Home Medications: Medication Instructions Recorded Acetaminophen [Tylenol 325mg (*)] 650 mg PO TID 07/28/17 Baclofen [Baclofen 10 mg (*)] 10 mg PO 05,11,17 07/28/17 Baclofen [Baclofen 20 mg (*)] 20 mg PO HS 07/28/17 Bisacodyl [Dulcolax] 10 mg RC Q24H PRN 07/28/17 Citalopram Hydrobromide [Celexa] 40 mg PO DAILY 07/28/17 Diazepam [Valium 5 MG (*)] 2.5 mg PO Q8H PRN 07/28/17 Gabapentin [Neurontin 100 MG (*)] 200 mg PO TID 07/28/17 Levothyroxine [Synthroid 88 mcg 88 mcg PO DAILY06 07/28/17 (*)] Ondansetron Odt [Zofran Odt 4 mg 4 mg PO Q6H PRN 07/28/17 (*)] traZODone [traZODONE 50MG (*)] 75 mg PO HS 07/28/17 Hydrocodone/Acetaminophen [[place] 1 each PO Q4H PRN #40 tablet 08/10/17 5/325 (*)] Acetic Acid Irr Soln 0.25% 30 ml IRR HS 09/11/17 Herbals/Supplements -Info Only 1 ea PO DAILY 09/11/17 Methenamine Estephania [Hiprex 1 gm (*)] 0.5 gm PO BID 09/11/17 Sennosides/Docusate Sodium 1 tab PO TID 09/11/17 [Senokot-S] Tears/Dextran 70/Hypromellose 1 drop EACHEYE DAILY PRN 09/11/17 [Natural Balance Tears (*)] Vancomycin [Vancocin Oral Liquid] 125 mg PO BID #10 udl 09/16/17 Departure - Departure Referrals: NONE *PRIMARY CARE P,. [Primary Care Provider] - As per Instructions Report Scribed for: Melani Devi Report Scribed by: Garima Hurtado Date of Report: 10/06/17 Time of Report: 21:43 Physician Review and Approval Statement: 10/06/17 21:43 Portions of this note were transcribed by a chief medical officer. I personally performed a history, physical exam, medical decision making, and confirmed accuracy of information the transcribed note.
--- NOTE | 2017-10-06 22:16 | EDPHY ---
H & P Stated Complaint: neck pain, nausea, fever Time Seen by Provider: 10/06/17 21:42 HPI/ROS: HPI The patient presents brought in by ambulance for fever, neck pain, nausea. I saw her earlier today for neck pain which she had had for the last 1 day after she was repositioned and spent a long time sitting upright. She had a CT scan of her C-spine performed and it was unremarkable, except for spinal stenosis. Her pain improved in the emergency department and she was discharged home. Over the course of the day today she began to feel feverish. She did not check her temperature. She felt generally unwell and nauseated. She was able to eat and drink, though less than usual. She has not vomited. She denies any abdominal pain. She did not take any new medications today. She does not have a cough, rhinorrhea, sore throat. REVIEW OF SYSTEMS Constitutional: Subjective fever Eyes: No discharge. ENT: No sore throat. Cardiovascular: No chest pain, no palpitations. Respiratory: No cough, no shortness of breath. Gastrointestinal: No abdominal pain, no vomiting. Genitourinary: No hematuria. Musculoskeletal: No back pain. Skin: No rashes. Neurological: No headache. PMHx: C5 paraplegic, hypertension, AFib, GERD, hypothyroid, type 2 diabetes, anxiety Soc Hx: Lives at home and has an in-home caregiver PHYSICAL General Appearance: Tired, uncomfortable appearing Eyes: Pupils equal and round no pallor or injection ENT, Mouth: Mucous membranes dry Respiratory: There are no retractions, lungs are clear to auscultation Cardiovascular: Regular rate and rhythm Gastrointestinal: Abdomen is soft with tender in her left lower quadrant, stoma draining stool, Morris catheter draining concentrated urine no masses, bowel sounds normal Neurological: A&O, able to move upper extremities Skin: Warm and dry, there is a sacral decubitus ulcer with surrounding erythema which is not tender or warm Musculoskeletal: Neck is supple with tenderness of her right paraspinal region Extremities: symmetrica Psychiatric: Patient is oriented X 3, there is no agitation Source: Patient, EMS Exam Limitations: No limitations - Personal History Tetanus Vaccine Date: Within last 5 years - Medical/Surgical History Hx Asthma: No Hx Chronic Respiratory Disease: No Hx Diabetes: No Hx Cardiac Disease: Yes Hx Renal Disease: No Hx Cirrhosis: No Hx Alcoholism: No Hx HIV/AIDS: No Hx Splenectomy or Spleen Trauma: No Other PMH: PMH: Quadripalegia, A-fib, HTN, GERD, hypothyroid, DM2, anxiety, insomnia, chronic hyponatremia, pressure ulcer coccyx - Social History Smoking Status: Never smoked Constitutional: Initial Vital Signs Temperature (C) 37.8 C 10/06/17 21:23 Heart Rate 93 10/06/17 21:23 Respiratory Rate 18 10/06/17 21:23 Blood Pressure 95/54 L 10/06/17 21:23 O2 Sat (%) 98 10/06/17 21:23 O2 Delivery Mode Room Air O2 (L/minute) 3 Allergies/Adverse Reactions: codeine [Codeine] Allergy (Severe, Verified 10/06/17 21:23) Swelling/neck,face,throat Home Medications: Medication Instructions Recorded Acetaminophen [Tylenol 325mg (*)] 650 mg PO TID 07/28/17 Baclofen [Baclofen 10 mg (*)] 10 mg PO 05,11,17 07/28/17 Baclofen [Baclofen 20 mg (*)] 20 mg PO HS 07/28/17 Bisacodyl [Dulcolax] 10 mg RC Q24H PRN 07/28/17 Citalopram Hydrobromide [Celexa] 40 mg PO DAILY 07/28/17 Diazepam [Valium 5 MG (*)] 2.5 mg PO Q8H PRN 07/28/17 Gabapentin [Neurontin 100 MG (*)] 200 mg PO TID 07/28/17 Levothyroxine [Synthroid 88 mcg 88 mcg PO DAILY06 07/28/17 (*)] Ondansetron Odt [Zofran Odt 4 mg 4 mg PO Q6H PRN 07/28/17 (*)] traZODone [traZODONE 50MG (*)] 75 mg PO HS 07/28/17 Hydrocodone/Acetaminophen [[place] 1 each PO Q4H PRN #40 tablet 08/10/17 5/325 (*)] Acetic Acid Irr Soln 0.25% 30 ml IRR HS 09/11/17 Herbals/Supplements -Info Only 1 ea PO DAILY 09/11/17 Methenamine Estephania [Hiprex 1 gm (*)] 0.5 gm PO BID 09/11/17 Sennosides/Docusate Sodium 1 tab PO TID 09/11/17 [Senokot-S] Tears/Dextran 70/Hypromellose 1 drop EACHEYE DAILY PRN 09/11/17 [Natural Balance Tears (*)] Vancomycin [Vancocin Oral Liquid] 125 mg PO BID #10 udl 09/16/17 Medical Decision Making - Diagnostics Imaging Results: Imaging Impressions Chest X-Ray 10/06/17 21:42 Impression: Mild atelectasis or early infiltrate left lung base posteriorly. Mild underlying bronchitis. Imaging: I viewed and interpreted images myself Differential Diagnosis: This is a 61-year-old female with C5 paraplegia and multiple other medical problems presents from home with 1 day of low-grade fever associated with nausea. Over the last 2 days she has had neck pain which has remained stable. I saw her in the emergency department for this earlier today with a normal noncontrast CT of her cervical spine. On exam here, she has a low-grade fever, she is not tachycardic, her blood pressure is slightly low though this is usual for her. As I cannot identify a clear source of infection. She does have tenderness of her left lower quadrant though this is usual for her. Her Morris catheter is draining concentrated urine. Her sacral decubitus ulceration appear stable. Differential diagnosis includes pneumonia, viral illness, UTI, skin infection. Plan for IV fluids, cultures, labs. In the emergency department, patient received a fluid bolus. She does have a leukocytosis which raises suspicion for infection. Chest x-ray showed possible pneumonia and urine appeared contaminated. Given that she has a neobladder it is unclear if this is significant for infection. We will treat her with Levaquin. I have discussed the case with the hospitalist Dr. Masters who will admit her for further monitoring. - Data Points Laboratory Results: Laboratory Results 10/06/17 22:30 10/06/17 22:30 10/06/17 10/06/17 10/06/17 22:30 22:30 22:00 WBC 23.56 10^3/uL H 10^3/uL (3.80-9.50) RBC 4.21 10^6/uL 10^6/uL (4.18-5.33) Hgb 11.9 g/dL L g/dL (12.6-16.3) Hct 36.1 % L % (38.0-47.0) MCV 85.7 fL fL (81.5-99.8) MCH 28.3 pg pg (27.9-34.1) MCHC 33.0 g/dL g/dL (32.4-36.7) RDW 15.6 % H % (11.5-15.2) Plt Count 247 10^3/uL 10^3/uL (150-400) MPV 10.6 fL fL (8.7-11.7) Neut % (Auto) 71.2 % % (39.3-74.2) Lymph % (Auto) 17.9 % % (15.0-45.0) Wirt % (Auto) 9.7 % % (4.5-13.0) Eos % (Auto) 0.3 % L % (0.6-7.6) Baso % (Auto) 0.3 % % (0.3-1.7) Nucleat RBC Rel Count 0.0 % % (0.0-0.2) Absolute Neuts (auto) 16.81 10^3/uL H 10^3/uL (1.70-6.50) Absolute Lymphs (auto) 4.21 10^3/uL H 10^3/uL (1.00-3.00) Absolute Monos (auto) 2.28 10^3/uL H 10^3/uL (0.30-0.80) Absolute Eos (auto) 0.06 10^3/uL 10^3/uL (0.03-0.40) Absolute Basos (auto) 0.06 10^3/uL 10^3/uL (0.02-0.10) Absolute Nucleated RBC 0.00 10^3/uL 10^3/uL (0-0.01) Immature Gran % 0.6 % % (0.0-1.1) Immature Gran # 0.14 10^3/uL H 10^3/uL (0.00-0.10) Sodium 130 mEq/L L mEq/L (135-145) Potassium 4.6 mEq/L mEq/L (3.5-5.2) Chloride 98 mEq/L mEq/L (97-110) Carbon Dioxide 21 mEq/l L mEq/l (22-31) Anion Gap 11 mEq/L mEq/L (8-16) BUN 25 mg/dL H mg/dL (7-23) Creatinine 1.2 mg/dL H mg/dL (0.6-1.0) Estimated GFR 45 Glucose 185 mg/dL H mg/dL (70-100) Calcium 8.6 mg/dL mg/dL (8.5-10.4) Urine Color YELLOW Urine Appearance HAZY Urine pH 7.0 (5.0-7.5) Ur Specific [place] 1.012 (1.002-1.030) Urine Protein NEGATIVE (NEGATIVE) Urine Ketones NEGATIVE (NEGATIVE) Urine Blood 1+ H (NEGATIVE) Urine Nitrate POSITIVE H (NEGATIVE) Urine Bilirubin NEGATIVE (NEGATIVE) Urine Urobilinogen NEGATIVE EU EU (0.2-1.0) Ur Leukocyte Esterase 2+ H (NEGATIVE) Urine RBC 1-3 /hpf /hpf (0-3) Urine WBC 5-10 /hpf H /hpf (0-3) Ur Epithelial Cells TRACE /lpf /lpf (NONE-1+) Calcium Oxalate Crystal PRESENT /hpf /hpf (NONE-1+) Urine Bacteria TRACE /hpf H /hpf (NONE SEEN) Urine Mucus TRACE /lpf /lpf (NONE-1+) Urine Glucose NEGATIVE (NEGATIVE) Medications Given: Hydrocodone Bitart/Acetaminophen ([place] 5/325) 1 - 2 tab PO Q4HRS PRN PRN Reason: Pain, Moderate Able to Take PO Stop: 10/16/17 23:44 Last Admin: 10/07/17 05:32 Dose: 1 tab Sodium Chloride (Ns) 1,000 mls @ 100 mls/hr IV CONT MADISYN Stop: 04/04/18 23:44 Last Admin: 10/07/17 01:04 Dose: 1,000 mls Discontinued Medications Acetaminophen (Tylenol) 650 mg PO EDNOW ONE Stop: 10/06/17 21:44 Last Admin: 10/06/17 22:00 Dose: 650 mg Sodium Chloride (Ns) 1,000 mls @ 0 mls/hr IV EDNOW ONE; Wide Open PRN Reason: Protocol Stop: 10/06/17 21:43 Last Admin: 10/06/17 22:39 Dose: 1,000 mls Levofloxacin/Dextrose (Levaquin 750 Mg (Premix)) 150 mls @ 100 mls/hr IV EDNOW ONE PRN Reason: Protocol Stop: 10/07/17 00:20 Last Admin: 10/06/17 23:36 Dose: 150 mls Sodium Chloride (Ns) 1,000 mls @ 0 mls/hr IV EDNOW ONE; Wide Open PRN Reason: Protocol Stop: 10/06/17 23:32 Last Admin: 10/06/17 23:38 Dose: 1,000 mls Ondansetron HCl (Zofran) 4 mg IVP EDNOW ONE Stop: 10/06/17 21:43 Last Admin: 10/06/17 22:40 Dose: 4 mg Departure - Departure Disposition: [facility] Inpatient Acute Clinical Impression: Sepsis Qualifiers: Sepsis type: sepsis due to unspecified organism Qualified Code(s): A41.9 - Sepsis, unspecified organism Fever Qualifiers: Fever type: unspecified Qualified Code(s): R50.9 - Fever, unspecified Leukocytosis Qualifiers: Leukocytosis type: unspecified Qualified Code(s): D72.829 - Elevated white blood cell count, unspecified Condition: Fair
[2017-10-06 22:45] LABS: PLATELET COUNT 247 10^3/uL (150-400)
[2017-10-06] MEDS ORDERED: ONDANSETRON 4 MG/2 ML VIAL IVP PRN (23:45)
--- NOTE | 2017-10-07 00:57 | PDGENHP ---
History and Physical - Chief Complaint Nausea, malaise, neck pain - History of Present Illness Source-patient able to provide history is fair historian. EMR was reviewed from previous hospital stays. Case discussed with ED provider. HPI - pleasant 61-year-old female with past medical history significant for incomplete quadriplegia, recurrent UTI with history of bladder cancer status post resection with neobladder, chronic sacral decubitus, GERD, dm 2 diet controlled who presents to the emergency department earlier in the day actually with complaints of neck pain. Patient arrived with her pumping supervisor home who reported that she was repositioned in the seated state. She had complained of some bilateral neck and shoulder pain. Patient does have history of incomplete quadriplegia has some minimal gross movements of her act or extremities. She denied any worsening strength but was complaining of some increased numbness tingling in her distal upper extremities. Patient underwent CT of the neck which was significant for evidence of cervical spine stenosis. Pa patient with some declined oral intake. She has had increased malaise. Patient additionally complains of some increased shortness of breath from baseline. She denies any cough no rhinorrhea no sore throat. Patient reported that Ativan did improve her neck pain. She was discharged home and returns now with nausea and subjective fever. History Information - Allergies/Home Medication List Allergies/Adverse Reactions: codeine [Codeine] Allergy (Severe, Verified 10/06/17 21:23) Swelling/neck,face,throat Home Medications: Acetaminophen [Tylenol 325mg (*)] 650 mg PO TID 07/28/17 [Last Taken 08/06/17] Baclofen [Baclofen 10 mg (*)] 10 mg PO 05,11,17 07/28/17 [Last Taken 08/06/17 12 :00] Baclofen [Baclofen 20 mg (*)] 20 mg PO HS 07/28/17 [Last Taken 08/06/17] Bisacodyl [Dulcolax] 10 mg RC Q24H PRN 07/28/17 [Last Taken 08/06/17] Citalopram Hydrobromide [Celexa] 40 mg PO DAILY 07/28/17 [Last Taken 09/10/17] Diazepam [Valium 5 MG (*)] 2.5 mg PO Q8H PRN 07/28/17 [Last Taken Unknown] Gabapentin [Neurontin 100 MG (*)] 200 mg PO TID 07/28/17 [Last Taken 08/06/17 20 :00] Levothyroxine [Synthroid 88 mcg (*)] 88 mcg PO DAILY06 07/28/17 [Last Taken 05/14] Ondansetron Odt [Zofran Odt 4 mg (*)] 4 mg PO Q6H PRN 07/28/17 [Last Taken 07/28] traZODone [traZODONE 50MG (*)] 75 mg PO HS 07/28/17 [Last Taken 08/06/17] Acetic Acid Irr Soln 0.25% 30 ml IRR HS 09/11/17 [Last Taken Unknown] Herbals/Supplements -Info Only 1 ea PO DAILY 09/11/17 [Last Taken Unknown] Methenamine Estephania [Hiprex 1 gm (*)] 0.5 gm PO BID 09/11/17 [Last Taken Unknown] Sennosides/Docusate Sodium [Senokot-S] 1 tab PO TID 09/11/17 [Last Taken Unknown ] Tears/Dextran 70/Hypromellose [Natural Balance Tears (*)] 1 drop EACHEYE DAILY PRN 09/11/17 [Last Taken Unknown] I have personally reviewed and updated: family history, medical history, social history, surgical history - Past Medical History atrial fibrillation, diabetes type 2, GERD Additional medical history: chronic decubs. partial c6-c7 quad - injury 2010 fall downstairs. neurogenic bladder/recurrent uti - indwelling and suprapubic catheters. C diff colitis. History of clavicular fracture. History close head injury. Hypothyroidism. Obesity BMI 36. GERD. History UTI with E coli, Enterococcus, Pseudomonas. History bladder cancer status post resection with placement of a ileo conduit/it neobladder. Cervical spine stenosis. Dm 2 diet controlled. - Surgical History Additional surgical history: Suprapubic catheter. Patient with lower mid abdominal scar. Bladder resection with ileal conduit. Cervical diskectomy and fusion. Back surgery - Family History Positive for: non-pertinent. Negative for: diabetes type II, vascular disease, CAD - Social History Smoking Status: Never smoked Alcohol Use: None Drug Use: None Additional social history: Patient resides in her private apartment with home care. Code status is DNR DNI Review of Systems Review of Systems: ROS: 10pt was reviewed & negative except for what was stated in HPI & below Physical Exam Physical Exam: Selected Entries 10/06/17 21:23 Heart Rate 93 Respiratory 18 Rate O2 Sat (%) 98 Temperature (C) 37.8 C Blood Pressure 95/54 L Mean Arterial 67 Pressure (MAP) O2 (L/minute) 3 O2 Delivery Nasal Cannula Mode Temperature Oral Source Temp Pulse Resp BP Pulse Ox 36.8 C 80 16 92/52 L 98 10/07/17 00:26 10/07/17 00:26 10/07/17 00:26 10/07/17 00:26 10/07/17 00:26 O2 (L/minute) 2 Constitutional: no apparent distress, chronically ill appearing, obese, other ( Patient appears fatigued, chronically ill. Nontoxic) Eyes: PERRL, anicteric sclera, EOMI, No pale conjunctiva Ears, Nose, Mouth, Throat: no oral mucosal ulcers, dry mucous membranes, other ( No nasal discharge), No poor dentition Cardiovascular: regular rate and rhythym, no murmur, rub, or gallop, systolic murmur (2/6), edema (Trace) Peripheral Pulses: 1+: dorsalis-pedis (R), dorsalis-pedis (L) Respiratory: no respiratory distress, no rales or rhonchi, clear to auscultation , reduced air movement (Bibasilar), No expiratory wheeze Gastrointestinal: normoactive bowel sounds, soft, non-tender abdomen, other ( Obese, multiple well-healed surgical scars. A right mid lower abdominal urostomy), No distension Genitourinary: other (Patient has urostomy bag with trailing catheter tubing.), No mirza in urethra Skin: warm, normal color, pressure ulcer (Sacral wound, irregularly outlined right vulvar ulceration as well as excoriations in the perineal area.), No erythema Musculoskeletal: other (Partial quadriplegia. Patient is able to move her upper extremities grossly but fine motor movements are limited.), No generalized weakness Neurologic: AAOx3, other (Partial quadriplegia. Movement as noted above.), No sensation intact bilaterally, No facial droop Psychiatric: interacting appropriately, not anxious, not encephalopathic, thought process linear, anxious, flat affect, No depressed Lab Data & Imaging Review 10/06/17 22:30 10/06/17 22:30 WBC 23.56 10^3/uL (3.80-9.50) H 10/06/17 22:30 RBC 4.21 10^6/uL (4.18-5.33) 10/06/17 22:30 Hgb 11.9 g/dL (12.6-16.3) L 10/06/17 22:30 Hct 36.1 % (38.0-47.0) L 10/06/17 22:30 MCV 85.7 fL (81.5-99.8) 10/06/17 22: MCH 28.3 pg (27.9-34.1) 10/06/17: MCHC 33.0 g/dL (32.4-36.7) 10/06/17: RDW 15.6 % (11.5-15.2) H 10/06/17:30 Plt Count 247 10^3/uL (150-400) 10/06/17: MPV 10.6 fL (8.7-11.7) 10/06/17 22:30 Neut % (Auto) 71.2 % (39.3-74.2) 10/06/17 22: Lymph % (Auto) 17.9 % (15.0-45.0) 10/06/17: [place] % (Auto) 9.7 % (4.5-13.0) 10/06/17:30 Eos % (Auto) 0.3 % (0.6-7.6) L 10/06/17: Baso % (Auto) 0.3 % (0.3-1.7) 10/06/17: Nucleat RBC Rel Count 0.0 % (0.0-0.2) 10/06/17:30 Absolute Neuts (auto) 16.81 10^3/uL (1.70-6.50) H 10/06/17 22:30 Absolute Lymphs (auto) 4.21 10^3/uL (1.00-3.00) H 10/06/17 22:30 Absolute Monos (auto) 2.28 10^3/uL (0.30-0.80) H 10/06/17 22:30 Absolute Eos (auto) 0.06 10^3/uL (0.03-0.40) 10/06/17 22:30 Absolute Basos (auto) 0.06 10^3/uL (0.02-0.10) 10/06/17 22:30 Absolute Nucleated RBC 0.00 10^3/uL (0-0.01) 10/06/17 22:30 Immature Gran % 0.6 % (0.0-1.1) 10/06/17 22:30 Immature Gran # 0.14 10^3/uL (0.00-0.10) H 10/06/17 22:30 Sodium 130 mEq/L (135-145) L 10/06/17 22:30 Potassium 4.6 mEq/L (3.5-5.2) 10/06/17 22:30 Chloride 98 mEq/L (97-110) 10/06/17 22:30 Carbon Dioxide 21 mEq/l (22-31) L 10/06/17:30 Anion Gap 11 mEq/L (8-16) 10/06/17 22:30 BUN 25 mg/dL (7-23) H 10/06/17 22:30 Creatinine 1.2 mg/dL (0.6-1.0) H 10/06/17 22:30 Estimated GFR 45 10/06/17:30 Glucose 185 mg/dL (70-100) H 10/06/17 22:30 Calcium 8.6 mg/dL (8.5-10.4) 10/06/17 22:30 Urine Color YELLOW 10/06/17 22:00 Urine Appearance HAZY 10/06/17 22:00 Urine pH 7.0 (5.0-7.5) 10/06/17 22:00 Ur Specific [place] 1.012 (1.002-1.030) 10/06/17 22:00 Urine Protein NEGATIVE (NEGATIVE) 10/06/17 22:00 Urine Ketones NEGATIVE (NEGATIVE) 10/06/17 22:00 Urine Blood 1+ (NEGATIVE) H 10/06/17 22:00 Urine Nitrate POSITIVE (NEGATIVE) H 10/06/17 22:00 Urine Bilirubin NEGATIVE (NEGATIVE) 10/06/17 22:00 Urine Urobilinogen NEGATIVE EU (0.2-1.0) 10/06/17 22:00 Ur Leukocyte Esterase 2+ (NEGATIVE) H 10/06/17 22:00 Urine RBC 1-3 /hpf (0-3) 10/06/17 22:00 Urine WBC 5-10 /hpf (0-3) H 10/06/17 22:00 Ur Epithelial Cells TRACE /lpf (NONE-1+) 10/06/17 22:00 Calcium Oxalate Crystal PRESENT /hpf (NONE-1+) 10/06/17 22:00 Urine Bacteria TRACE /hpf (NONE SEEN) H 10/06/17 22:00 Urine Mucus TRACE /lpf (NONE-1+) 10/06/17 22:00 Urine Glucose NEGATIVE (NEGATIVE) 10/06/17 22:00 Imaging Review: Chest, AP and lateral. History: Meets sepsis criteria. Suspected infection. Comparison: and August 2017. Findings: Heart size is within normal limits. Mild peribronchial wall thickening. Increased lung markings rest cardiac best seen on the lateral view. Elevation right hemidiaphragm which is stable. No evidence for pleural effusion. Degenerative change thoracic spine. Degenerative change left shoulder and old posttraumatic deformity left clavicle. Impression: Mild atelectasis or early infiltrate left lung base posteriorly. Mild underlying bronchitis. Assessment & Plan Assessment: Pleasant 61-year-old female with history of partial quadriplegia who presents for the 2nd time today to the ER with complaints of nausea, malaise, neck pain. 1. SIRS patient qualifies with initial tachycardia leukocytosis. Her blood pressures have been low normal but she is mentating okay. Patient with a history recurrent UTIs her urine is abnormal but she is more recently status post and placement of ileal conduit which is anticipated to be abnormal at baseline. Patient does complain of some new symptoms of dyspnea but no coughing. Chest x-ray does show some possible mild atelectasis versus early pneumonia in the left lower lobe. Given patient's history of Pseudomonas and recent hospitalizations she will be started on Levaquin for coverage. Blood cultures x2 and urine cultures have been ordered. Patient reports that her blood pressures however a baseline systolic Violeta 90s. She is asymptomatic. She will receive IV fluid hydration and monitored overnight following antibiotic therapy. 2. Nausea-likely related to patient's acute illness whether that be UTI versus early pneumonia. Antibiotics as noted above to continue. Zofran available p.r.n. 3. Neck pain-secondary to cervical spine stenosis on previous imaging from 1st ER visit yesterday. Exam consistent with more of a musculoskeletal soft tissue spasm. Continue with supportive care at this time. Pain medications as needed. 4. Sacral wound/vulvar and perineal wounds-wound care has been consulted this is ongoing. Present upon admission. 5. Hyponatremia - likely secondary to hypovolemia. Patient does appear slightly dry. 6. Acute kidney injury - continue IV fluid hydration. Baseline creatinine appears to be 0.6. 7. Partial quadriplegia 8. Anemia of chronic disease - H&H stable no evidence of active bleeding. 9. Dm 2-patient is generally diet controlled. Given concerns for acute infectious process and elevated blood sugars patient was started on low-dose sliding scale while inpatient. 10. GERD - asymptomatic and not currently on medications. FEN - IVF. electrolyte monitoring and replacement if needed. Diet as tolerated. PPX - SCD Lovenox if patient should stay additional day. Cor-DNR DNI Disposition patient will be admitted to observation status on the medical floor at this time pending results of studies as noted above.
[2017-10-07] MEDS: NS 1,000 ML IV SCH ×2 (01:04→10:05)
[2017-10-07] MEDS: HYDROCODONE/APAP 5/325 TAB PO PRN ×4 (01:55→21:00)
[2017-10-07] MEDS ORDERED: D50W 25 GM/50 ML SYR IVP PRN (07:23)
[2017-10-07] MEDS: ENOXAPARIN 40 MG/0.4 ML SYR SC SCH (08:42)
[2017-10-07] MEDS: INSULIN LISPRO 100 UNIT/ML SC SCH ×3 (08:42→18:32)
[2017-10-07] MEDS: ACETAMINOPHEN 325 MG TAB PO PRN ×2 (10:06→23:58)
--- NOTE | 2017-10-07 10:32 | ASMTCASEMG ---
Living Arrangements What is your living Answers: Alone arrangement? Who do you live with? Type Of Residence What kind of residence do Answers: House you live in? Discharge Plan Comments Coordination Status Comments Notes: Pt is a 61 y/o female admitted for nausea, malaise and neck pain. OT has been ordered and awaiting recommendations. Wound care is involved Needs are TBD at this time. CM to follow. Plan: TBD Date Signed: 10/07/2017 10:32 AM Electronically Signed By:GRIFFIN Loredo
[2017-10-07] MEDS ORDERED: TEARS/DEXTRAN 70/HYPROMELLOSE 15 ML OPHT.BTL EACHEYE PRN (14:30)
[2017-10-07] MEDS ORDERED: ONDANSETRON DISINTEGRATING 4 MG TAB PO PRN (14:30)
[2017-10-07] MEDS ORDERED: HYDROCODONE/APAP 5/325 TAB PO PRN (14:30)
--- NOTE | 2017-10-07 14:52 | WOCRNPDOC ---
WOCRN Advanced Assessment Note - Skin Integrity Problem, Advanced Assess Medial Coccyx Pressure Injury Dressing Type: Allevyn Life Dressing Description: Soiled (stool) Exudate Amount: Scant Exudate Color: Reddish/Yellow Exudate Characteristic(s): Serosanguinous Integumentary Issue Intervention: Dressing Applied, Hydrogel Applied Candis Wound Tissue: Blanching, Raw (r/t stool), Scarred Candis Wound Swelling: Mild Wound Bed Color: Red Wound Bed Constitution: Granulation Tissue, Undermining (in proximal wound) Wound Edges: Epithelizing Site Odor: None Site Measurement - Head-to-Toe Length X Width X Depth (cm): proximal: 0.6cmx0.7cmx0.2cm. distal: 0.3cmx0.2cmx0.2cm Pressure Injury Stage: Stage 4 (previously a larger, stage 4 pressure injury; staging guidelines mean wounds resumes former stage) Pressure Injury Present on Admit: Yes (documented in H&P) Skin Integrity Problem Comment: Two full-thickness pressure injuries noted on patient's coccyx, currently w/ the appearance of stage 3 pressure injuries w/ granulation tissue throughout and no exposed structures. However, these wounds were previously part of a much larger and extensive stage 4 wound, so staging guidelines dictate that wound resumes its former staging. Extensive scarring periwound, w/ raw denuded skin r/t incontinence of stool. As wounds are close together, one piece of Hydrofera Blue Ready foam was cut and placed into undermined area of proximal wound, then over the distal wound below. Explained to inspecting machine adjuster Anna that patient is frequently incontinent of stool, so outer Allevyn foam dressing may have to be changed more frequently. Pressure- relieving interventions put into place by nursing when patient arrived, including turns, TAPS, and Accu-max w/ pump.
--- NOTE | 2017-10-07 15:22 | HOSPPROG ---
Hospitalist Progress Note Assessment/Plan: Assessment: Brian 61-year-old female with history of partial quadriplegia who presents for the 2nd time today to the ER with complaints of nausea, malaise, neck pain. # SIRS (resolved) with unclear source of infection. Patient does not have symptoms of pneumonia despite chest x-ray showing mild to moderate atelectasis versus early pneumonia. She is certainly at risk for urinary tract infection however her last UA grew MRSA and Proteus that was resistant to levofloxacin. Will DC levofloxacin. I have ordered a procalcitonin. Will resume antibiotics as indicated if the patient shows signs of infection #Neck pain-secondary to cervical spine stenosis on previous imaging from 1st ER visit yesterday. Exam consistent with more of a musculoskeletal soft tissue spasm. Continue with supportive care at this time. Pain medications as needed. -neuro surgery consult for further evaluation since the patient does have some new arm weakness per history # Nausea-likely related to patient's acute illness whether that be UTI versus early pneumonia. Antibiotics as noted above to continue. Zofran available p.r.n. 4. Sacral wound/vulvar and perineal wounds-wound care has been consulted this is ongoing. Present upon admission. 5. Hyponatremia - likely secondary to hypovolemia. Patient does appear slightly dry. 6. Acute kidney injury - continue IV fluid hydration. Baseline creatinine appears to be 0.6. 7. Partial quadriplegia 8. Anemia of chronic disease - H&H stable no evidence of active bleeding. 9. Dm 2-patient is generally diet controlled. Given concerns for acute infectious process and elevated blood sugars patient was started on low-dose sliding scale while inpatient. 10. GERD - asymptomatic and not currently on medications. FEN - IVF. electrolyte monitoring and replacement if needed. Diet as tolerated. PPX - SCD Lovenox if patient should stay additional day. Cor-DNR DNI Needs inpatient status given the patient has multiple comorbid conditions he needs to be further evaluated for occult infection prior to being discharge Subjective: Continues to have severe neck pain and spasm. Reports some weakness in her arms. Denies any fevers or chills. Denies any cough or shortness of breath. Objective: Vital Signs Temp Pulse Resp BP Pulse Ox 36.4 C 75 18 92/35 L 93 10/07/17 14:53 10/07/17 14:53 10/07/17 14:53 10/07/17 14:53 10/07/17 14:53 10/06/17 10/07/17 10/08/17 05:59 05:59 05:59 Intake Total 2550 Output Total 1000 Balance 1550 - Physical Exam Constitutional: no apparent distress, appears nourished, not in pain Cardiovascular: regular rate and rhythym, no murmur, rub, or gallop Respiratory: no respiratory distress, no rales or rhonchi, clear to auscultation Musculoskeletal: other (Neck is tender to palpation over the left trapezius) Neurologic: AAOx3, No facial droop ICD10 Worksheet Patient Problems: Problems Problem Status Onset Chronic incomplete flaccid quadriplegia Acute UTI (urinary tract infection) Acute Severe sepsis Acute Weakness Acute Quadriplegia Acute Hyponatremia Acute Decubital ulcer Acute Diarrhea Acute Urethrovaginal fistula Acute Sepsis Acute Paraplegia Acute Fever Acute Leukocytosis Acute
--- NOTE | 2017-10-07 16:34 | PDMN ---
Medical Necessity Medical necessity: Pt meets INPT criteria per MD; est. LOS >2 MN for ongoing eval/mgmt of severe neck, spasm and new arm weakness with neurosurgery consult pending; SIRS, nausea, hyponatremia, BOOKER, comorbid DM2, sacral wounds, partial quadriplegia, anemia.
[2017-10-07 16:43] LABS: PLATELET COUNT 203 10^3/uL (150-400)
[2017-10-07] MEDS: GABAPENTIN 100 MG CAP PO SCH ×2 (17:25→21:01)
[2017-10-07] MEDS: BACLOFEN 10 MG TAB PO SCH (17:25)
[2017-10-07] MEDS: LORazepam 0.5 MG TAB PO PRN (19:26)
[2017-10-07] MEDS: BACLOFEN 20 MG TAB PO SCH (20:58)
[2017-10-07] MEDS: traZODone 50 MG TAB PO SCH (20:58)
[2017-10-07] MEDS: ZOLPIDEM TARTRATE 5 MG TAB PO SCH (21:00)
[2017-10-07] MEDS: METHENAMINE HIPP 1 GM TAB PO SCH (21:00)
--- NOTE | 2017-10-07 21:43 | GCON ---
[f rep st] CONSULTATION CONSULTATION/HISTORY AND PHYSICAL DATE OF CONSULTATION: 10/07/2017 Patient is seen in room 392 at 1600 on 10/07/2017. CHIEF COMPLAINT: Nausea, malaise, neck pain, as well as left greater than right upper extremity pain . HISTORY OF PRESENT ILLNESS: History was obtained from patient who is a fair historian. Electronic edical record was reviewed as well. The patient is a 61-year-old female who was admitted to the internal medicine service who has a histo ry of incomplete quadriplegia, recurrent UTIs, and history of bladder cancer, as well as a history of status post resection with neobladder implantation. She has other chronic medical conditions includ ing chronic sacral decubitus, GERD. She has type 2 diabetes that is diet controlled. Patient was seen in the emergency department on 10/06/2017 and had complaints of worsening neck pain. Patient arrived to the emergency department with her film laboratory technician who works with her at home and repor lenore that she was repositioned in a seated state and complained of worsening bilateral neck and should er pain since then. Upon my examination today and history, she complains of worsening neck pain as w ell as some tingling and numbness in her hands, worse on the left side compared to the right side. S he has a history of an incomplete quadriplegia and has minimal gross movement of her upper extremitie s. She has really no motion or movement in her lower extremities. She denies any worsening strength , but does complain mainly of the neck pain and numbness in her upper extremities as the most predomi nant complaint. Patient underwent a CT scan of the neck, which was significant for cervical spinal stenosis. She has had a prior cervical fusion done. She states it was done at this hospital, but could not give me th e name of the physician that performed the surgery. She has other medical complaints of increasing m alaise and does have some complaints of shortness of breath. Patient was admitted to the internal id dicine service, and we were consulted for the stenosis seen on the CT scan of the neck. REVIEW OF SYSTEMS: Complete review of systems noted in conjunction above with the HPI, noted for the following: Subjective fever. Eyes: No visual changes. No sore throat. No chest pain or shortnes s of breath. No cough or shortness of breath related. She denies any abdominal pain. No nausea, vo miting, or diarrhea. No hematuria. No back pain. She denies any headaches. PAST MEDICAL HISTORY: Significant for the following. 1. Hypertension. 2. AFib. 3. GERD. 4. Hypothyroidism. 5. Type 2 diabetes. 6. Anxiety. 7. C5 paraplegic. SURGICAL HISTORY: Anterior cervical diskectomy and fusion completed in 2007 by a physician at [facility]. Additional surgical history: Suprapubic catheter placement, bladder resection with ileal conduit, as well as prior history of back surgery. MEDICATIONS: Please see medication reconciliation form. SOCIAL HISTORY: Patient has never smoked. No alcohol use. No drug use. She resides in a private a partment with home care. She is DNR, DNI. IMMUNIZATIONS: Reported up-to-date. TRAVEL: No recent travel. PHYSICAL EXAM: GENERAL: This is an awake, alert, oriented female in no acute distress. VITAL SIGNS : Most recent, blood pressure 92/35 with a MAP of 54, 75 heart rate, 18 respirations, 93% on room ai r, temperature 36.4. HEENT: Head is normocephalic, atraumatic. Pupils are equal, round, reactive t o light. EOMs intact. Full visual gallagher by confrontation. Ears are patent. Nose is patent. NECK : Soft and supple. No midline tenderness. No crepitus. RESPIRATORY AND CARDIAC: Deferred. ABDOM EN: Soft, nontender. AND RECTAL: Deferred. NEURO: Patient is awake, alert, oriented to name, place, location, date, time, and situation. Memory is intact to immediate, past, current events. Sp eech: No aphasia, dysarthria, dysphonia. Cranial nerves 2-12 grossly intact. Motor: Patient has b ilateral lower extremity paralysis. Bilateral upper extremities: She has deltoids that are 4- out o f 5, biceps at 4+ out of 5, triceps at 3/5, wrist extension 3/5 bilaterally, intrinsic fingers 0/5, e xtension of long finger 0/5 bilaterally. Sensation is grossly intact to upper extremities. Reflexes of biceps and triceps are 1+ out of 5. MEDICAL DECISION MAKING/DIAGNOSTIC STUDIES: Laboratory tests obtained 10/06/2017 show a white count of 23.56 with an H and H 11.9 and 36.1, platelet count of 247. Chemistries on 10/06/2017: Sodium 13 0, potassium 4.6, chloride 98, CO2 21, BUN 25, creatinine 1.2, and a glucose of 185. Urine showed 1+ blood, positive nitrites, 2+ leukocytes, 5-10 WBCs, and trace bacteria noted. Will defer to Interna l Medicine for further evaluation of this. CT scan of the cervical spine obtained 10/06/2017 shows no definite fracture. There is moderate to s evere bilateral neural foraminal stenosis at C7-T1, mild central canal stenosis, degenerative grade 1 anterolisthesis, degenerative disk disease, bilateral facet arthropathy. There is prior noted cervi sarah diskectomy from C5 to C7. Pending MRI of the cervical spine. ASSESSMENT: 1. Incomplete quadriplegia from accident in 2007 with prior history of C5 to C7 anterior cervical di skectomy and fusion. 2. New onset of worsening neck pain as well as tingling in bilateral hands with left worse than the right. 3. Multiple medical conditions including diabetes, chronic decubitus ulcers, indwelling catheter, re current urinary tract infections, Clostridium difficile colitis, history of closed head injury, hypot hyroidism, obesity, gastroesophageal reflux disease, history of bladder cancer, and type 2 diabetes, being managed by Internal Medicine. PLAN AND DISCUSSION: The patient is a 61-year-old female who is admitted to internal medicine [facility]. We are consulted for worsening neck pain as well as pain in the upper extremities and some new ti ngling in the left hand greater than the right hand. On her CT scan, she has some adjacent segment i ssues at C7-T1. We recommended an MRI of the cervical spine, and this was ordered. She has really n o change in her motor function. She has incomplete quadriplegia related to an accident in [address]. Dr[address] Campa will see and evaluate the patient as well. Patient was instructed on the plan and agr eed. /[id number]/MODL
[2017-10-07] MEDS ORDERED: levOFLOXACIN 500 MG/DEXTROSE 100 ML IV SCH (23:00)
[2017-10-07] MEDS ORDERED: NS 1,000 ML IV ONE (23:19)
[2017-10-08] MEDS: LEVOTHYROXINE 88 MCG TAB PO SCH (04:55)
[2017-10-08] MEDS: BACLOFEN 10 MG TAB PO SCH ×3 (04:55→16:03)
--- NOTE | 2017-10-08 07:28 | NEUSURGPN ---
Assessment/Plan: Assessment: 61 yo female admitted to IM with multiple medical problems with new neck pain as well as L>R hand numbness Plan: -MRI of the C spine shows prior cord injury with some mild to moderate ASD above and below prior C5-C7 fusion -PT/OT -will discuss with Dr Call and likely recommend no further treatments at this time -d/w pt and she understands and agrees -call with any questions or concerns -take medications as directed -defer to IM for medical concerns -d/w Nanci Pantoja and ok for NS to sign off pending Dr Del Rosario review of images Subjective: Awake and alert. NAD. Pt with some continued neck pain. No new events overnight Objective: AAO x 3, PERRLA/EOMI no droop CN 2-12 grossly intact BLE-0/5 BUE-delt 4-/5, bi 4+/5, triceps 3/5, we 3/5, IF 0/5 Neuro Check Frequency: per routine Urinary Catheter in Place: No - Physician Discussed Patient with : Katheryn Patient Seen by : Katheryn Neurosurgery Physical Exam - Vitals, I&O, Labs I and O 10/07/17 10/08/17 10/09/17 05:59 05:59 05:59 Intake Total 1270 Output Total 4850 Balance -3580 Weight 83.4 kg Intake: Oral (ml) 1270 Output: Urine (ml) 4850 Catheter 4850 Other: Intake Quantity Yes Sufficient Number of Stools Incontinence 6 Vital Signs Temp Pulse Resp BP Pulse Ox 37.1 C 95 16 90/55 L 91 L 10/08/17 04:00 10/08/17 04:00 10/08/17 04:00 10/08/17 04:00 10/08/17 05:01 Laboratory Results 10/07/17 16:23 10/07/17 16:23 ICD10 Worksheet Patient Problems: Problems Problem Status Onset Fever Acute Leukocytosis Acute Sepsis Acute Chronic incomplete flaccid quadriplegia Acute Decubital ulcer Acute Diarrhea Acute Hyponatremia Acute Paraplegia Acute Quadriplegia Acute Severe sepsis Acute UTI (urinary tract infection) Acute Urethrovaginal fistula Acute Weakness Acute
[2017-10-08 08:27] LABS: PLATELET COUNT 214 10^3/uL (150-400)
[2017-10-08] MEDS: HYDROCODONE/APAP 5/325 TAB PO PRN ×2 (08:56→20:12)
[2017-10-08] MEDS: CITALOPRAM 20 MG TAB PO SCH (08:56)
[2017-10-08] MEDS: METHENAMINE HIPP 1 GM TAB PO SCH ×2 (08:57→20:11)
[2017-10-08] MEDS: ENOXAPARIN 40 MG/0.4 ML SYR SC SCH (08:57)
[2017-10-08] MEDS: GABAPENTIN 100 MG CAP PO SCH ×3 (08:57→20:13)
--- NOTE | 2017-10-08 09:41 | HOSPPROG ---
Hospitalist Progress Note Assessment/Plan: Brian 61-year-old female with history of partial quadriplegia who presents for the 2nd time today to the ER with complaints of nausea, malaise, neck pain. Patient lives independently and may need more care.Today is my first encounter with the patient, chart reviewed. Discussed her care w neurosurgery. *SIRS -probably due to the below -has an elevated procalcitonin 3.69/ likelydue to the below *diarrhea -c diff colitis -start vanco *neck pain -reviewed MRI of cervical spine, nothing acute -trial of soft collar to help support the neck -Lidoderm patch -appreciate neurosurgery *Sacral wound, vulvar and perineal wounds -ask wound care to see *hyponatremia -resolved *BOOKER -resolved *Incomplete quadriplegia from an accident in 2007 *DM2 -diet controlled *anemia *gerd *plan: place on isolation, start treatment w oral vanco, soft neck collar and Lidoderm patch Subjective: Loida is c/o ongoing neck pain. Objective: Vital Signs Temp Pulse Resp BP Pulse Ox 37.2 C 91 16 112/62 95 10/08/17 07:37 10/08/17 07:37 10/08/17 07:37 10/08/17 07:37 10/08/17 07:37 Microbiology 10/08/17 01:30 Gastrointestinal Tract Panel (PCR) - Final Stool Clostridium Difficile Detected Laboratory Results 10/08/17 08:17 10/07/17 16:23 10/07/17 10/08/17 10/09/17 05:59 05:59 05:59 Intake Total 1270 Output Total 4850 Balance -3580 - Physical Exam Constitutional: chronically ill appearing, obese, uncomfortable, No not in pain (neck area) Eyes: PERRL Ears, Nose, Mouth, Throat: hearing normal Cardiovascular: regular rate and rhythym Respiratory: no respiratory distress, reduced air movement Skin: warm Musculoskeletal: generalized weakness Neurologic: AAOx3 Psychiatric: interacting appropriately ICD10 Worksheet Patient Problems: Problems Problem Status Onset Fever Acute Leukocytosis Acute Sepsis Acute Chronic incomplete flaccid quadriplegia Acute Decubital ulcer Acute Diarrhea Acute Hyponatremia Acute Paraplegia Acute Quadriplegia Acute Severe sepsis Acute UTI (urinary tract infection) Acute Urethrovaginal fistula Acute Weakness Acute
[2017-10-08] MEDS: INSULIN LISPRO 100 UNIT/ML SC SCH ×3 (10:28→17:25)
[2017-10-08] MEDS: VANCOMYCIN 125 MG/2.5 ML UDL PO SCH ×3 (11:38→20:16)
[2017-10-08] MEDS: LIDOCAINE 4%/MENTHOL 1% PATCH TD SCH (15:18)
[2017-10-08] MEDS: ACETAMINOPHEN 325 MG TAB PO PRN (18:11)
[2017-10-08] MEDS: ZOLPIDEM TARTRATE 5 MG TAB PO SCH (20:11)
[2017-10-08] MEDS: traZODone 50 MG TAB PO SCH (20:12)
[2017-10-08] MEDS: BACLOFEN 20 MG TAB PO SCH (20:12)
[2017-10-08] MEDS: LORazepam 0.5 MG TAB PO PRN (20:13)
[2017-10-08] MEDS: PATCH REMOVAL 1 EA PATCH TD SCH (23:04)
[2017-10-09] MEDS: VANCOMYCIN 125 MG/2.5 ML UDL PO SCH ×4 (04:59→20:42)
[2017-10-09] MEDS: BACLOFEN 10 MG TAB PO SCH ×3 (04:59→17:05)
[2017-10-09] MEDS: LEVOTHYROXINE 88 MCG TAB PO SCH (04:59)
[2017-10-09] MEDS: HYDROCODONE/APAP 5/325 TAB PO PRN (05:09)
[2017-10-09] MEDS: ACETAMINOPHEN 325 MG TAB PO PRN ×3 (05:09→17:56)
[2017-10-09 05:15] LABS: PLATELET COUNT 246 10^3/uL (150-400)
--- NOTE | 2017-10-09 09:01 | HOSPPROG ---
Hospitalist Progress Note Assessment/Plan: Brian 61-year-old female with history of partial quadriplegia who presents for the 2nd time today to the ER with complaints of nausea, malaise, neck pain. Patient lives independently and may need more care. *SIRS -probably due to the below -has an elevated procalcitonin 3.69/ likely due to the below *diarrhea -c diff colitis -vanco/day #2 *delirium -varies, sometimes calm and then teary eyed and wants to leave *pyuria -+ gram neg rods, enterococcus faecium -reviewed this with the ID doctor, he says this is chronic colonization form her bladder reconstruction and that she doesn't have a uti *neck pain -reviewed MRI of cervical spine, nothing acute -trial of soft collar to help support the neck -Lidoderm patch -appreciate neurosurgery *Sacral wound, vulvar and perineal wounds -ask wound care to see *hyponatremia -resolved *BOOKER -resolved *Incomplete quadriplegia from an accident in 2007 *hx of CHI *DM2 -diet controlled *anemia *gerd *hypotension -giving fluid bolus -consider midodrine if bp cont to remain low after fluid bolus -has been low throughout her stay, poss related too her quadriplegia *plan: ask ID to see, reviewed her care w Neurosurgery, she is not a surgical candidate Subjective: Loida wants to leave, her neck hurts, her hands feel numb Objective: Vital Signs Temp Pulse Resp BP Pulse Ox 37.8 C 80 16 102/56 L 99 10/09/17 08:00 10/09/17 08:00 10/09/17 08:00 10/09/17 08:00 10/09/17 08:00 Microbiology 10/08/17 01:30 Gastrointestinal Tract Panel (PCR) - Final Stool Clostridium Difficile Detected Laboratory Results 10/09/17 05:02 10/09/17 05:02 10/08/17 10/09/17 10/10/17 05:59 05:59 05:59 Intake Total 1270 Output Total 4850 3050 900 Balance -4169 -6660 900 - Physical Exam Constitutional: chronically ill appearing, obese Eyes: PERRL Ears, Nose, Mouth, Throat: hearing normal Cardiovascular: regular rate and rhythym Respiratory: no respiratory distress Gastrointestinal: normoactive bowel sounds Skin: warm Neurologic: AAOx3, other (this varies through out the morning) Psychiatric: poor insight, poor memory ICD10 Worksheet Patient Problems: Problems Problem Status Onset Fever Acute Leukocytosis Acute Sepsis Acute Chronic incomplete flaccid quadriplegia Acute Decubital ulcer Acute Diarrhea Acute Hyponatremia Acute Paraplegia Acute Quadriplegia Acute Severe sepsis Acute UTI (urinary tract infection) Acute Urethrovaginal fistula Acute Weakness Acute
[2017-10-09] MEDS: GABAPENTIN 100 MG CAP PO SCH ×2 (09:04→17:05)
[2017-10-09] MEDS: CITALOPRAM 20 MG TAB PO SCH (09:04)
[2017-10-09] MEDS: METHENAMINE HIPP 1 GM TAB PO SCH ×2 (09:07→20:40)
[2017-10-09] MEDS: LIDOCAINE 4%/MENTHOL 1% PATCH TD SCH (09:08)
[2017-10-09] MEDS: ENOXAPARIN 40 MG/0.4 ML SYR SC SCH (09:08)
[2017-10-09] MEDS: INSULIN LISPRO 100 UNIT/ML SC SCH ×3 (09:24→17:59)
[2017-10-09] MEDS ORDERED: NS 500 ML IV ONE ×2 (11:15→17:06)
[2017-10-09] MEDS: IBUPROFEN 200 MG TAB PO PRN ×3 (12:01→23:59)
[2017-10-09] MEDS: DIAZEPAM 5 MG TAB PO PRN (15:45)
[2017-10-09] MEDS ORDERED: GABAPENTIN 100 MG CAP PO SCH (17:07)
--- NOTE | 2017-10-09 17:12 | ASMTCMCOM ---
CM Note CM Note Notes: Pt. is a 61-year-old woman admitted with nausea, malaise, and neck pain. Pt. w/ hx. of incomplete quadriplegia, closed head injury from a fall down stairs in 2010, recurrent UTIs, bladder cancer, chronic sacral and vulvar wounds, and Cdiff. Pt. Cdiff positive now per hospitalist. Pt's brother Christopher Rodríguez is her MDPOA per electronic chart. Per RN, he visited today. OT recommending Pt. go home with her cargiver who comes from 8:00am-9:00pm each day. PT declines to see. Per notes, Pt. has a olga lift at home. SWer to f/u with Pt. and/or Christopher to get caregiver provider company name. Date Signed: 10/09/2017 05:11 PM Electronically Signed By:Dai Flanagan LCSW
[2017-10-09] MEDS: PATCH REMOVAL 1 EA PATCH TD SCH (20:00)
[2017-10-09] MEDS: BACLOFEN 20 MG TAB PO SCH (20:40)
[2017-10-09] MEDS: traZODone 50 MG TAB PO SCH (23:02)
[2017-10-09] MEDS: ZOLPIDEM TARTRATE 5 MG TAB PO SCH (23:03)
[2017-10-10] MEDS: LEVOTHYROXINE 88 MCG TAB PO SCH (05:04)
[2017-10-10] MEDS: IBUPROFEN 200 MG TAB PO PRN ×3 (05:04→23:55)
[2017-10-10] MEDS: VANCOMYCIN 125 MG/2.5 ML UDL PO SCH ×4 (05:04→20:17)
[2017-10-10] MEDS: BACLOFEN 10 MG TAB PO SCH ×3 (05:04→17:04)
--- NOTE | 2017-10-10 07:19 | SOAPPROG ---
SOAP Progress Note Assessment/Plan: Assessment: MRI with Dr Call and Dr Shah and no surgical lesion noted. She has some FS above and below her fusion. There is no central cord stenosis. We recommend an opinion from Neurology. Assessment/Plan: Assessment: 61 yo female admitted to IM with multiple medical problems with new neck pain as well as L>R hand numbness. reports "more tingling" in right arm and more right sided neck pain this AM. Plan: -Neurology consult this AM -MRI of the C spine shows prior cord injury with some mild to moderate ASD above and below prior C5-C7 fusion -PT/OT as tolerated -no neurosurgical intervention planned per discussion with Dr. Call who reviewed images yesterday -call with any questions or concerns -defer to IM for medical concerns Subjective: Asleep, wakes easily and is comfortable but states she has 9/10 neck pain. Alert. No new events overnight Objective: AAO x 3, PERRLA/EOMI no droop CN 2-12 grossly intact BLE-0/5 BUE-delt 4-/5, bi 4+/5, triceps 3/5, we 3/5, IF 0/5, foley artist 0/5 Objective: Vital Signs Temp Pulse Resp BP Pulse Ox 36.9 C 70 17 123/77 H 97 10/10/17 04:00 10/10/17 04:00 10/10/17 04:00 10/10/17 04:00 10/10/17 04:00 Laboratory Results 10/09/17 05:02 10/09/17 05:02 10/09/17 10/10/17 10/11/17 05:59 05:59 05:59 Intake Total 4100 Output Total 3050 2825 Balance -3050 1275 ICD10 Worksheet Patient Problems: Problems Problem Status Onset Fever Acute Leukocytosis Acute Sepsis Acute Chronic incomplete flaccid quadriplegia Acute Decubital ulcer Acute Diarrhea Acute Hyponatremia Acute Paraplegia Acute Quadriplegia Acute Severe sepsis Acute UTI (urinary tract infection) Acute Urethrovaginal fistula Acute Weakness Acute
[2017-10-10] MEDS: ACETAMINOPHEN 325 MG TAB PO PRN ×2 (07:52→20:18)
[2017-10-10] MEDS: MIDODRINE HCL 5 MG TAB PO SCH ×3 (07:54→16:01)
[2017-10-10] MEDS: DIAZEPAM 5 MG TAB PO PRN (07:59)
--- NOTE | 2017-10-10 08:14 | GCON ---
[f rep st] CONSULTATION REFERRING PHYSICIAN: Lizzie Pantoja NP HISTORY: The patient is a 61-year-old woman who I am asked to see in neurologic consultation miltoni lizy complaints of neck pain as well as increasing weakness in the arms and variable degrees of paresth esias. She has a chronic spinal cord injury with incomplete quadriplegia. She says at baseline she operates a motorized wheelchair and can do so effectively with her arms. She has no significant func tion in her legs, but says she has some sensation. About a week ago, she was being placed in a wheel chair, which she said was slightly different than her normal, and developed some discomfort in her ne ck. She had gone to the store and said over the course of many hours was having increasing pain in h er neck, which is not a baseline condition. She did not notice radiation of pain into the arms, nor has that become a situation since hospitalization. However, she says she is having pain that can nida ch 10/10 in intensity in her neck without radiating into the arms. She continues to feel the arms ar e weaker than her baseline, although she does have minimal function of her hands. She typically can manipulate control of her electric wheelchair affectively. Sometimes there are abnormal sensations o f paresthesias, but that is not very prominent in the arms now. In the lower extremities, she says t hey feel a little bit more tingling or abnormal in terms of the sensory phenomena. No specific sympt oms referable to the cranial nerves. She has had neurosurgical consultation and no new structural pa thology seems to be evident and certainly no evidence of compressive lesions. Her MRI shows severe s naga cord atrophy from her old trauma, which extends from predominantly the C5 level down to C7. She tells me that a few days prior to the onset of these symptoms, she was developing flu type illnes s with some upper respiratory complaints. She has not had this kind of exacerbation of symptoms before. She has a history of urinary tract inf ection and bladder cancer and apparently has a neobladder. There is also history of diabetes. She i s having nausea, the neck pain as well and was diagnosed with SIRS. There was a question of atelecta sis versus pneumonia in the left lower lobe. When I first spoke to her this morning, she said that her neck was about 7/10 with pain. As we moved it slightly, she said it started to increase in intensity, but remained in the posterior neck region . PAST MEDICAL HISTORY: As outlined above. SOCIAL HISTORY: She is a nonsmoker. No alcohol abuse. FAMILY HISTORY: Noncontributory. She has home care and is in a private apartment. MEDICATIONS: In reviewing her medications, she says she takes the baclofen and but is not sure how h elpful that is, but she understands it is for spasms predominantly. She is also on gabapentin with a n admitting dose of 200 mg three times daily. Here in the hospital she remains on baclofen 20 mg in the evening and then 10 mg scheduled three times per day. Valium is 2.5 mg every eight hours as need ed, gabapentin 300 mg three times per day. Multiple other medicines as outlined. ALLERGIES: Codeine. PHYSICAL EXAMINATION: The blood pressure is 123/77, pulse of 70, respiration 17, temperature 36.9. In general she is an overweight woman lying in the bed and a little lethargic from waking up this mor domenico, but able to communicate effectively. She is oriented. She is calm and speaks slowly and delib erately, but in a logical fashion. No cranial nerve abnormalities. On the motor exam, extremities h ave mostly decreased tone. No movement in the lower extremities with stimulation or spontaneously. In the upper extremities there is minimal to no movement in her hands. 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 The more proximal strength is in the 3-4/5 range with a tendency for arms to collapse on testing some of the strength, suggesting perhaps some decreased consistent effort. The sensation is diminished i n the extremities, but she recognizes touch and temperature perceptions. LABORATORY STUDIES: White blood cell count of 13, hematocrit 33%. Blood chemistry unremarkable. Ur ine showing 5-10 white cells with trace bacteria. IMPRESSION: This patient has an old cervical spinal cord injury and is having some flare up of neuro logic symptoms in the form of weakness of the arms more than her baseline and some significant neck p ain. The working hypothesis would be that she is experiencing exacerbation of neurologic deficits in the setting of an acute illness. There is not evidence of a new, evolving spinal cord syndrome. Th e focus will be on helping to manage symptoms as best we can with adjustment of medication. I explai bambi all of this to her. I think we will start with increasing the dose of gabapentin. I will make t hat 600 mg three times per day and see if it is going to help ease some of the symptoms as she slowly stabilizes and likely will improve back toward her baseline. Beyond that, I do not suspect central nervous system infection. Total unit time 70 minutes. /[id number]/MODL
--- NOTE | 2017-10-10 08:37 | WOCRNPDOC ---
WOCRN Advanced Assessment Note - Skin Integrity Problem, Advanced Assess Medial Abdomen Scab Dressing Type: Allevyn Life Dressing Description: Shadowed Exudate Amount: Minimal Exudate Color: Reddish/Yellow Exudate Characteristic(s): Serosanguinous Integumentary Issue Intervention: Dressing Applied, Dressing Changed, Hydrogel Applied Candis Wound Tissue: Blanching, Erythema, Scarred Candis Wound Swelling: Mild Wound Bed Color: Red Wound Bed Constitution: Granulation Tissue Wound Edges: Epithelizing Site Odor: None Site Measurement - Head-to-Toe Length X Width X Depth (cm): Proximal: 1cmx0.9cmx0.2cm. Distal: 0.7cmx0.8cmx0.1cm Skin Integrity Problem Comment: Two, discrete wounds on patient's abdomen, both located on the proximal aspect of a healing midline incision from patient's ileal conduit surgery a few months ago. Wounds are granulating w/ no apparent necrosis, epithelialization along the margins. Applied Hydrofera Blue Ready to both wound beds in order to fill in the depth, and covered w/ one Allevyn Life dressing. Periwound skin is scarred, but otherwise intact. Coccyx Pressure Injury Dressing Type: Mepilex Border Dressing Description: Soiled (stool) Exudate Amount: Scant Exudate Color: Reddish/Yellow Exudate Characteristic(s): Serosanguinous Integumentary Issue Intervention: Dressing Changed, Hydrogel Applied Candis Wound Tissue: Blanching, Erythema, Denuded, Scarred Candis Wound Swelling: Mild Wound Bed Color: Red Wound Bed Constitution: Red/Coleman - Non Granular Tissue Site Odor: None Site Measurement - Head-to-Toe Length X Width X Depth (cm): proximal: 0.6cmx0.7cmx0.2cm. 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 Currently both wounds are full-thickness w/ no exposed structures, w/ appearance of stage 3 injuries. Extensive scar tissue and blanching erythema periwound, w/ raw denuded skin r/t fecal incontinence. Wound has been problematic for nursing, who reports that patient's frequent, loose stools are necessitating dressing changes 3-4x/day. Unfortunately the wounds do need to remain covered and filled, as there in undermining in the proximal wound. Will continue w/ plan of care. Calazime paste applied right up to dressing to protect skin from stool. Ordered in-house bariatric bed w/ P500 mattress for more aggressive off-loading. Right Posterior Upper Thigh Pressure Injury Dressing Type: Open to Air Exudate Amount: None Candis Wound Tissue: Blanching, Intact Candis Wound Swelling: None Wound Bed Color: Purple Site Measurement - Head-to-Toe Length X Width X Depth (cm): 4.1cmx0.5mqy4we Pressure Injury Stage: Deep Tissue Injury (DTI) Pressure Injury Present on Admit: No (Hospitalist notified) Skin Integrity Problem Comment: Linear area of purple tissue noted at the very top of patient's R posterior thigh, appearance consistent w/ suspected deep tissue injury. Skin is currently intact over this tissue, w/ no swelling observed. Periwound skin currently intact and blanching. Uncertain of etiology, though patient did have a plastic-backed chux placed under her; wound looks like it could have been caused by a crease in chux, or bunched up chux. This layer was removed, and this author reiterated importance of minimal layers under patient. In-house bariatric bed ordered from [facility] w/ P500 mattress for more aggressive off-loading. Patient repositioned on L side using TAPS system. - Urostomy Assessment, Advanced Right Anterior Lower Lateral Abdomen Urostomy Urostomy Appliance Intact: No Urostomy Appliance Currently in Use: Two Piece Flat, 2 1/4 Urostomy Accessory: Tube Adaptor Stoma Color: Red Stoma Turgor: Moist Stoma Shape: Oval Stoma Height: Protruding Slightly Mucocutaneus Junction: Intact Urostomy Effluent: Urine Urostomy Details: Ileal Conduit Peristomal Skin: Intact Urostomy Comment/Treatment Details: Patient's urostomy appliance was noted to be leaking during skin assessment. Removed existing barrier. Skin intact, no peristomal breakdown observed. New 2 1/4" appliance placed, then attached to bedside drainage system. Wound/data security coordinator does not need to follow this patient for this, as bedside nurses can manage.
[2017-10-10] MEDS: INSULIN LISPRO 100 UNIT/ML SC SCH ×3 (10:04→18:41)
[2017-10-10] MEDS: CITALOPRAM 20 MG TAB PO SCH (10:20)
[2017-10-10] MEDS: METHENAMINE HIPP 1 GM TAB PO SCH ×2 (10:21→20:18)
[2017-10-10] MEDS: GABAPENTIN 300 MG CAP PO SCH ×3 (10:23→23:10)
[2017-10-10] MEDS: ENOXAPARIN 40 MG/0.4 ML SYR SC SCH (10:28)
[2017-10-10] MEDS: LIDOCAINE 4%/MENTHOL 1% PATCH TD SCH (10:35)
--- NOTE | 2017-10-10 15:52 | ASMTCMCOM ---
CM Note CM Note Notes: Today SWer met w/ Pt. in her room alone. Pt. states she is feeling better, but still weak. Would like to go home with the caregivers she has already set up to help her live independently in her apartment. Pt states she is not interested in additional skilled homecare at this time. Pt. receives a caregiver to help her with her ADLs from 8:00am through 9:00pm everyday through a special HCBS program called [employer]. Ronda is the coordinator of Pt's care through [phone]. Ronda asked Sara to hard fax updates to her today. Sara did so. Plan for Medicaid [facility] stretcher home when ready. Pt's electric wheelchair is at home per Ronda. CM to follow for d/c POC. Date Signed: 10/10/2017 03:51 PM Electronically Signed By:Dai Flanagan LCSW
--- NOTE | 2017-10-10 16:13 | HOSPPROG ---
Hospitalist Progress Note Assessment/Plan: Assessment: Pleasant 61-year-old female with history of partial quadriplegia who presents for the 2nd time today to the ER with complaints of nausea, malaise, neck pain. Patient lives independently and may need more care.Today is my first encounter with the patient, chart reviewed. Discussed her care w neurosurgery. 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 no fever or chills. overall doing better today Objective: Vital Signs Temp Pulse Resp BP Pulse Ox 36.8 C 66 18 137/76 H 96 10/10/17 15:37 10/10/17 15:37 10/10/17 15:37 10/10/17 15:37 10/10/17 15:37 Laboratory Results 10/09/17 05:02 10/09/17 05:02 10/09/17 10/10/17 10/11/17 05:59 05:59 05:59 Intake Total 4100 Output Total 3050 2825 Balance -3050 1275 - Physical Exam Ears, Nose, Mouth, Throat: moist mucous membranes, hearing normal, ears appear normal, no oral mucosal ulcers Cardiovascular: regular rate and rhythym, no murmur, rub, or gallop Respiratory: no respiratory distress, no rales or rhonchi, clear to auscultation Gastrointestinal: normoactive bowel sounds, soft, non-tender abdomen, no palpable masses ICD10 Worksheet Patient Problems: Problems Problem Status Onset Chronic incomplete flaccid quadriplegia Acute UTI (urinary tract infection) Acute Severe sepsis Acute Weakness Acute Quadriplegia Acute Hyponatremia Acute Decubital ulcer Acute Diarrhea Acute Urethrovaginal fistula Acute Sepsis Acute Paraplegia Acute Fever Acute Leukocytosis Acute
[2017-10-10] MEDS: BACLOFEN 20 MG TAB PO SCH (20:18)
[2017-10-10] MEDS: PATCH REMOVAL 1 EA PATCH TD SCH (20:35)
[2017-10-10] MEDS: traZODone 50 MG TAB PO SCH (23:10)
[2017-10-10] MEDS: ZOLPIDEM TARTRATE 5 MG TAB PO SCH (23:11)
[2017-10-11] MEDS ORDERED: CEPACOL LOZENGE PO PRN (00:45)
[2017-10-11] MEDS: LEVOTHYROXINE 88 MCG TAB PO SCH (05:18)
[2017-10-11] MEDS: BACLOFEN 10 MG TAB PO SCH ×3 (05:18→16:03)
[2017-10-11] MEDS: VANCOMYCIN 125 MG/2.5 ML UDL PO SCH ×4 (05:18→21:07)
[2017-10-11] MEDS: MIDODRINE HCL 5 MG TAB PO SCH ×3 (08:50→16:03)
[2017-10-11] MEDS: ACETAMINOPHEN 325 MG TAB PO PRN (08:50)
[2017-10-11] MEDS: GABAPENTIN 300 MG CAP PO SCH ×3 (08:50→21:06)
[2017-10-11] MEDS: CITALOPRAM 20 MG TAB PO SCH (08:52)
[2017-10-11] MEDS: METHENAMINE HIPP 1 GM TAB PO SCH ×2 (08:52→21:06)
[2017-10-11] MEDS: ENOXAPARIN 40 MG/0.4 ML SYR SC SCH (08:54)
[2017-10-11] MEDS: LIDOCAINE 4%/MENTHOL 1% PATCH TD SCH (08:56)
[2017-10-11] MEDS: INSULIN LISPRO 100 UNIT/ML SC SCH ×3 (08:58→17:20)
--- NOTE | 2017-10-11 10:48 | HOSPPROG ---
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 old records reviewed and summarized as above. Care plan reviewed with Dr. Baker. Subjective: no acute overnight events, afternoon complaints of increased neck pain and numbness/tingling to bilateral hands Objective: Vital Signs Temp Pulse Resp BP Pulse Ox 36.9 C 62 18 148/80 H 96 10/11/17 08:00 10/11/17 08:00 10/11/17 08:00 10/11/17 08:00 10/11/17 08:00 Laboratory Results 10/09/17 05:02 10/09/17 05:02 10/10/17 10/11/17 10/12/17 05:59 05:59 05:59 Intake Total 4100 1610 Output Total 2825 3075 Balance 1275 -1465 awake alert nad anicteric op clear rrr no mrg cta b soft nt nd no cce warm dry well perfused oriented appropriate - Time Spent With Patient Time Spent with Patient: greater than 35 minutes Time Spent with Patient: Greater than 35 minutes spent on this patients care, greater than 50% of time spent counseling, educating, and coordinating care regarding the above mentioned plan. ICD10 Worksheet Patient Problems: Problems Problem Status Onset Chronic incomplete flaccid quadriplegia Acute UTI (urinary tract infection) Acute Severe sepsis Acute Weakness Acute Quadriplegia Acute Hyponatremia Acute Decubital ulcer Acute Diarrhea Acute Urethrovaginal fistula Acute Sepsis Acute Paraplegia Acute Fever Acute Leukocytosis Acute
[2017-10-11] MEDS: HYDROCODONE/APAP 5/325 TAB PO PRN ×2 (13:07→23:26)
[2017-10-11] MEDS: traZODone 50 MG TAB PO SCH (21:06)
[2017-10-11] MEDS: BACLOFEN 20 MG TAB PO SCH (21:07)
[2017-10-11] MEDS: ZOLPIDEM TARTRATE 5 MG TAB PO SCH (21:07)
[2017-10-11] MEDS: PATCH REMOVAL 1 EA PATCH TD SCH (21:12)
[2017-10-12] MEDS: VANCOMYCIN 125 MG/2.5 ML UDL PO SCH ×4 (05:46→20:21)
[2017-10-12] MEDS: LEVOTHYROXINE 88 MCG TAB PO SCH (05:46)
[2017-10-12] MEDS: HYDROCODONE/APAP 5/325 TAB PO PRN ×4 (05:46→22:36)
[2017-10-12] MEDS: BACLOFEN 10 MG TAB PO SCH ×3 (05:46→16:27)
[2017-10-12] MEDS: LIDOCAINE 4%/MENTHOL 1% PATCH TD SCH (10:26)
[2017-10-12] MEDS: CITALOPRAM 20 MG TAB PO SCH (10:32)
[2017-10-12] MEDS: GABAPENTIN 300 MG CAP PO SCH ×3 (10:32→21:22)
[2017-10-12] MEDS: METHENAMINE HIPP 1 GM TAB PO SCH ×2 (10:34→20:20)
[2017-10-12] MEDS: ACETAMINOPHEN 325 MG TAB PO PRN (10:35)
[2017-10-12] MEDS: MIDODRINE HCL 5 MG TAB PO SCH ×3 (10:35→18:12)
[2017-10-12] MEDS: INSULIN LISPRO 100 UNIT/ML SC SCH ×3 (10:37→18:48)
[2017-10-12] MEDS: ENOXAPARIN 40 MG/0.4 ML SYR SC SCH (10:38)
--- NOTE | 2017-10-12 17:20 | ASMTCMCOM ---
CM Note CM Note Notes: Spoke with MD & RN. Anticipate dc home tomorrow with [facility] Careg[facility]. Alerted Ronda, at [facility]. CM will need to fax dc paperwork to Ronda at time of dc (# in previous note). Also updated pt's cousin Linda ([phone]). CM will need to arrange Medicaid [facility] stretcher for pt at time of dc & coordinate with Ronda on making sure caregivers are available to meet once pt is home. CM wll follow. Date Signed: 10/12/2017 05:19 PM Electronically Signed By:Genoveva Zhong RN
[2017-10-12] MEDS: DOCUSATE SODIUM 100 MG CAP PO SCH (18:12)
[2017-10-12] MEDS: BACLOFEN 20 MG TAB PO SCH (20:21)
[2017-10-12] MEDS: PATCH REMOVAL 1 EA PATCH TD SCH (20:22)
--- NOTE | 2017-10-12 20:55 | HOSPPROG ---
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 *DM2 -diet controlled *anemia *gerd IP status Care plan reviewed with CM Subjective: no change in neck pain, lidocaine patches seem to help, diarrhea largely resolved Objective: Vital Signs Temp Pulse Resp BP Pulse Ox 37.1 C 66 18 124/76 H 96 10/12/17 16:00 10/12/17 16:00 10/12/17 16:00 10/12/17 16:00 10/12/17 16:00 Laboratory Results 10/09/17 05:02 10/09/17 05:02 10/11/17 10/12/17 10/13/17 05:59 05:59 05:59 Intake Total 1610 2750 500 Output Total 3075 3100 1999 Balance -1465 -350 -1500 awake alert nad anicteric op clear rrr no mrg cta b soft nt nd no cce warm dry well perfused oriented appropriate - Time Spent With Patient Time Spent with Patient: greater than 35 minutes Time Spent with Patient: Greater than 35 minutes spent on this patients care, greater than 50% of time spent counseling, educating, and coordinating care regarding the above mentioned plan. ICD10 Worksheet Patient Problems: Problems Problem Status Onset Chronic incomplete flaccid quadriplegia Acute UTI (urinary tract infection) Acute Severe sepsis Acute Weakness Acute Quadriplegia Acute Hyponatremia Acute Decubital ulcer Acute Diarrhea Acute Urethrovaginal fistula Acute Sepsis Acute Paraplegia Acute Fever Acute Leukocytosis Acute
[2017-10-12] MEDS: DIAZEPAM 5 MG TAB PO PRN (21:22)
[2017-10-12] MEDS: ZOLPIDEM TARTRATE 5 MG TAB PO SCH (22:31)
[2017-10-12] MEDS: traZODone 50 MG TAB PO SCH (22:32)
[2017-10-12] MEDS: LORazepam 0.5 MG TAB PO PRN (22:35)
[2017-10-13] MEDS: HYDROCODONE/APAP 5/325 TAB PO PRN (02:38)
[2017-10-13 03:00] VITALS: PULSE 61
[2017-10-13] MEDS: BACLOFEN 10 MG TAB PO SCH ×2 (05:11→10:11)
[2017-10-13] MEDS: VANCOMYCIN 125 MG/2.5 ML UDL PO SCH (05:11)
[2017-10-13] MEDS: LEVOTHYROXINE 88 MCG TAB PO SCH (05:11)
[2017-10-13 07:29] VITALS: BP 84/54; RESP 18; TEMP 98.2; O2SAT 93
[2017-10-13] MEDS: METHENAMINE HIPP 1 GM TAB PO SCH (08:38)
[2017-10-13] MEDS: GABAPENTIN 300 MG CAP PO SCH (08:38)
[2017-10-13] MEDS: DOCUSATE SODIUM 100 MG CAP PO SCH (08:38)
[2017-10-13] MEDS: CITALOPRAM 20 MG TAB PO SCH (08:38)
[2017-10-13] MEDS: ENOXAPARIN 40 MG/0.4 ML SYR SC SCH (08:40)
[2017-10-13] MEDS: MIDODRINE HCL 5 MG TAB PO SCH (08:46)
[2017-10-13] MEDS: INSULIN LISPRO 100 UNIT/ML SC SCH (08:46)
--- NOTE | 2017-10-13 09:14 | PDIAF ---
- Diagnosis Code Status: Do Not Resuscitate - Medication Management Discharge Medications: Medications to Continue on Transfer Acetaminophen [Tylenol 325mg (*)] 650 mg PO TID 07/28/17 [Last Taken 10/06/17] Baclofen [Baclofen 10 mg (*)] 10 mg PO 05,11,17 07/28/17 [Last Taken 10/06/17 17 :00] Baclofen [Baclofen 20 mg (*)] 20 mg PO HS 07/28/17 [Last Taken 10/06/17] Citalopram Hydrobromide [Celexa] 40 mg PO DAILY 07/28/17 [Last Taken 10/06/17] Diazepam [Valium 5 MG (*)] 2.5 mg PO Q8H PRN 07/28/17 [Last Taken 10/06/17] Gabapentin [Neurontin 100 MG (*)] 200 mg PO TID 07/28/17 [Last Taken 10/06/17] Levothyroxine [Synthroid 88 mcg (*)] 88 mcg PO DAILY06 07/28/17 [Last Taken 05/14] Ondansetron Odt [Zofran Odt 4 mg (*)] 4 mg PO Q6H PRN 07/28/17 [Last Taken 10/06] traZODone [traZODONE 50MG (*)] 75 mg PO HS 07/28/17 [Last Taken 10/06/17] Hydrocodone/Acetaminophen [Gilbert 5/325 (*)] 1 each PO Q4H PRN #40 tablet [Last Taken 10/07/17 05:00] Methenamine Estephania [Hiprex 1 gm (*)] 0.5 gm PO BID 09/11/17 [Last Taken Unknown] Tears/Dextran 70/Hypromellose [Natural Balance Tears (*)] 1 drop EACHEYE DAILY PRN 09/11/17 [Last Taken Unknown] LORazepam [Ativan (*)] 0.5 mg PO DAILY PRN 10/07/17 [Last Taken Unknown] Zolpidem Tartrate [Ambien 5MG (*)] 5 mg PO HS 10/07/17 [Last Taken 10/06/17] Benzocaine/Menthol 15/4 [Cepacol Lozenge] 1 ea PO Q2 PRN lozenge 10/13/17 [ Last Taken Unknown] Docusate Sodium [Colace 100 MG (*)] 100 mg PO DAILY cap 10/13/17 [Last Taken Unknown] Ibuprofen [Motrin (*)] 400 mg PO Q6HRS PRN tab 10/13/17 [Last Taken Unknown] Lidocaine 4%/Menthol 1% [Icy Hot Lidocaine/Menthol 4%/1% Patch (*)] 1 patch TD DAILY patch 10/13/17 [Last Taken Unknown] Midodrine HCl [Proamatine/Midodrin] 5 mg PO TID@0800,1200,1600 #0 tab 10/13/17 [ Last Taken Unknown] Patch Removal 1 ea TD DAILY21 patch 10/13/17 [Last Taken Unknown] Discharge Medications: Refer to the Discharge Home Medication list for PRN reason. - Orders Services needed: Registered Nurse, Certified Catia Designer, Physical Therapy, Occupational Therapy Isolation Type: CDIFF Isolation, Contact Isolation - Labs/Radiology FBS Date: 10/14/17 - Follow Up Care Current Providers and Referrals: NONE *PRIMARY CARE P,. [Primary Care Provider] - As per Instructions Sven Campa MD [Medical Doctor] - (follow up in 2-3 weeks for a recheck)
--- NOTE | 2017-10-13 09:14 | PDDCSUM ---
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
[2017-10-13] MEDS: DIAZEPAM 5 MG TAB PO PRN (09:32)
[2017-10-13] MEDS: IBUPROFEN 200 MG TAB PO PRN (09:33)
[2017-10-13] MEDS: LIDOCAINE 4%/MENTHOL 1% PATCH TD SCH (09:34)
--- NOTE | 2017-10-13 11:19 | ASMTCMCOM ---
CM Note CM Note Notes: Dc order received. Spoke with MD & RN. Alerted Ronda, at [facility]; dc paperwork faxed; confirmed received. Spoke with pt & her caregiver, Letha. Confirmed Letha will be at pt's apartment when pt returns home. [facility] transport arranged. Authorization obtained by [employer]; PCS form in pt's chart & copy provided to [facility]. RN & pt updated. No other needs at this time. Date Signed: 10/13/2017 11:18 AM Electronically Signed By:Genoveva Zhong RN
--- NOTE | 2017-10-13 11:31 | ASDISCHSUM ---
Discharge Information Plan Status:Has needs-TBD Medically Cleared to Leave:10/13/2017 Discharge Date:10/13/2017 11:20 AM CM D/C Disposition:Other (Not listed) ADT D/C Disposition:Home Health Service Projected Discharge Date:10/13/2017 11:00 AM Transportation at D/C:Medicaid Transportation Discharge Delay Reason: Follow-Up Date:10/13/2017 11:00 AM Discharge Slot: Final Diagnosis: Placement Information Patient Contact Information Contact Name:SERGO Relationship:Cousin Address: Work Phone: City: [facility] Phone: State/Zip Code: Email: Financial Information Financial Class:Medicare Advantage Plans Primary Plan Desc:[facility] [employer] Primary Plan Number:[id number] Secondary Plan Desc:[employer] [place] Secondary Plan Number:[id number] Assessment Information [facility] Initial CM Assessment Living Arrangements What is your living Answers: Alone arrangement? Who do you live with? Type Of Residence What kind of residence do Answers: House you live in? Discharge Plan Comments Coordination Status Comments Notes: Pt is a 61 y/o female admitted for nausea, malaise and neck pain. OT has been ordered and awaiting recommendations. Wound care is involved Needs are TBD at this time. CM to follow. Plan: TBD Date Signed: 10/07/2017 10:32 AM Electronically Signed By:GRIFFIN Loredo [facility] CM Progress Note CM Note CM Note Notes: Pt. is a 61-year-old woman admitted with nausea, malaise, and neck pain. Pt. w/ hx. of incomplete quadriplegia, closed head injury from a fall down stairs in 2010, recurrent UTIs, bladder cancer, chronic sacral and vulvar wounds, and Cdiff. Pt. Cdiff positive now per hospitalist. Pt's brother Christopher Rodríguez is her MDPOA per electronic chart. Per RN, he visited today. OT recommending Pt. go home with her cargiver who comes from 8:00am-9:00pm each day. PT declines to see. Per notes, Pt. has a olga lift at home. SWer to f/u with Pt. and/or Christopher to get caregiver provider company name. Date Signed: 10/09/2017 05:11 PM Electronically Signed By:Dai Flanagan LCSW [facility] Progress Note CM Note CM Note Notes: Today SWer met w/ Pt. in her room alone. Pt. states she is feeling better, but still weak. Would like to go home with the caregivers she has already set up to help her live independently in her apartment. Pt states she is not interested in additional skilled homecare at this time. Pt. receives a caregiver to help her with her ADLs from 8:00am through 9:00pm everyday through a special HCBS program called [employer]. Ronda is the coordinator of Pt's care through [facility] [phone]. Ronda asked Sara to hard fax updates to her today. Sara did so. Plan for Medicaid [facility] stretcher home when ready. Pt's electric wheelchair is at home per Ronda. CM to follow for d/c POC. Date Signed: 10/10/2017 03:51 PM Electronically Signed By:Dai Flanagan LCSW [facility] Progress Note CM Note CM Note Notes: Spoke with MD & RN. Anticipate dc home tomorrow with [facility] Caregivers. Alerted Ronda, at [facility]. CM will need to fax dc paperwork to Ronda at time of dc (# in previous note). Also updated pt's cousin Linda ([phone]). CM will need to arrange Medicaid [facility] stretcher for pt at time of dc & coordinate with Ronda on making sure caregivers are available to meet once pt is home. wll follow. Date Signed: 10/12/2017 05:19 PM Electronically Signed By:Genoveva Zhong RN [facility] Progress Note CM Note CM Note Notes: Dc order received. Spoke with MD & RN. Alerted Ronda, at [facility]; dc paperwork faxed; confirmed received. Spoke with pt & her caregiver, Letha. Confirmed Letha will be at pt's apartment when pt returns home. [facility] transport arranged. Authorization obtained by [employer]; PCS form in pt's chart & copy provided to [facility]. RN & pt updated. No other needs at this time. Date Signed: 10/13/2017 11:18 AM Electronically Signed By:Genoveva Zhong RN Intervention Information Intervention Type:*SUMMERS-Signed Date of Service:10/07/2017 09:50 AM Patient Type:Observation Staff Member:Kate Griffin Hours: Discipline: Severity: Comment: Intervention Type:*IM-Signed Date of Service:10/13/2017 10:47 AM Patient Type:Inpatient Staff Member:Kate Griffin Hours: Discipline: Severity: Comment:
== END 2017-10-13 11:20 | disposition home health service (06) | DRG 871 ==
LOC: EDUNIT# → INTOOBSV 23:32 → F3E 10-07 00:20 → OBSVTOIN 10-07 15:23
PROVIDERS: ADMIT Family Medicine; ATTEND Family Medicine
DX: A41.89 Other specified sepsis (principal); A04.72 Enterocolitis due to Clostridium difficile, not specified as recurrent; M54.2 Cervicalgia; G82.54 Quadriplegia, C5-C7 incomplete; L89.154 Pressure ulcer of sacral region, stage 4; E03.9 Hypothyroidism, unspecified; N31.9 Neuromuscular dysfunction of bladder, unspecified; E11.9 Type 2 diabetes mellitus without complications; E87.1 Hypo-osmolality and hyponatremia; D63.8 Anemia in other chronic diseases classified elsewhere; M48.02 Spinal stenosis, cervical region; E66.9 Obesity, unspecified; Z68.36 Body mass index [BMI] 36.0-36.9, adult; I48.91 Unspecified atrial fibrillation; K21.9 Gastro-esophageal reflux disease without esophagitis; I10 Essential (primary) hypertension; Z98.1 Arthrodesis status; Z85.51 Personal history of malignant neoplasm of bladder
CPT/HCPCS: 96374; 97165-GO; G8987-GO-CM; G8988-GO-CM; G8989-GO-CM; J1650; J1815; J1956; J2270; J2405

== ENCOUNTER 2017-10-13 23:04 | Emergency (ER) | payer OTHER, MEDICAID ==
--- NOTE | 2017-10-13 23:18 | EDPHY ---
H & P Stated Complaint: Lower extremity paresthesias Time Seen by Provider: 10/13/17 23:15 HPI/ROS: HPI The patient presents brought in by ambulance for lower extremity paresthesias which have been present for the last 1 day, beginning spontaneously yesterday morning. She feels pins and needles in the anterior surfaces of her legs bilaterally, most prominently in her feet. These are constant. She has never had this sensation before. She says she feels pressure in her legs though no pain and she has no movement of her legs. She was discharged from the hospital today after about a week-long hospitalization for sepsis thought to be related to C diff colitis. She was also found to be hyponatremic. She was also complaining of cervical spine pain and had that MRI performed of her cervical spine. She was evaluated by neuro surgery who felt that no intervention was needed. She also was seen by Neurology because of symptoms she was having in her arms as well as paresthesias in her legs, this was thought to be related to her current acute illness. Her gabapentin dose was increased. REVIEW OF SYSTEMS Constitutional: No fever, no chills. Eyes: No discharge. ENT: No sore throat. Cardiovascular: No chest pain, no palpitations. Respiratory: No cough, no shortness of breath. Gastrointestinal: No abdominal pain, no vomiting. Genitourinary: No hematuria. Musculoskeletal: No back pain. Skin: No rashes. Neurological: No headache. 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, recent admission for sepsis related to C diff, history of hyponatremia Soc Hx: Lives at home with in-home caregiver PHYSICAL General Appearance: Alert, no distress Eyes: Pupils equal and round no pallor or injection ENT, Mouth: Mucous membranes moist Respiratory: There are no retractions, lungs are clear to auscultation Cardiovascular: Regular rate and rhythm Gastrointestinal: Abdomen is soft and non-tender, no masses, bowel sounds normal Neurological: A&O, movement of both of her arms with no leg movement Skin: Warm and dry, feet bilaterally with flaking skin with some erythema of the left great toe which is mild Musculoskeletal: Neck is supple non tender Extremities: symmetrical, legs with flaccid paralysis, no skin change Psychiatric: Patient is oriented X 3, there is no agitation Source: Patient, EMS, Old records Exam Limitations: No limitations - Personal History Tetanus Vaccine Date: Within last 5 years - Medical/Surgical History Hx Asthma: No Hx Chronic Respiratory Disease: No Hx Diabetes: No Hx Cardiac Disease: Yes Hx Renal Disease: No Hx Cirrhosis: No Hx Alcoholism: No Hx HIV/AIDS: No Hx Splenectomy or Spleen Trauma: No Other PMH: PMH: Quadripalegia, A-fib, HTN, GERD, hypothyroid, DM2, anxiety, insomnia, chronic hyponatremia, pressure ulcer coccyx - Social History Smoking Status: Never smoked Constitutional: Initial Vital Signs Temperature (C) 36.5 C 10/13/17 23:29 Heart Rate 55 L 10/13/17 23:29 Respiratory Rate 16 10/13/17 23:29 Blood Pressure 82/55 L 10/13/17 23:29 O2 Sat (%) 95 10/13/17 23:29 O2 Delivery Mode Room Air O2 (L/minute) 2 Allergies/Adverse Reactions: codeine [Codeine] Allergy (Severe, Verified 10/06/17 21:23) Swelling/neck,face,throat Home Medications: Medication Instructions Recorded Acetaminophen [Tylenol 325mg (*)] 650 mg PO TID 07/28/17 Baclofen [Baclofen 10 mg (*)] 10 mg PO 05,11,17 07/28/17 Baclofen [Baclofen 20 mg (*)] 20 mg PO HS 07/28/17 Citalopram Hydrobromide [Celexa] 40 mg PO DAILY 07/28/17 Diazepam [Valium 5 MG (*)] 2.5 mg PO Q8H PRN 07/28/17 Gabapentin [Neurontin 100 MG (*)] 200 mg PO TID 07/28/17 Levothyroxine [Synthroid 88 mcg 88 mcg PO DAILY06 07/28/17 (*)] Ondansetron Odt [Zofran Odt 4 mg 4 mg PO Q6H PRN 07/28/17 (*)] traZODone [traZODONE 50MG (*)] 75 mg PO HS 07/28/17 Hydrocodone/Acetaminophen [[place] 1 each PO Q4H PRN #40 tablet 08/10/17 5/325 (*)] Methenamine Estephania [Hiprex 1 gm (*)] 0.5 gm PO BID 09/11/17 Tears/Dextran 70/Hypromellose 1 drop EACHEYE DAILY PRN 09/11/17 [Natural Balance Tears (*)] LORazepam [Ativan (*)] 0.5 mg PO DAILY PRN 10/07/17 Zolpidem Tartrate [Ambien 5MG (*)] 5 mg PO HS 10/07/17 Benzocaine/Menthol 15/4 [Cepacol 1 ea PO Q2 PRN lozenge 10/13/17 Lozenge] Docusate Sodium [Colace 100 MG (*)] 100 mg PO DAILY cap 10/13/17 Ibuprofen [Motrin (*)] 400 mg PO Q6HRS PRN tab 10/13/17 Lidocaine 4%/Menthol 1% [Icy Hot 1 patch TD DAILY #30 patch 10/13/17 Lidocaine/Menthol 4%/1% Patch (*)] Midodrine HCl 5 mg PO TID #90 tablet 10/13/17 Patch Removal 1 ea TD DAILY21 patch 10/13/17 Vancomycin [Vancomycin (*)] 125 mg PO Q6 #28 cap 10/13/17 Medical Decision Making Differential Diagnosis: This is a 61-year-old female who is an incomplete quadriplegic, who was recently admitted to the hospital for cervical pain and fever thought to be related to C difficile colitis who now presents with bilateral lower extremity paresthesias. These have been present for the last several days. She was seen by Neurology who thought this could be related to her acute illness. She was instructed to increase her gabapentin. Her caregiver gives her her medications so she is not sure if she is taking a higher dose. On exam, she has mild redness of her left great toe, however this is not appear to be cellulitic in nature and is unlikely to be the cause of her symptoms. She does have a history of hyponatremia and this perhaps could be causing her symptoms. Given that she has had an MRI of her cervical spine and has been evaluated by neuro surgery, with no necessity for any surgical intervention, I doubt that any disease of her cervical spine could be causing his paresthesias. I have considered more sinister diagnoses such as epidural spinal abscess, however given her lack of fever or leukocytosis, I feel this is unlikely. In the emergency department, patient's symptoms remained stable. Basic labs were checked. She did not have a leukocytosis. Her electrolytes were all within normal limits. The cause of her symptoms is not entirely clear at this time, however I doubt any serious pathology. She is comfortable being discharged home to monitor her symptoms there. - Data Points Laboratory Results: Laboratory Results 10/13/17 23:35 10/13/17 23:35 10/13/17 10/13/17 23:35 23:35 WBC 9.40 10^3/uL 10^3/uL (3.80-9.50) RBC 3.99 10^6/uL L 10^6/uL (4.18-5.33) Hgb 11.2 g/dL L g/dL (12.6-16.3) Hct 34.4 % L % (38.0-47.0) MCV 86.2 fL fL (81.5-99.8) MCH 28.1 pg pg (27.9-34.1) MCHC 32.6 g/dL g/dL (32.4-36.7) RDW 14.9 % % (11.5-15.2) Plt Count 272 10^3/uL 10^3/uL (150-400) MPV 9.7 fL fL (8.7-11.7) Neut % (Auto) 46.3 % % (39.3-74.2) Lymph % (Auto) 38.4 % % (15.0-45.0) [place] % (Auto) 11.7 % % (4.5-13.0) Eos % (Auto) 1.6 % % (0.6-7.6) Baso % (Auto) 0.7 % % (0.3-1.7) Nucleat RBC Rel Count 0.0 % % (0.0-0.2) Absolute Neuts (auto) 4.35 10^3/uL 10^3/uL (1.70-6.50) Absolute Lymphs (auto) 3.61 10^3/uL H 10^3/uL (1.00-3.00) Absolute Monos (auto) 1.10 10^3/uL H 10^3/uL (0.30-0.80) Absolute Eos (auto) 0.15 10^3/uL 10^3/uL (0.03-0.40) Absolute Basos (auto) 0.07 10^3/uL 10^3/uL (0.02-0.10) Absolute Nucleated RBC 0.00 10^3/uL 10^3/uL (0-0.01) Immature Gran % 1.3 % H % (0.0-1.1) Immature Gran # 0.12 10^3/uL H 10^3/uL (0.00-0.10) Sodium 142 mEq/L mEq/L (135-145) Potassium 4.1 mEq/L mEq/L (3.5-5.2) Chloride 106 mEq/L mEq/L (97-110) Carbon Dioxide 28 mEq/l mEq/l (22-31) Anion Gap 8 mEq/L mEq/L (8-16) BUN 12 mg/dL mg/dL (7-23) Creatinine 0.5 mg/dL L mg/dL (0.6-1.0) Estimated GFR > 60 Glucose 134 mg/dL H mg/dL (70-100) Calcium 8.5 mg/dL mg/dL (8.5-10.4) Phosphorus 4.2 mg/dL mg/dL (2.5-4.5) Magnesium 2.0 mg/dL mg/dL (1.6-2.3) Departure - Departure Disposition: Home, Routine, Self-Care Clinical Impression: Paresthesia of lower extremity Condition: Good Instructions: Paresthesia (ED) Additional Instructions: Please make sure to drink plenty of fluids. If your symptoms continue, you should follow up with your primary care doctor. Please make sure to take the increased gabapentin dose as recommended by the neurologist. Referrals: NONE *PRIMARY CARE P,. [Primary Care Provider] - As per Instructions
[2017-10-13 23:31] VITALS: TEMP 97.7
[2017-10-13 23:39] LABS: PLATELET COUNT 272 10^3/uL (150-400)
[2017-10-14 02:12] VITALS: BP 99/68; PULSE 54; RESP 18; O2SAT 91
== END 2017-10-14 02:13 | disposition home or self-care (01) ==
LOC: EDUNIT#
DX: R20.2 Paresthesia of skin (principal); I10 Essential (primary) hypertension; E11.9 Type 2 diabetes mellitus without complications

== ENCOUNTER 2017-10-24 10:11 | Emergency (ER) | payer OTHER, MEDICAID ==
[2017-10-24] MEDS ORDERED: NS 1,000 ML IV ONE (10:17)
--- NOTE | 2017-10-24 10:19 | EDPHY ---
H & P Time Seen by Provider: 10/24/17 10:20 HPI/ROS: HPI: This is a 61-year-old female who presents with Chief Complaint: Left lower quadrant pain Location: Left lower quadrant Quality: Sharp Pain Duration: 1-3 hours prior to arrival Signs and Symptoms: no fever, no nausea, no vomiting, no hematemesis, no blood in stool, no abdominal bloating, no diarrhea, no back pain, no urinary symptoms , no vaginal bleeding/discharge, no indigestion, no chest pain, no shortness of breath Timing: Acute Severity: 7 out of 10 Context: Patient has a history of quadriplegia, diabetes mellitus type 2, bladder cancer, neurogenic bladder, status post urostomy presents via EMS with complaints of sudden onset of sharp nonradiating moderate constant pain in her left lower quadrant. Denies any nausea/vomiting/diarrhea/fever. Patient reports that she ate dinner last night without any difficulty. Has not eaten or drank anything today thus far. Lives at home. EMS reports upon arrival systolic was in the 70s upon arrival to the emergency room systolic 110. Patient reports that her normal systolic pressures in the 90s. Modifying Factors: None Comment: ROS: see HPI Constitutional: No fever, no chills, no weight loss Eyes: No blurred vision Respiratory: No shortness of breath, no cough Cardiovascular: No chest pain, no palpitations Gastrointestinal: No nausea, no vomiting, no diarrhea, no hematemesis, no blood in stool Genitourinary: No dysuria, no blood in urine Extremities: No myalgias, no edema Neurologic: No weakness, no numbness Skin: No rashes, no petechiae Hematologic: No bruising, no bleeding MEDICAL/SURGICAL/SOCIAL HISTORY: Medical history: Quadriplegia, A-fib, HTN, GERD, hypothyroid, DM2, anxiety, insomnia, chronic hyponatremia, pressure ulcer coccyx Surgical history: Denies Social history: Disabled. CONSTITUTIONAL: Chronically ill-appearing obese adult female, awake and alert, no obvious distress HEENT: Atraumatic and normocephalic, PERRL, EOMI. Tympanic membranes clear. Oropharynx clear, no exudate and moist pink mucosa. Airway patent. No lymphadenopathy. No meningismus. Cardiovascular: Normal S1/S2, regular rate, regular rhythm, without murmur rub or gallop. PULMONARY/CHEST: Symmetrical and nontender. Clear to auscultation bilaterally. Good air movement. No accessory muscle usage. ABDOMEN: Soft, nondistended, urostomy present in the right lower quadrant draining yellow urine; minimal sediment; mild deep left lower quadrant tenderness, no rebound, no guarding, no peritoneal signs, no masses or organomegaly. No CVAT. Hypoactive bowel sounds heard x4 quadrants. EXTREMITIES: 2/2 pulses, strength 5/5, no deformities, no clubbing, no cyanosis or edema. NEUROLOGICAL: no focal neuro deficits. GCS 15. SKIN: Warm and dry, no erythema. no rash. Good capillary refill. Source: Family, EMS, Old records Exam Limitations: Clinical condition - Personal History Tetanus Vaccine Date: Within last 5 years - Medical/Surgical History Hx Asthma: No Hx Chronic Respiratory Disease: No Hx Diabetes: No Hx Cardiac Disease: Yes Hx Renal Disease: No Hx Cirrhosis: No Hx Alcoholism: No Hx HIV/AIDS: No Hx Splenectomy or Spleen Trauma: No Other PMH: PMH: Quadripalegia, A-fib, HTN, GERD, hypothyroid, DM2, anxiety, insomnia, chronic hyponatremia, pressure ulcer coccyx - Social History Smoking Status: Never smoked Constitutional: Initial Vital Signs Temperature (C) 36.5 C 10/24/17 10:23 Heart Rate 58 L 10/24/17 10:23 Respiratory Rate 18 10/24/17 10:23 Blood Pressure 107/60 10/24/17 10:23 O2 Sat (%) 94 10/24/17 10:23 O2 Delivery Mode Room Air O2 (L/minute) 2 Allergies/Adverse Reactions: codeine [Codeine] Allergy (Severe, Verified 10/06/17 21:23) Swelling/neck,face,throat Home Medications: Medication Instructions Recorded Acetaminophen [Tylenol 325mg (*)] 650 mg PO TID 07/28/17 Baclofen [Baclofen 10 mg (*)] 10 mg PO 05,11,17 07/28/17 Baclofen [Baclofen 20 mg (*)] 20 mg PO HS 07/28/17 Citalopram Hydrobromide [Celexa] 40 mg PO DAILY 07/28/17 Diazepam [Valium 5 MG (*)] 2.5 mg PO Q8H PRN 07/28/17 Gabapentin [Neurontin 100 MG (*)] 200 mg PO TID 07/28/17 Levothyroxine [Synthroid 88 mcg 88 mcg PO DAILY06 07/28/17 (*)] Ondansetron Odt [Zofran Odt 4 mg 4 mg PO Q6H PRN 07/28/17 (*)] traZODone [traZODONE 50MG (*)] 75 mg PO HS 07/28/17 Hydrocodone/Acetaminophen [[place] 1 each PO Q4H PRN #40 tablet 08/10/17 5/325 (*)] Methenamine Estephania [Hiprex 1 gm (*)] 0.5 gm PO BID 09/11/17 Tears/Dextran 70/Hypromellose 1 drop EACHEYE DAILY PRN 09/11/17 [Natural Balance Tears (*)] LORazepam [Ativan (*)] 0.5 mg PO DAILY PRN 10/07/17 Zolpidem Tartrate [Ambien 5MG (*)] 5 mg PO HS 10/07/17 Benzocaine/Menthol 15/4 [Cepacol 1 ea PO Q2 PRN lozenge 10/13/17 Lozenge] Docusate Sodium [Colace 100 MG (*)] 100 mg PO DAILY cap 10/13/17 Ibuprofen [Motrin (*)] 400 mg PO Q6HRS PRN tab 10/13/17 Lidocaine 4%/Menthol 1% [Icy Hot 1 patch TD DAILY #30 patch 10/13/17 Lidocaine/Menthol 4%/1% Patch (*)] Midodrine HCl 5 mg PO TID #90 tablet 10/13/17 Patch Removal 1 ea TD DAILY21 patch 10/13/17 Vancomycin [Vancomycin (*)] 125 mg PO Q6 #28 cap 10/13/17 Medical Decision Making - Diagnostics Imaging Results: Imaging Impressions Abdomen CT 10/24/17 10:18 Impression: 1. At least moderate constipation. 2. Similarly configured postoperative changes with right abdominal urostomy and ureteral diversion. Mild prominence of the collecting system and is unchanged in could be expected postoperatively due to reflux. 3. Nonobstructive cholelithiasis. Findings were communicated by telephone with Dr. Irina Chen at 10/24/2017 11 :39 ED Course/Re-evaluation: Labs, urinalysis, IV fluids, IV medications, CT abdomen and pelvis scan ordered Vital signs reviewed upon arrival. No systemic signs. Given 1 L normal saline, IV morphine 4 mg Chart review shows on 10/08/2017 tested positive for C diff; admitted to the hospital from [id number] and treated with vancomycin 1100: Labs reviewed and show no leukocytosis/anemia/Adams /transaminitis Urinalysis shows colonization; suspect chronic; will send for urine culture before starting antibiotics Especially given history of this month of C diff colitis will not start antibiotics; patient asymptomatic; no signs of sepsis Called by radiologist who advised that CT abdomen pelvis scan shows no signs of diverticular disease, appendicitis, obstruction. Urostomy appears the same when compared to prior CT exam there is mild lead dilated ureters which is to be expected. Moderate constipation noted. Given patient option of having enema in the emergency room verses Mag citrate to go home. She prefers to go home. She is hungry and wants to eat lunch. Advised to follow up with primary care provider next week. This patient was seen under the supervision of my secondary supervising physician. I evaluated care for this patient independently. Discussed this patient with Dr. Erickson who did not see the patient. Differential Diagnosis: Abdominal pain including but not limited to appendicitis, diverticulitis, obstruction cholecystitis, gastritis and urinary tract infection. - Data Points Laboratory Results: Laboratory Results 10/24/17 10:26 10/24/17 10:26 10/24/17 10/24/17 10/24/17 10:35 10:26 10:26 WBC 9.46 10^3/uL 10^3/uL (3.80-9.50) RBC 4.48 10^6/uL 10^6/uL (4.18-5.33) Hgb 12.6 g/dL g/dL (12.6-16.3) Hct 39.2 % % (38.0-47.0) MCV 87.5 fL fL (81.5-99.8) MCH 28.1 pg pg (27.9-34.1) MCHC 32.1 g/dL L g/dL (32.4-36.7) RDW 15.7 % H % (11.5-15.2) Plt Count 97 10^3/uL L 10^3/uL (150-400) MPV 10.4 fL fL (8.7-11.7) Neut % (Auto) 59.5 % % (39.3-74.2) Lymph % (Auto) 29.2 % % (15.0-45.0) Sharp % (Auto) 9.3 % % (4.5-13.0) Eos % (Auto) 1.0 % % (0.6-7.6) Baso % (Auto) 0.7 % % (0.3-1.7) Nucleat RBC Rel Count 0.0 % % (0.0-0.2) Absolute Neuts (auto) 5.63 10^3/uL 10^3/uL (1.70-6.50) Absolute Lymphs (auto) 2.76 10^3/uL 10^3/uL (1.00-3.00) Absolute Monos (auto) 0.88 10^3/uL H 10^3/uL (0.30-0.80) Absolute Eos (auto) 0.09 10^3/uL 10^3/uL (0.03-0.40) Absolute Basos (auto) 0.07 10^3/uL 10^3/uL (0.02-0.10) Absolute Nucleated RBC 0.00 10^3/uL 10^3/uL (0-0.01) Immature Gran % 0.3 % % (0.0-1.1) Immature Gran # 0.03 10^3/uL 10^3/uL (0.00-0.10) VBG Lactic Acid Sodium 144 mEq/L mEq/L (135-145) Potassium 4.6 mEq/L mEq/L (3.5-5.2) Chloride 104 mEq/L mEq/L (97-110) Carbon Dioxide 29 mEq/l mEq/l (22-31) Anion Gap 11 mEq/L mEq/L (8-16) BUN 23 mg/dL mg/dL (7-23) Creatinine 0.6 mg/dL mg/dL (0.6-1.0) Estimated GFR > 60 Glucose 123 mg/dL H mg/dL (70-100) Calcium 9.7 mg/dL mg/dL (8.5-10.4) Total Bilirubin 0.6 mg/dL mg/dL (0.1-1.4) Conjugated Bilirubin 0.2 mg/dL mg/dL (0.0-0.5) Unconjugated Bilirubin 0.4 mg/dL mg/dL (0.0-1.1) AST 21 IU/L IU/L (14-46) ALT 32 IU/L IU/L (9-52) Alkaline Phosphatase 96 IU/L IU/L (38-126) Total Protein 7.3 g/dL g/dL (6.3-8.2) Albumin 3.7 g/dL g/dL (3.5-5.0) Lipase 53 IU/L IU/L (23-300) Urine Color YELLOW Urine Appearance TURBID Urine pH 7.0 (5.0-7.5) Ur Specific [place] 1.009 (1.002-1.030) Urine Protein 1+ H (NEGATIVE) Urine Ketones NEGATIVE (NEGATIVE) Urine Blood 1+ H (NEGATIVE) Urine Nitrate POSITIVE H (NEGATIVE) Urine Bilirubin NEGATIVE (NEGATIVE) Urine Urobilinogen NEGATIVE EU EU (0.2-1.0) Ur Leukocyte Esterase 3+ H (NEGATIVE) Urine RBC 50-182 /hpf H /hpf (0-3) Urine WBC 50-182 /hpf H /hpf (0-3) Ur Epithelial Cells NONE SEEN /lpf /lpf (NONE-1+) Urine Bacteria 3+ /hpf H /hpf (NONE SEEN) Urine Mucus TRACE /lpf /lpf (NONE-1+) Urine Glucose NEGATIVE (NEGATIVE) 10/24/17 10:26 WBC RBC Hgb Hct MCV MCH MCHC RDW Plt Count MPV Neut % (Auto) Lymph % (Auto) Sharp % (Auto) Eos % (Auto) Baso % (Auto) Nucleat RBC Rel Count Absolute Neuts (auto) Absolute Lymphs (auto) Absolute Monos (auto) Absolute Eos (auto) Absolute Basos (auto) Absolute Nucleated RBC Immature Gran % Immature Gran # VBG Lactic Acid 0.9 mmol/L mmol/L (0.7-2.1) Sodium Potassium Chloride Carbon Dioxide Anion Gap BUN Creatinine Estimated GFR Glucose Calcium Total Bilirubin Conjugated Bilirubin Unconjugated Bilirubin AST ALT Alkaline Phosphatase Total Protein Albumin Lipase Urine Color Urine Appearance Urine pH Ur Specific [place] Urine Protein Urine Ketones Urine Blood Urine Nitrate Urine Bilirubin Urine Urobilinogen Ur Leukocyte Esterase Urine RBC Urine WBC Ur Epithelial Cells Urine Bacteria Urine Mucus Urine Glucose Medications Given: Discontinued Medications Sodium Chloride (Ns) 1,000 mls @ 0 mls/hr IV EDNOW ONE; Wide Open PRN Reason: Protocol Stop: 10/24/17 10:18 Last Admin: 10/24/17 10:27 Dose: 1,000 mls Morphine Sulfate (Morphine) 4 mg IVP EDNOW ONE Stop: 10/24/17 10:19 Last Admin: 10/24/17 10:28 Dose: 4 mg Ondansetron HCl (Zofran) 4 mg IVP EDNOW ONE Stop: 10/24/17 10:34 Last Admin: 10/24/17 10:34 Dose: 4 mg Departure - Departure Disposition: Home, Routine, Self-Care Clinical Impression: Constipation by delayed colonic transit, Chronic bacteriuria Condition: Good Instructions: Constipation (ED) Additional Instructions: 1) Consume a minimum of 8-10 glasses of water or electrolyte fluid replacement drinks that include Gatorade, Powerade, Pedialyte. 2) Eat a bland diet for the next 48 hours and then slowly advance as tolerated. 3) Take magnesium citrate 150 mL x1. If no bowel movement in 12 hr, take another magnesium straight straight 150 mL. 4) Follow-up with primary care provider next week. 5) Urinalysis shows bacteria and colonization; sent for urine culture. Due to history of C diff colitis and chronic colonization, will not start antibiotics and will wait until urine culture results. 6) Return to the Emergency Room if symptoms do not resolve in the next 48-72 hours, you spike a fever > 102 F, or experience intractable abdominal pain/ nausea/vomiting. Referrals: PCP Not In,Dictionary [Medical Doctor] - As per Instructions
[2017-10-24 10:25] VITALS: TEMP 97.7
[2017-10-24 10:31] LABS: PLATELET COUNT 97 10^3/uL (150-400)
[2017-10-24] MEDS ORDERED: ONDANSETRON 4 MG/2 ML VIAL ONE (10:32)
[2017-10-24] MEDS ORDERED: ONDANSETRON 4 MG/2 ML VIAL IVP ONE (10:33)
[2017-10-24] MEDS ORDERED: IOPAMIDOL (ISOVUE-300) 100 ML BTL ONE (11:04)
[2017-10-24] MEDS ORDERED: MAGNESIUM CITRATE 300 ML BOTTLE PO ONE (11:55)
[2017-10-24 12:40] VITALS: BP 110/67; PULSE 55; RESP 16; O2SAT 93
== END 2017-10-24 12:30 | disposition home or self-care (01) ==
DX: K59.01 Slow transit constipation (principal); R82.71 Bacteriuria; B96.89 Other specified bacterial agents as the cause of diseases classified elsewhere; E86.9 Volume depletion, unspecified; I10 Essential (primary) hypertension; E11.9 Type 2 diabetes mellitus without complications
CPT/HCPCS: 74177; 96361; 96374; 96375; 99285; J2270; J2405; Q9967

== ENCOUNTER 2017-11-05 03:56 | Emergency (ER) | payer OTHER, MEDICAID ==
[2017-11-05] MEDS ORDERED: LORazepam 1 MG TAB PO ONE (04:05)
[2017-11-05] MEDS ORDERED: HYDROCODONE/APAP 5/325 TAB PO ONE (04:05)
--- NOTE | 2017-11-05 04:10 | EDPHY ---
H & P Time Seen by Provider: 11/05/17 04:05 HPI/ROS: HPI CHIEF COMPLAINT: Need for oral medications HISTORY OF PRESENT ILLNESS: This patient is a 61-year-old female she lives independently in a private residence here in [place], she presents emergency room after calling 911 this evening. She initially called 911 to help get her medications to her she was requesting a dose of Ativan and a dose of pain medicine. However she was unable to get her medication as 1 was in a locked box and 1 was in a different room. She typically has MANAGER CUSTOMER help 4 times a day but does not have any seen a coverage at night from 8:00 p.m. To 7:00 a.m.. They do come in 4 times a day to help her with various things during the day. However she often relies on 911 EMS to help her at night. EMS reports that they have been to her residence in the past 2 months close to 10-15 times. For various things. Some requiring transport to the hospital. EMS did call earlier in the evening approximately an hour ago to discuss the case of dispensing pain medicine anxiety medicine to her however this is out of the scope of practice and the patient was asking them to dispense a dose of pain Medicine anxiety medicine from her own medication bottles to her. They were unable to do that as she has a locked narcotic box and was unable to open it. Due to this the patient decided come to the emergency room. Upon arrival to the emergency room the patient states that she needs an anxiety medication as she is having increased anxiety as well as pain medicine as she is having cramping in her legs. She reports this is not on out of ordinary as she has neuropathy as cramping in her legs. Additionally she suffers from severe anxiety. Otherwise she has no significant complaints denies fever, chest pain, shortness of breath, vomiting, diarrhea or abdominal pain. Past Medical History: Incomplete paraplegia, C5 injury, neuropathy, decubitus ulcer, sepsis, C diff, hyponatremia Past Surgical History: No recent surgery Social History: Lives in a private residence. Denies drugs alcohol tobacco Family History:. Noncontributory ROS REVIEW OF SYSTEMS: A comprehensive 10 point review of systems is otherwise negative aside from elements mentioned in the history of present illness. Exam Constitutional nontoxic-appearing, triage nursing summary reviewed, vital signs reviewed, awake/alert. Eyes normal conjunctivae and sclera, EOMI, PERRLA. HENT normal inspection, atraumatic, moist mucus membranes, no epistaxis, neck supple/ no meningismus, no raccoon eyes. Respiratory clear to auscultation bilaterally, normal breath sounds, no respiratory distress, no wheezing. Cardiovascular rate normal, regular rhythm, no murmur, no edema, distal pulses normal. Gastrointestinal soft, non-tender, no rebound, no guarding, normal bowel sounds, no distension, no pulsatile mass. Genitourinary no CVA tenderness. Musculoskeletal no midline vertebral tenderness, full range of motion, no calf swelling, no tenderness of extremities, no meningismus, good pulses, neurovascularly intact. Skin pink, warm, & dry, no rash, skin atraumatic. Neurologic awake and alert and oriented, paraplegia, lower extremity flaccidity Psychiatric normal mood/affect. Heme/Lymph/Immune no lymphadenopathy. Differential Diagnosis: Includes but is not limited to in a particular order acute on chronic pain, neuropathy, anxiety. Medical Decision Making: Plan for this patient she has extensive ER visits over the past [address] a case management consult in for her see if we can help her home situation at night better. Additionally will give her dose of [place] for pain and 1 mg p. O. Ativan for anxiety and re-evaluate. Re-evaluation: 538: Patient re-examination is feeling much better. She received 1 mg of Ativan p. O. And Sterling p. O.. She states that she has feel much better more relaxed. She has no further complaints. She would like to be discharged home. Will range transferred back home. Additionally I did place a case management consult in for her and she appears to have increasing needs at night that need to be addressed. Source: Patient, EMS - Personal History Tetanus Vaccine Date: Within last 5 years - Medical/Surgical History Hx Asthma: No Hx Chronic Respiratory Disease: No Hx Diabetes: No Hx Cardiac Disease: Yes Hx Renal Disease: No Hx Cirrhosis: No Hx Alcoholism: No Hx HIV/AIDS: No Hx Splenectomy or Spleen Trauma: No Other PMH: PMH: Quadripalegia, A-fib, HTN, GERD, hypothyroid, DM2, anxiety, insomnia, chronic hyponatremia, pressure ulcer coccyx - Social History Smoking Status: Never smoked Constitutional: Initial Vital Signs Heart Rate 66 11/05/17 04:14 Respiratory Rate 18 11/05/17 04:14 Blood Pressure 122/70 H 11/05/17 04:14 O2 Sat (%) 95 11/05/17 04:14 Allergies/Adverse Reactions: codeine [Codeine] Allergy (Severe, Verified 11/05/17 04:14) Swelling/neck,face,throat Home Medications: Medication Instructions Recorded Acetaminophen [Tylenol 325mg (*)] 650 mg PO TID 07/28/17 Baclofen [Baclofen 10 mg (*)] 10 mg PO ,,17 07/28/17 Baclofen [Baclofen 20 mg (*)] 20 mg PO HS 07/28/17 Citalopram Hydrobromide [Celexa] 40 mg PO DAILY 07/28/17 Diazepam [Valium 5 MG (*)] 2.5 mg PO Q8H PRN 07/28/17 Gabapentin [Neurontin 100 MG (*)] 200 mg PO TID 07/28/17 Levothyroxine [Synthroid 88 mcg 88 mcg PO DAILY06 07/28/17 (*)] Ondansetron Odt [Zofran Odt 4 mg 4 mg PO Q6H PRN 07/28/17 (*)] traZODone [traZODONE 50MG (*)] 75 mg PO HS 07/28/17 Hydrocodone/Acetaminophen [[place] 1 each PO Q4H PRN #40 tablet 08/10/17 5/325 (*)] Methenamine Estephania [Hiprex 1 gm (*)] 0.5 gm PO BID 09/11/17 Tears/Dextran 70/Hypromellose 1 drop EACHEYE DAILY PRN 09/11/17 [Natural Balance Tears (*)] LORazepam [Ativan (*)] 0.5 mg PO DAILY PRN 10/07/17 Zolpidem Tartrate [Ambien 5MG (*)] 5 mg PO HS 10/07/17 Benzocaine/Menthol 15/4 [Cepacol 1 ea PO Q2 PRN lozenge 10/13/17 Lozenge] Docusate Sodium [Colace 100 MG (*)] 100 mg PO DAILY cap 10/13/17 Ibuprofen [Motrin (*)] 400 mg PO Q6HRS PRN tab 10/13/17 Lidocaine 4%/Menthol 1% [Icy Hot 1 patch TD DAILY #30 patch 10/13/17 Lidocaine/Menthol 4%/1% Patch (*)] Midodrine HCl 5 mg PO TID #90 tablet 10/13/17 Patch Removal 1 ea TD DAILY21 patch 10/13/17 Vancomycin [Vancomycin (*)] 125 mg PO Q6 #28 cap 10/13/17 Medical Decision Making - Data Points Medications Given: Discontinued Medications Hydrocodone Bitart/Acetaminophen ([place] 5/325) 1 tab PO EDNOW ONE Stop: 11/05/17 04:06 Last Admin: 11/05/17 04:10 Dose: 1 tab Lorazepam (Ativan) 1 mg PO EDNOW ONE Stop: 11/05/17 04:06 Last Admin: 11/05/17 04:10 Dose: 1 mg Departure - Departure Disposition: Home, Routine, Self-Care Clinical Impression: Neuropathy, Anxiety Condition: Good Instructions: Anxiety (ED) Additional Instructions: 1. Follow up with her primary care doctor. 2. Return emergency room if you have worsening symptoms questions or concerns. Referrals: NONE *PRIMARY CARE P,. [Primary Care Provider] - As per Instructions
[2017-11-05 04:16] VITALS: BP 122/70
--- NOTE | 2017-11-05 10:39 | ASMTCMCOM ---
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 Chart reviewed (see CM discharge summary from 10/13/17). 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 Patient tells me that her PCP is GIGI Leslie with [facility] . I have contacted this office, confirmed patient's status as a patient, and faxed over the ER report from patient's most recent visit in attempt to assist with coordination of care CM available as needed Date Signed: 11/05/2017 10:38 AM Electronically Signed By:Cathy Smiley RN
== END 2017-11-05 07:13 | disposition home or self-care (01) ==
LOC: EDUNIT# → EDBD
DX: F41.9 Anxiety disorder, unspecified (principal); G62.9 Polyneuropathy, unspecified; I10 Essential (primary) hypertension; E11.9 Type 2 diabetes mellitus without complications

== ENCOUNTER 2017-12-17 19:23 | Emergency (ER) | payer OTHER, MEDICAID ==
--- NOTE | 2017-12-17 19:41 | EDPHY ---
H & P Time Seen by Provider: 12/17/17 19:27 HPI/ROS: CHIEF COMPLAINT: Vaginal discharge HISTORY OF PRESENT ILLNESS: The patient is a 62-year-old female with a history of incomplete paraplegia at the level of C5 as well as neuropathy chronic decubitus and vaginal ulcers with previous admissions for C difficile sepsis and hyponatremia. She comes to the ER today stating that her home health nurse noticed some vaginal discharge. They sent her here to be evaluated and with a depends full of stool. Nonbloody. She has a history of hysterectomy and denies any sexual activity. She does not use tampons. REVIEW OF SYSTEMS: Constitutional: denies: chills, fever, recent illness, recent injury EENTM: denies: blurred vision, double vision, nose congestion Respiratory: denies: cough, shortness of breath Cardiac: denies: chest pain, irregular heart rate, lightheadedness, palpitations Gastrointestinal/Abdominal: denies: abdominal pain, diarrhea, nausea, vomiting, blood streaked stools Genitourinary: See HPI denies: dysuria, frequency, hematuria, pain Musculoskeletal: denies: joint pain, muscle pain Skin: denies: lesions, rash, jaundice, bruising Neurological: denies: headache, numbness, paresthesia, tingling, dizziness, weakness Hematologic/Lymphatic: denies: blood clots, easy bleeding, easy bruising Immunologic/allergic: denies: HIV/AIDS, transplant EXAM: GENERAL: Obese and in no acute distress. HEAD: Atraumatic, normocephalic. EYES: Pupils equal round and reactive to light, extraocular movements intact, sclera anicteric, conjunctiva are normal. ENT: TMs normal, nares patent, oropharynx clear without exudates. Moist mucous membranes. NECK: Normal range of motion, supple without lymphadenopathy or JVD. LUNGS: Breath sounds clear to auscultation bilaterally and equal. No wheezes rales or rhonchi. HEART: Regular rate and rhythm without murmurs, rubs or gallops. ABDOMEN: Soft, nontender, normoactive bowel sounds. No guarding, no rebound. No masses appreciated. : Very scant white discharge, mild surrounding erythema her and beefy red swelling consistent with yeast. No significant tenderness. Mild swelling. BACK: No CVA tenderness, no spinal tenderness, step-offs or deformities EXTREMITIES: Normal range of motion, no pitting or edema. No clubbing or cyanosis. NEUROLOGICAL: Weakness in arms and legs at baseline PSYCH: Normal mood, normal affect. SKIN: Warm, dry, normal turgor, no visible rashes or lesions. No decubitus or labial ulcerations seen today. Source: Patient Exam Limitations: No limitations - Personal History Tetanus Vaccine Date: Within last 5 years - Medical/Surgical History Hx Asthma: No Hx Chronic Respiratory Disease: No Hx Diabetes: No Hx Cardiac Disease: Yes Hx Renal Disease: No Hx Cirrhosis: No Hx Alcoholism: No Hx HIV/AIDS: No Hx Splenectomy or Spleen Trauma: No Other PMH: PMH: Quadripalegia, A-fib, HTN, GERD, hypothyroid, DM2, anxiety, insomnia, chronic hyponatremia, pressure ulcer coccyx - Family History Significant Family History: No pertinent family hx - Social History Smoking Status: Never smoked Alcohol Use: Sober Drug Use: None Constitutional: Initial Vital Signs Temperature (C) 37.3 C 12/17/17 19:38 Heart Rate 74 12/17/17 19:38 Respiratory Rate 16 12/17/17 19:38 Blood Pressure 100/59 L 12/17/17 19:38 O2 Sat (%) 93 12/17/17 19:38 O2 Delivery Mode Room Air Allergies/Adverse Reactions: codeine [Codeine] Allergy (Severe, Verified 11/05/17 04:14) Swelling/neck,face,throat Home Medications: Medication Instructions Recorded Diazepam [Valium 5 MG (*)] 2.5 mg PO Q8H PRN 07/28/17 Gabapentin [Neurontin 100 MG (*)] 200 mg PO TID 07/28/17 Levothyroxine [Synthroid 88 mcg 88 mcg PO DAILY06 07/28/17 (*)] traZODone [traZODONE 50MG (*)] 75 mg PO HS 07/28/17 Methenamine Estephania [Hiprex 1 gm (*)] 0.5 gm PO BID 09/11/17 Baclofen 12/17/17 Celexa 12/17/17 Dulcolax 12/17/17 Fluconazole [Diflucan (*)] 150 mg PO DAILY #3 tab 12/17/17 [place] 5/325 (*) 12/17/17 Senna Lax 12/17/17 Zofran 12/17/17 diphenhydrAMINE 12/17/17 Medical Decision Making ED Course/Re-evaluation: 8:15 p.m. After completing pelvic exam and taking samples the patient told me that this is exactly what they did last night at [facility]. It turns out that the patient was seen last night at [facility] and had a pelvic exam done and was started on antibiotics but she does not remember which ones. We will attempt to contact them for results. Clinically the patient's symptoms appear more consistent with a yeast infection. She also reports that she was treated week or so ago with Augmentin for urinary tract infection. 9:00 p.m. received records from a [facility]. There she was diagnosed with urinary tract infection yesterday and given Rocephin and Flagyl and discharged on Omnicef and Flagyl. There pelvic swab was also negative. Because of the patient's exam clinically I will start her on Diflucan. She is not septic appearing her lab work last night was reassuring. We discussed this plan with the patient who is happy. We discussed indications for returning. Differential Diagnosis: Partial list of the Differential diagnosis considered include but were not limited to; yeast infection, fracture vaginosis, urinary tract infection and although unlikely based on the history and physical exam, I also considered MRSA , sepsis. I discussed these differential diagnoses and the plan with the patient as well as the usual and expected course. The patient understands that the diagnosis is provisional and that in medicine we are not always correct and that further workup is often warranted. Usual and customary warnings were given. All of the patient's questions were answered. The patient was instructed to return to the emergency department should the symptoms at all worsen or return, otherwise to followup with the physician as we discussed. - Data Points Laboratory Results: 12/17/17 20:29 C.trachomatis RNA (TMA) NEGATIVE (NEGATIVE) N.gonorrhoeae RNA (TMA) NEGATIVE (NEGATIVE) Microbiology Results: MICROBIOLOGY 12/17/17 20:29 Vaginal - Swab Gram Stain - Final 12/17/17 20:29 Vaginal - Swab Vaginal Culture - Preliminary Medications Given: Discontinued Medications Fluconazole (Diflucan) 150 mg PO EDNOW ONE Stop: 12/17/17 20:16 Last Admin: 12/17/17 20:24 Dose: 150 mg Departure - Departure Disposition: Home, Routine, Self-Care Clinical Impression: Candidiasis of vagina UTI (urinary tract infection) Qualifiers: Urinary tract infection type: acute cystitis Hematuria presence: without hematuria Qualified Code(s): N30.00 - Acute cystitis without hematuria Condition: Fair Instructions: Fluconazole (By mouth), Yeast Infection (ED) Referrals: NONE *PRIMARY CARE P,. [Primary Care Provider] - As per Instructions Prescriptions: Fluconazole [Diflucan (*)] 150 mg PO DAILY #3 tab
[2017-12-17] MEDS ORDERED: FLUCONAZOLE 150 MG TAB PO ONE (20:15)
[2017-12-17 21:16] VITALS: BP 126/78
[2017-12-18 12:06] LABS: GC AMPLIFICATION GENPROBE NEGATIVE (NEGATIVE)
== END 2017-12-17 21:49 | disposition home or self-care (01) ==
LOC: EDUNIT#
DX: N30.00 Acute cystitis without hematuria (principal); B37.3 Candidiasis of vulva and vagina; I10 Essential (primary) hypertension; E11.9 Type 2 diabetes mellitus without complications

== ENCOUNTER 2017-12-30 00:49 | Emergency (ER) | payer OTHER, MEDICAID ==
--- NOTE | 2017-12-30 01:13 | EDPHY ---
H & P Stated Complaint: thinks she has a UTI, chills Time Seen by Provider: 12/30/17 00:59 HPI/ROS: Chief Complaint: Feels hot, possible UTI HPI: 62 year old partial C5 quadriplegic S presenting with having felt very hot earlier and concerned she might have a urinary tract infection. Patient was seen on the and of last month and diagnosed with urinary tract infection. Patient was also noted to have some discharge around her vaginal introitus. She is given a dose of Diflucan. She states that her [employer] today did note some greenish discharge in her vaginal area. This evening she felt very warm and flushed. Did not have any chills or rigors. No increasing pain. She also has a known decubitus ulcer. She presented to the emergency department for evaluation of possible urinary tact her vaginal infection. ROS: 10 point Review of Systems is negative except as noted in the HPI. Social History: No smoking, no alcohol, no recreational drug use Family History: non-contributory Physical Exam: Gen: Awake, Alert, No Distress obese HEENT: Nose: no rhinorrhea Eyes: PERRLA, EOMI Mouth: Moist mucosa Neck: Supple, no JVD Chest: nontender, lungs clear to auscultation Heart: S1, S2 normal, no murmur Abd: Soft, non-tender, urostomy bag in place, no erythema or discharge Back: no CVA tenderness, no midline tenderness , noninfected appearing sacral decubitus ulcer Genital: Patient has erythematous labia minora and majora with scant discharge. There is no discharge noted from the vaginal entroitis. There are satellite lesions. Is not warm to the touch. Ext: no edema Skin: Per genital exam Neuro: CN II-XII intact, - Personal History Current Tetanus/Diphtheria Vaccine: Yes Current Tetanus Diphtheria and Acellular Pertussis (TDAP): Yes Tetanus Vaccine Date: Within last 5 years - Medical/Surgical History Hx Asthma: No Hx Chronic Respiratory Disease: No Hx Diabetes: No Hx Cardiac Disease: Yes Hx Renal Disease: No Hx Cirrhosis: No Hx Alcoholism: No Hx HIV/AIDS: No Hx Splenectomy or Spleen Trauma: No Other PMH: PMH: Quadripalegia, A-fib, HTN, GERD, hypothyroid, DM2, anxiety, insomnia, chronic hyponatremia, pressure ulcer coccyx - Social History Smoking Status: Never smoked Constitutional: Initial Vital Signs Temperature (C) 37.4 C 12/30/17 00:52 Heart Rate 76 12/30/17 00:52 Respiratory Rate 16 12/30/17 00:52 Blood Pressure 95/57 L 12/30/17 00:52 O2 Sat (%) 95 12/30/17 00:52 O2 Delivery Mode Room Air O2 (L/minute) 2 Allergies/Adverse Reactions: codeine [Codeine] Allergy (Severe, Verified 12/30/17 00:51) Swelling/neck,face,throat Home Medications: Medication Instructions Recorded Diazepam [Valium 5 MG (*)] 2.5 mg PO Q8H PRN 07/28/17 Gabapentin [Neurontin 100 MG (*)] 200 mg PO TID 07/28/17 Levothyroxine [Synthroid 88 mcg 88 mcg PO DAILY06 07/28/17 (*)] traZODone [traZODONE 50MG (*)] 75 mg PO HS 07/28/17 Methenamine Estephania [Hiprex 1 gm (*)] 0.5 gm PO BID 09/11/17 Baclofen 12/17/17 Celexa 12/17/17 Dulcolax 12/17/17 Fluconazole [Diflucan (*)] 150 mg PO DAILY #3 tab 12/17/17 [place] 5/325 (*) 12/17/17 Senna Lax 12/17/17 Zofran 12/17/17 diphenhydrAMINE 12/17/17 Clotrimazole 1% [Lotrimin 1%] 45 gm TP BID #1 cream 12/30/17 Medical Decision Making ED Course/Re-evaluation: Patient presenting with feeling flushed and hot earlier with possible UTI. She has been cultured recently for possible vaginal infection and treated for urinary tract infection. On examination I do not believe she has an endovaginal infection. The perineum does appear to have a sick significant candidal infection. I reviewed her culture results in vaginal cultures have grown out normal skin hazel. I do not see a wet mount in her recent records. I believe she has a candidal infection of her labia and perineum. Does not appear cellulitic. Cultures have been otherwise unremarkable. She has been treated for bacterial skin infections 2 weeks ago. Plan will be to start her on topical Lotrimin ointment. She will need close follow up with primary care physician to assess for improvement. I have also ordered urine cultures. She is not febrile here. Will hold off on treating urinalysis as she is most certainly colonized urinalysis will not be helpful today. She is otherwise not septic or toxic in appearance. Will discharge to home with follow-up as an outpatient. - Data Points Laboratory Results: Laboratory Results 12/30/17 01:05 12/30/17 12/30/17 12/30/17 02:53 01:05 01:05 WBC Pending REJ RBC Pending REJ Hgb Pending REJ Hct Pending REJ MCV Pending REJ MCH Pending REJ MCHC Pending REJ RDW Pending REJ Plt Count Pending REJ MPV Pending REJ Neut % (Auto) Pending REJ Lymph % (Auto) Pending REJ [place] % (Auto) Pending REJ Eos % (Auto) Pending REJ Baso % (Auto) Pending REJ Nucleat RBC Rel Count Pending REJ Absolute Neuts (auto) Pending REJ Absolute Lymphs (auto) Pending REJ Absolute Monos (auto) Pending REJ Absolute Eos (auto) Pending REJ Absolute Basos (auto) Pending REJ Absolute Nucleated RBC Pending REJ Immature Gran % Pending REJ Immature Gran # Pending REJ Sodium 138 mEq/L mEq/L (135-145) Potassium 4.6 mEq/L mEq/L (3.3-5.0) Chloride 100 mEq/L mEq/L (97-110) Carbon Dioxide 28 mEq/l mEq/l (22-31) Anion Gap 10 mEq/L mEq/L (8-16) BUN 17 mg/dL mg/dL (7-23) Creatinine 0.8 mg/dL mg/dL (0.6-1.0) Estimated GFR > 60 Glucose 204 mg/dL H mg/dL (70-100) Calcium 8.6 mg/dL mg/dL (8.5-10.4) Urine Color Urine Appearance Urine pH Ur Specific [place] Urine Protein Urine Ketones Urine Blood Urine Nitrate Urine Bilirubin Urine Urobilinogen Ur Leukocyte Esterase Urine RBC Urine WBC Ur Epithelial Cells Urine Bacteria Urine Mucus Urine Glucose 12/30/17 01:00 WBC RBC Hgb Hct MCV MCH MCHC RDW Plt Count MPV Neut % (Auto) Lymph % (Auto) [place] % (Auto) Eos % (Auto) Baso % (Auto) Nucleat RBC Rel Count Absolute Neuts (auto) Absolute Lymphs (auto) Absolute Monos (auto) Absolute Eos (auto) Absolute Basos (auto) Absolute Nucleated RBC Immature Gran % Immature Gran # Sodium Potassium Chloride Carbon Dioxide Anion Gap BUN Creatinine Estimated GFR Glucose Calcium Urine Color YELLOW Urine Appearance HAZY Urine pH 6.0 (5.0-7.5) Ur Specific [place] 1.006 (1.002-1.030) Urine Protein NEGATIVE (NEGATIVE) Urine Ketones NEGATIVE (NEGATIVE) Urine Blood 1+ H (NEGATIVE) Urine Nitrate POSITIVE H (NEGATIVE) Urine Bilirubin NEGATIVE (NEGATIVE) Urine Urobilinogen NEGATIVE EU EU (0.2-1.0) Ur Leukocyte Esterase 3+ H (NEGATIVE) Urine RBC 10-15 /hpf H /hpf (0-3) Urine WBC 50-182 /hpf H /hpf (0-3) Ur Epithelial Cells NONE SEEN /lpf /lpf (NONE-1+) Urine Bacteria 1+ /hpf H /hpf (NONE SEEN) Urine Mucus TRACE /lpf /lpf (NONE-1+) Urine Glucose NEGATIVE (NEGATIVE) Departure - Departure Disposition: Home, Routine, Self-Care Clinical Impression: Yeast infection Condition: Good Instructions: Skin Yeast Infection (ED) Additional Instructions: Apply Lotrimin topical ointment to the affected area twice a day. Follow up with primary care physician in 2 days to evaluate for improvement in you're skin used infection and to evaluate urine culture results. Return to the emergency department for lightheadedness, chest pain, shortness of breath, fevers or chills, nausea vomiting, or any other concerns. Referrals: NONE *PRIMARY CARE P,. [Primary Care Provider] - As per Instructions Prescriptions: Clotrimazole 1% [Lotrimin 1%] 45 gm TP BID #1 cream
[2017-12-30 02:36] VITALS: BP 113/72
[2017-12-30 02:44] LABS: PLATELET COUNT 278.3 10^3/uL (150-400)
== END 2017-12-30 03:39 | disposition home or self-care (01) ==
LOC: EDUNIT#
DX: B37.9 Candidiasis, unspecified (principal); B96.5 Pseudomonas (aeruginosa) (mallei) (pseudomallei) as the cause of diseases classified elsewhere; I10 Essential (primary) hypertension; E11.9 Type 2 diabetes mellitus without complications; B95.2 Enterococcus as the cause of diseases classified elsewhere

== ENCOUNTER 2018-01-10 20:04 | Inpatient (IN) | payer OTHER, MEDICAID ==
[2018-01-10] MEDS ORDERED: NS 2,500 ML IV ONE (20:14)
--- NOTE | 2018-01-10 20:15 | EDPHY ---
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 She has a urostomy. She has been complaining of neck pain since she was lifted up in bed yesterday and felt like her neck kind of flopped. No new weakness or deficits in her arms. She has also noticed today to have a temperature of 102 degrees by her geriatric nursing assistant. Also by paramedics. Here in the room she is also hypotensive although had normal blood pressure for paramedics. She denies chest pain or cough. She denies abdominal pain. No vomiting or diarrhea. She was recently treated for yeast infection. She also has history of chronic decubitus ulcer, diabetes, hyponatremia, atrial fibrillation and GERD. REVIEW OF SYSTEMS: Constitutional: See HPI EENTM: denies: blurred vision, double vision, nose congestion Respiratory: denies: cough, shortness of breath Cardiac: denies: chest pain, irregular heart rate, lightheadedness, palpitations Gastrointestinal/Abdominal: denies: abdominal pain, diarrhea, nausea, vomiting, blood streaked stools Genitourinary: denies: dysuria, frequency, hematuria, pain Musculoskeletal: Neck pain Skin: See HPI denies: lesions, jaundice, bruising Neurological: C5 paraplegia, denies: headache, new numbness or weakness Hematologic/Lymphatic: denies: blood clots, easy bleeding, easy bruising Immunologic/allergic: denies: HIV/AIDS, transplant EXAM: GENERAL: Obese, moderate distress. HEAD: Atraumatic, normocephalic. EYES: Pupils equal round and reactive to light, extraocular movements intact, sclera anicteric, conjunctiva are normal. ENT: TMs normal, nares patent, oropharynx clear without exudates. Moist mucous membranes. NECK: Mild diffuse neck pain with palpation or movement. Normal range of motion, supple without lymphadenopathy or JVD. LUNGS: Breath sounds clear to auscultation bilaterally and equal. No wheezes rales or rhonchi. HEART: Regular rate and rhythm without murmurs, rubs or gallops. ABDOMEN: Soft, nontender, normoactive bowel sounds. No guarding, no rebound. No masses appreciated. BACK: No CVA tenderness, no spinal tenderness, step-offs or deformities decubital visualized, 2nd degree, does not appear infected EXTREMITIES: Normal range of motion, no pitting or edema. No clubbing or cyanosis. NEUROLOGICAL: Cranial nerves II through XII grossly intact. Normal speech, not ambulatory. 5/5 strength both arms, no movement in legs. Decreased sensation in lower extremities which is baseline PSYCH: Normal mood, normal affect. SKIN: Warm, dry, normal turgor, no visible rashes or lesions. Source: Patient Exam Limitations: No limitations - Personal History Current Tetanus Diphtheria and Acellular Pertussis (TDAP): Yes Tetanus Vaccine Date: Within last 5 years - Medical/Surgical History Hx Asthma: No Hx Chronic Respiratory Disease: No Hx Diabetes: No Hx Cardiac Disease: Yes Hx Renal Disease: No Hx Cirrhosis: No Hx Alcoholism: No Hx HIV/AIDS: No Hx Splenectomy or Spleen Trauma: No Other PMH: PMH: Quadripalegia, A-fib, HTN, GERD, hypothyroid, DM2, anxiety, insomnia, chronic hyponatremia, pressure ulcer coccyx - Family History Significant Family History: No pertinent family hx - Social History Smoking Status: Never smoked Alcohol Use: None Constitutional: Initial Vital Signs Temperature (C) 37.2 C 01/10/18 20:13 Heart Rate 85 01/10/18 20:13 Respiratory Rate 18 01/10/18 20:13 Blood Pressure 72/31 L 01/10/18 20:13 O2 Sat (%) 86 L 01/10/18 20:13 O2 Delivery Mode Nasal Cannula O2 (L/minute) 2 Allergies/Adverse Reactions: codeine [Codeine] Allergy (Severe, Verified 01/10/18 20:12) Swelling/neck,face,throat Medical Decision Making - Diagnostics Imaging Results: Imaging Impressions Cervical Spine CT 01/10/18 00:00 Impression: No evidence for acute intracranial abnormality. Minimal periventricular white matter change which is nonspecific, but can be seen with small vessel ischemic disease. CT Cervical Spine Without Contrast History: Trauma. Comparison: MRI and CT from September 2017. Technique: 1.5-mm helical images were obtained of the cervical spine without contrast. Radiation dose reduction technique was utilized. Multiplanar reformation was performed. Findings: Postsurgical changes are seen of fusion of C5-C6 and C7 with anterior fixation plate and vertebral body screws. Interbody bone graft is in good position and appears well incorporated. Mild anterolisthesis is seen of C7 on T1 , which is unchanged.. There is disk height narrowing and osteophytosis at C4- C5 and C7-T1. No evidence for acute fracture. No evidence for prevertebral soft tissue swelling. Degenerative change is seen in the anterior arch of the C1 articulation with the dens, causing no significant encroachment. C2-C3 level unremarkable. C3-C4 level demonstrates mild uncovertebral joint hypertrophy and facet arthropathy, causing mild bilateral neural foraminal narrowing, left greater than right. C5-C6 level demonstrates uncovertebral joint hypertrophy and facet of the bilaterally, causing mild to moderate bilateral neural foraminal narrowing. C6-C7 level demonstrates mild uncovertebral joint hypertrophy, spurring, and facet arthropathy, causing mild to moderate bilateral neural foraminal narrowing. C7-T1 level demonstrates facet arthropathy, causing moderate to severe bilateral neural foraminal narrowing, unchanged. Impression: No evidence for acute fracture. Postsurgical changes of fusion C4-C6 , as above. Multilevel degenerative disk and degenerative joint disease cervical spine with no significant interval change. Results called and discussed with Krish Leavitt MD on January 10, 2018 [address] 01/10/18 20:15 Impression: No evidence for acute intracranial abnormality. Minimal periventricular white matter change which is nonspecific, but can be seen with small vessel ischemic disease. CT Cervical Spine Without Contrast History: Trauma. Comparison: MRI and CT from September 2017. Technique: 1.5-mm helical images were obtained of the cervical spine without contrast. Radiation dose reduction technique was utilized. Multiplanar reformation was performed. Findings: Postsurgical changes are seen of fusion of C5-C6 and C7 with anterior fixation plate and vertebral body screws. Interbody bone graft is in good position and appears well incorporated. Mild anterolisthesis is seen of C7 on T1 , which is unchanged.. There is disk height narrowing and osteophytosis at C4- C5 and C7-T1. No evidence for acute fracture. No evidence for prevertebral soft tissue swelling. Degenerative change is seen in the anterior arch of the C1 articulation with the dens, causing no significant encroachment. C2-C3 level unremarkable. C3-C4 level demonstrates mild uncovertebral joint hypertrophy and facet arthropathy, causing mild bilateral neural foraminal narrowing, left greater than right. C5-C6 level demonstrates uncovertebral joint hypertrophy and facet of the bilaterally, causing mild to moderate bilateral neural foraminal narrowing. C6-C7 level demonstrates mild uncovertebral joint hypertrophy, spurring, and facet arthropathy, causing mild to moderate bilateral neural foraminal narrowing. C7-T1 level demonstrates facet arthropathy, causing moderate to severe bilateral neural foraminal narrowing, unchanged. Impression: No evidence for acute fracture. Postsurgical changes of fusion C4-C6 , as above. Multilevel degenerative disk and degenerative joint disease cervical spine with no significant interval change. Results called and discussed with Krish Leavitt MD on January 10, 2018 at 2154 hours. Chest X-Ray 01/10/18 20:25 IMPRESSION: No evidence for acute cardiopulmonary abnormality. Imaging: Discussed imaging studies w/ callisthenics instructor Radiologist ED Course/Re-evaluation: The patient's blood pressure is rebounded with fluids. She is no longer hypotensive. 9:30 p.m. I discussed the case with Dr. Sherwood who will admit to the medical service. Will treat currently for urinary tract infection and sepsis. 10:00 p.m. The patient's blood pressure has stabilized. At this point she is not septic shock and does not require central line. Differential Diagnosis: Partial list of the Differential diagnosis considered include but were not limited to; urinary tract infection, sepsis, pneumonia, muscle strain and although unlikely based on the history and physical exam, I also considered cervical fracture, intracranial hemorrhage, acute coronary disease, intra- abdominal infection. Critical Care Time: Critical care time spent by meDr. Leavitt exclusive with this patient was 45 minutes, exclusive of the PA time exclusive of procedures. The organ system that was at risk was cardiovascular and I gave IV fluids, medications, consultation and admission to prevent worsening of the patient's condition - Data Points Laboratory Results: Laboratory Results 01/10/18 20:30 01/10/18 20:30 01/10/18 01/10/18 01/10/18 20:48 20:30 20:30 WBC RBC Hgb Hct MCV MCH MCHC RDW Plt Count MPV Neut % (Auto) Lymph % (Auto) [place] % (Auto) Eos % (Auto) Baso % (Auto) Nucleat RBC Rel Count Absolute Neuts (auto) Absolute Lymphs (auto) Absolute Monos (auto) Absolute Eos (auto) Absolute Basos (auto) Absolute Nucleated RBC Immature Gran % Immature Gran # PT 14.2 SEC SEC (12.0-15.0) INR 1.08 (0.83-1.16) APTT 29.0 SEC SEC (23.0-38.0) VBG Lactic Acid Sodium 136 mEq/L mEq/L (135-145) Potassium 4.8 mEq/L mEq/L (3.3-5.0) Chloride 97 mEq/L mEq/L (97-110) Carbon Dioxide 29 mEq/l mEq/l (22-31) Anion Gap 10 mEq/L mEq/L (8-16) BUN 18 mg/dL mg/dL (7-23) Creatinine 0.7 mg/dL mg/dL (0.6-1.0) Estimated GFR > 60 Glucose 226 mg/dL H mg/dL (70-100) Calcium 8.9 mg/dL mg/dL (8.5-10.4) Total Bilirubin 0.5 mg/dL mg/dL (0.1-1.4) TSH 6.660 uIU/mL H uIU/mL (0.465-4.680) Urine Color Urine Appearance Urine pH Ur Specific Shepherd Urine Protein Urine Ketones Urine Blood Urine Nitrate Urine Bilirubin Urine Urobilinogen Ur Leukocyte Esterase Urine RBC Urine WBC Ur Epithelial Cells Amorphous Sediment Urine Bacteria Hyaline Casts Urine Mucus Urine Glucose Nasal Influenza A PCR NEGATIVE FOR FLU A (NEGATIVE) Nasal Influenza B PCR NEGATIVE FOR FLU B (NEGATIVE) 01/10/18 01/10/18 01/10/18 20:30 20:30 20:25 WBC 13.82 10^3/uL H 10^3/uL (3.80-9.50) RBC 4.36 10^6/uL 10^6/uL (4.18-5.33) Hgb 12.2 g/dL L g/dL (12.6-16.3) Hct 38.3 % % (38.0-47.0) MCV 87.8 fL fL (81.5-99.8) MCH 28.0 pg pg (27.9-34.1) MCHC 31.9 g/dL L g/dL (32.4-36.7) RDW 16.2 % H % (11.5-15.2) Plt Count 212 10^3/uL 10^3/uL (150-400) MPV 11.0 fL fL (8.7-11.7) Neut % (Auto) 65.2 % % (39.3-74.2) Lymph % (Auto) 20.3 % % (15.0-45.0) [place] % (Auto) 12.5 % % (4.5-13.0) Eos % (Auto) 1.1 % % (0.6-7.6) Baso % (Auto) 0.4 % % (0.3-1.7) Nucleat RBC Rel Count 0.0 % % (0.0-0.2) Absolute Neuts (auto) 9.00 10^3/uL H 10^3/uL (1.70-6.50) Absolute Lymphs (auto) 2.81 10^3/uL 10^3/uL (1.00-3.00) Absolute Monos (auto) 1.73 10^3/uL H 10^3/uL (0.30-0.80) Absolute Eos (auto) 0.15 10^3/uL 10^3/uL (0.03-0.40) Absolute Basos (auto) 0.06 10^3/uL 10^3/uL (0.02-0.10) Absolute Nucleated RBC 0.00 10^3/uL 10^3/uL (0-0.01) Immature Gran % 0.5 % % (0.0-1.1) Immature Gran # 0.07 10^3/uL 10^3/uL (0.00-0.10) PT INR APTT VBG Lactic Acid 2.8 mmol/L H mmol/L (0.7-2.1) Sodium Potassium Chloride Carbon Dioxide Anion Gap BUN Creatinine Estimated GFR Glucose Calcium Total Bilirubin TSH Urine Color YELLOW Urine Appearance MODERATELY TURBID Urine pH 7.0 (5.0-7.5) Ur Specific Shepherd 1.011 (1.002-1.030) Urine Protein NEGATIVE (NEGATIVE) Urine Ketones NEGATIVE (NEGATIVE) Urine Blood NEGATIVE (NEGATIVE) Urine Nitrate NEGATIVE (NEGATIVE) Urine Bilirubin NEGATIVE (NEGATIVE) Urine Urobilinogen NEGATIVE EU EU (0.2-1.0) Ur Leukocyte Esterase 3+ H (NEGATIVE) Urine RBC 15-25 /hpf H /hpf (0-3) Urine WBC 50-182 /hpf H /hpf (0-3) Ur Epithelial Cells TRACE /lpf /lpf (NONE-1+) Amorphous Sediment PRESENT /hpf /hpf (NONE-1+) Urine Bacteria 3+ /hpf H /hpf (NONE SEEN) Hyaline Casts 1-5 /lpf /lpf (0-1) Urine Mucus TRACE /lpf /lpf (NONE-1+) Urine Glucose NEGATIVE (NEGATIVE) Nasal Influenza A PCR Nasal Influenza B PCR Medications Given: Sodium Chloride (Ns) 1,000 mls @ 125 mls/hr IV CONT MADISYN Stop: 07/09/18 21:59 Last Admin: 01/10/18 22:24 Dose: 1,000 mls Discontinued Medications Sodium Chloride (Ns) 2,500 mls @ 5,000 mls/hr 30 ml/kg infuse over 30 min ( 2500 ml) IV EDNOW ONE PRN Reason: Protocol Stop: 01/10/18 20:43 Last Admin: 01/10/18 20:30 Dose: 2,500 mls Cefepime HCl 2 gm/ Sodium (Chloride) 100 mls @ 200 mls/hr IV EDNOW ONE PRN Reason: Protocol Stop: 01/10/18 21:24 Last Admin: 01/10/18 21:19 Dose: 100 mls Departure - Departure Disposition: [facility] Acute Clinical Impression: Severe sepsis UTI (urinary tract infection) Qualifiers: Urinary tract infection type: site unspecified Hematuria presence: without hematuria Qualified Code(s): N39.0 - Urinary tract infection, site not specified Condition: Critical
--- NOTE | 2018-01-10 20:46 | CPEKG ---
Heart Rate: 78 RR Interval: 769 P-R Interval: 204 QRSD Interval: 118 QT Interval: 412 QTC Interval: 470 P [place]: 11 QRS [place]: -50 T Wave [place]: 22 EKG Severity - ABNORMAL ECG - EKG Impression: SINUS RHYTHM EKG Impression: INCOMPLETE LEFT BUNDLE BRANCH BLOCK EKG Impression: PROBABLE LEFT VENTRICULAR HYPERTROPHY EKG Impression: Similar to previous Electronically Signed By: Krish Leavitt 10-Jan-2018 21:12:58
[2018-01-10] MEDS ORDERED: CEFEPIME HCL 2 GM in NS 100 ML IV ONE (20:55)
[2018-01-10 20:57] LABS: INR 1.08 (0.83-1.16); PLATELET COUNT 212 10^3/uL (150-400); PROTIME(PATIENT) 14.2 SEC (12.0-15.0)
[2018-01-10] MEDS ORDERED: ONDANSETRON 4 MG/2 ML VIAL IVP PRN (21:49)
[2018-01-10] MEDS ORDERED: ONDANSETRON DISINTEGRATING 4 MG TAB PO PRN (21:49)
[2018-01-10] MEDS ORDERED: D50W 25 GM/50 ML SYR IVP PRN (22:00)
[2018-01-10] MEDS: NS 1,000 ML IV SCH (22:24)
[2018-01-10] MEDS: VANCOMYCIN HCL/NORMAL SALINE 250 ML IV SCH (22:34)
--- NOTE | 2018-01-10 22:41 | GHP ---
[f rep st] HISTORY AND PHYSICAL DATE OF ADMISSION: 01/10/2018 CHIEF COMPLAINT: Neck pain. HISTORY OF PRESENT ILLNESS: This is a 62-year-old female, who called paramedics because of neck and shoulder pain. She tells me that this is better now. It hurts a little bit when she moves her head from left to right. She has a history of C5-6 partial quadriplegia from a fall. She has an ileal conduit with a urostomy, which was placed this July. Paramedics found her to have a fever to 102 when they saw her. In the emergency department, she is hypotensive, which is somewhat respondent to fluids. Her review of systems is relatively negative, although she did note some chills at home. She specifically denies chest pain, shortness of breath, cough, change in her urine production or quality, abdominal pain, though she does not have significant sensation there. She does have a sacral decubitus ulcer, which has been cared for. She has not had any diarrhea. PAST MEDICAL/SURGICAL HISTORY: 1. Partial quadriplegia due to a C6-7 injury from a fall. 2. GERD. 3. Diabetes mellitus. 4. Atrial fibrillation. 5. C difficile. 6. Sacral ulcer. 7. Hypothyroid. 8. Urinary tract infection. 9. Back surgery. 10. Suprapubic catheter placement. 11. Urinary diversion with ileal conduit. MEDICATIONS: Please see medication reconciliation. ALLERGIES: Codeine. FAMILY HISTORY: Reviewed and noncontributory. SOCIAL HISTORY: She lives at home. She has a PRE FABRICATOR to help her. REVIEW OF SYSTEMS: A 10-point review of systems is conducted and is negative except per HPI. PHYSICAL EXAM: VITAL SIGNS: Blood pressure is initially 72/31, now 107/61, heart rate 80, respiration rate 18, saturating 94% on 2 L. Temperature is 37.2. GENERAL: Ms. Magana is a pleasant female who is resting comfortably. No acute distress. HEENT: Shows to be normocephalic atraumatic. CARDIOVASCULAR: Shows regular rate and rhythm. No murmurs, rubs, or gallops. PULMONARY: Shows her to be breathing comfortably. She is in no respiratory distress. ABDOMEN: Shows an ileal conduit in place. She has a midline scar. Her abdomen is soft. It is not rigid. She does not really complain of any abdominal pain. BACK: Shows her to have a sacral pressure injury. There is no significant surrounding erythema or purulence. Otherwise, her skin exam is negative for any rash. NECK: Shows her to have no significant meningismus. : Is per abdominal exam. PSYCHIATRIC: Shows a normal mood and affect. NEUROLOGIC: Shows her to be alert and oriented x3. She is providing a good history. She has very limited movement and sensation in her upper and lower extremities. LABS: Urinalysis shows 50-182 whites, 3+ leuk esterase, glucose is 226, TSH is 6.6. Lactate is 2.8. INR is 1.08. White count is 13.8 with a relatively even distribution. Hemoglobin is 12.2. DATA: 1. Discussed with Dr. Leavitt, will admit to the step-down unit. 2. Initial read on her CT head as well as C-spine. CTs are negative per Dr. Leavitt. 3. Chest x-ray, which I personally viewed and interpreted, shows no acute infiltrate. 4. EKG, which I personally viewed and interpreted, shows an incomplete left bundle branch block. This is unchanged from her previous EKG. IMPRESSION AND PLAN: 1. Severe sepsis: There is no clear source, but she presented hypotensive, fever per paramedics with a leukocytosis. Her blood pressures responded to initial fluid bolus, her last MAP is 76. We will need to repeat a lactate as the initial lactate was 2.8. Considerations for source include urinary ( although urinalysis difficult to interpret in the setting of an ileal conduit, sacral decubitus ulcer, although it does not appear infected on my exam, meningitis, although she really does not have any significant meningismus on my exam, intraabdominal source, though her physical exam may be difficult to interpret given her quadriplegia. Blood cultures have been drawn and are pending. We will cover her broadly for now with cefepime as well as vancomycin as she has had Pseudomonas as well as MRSA in her previous urine cultures. She has a history of Clostridium difficile, though she is denying any diarrhea, if she should have some would send a GI pathogen panel. Will place her in the step -down unit. 2. Diabetes mellitus: She is hyperglycemic now. Will follow her glucoses, start sliding-scale insulin, and continue her home insulin when this has been reconciled. 3. Partial quadriplegia at the C6-7 level due to a fall injury: She has significant help at home from a PRE FABRICATOR. We will continue her antispasmodic medications when these are available. 4. Venous thromboembolism risk is high. I will put her on Lovenox. 5. History of c. dif: Prophylactic vanc PO. /[id number]/MODL MTDD
[2018-01-10] MEDS: ACETAMINOPHEN 325 MG TAB PO PRN (22:48)
--- NOTE | 2018-01-11 00:41 | PDMN ---
Medical Necessity Medical necessity: C/M review: Patient meets INPT criteria under [facility] [place] M-160 Sepsis and Other Febrile Illness, without Focal Infection: Acute severe sepsis of unclear source, fever, WBC 13.82, initial BP 72/31, VBG 2.8, 86% RA sat, urine/blood cultures pending, requiring 2500ml IV NS bolus in ED, ongoing IV Cefepime Q 8 hrs., IV Vancomycin Q 12 hrs., IV NS 125 ml/hr., cardiac monitoring, pulse oximetry, supplemental O2 2-4L/min., in SDU, comorbid sacral decubitus ulcer which has been cared for present on admission, diabetes, partial quadriplegia at C6-C7 level due to prior fall injury, history of urinary diversion with ileal conduit, history of GERD, atrial fibrillation, C. Difficile, hypothyroidism, urinary tract infection, suprapubic catheter placement, back surgery. MD anticipates > 2 MN LOS for ongoing med nec for eval and TX of above. Patient is Medicare Advantage which follows guidelines CMS puts forth.
[2018-01-11 05:31] LABS: PLATELET COUNT 124 10^3/uL (150-400)
[2018-01-11] MEDS: LEVOTHYROXINE 88 MCG TAB PO SCH (05:34)
[2018-01-11] MEDS: CEFEPIME HCL 2 GM in NS 100 ML IV SCH ×3 (05:34→22:21)
[2018-01-11] MEDS: NS 1,000 ML IV SCH ×2 (09:20→19:08)
[2018-01-11] MEDS: INSULIN LISPRO 100 UNIT/ML SC SCH ×3 (09:32→17:49)
[2018-01-11] MEDS: CITALOPRAM 20 MG TAB PO SCH (10:05)
[2018-01-11] MEDS: VANCOMYCIN 125 MG/2.5 ML UDL PO SCH ×2 (10:05→20:28)
[2018-01-11] MEDS: GABAPENTIN 100 MG CAP PO SCH ×3 (10:05→20:28)
[2018-01-11] MEDS: ENOXAPARIN 40 MG/0.4 ML SYR SC SCH (10:05)
[2018-01-11] MEDS: BACLOFEN 20 MG TAB PO SCH ×3 (10:19→20:28)
[2018-01-11] MEDS: VANCOMYCIN HCL/NORMAL SALINE 250 ML IV SCH ×2 (11:30→22:22)
[2018-01-11] MEDS ORDERED: NS 500 ML IV ONE (12:00)
--- NOTE | 2018-01-11 12:59 | WOCRNPDOC ---
WOCRN Advanced Assessment Note - Skin Integrity Problem, Advanced Assess Coccyx Pressure Injury Dressing Type: Mepilex Border Other Dressing Type: sacral Dressing Description: Clean/Dry, Intact Closure Description: Not Approximated Exudate Amount: Scant Exudate Color: Reddish/Yellow Exudate Characteristic(s): Serosanguinous Integumentary Issue Intervention: Visualized Under Dressing, Hydrogel Applied Candis Wound Tissue: Blanching, Erythema, Intact, Thin, Scarred Wound Bed Color: Firth Wound Bed Constitution: Red/Firth - Non Granular Tissue Site Measurement - Head-to-Toe Length X Width X Depth (cm): 1.2x0.3x0.3 Pressure Injury Stage: Stage 4 (original wound stage) Pressure Injury Present on Admit: Yes Skin Integrity Problem Comment: Patient rolled to her right side with assist from NYDIA Bradford. Mepilex sacral dressing in place and pulled back to reveal wound. Patient with obvious scarring to area. Skin is largely intact, very pink but blanching. Area of greatest concern is to left margin of previously known Stage 4 pressure injury. In this area, skin is open and appears to be full thickness. At this time, no bony structures visible. Wound bed cleaned with NS and gauze. Hydrogel applied to wound bed, periwound skin covered with skin prep , and Mepilex sacral dressing used to cover wound. Will implement further offloading measures. Wound care will round again early this week.
--- NOTE | 2018-01-11 14:43 | GCON ---
[f rep st] CONSULTATION PRINTED [employer] BOARDS CONTACT PRINTER CONSULTATION. REASON FOR ADMISSION: Severe sepsis, shock, diabetes. HISTORY OF PRESENT ILLNESS: The patient is a very pleasant, 62-year-old, white female with extensive past medical history including partial quadriplegia from a C6-C7 injury after a fall, diabetes, clos tridium difficile, hypothyroidism, urinary diversion with ileal conduit, urinary tract infections, sa cral ulcer, atrial fibrillation, gastroesophageal reflux disease. She was brought in via EMS complai domenico of neck and shoulder pain. This had improved. However, she did have a fever up to 102 and she was found to be hypotensive. This is felt to be a urine source. She was subsequently admitted to in tensive care unit. In discussion, the patient states overall, she feels markedly better. She still has some mild neck p ain, but this has improved. She denies any cough or productive sputum. There was no chest pain, ple uritic-type chest pain, or angina equivalent. There is no fever or night sweats. REVIEW OF SYSTEMS: 10-point review of systems performed is negative, except for what is listed in HP I. PAST MEDICAL HISTORY: As above. ALLERGIES: To codeine. SOCIAL HISTORY: She lives at home. She has a GEOSCIENCE SPECIALIST to help her. She denies any tobacco use. No alco hol use. FAMILY HISTORY: Noncontributory. PHYSICAL EXAMINATION: VITAL SIGNS: Blood pressure is 104/58, pulse is 70, respirations are 20, temp erature 36.8, oxygen saturation 97% on 2 L. GENERAL: She is a moderately overweight, 62-year-old, w radha female who is resting comfortably on supplemental oxygen. HEENT: Eyes: [place]. EOMI. Throat s hows no erythema or tonsillar hypertrophy. NECK: Supple. There is no cervical adenopathy. HEART: Regular rate and rhythm without murmurs, rubs, or gallops. LUNGS: Clear to auscultation. No wheez e or rhonchi. ABDOMEN: Soft, nontender. Bowel sounds are present. EXTREMITIES: No clubbing, cyan osis, or edema. LABORATORY/IMAGING: White count 9.8, hemoglobin 10, hematocrit 32, platelet count is 124. Sodium 14 3, potassium 4.5, chloride 107, CO2 is 28, BUN 12, creatinine 0.6, glucose is 135. Urinalysis: pH 7 , specific gravity 1.01, wbc's 50-182, 3+ bacteria. Influenza A and B are negative. Chest x-ray is clear. IMPRESSION: 1. Severe sepsis, etiology of which is unclear, though urine seems most likely. 2. Shock, improved with intravenous fluids. 3. Diabetes. Blood sugars now controlled. 4. History of partial quadriplegia. 5. History of Clostridium difficile. 6. History of atrial fibrillation. 7. Gastroesophageal reflux disease. RECOMMENDATIONS: 1. Agree with current antibiotic coverage. 2. Aggressive hydration. 3. DVT and PE prophylaxis. 4. Stress ulcer prophylaxis. 5. Wound care. /[id number]/MODL
--- NOTE | 2018-01-11 14:46 | HOSPPROG ---
Hospitalist Progress Note Assessment/Plan: 62 yo F with hx of partial quad, ileal conduit with urostomy presenting with severe sepsis # severe sepsis: source unclear but patient continues to be hypotensive, though fluid responsive. Urinary source possible but difficult to determine with ileal conduit. CXR personally reviewed and unremarkable, only localizing sxs is neck pain but neck/head CT personally reviewed and nothing to suggest infection. Cultures pending. Continue vanc/cefepime. 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 # hx of c diff: ppx PO vanc # a fib: personally reviewed ecg, currently in SR with incomplete LBBB # hypothyroid: continue lt4 # IP status # Patient new to my care. Care plan reviewed with Padma as above. Subjective: no significant overnight events, patient remains hypotensive today but feeling overall better Objective: Vital Signs Temp Pulse Resp BP Pulse Ox 36.8 C 70 20 104/50 L 97 01/11/18 12:00 01/11/18 12:00 01/11/18 12:00 01/11/18 12:00 01/11/18 12:00 Laboratory Results 01/11/18 05:10 01/11/18 05:10 01/10/18 01/11/18 01/12/18 05:59 05:59 05:59 Intake Total 4365 Output Total 1250 1500 Balance 3115 -1500 PT 14.2 SEC (12.0-15.0) 01/10/18 20:30 INR 1.08 (0.83-1.16) 01/10/18 20:30 awake alert anicteric op clear rrr no mrg cta dec bs at bases soft nt nd no cce warm dry well perfused oriented appropriate ICD10 Worksheet Patient Problems: Problems Problem Status Onset Chronic incomplete flaccid quadriplegia Acute UTI (urinary tract infection) Acute Severe sepsis Acute Weakness Acute Quadriplegia Acute Hyponatremia Acute Decubital ulcer Acute Diarrhea Acute Urethrovaginal fistula Acute Sepsis Acute Paraplegia Acute Fever Acute Leukocytosis Acute Candidiasis of vagina Acute
[2018-01-11] MEDS: ACETAMINOPHEN 325 MG TAB PO PRN (15:27)
[2018-01-11] MEDS: ZOLPIDEM TARTRATE 5 MG TAB PO SCH (20:28)
[2018-01-11] MEDS: traZODone 50 MG TAB PO SCH (20:28)
[2018-01-11] MEDS: HYDROCODONE/APAP 5/325 TAB PO PRN (22:20)
--- NOTE | 2018-01-12 09:28 | WOCRNPDOC ---
WOCRN Advanced Assessment Note - Skin Integrity Problem, Advanced Assess Coccyx Pressure Injury Dressing Type: Mepilex Border Dressing Description: Clean/Dry, Intact Exudate Amount: Minimal Exudate Color: Red Exudate Characteristic(s): Bloody Integumentary Issue Intervention: Visualized Under Dressing Candis Wound Tissue: Blanching Candis Wound Swelling: None Wound Bed Color: Red Wound Bed Constitution: Granulation Tissue (100%) Site Odor: None Site Measurement - Head-to-Toe Length X Width X Depth (cm): 1.4x0.9x0.9 Pressure Injury Stage: Stage 4 Pressure Injury Present on Admit: Yes Skin Integrity Problem Comment: Cleaned wound. Explored wound. Wound has improved since previous assessment. Pt was unaware that wound was open. Full thickness. Wound with depth, will fill depth with foam. Wound care will round again on Friday. Lora Figueroa RN Wound care team. Ligia and Chrissy in room for care. Right Posterior Axilla Abrasion Dressing Type: Open to Air Exudate Amount: None Candis Wound Tissue: Blanching Candis Wound Swelling: None Wound Bed Constitution: Granulation Tissue Site Odor: None Site Measurement - Head-to-Toe Length X Width X Depth (cm): 3x1 Skin Integrity Problem Comment: Skin abrasion on posterior proximal right arm. Pt states it is from her wheel chair. Wound is healing. Wound care will not be following this wound. Lora Figueroa RN Wound Care team. Ligia STAFFORD and Chrissy RN in room for care. Left Proximal Knee Abrasion Dressing Type: Open to Air Exudate Amount: None Candis Wound Tissue: Blanching Candis Wound Swelling: None Wound Bed Color: [place] Wound Bed Constitution: Granulation Tissue Skin Integrity Problem Comment: Wound is healing. Wound care will not be following. Lora Figueroa RN Wound Care Team. Ligia STAFFORD and Chrissy RN in room for care.
[2018-01-12] MEDS: INSULIN LISPRO 100 UNIT/ML SC SCH ×3 (09:34→18:36)
[2018-01-12] MEDS: BACLOFEN 20 MG TAB PO SCH ×3 (10:22→22:03)
[2018-01-12] MEDS: ENOXAPARIN 40 MG/0.4 ML SYR SC SCH (10:22)
[2018-01-12] MEDS: CITALOPRAM 20 MG TAB PO SCH (10:22)
[2018-01-12] MEDS: VANCOMYCIN 125 MG/2.5 ML UDL PO SCH ×2 (10:22→22:03)
[2018-01-12] MEDS: GABAPENTIN 100 MG CAP PO SCH ×3 (10:22→22:03)
[2018-01-12] MEDS: CEFEPIME HCL 2 GM in NS 100 ML IV SCH (10:53)
--- NOTE | 2018-01-12 11:32 | HOSPPROG ---
Hospitalist Progress Note Assessment/Plan: 62 yo F with hx of partial quad, ileal conduit with urostomy presenting with severe sepsis # severe sepsis: presumably 2/2 urinary infection as next, work up otherwise unrevealing. Vitals improved, WBC trending down, lactate cleared. Was started on vanc/cefepime and now transitioned to levofloxacin as next # complicated UTI: in the setting of ileal conduit with urostomy in place and multiple infections in the past, most recently with pseudomonas and enterococcus. 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 Pseudomonas most recently in urine sens to levofloxacin and given lack of IV access will change to levofloxacin for now and monitor for s/s on culture 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 # hx of c diff: ppx PO vanc # a fib: personally reviewed ecg, currently in SR with incomplete LBBB # hypothyroid: continue lt4 # IP status--will transition to floor Subjective: no significant overnight events, patient feeling a bit better today , eating/slept well Objective: Vital Signs Temp Pulse Resp BP Pulse Ox 37.2 C 56 L 17 118/63 99 01/12/18 00:00 01/12/18 04:00 01/12/18 04:00 01/12/18 04:00 01/12/18 04:00 Laboratory Results 01/11/18 05:10 01/11/18 05:10 01/11/18 01/12/18 01/13/18 05:59 05:59 05:59 Intake Total 4365 2869 Output Total 1250 2750 Balance 3115 119 PT 14.2 SEC (12.0-15.0) 01/10/18 20:30 INR 1.08 (0.83-1.16) 01/10/18 20:30 awake alert anicteric op clear rrr no mrg cta dec bs at bases soft nt nd no cce warm dry well perfused oriented appropriate - Time Spent With Patient Time Spent with Patient: greater than 35 minutes Time Spent with Patient: Greater than 35 minutes spent on this patients care, greater than 50% of time spent counseling, educating, and coordinating care regarding the above mentioned plan. ICD10 Worksheet Patient Problems: Problems Problem Status Onset Severe sepsis Acute UTI (urinary tract infection) Acute Candidiasis of vagina Acute Chronic incomplete flaccid quadriplegia Acute Decubital ulcer Acute Diarrhea Acute Fever Acute Hyponatremia Acute Leukocytosis Acute Paraplegia Acute Quadriplegia Acute Sepsis Acute Urethrovaginal fistula Acute Weakness Acute
[2018-01-12] MEDS: LEVOTHYROXINE 88 MCG TAB PO SCH (11:33)
[2018-01-12] MEDS: DIAZEPAM 5 MG TAB PO PRN ×2 (13:51→19:46)
--- NOTE | 2018-01-12 16:18 | ASMTCMCOM ---
CM Note CM Note Notes: Pt was admitted with UTI and severe sepsis. She is a partial quadriplegic and has a urostomy and has a hx of DM2. She is receiving wound care for a coccyx pressure injury. Pt's RN to request PT/OT orders. Pt has been to [facility] and had [facility] and [facility] in the past. Per previous notes, she has care from 7am-8pm through [facility]. She has transitioned to po ABX and may need ongoing wound care. Pt sleeping at this time so CM unable to see. CM will follow for any d/c needs. Date Signed: 01/12/2018 04:17 PM Electronically Signed By:TONIO Chan
[2018-01-12] MEDS: HYDROCODONE/APAP 5/325 TAB PO PRN (19:46)
[2018-01-12] MEDS ORDERED: OXYMETAZOLINE 30 ML NASAL SPRAY EACHNARE PRN (19:59)
[2018-01-12] MEDS: IBUPROFEN 200 MG TAB PO PRN (21:15)
[2018-01-12] MEDS: traZODone 50 MG TAB PO SCH (22:03)
[2018-01-12] MEDS: ZOLPIDEM TARTRATE 5 MG TAB PO SCH (22:03)
[2018-01-13] MEDS: LEVOTHYROXINE 88 MCG TAB PO SCH (05:58)
[2018-01-13] MEDS: ENOXAPARIN 40 MG/0.4 ML SYR SC SCH (08:55)
[2018-01-13] MEDS: VANCOMYCIN 125 MG/2.5 ML UDL PO SCH ×2 (08:55→22:04)
[2018-01-13] MEDS: CITALOPRAM 20 MG TAB PO SCH (08:56)
[2018-01-13] MEDS: BACLOFEN 20 MG TAB PO SCH ×3 (08:56→22:03)
[2018-01-13] MEDS: GABAPENTIN 100 MG CAP PO SCH ×3 (08:56→22:03)
[2018-01-13] MEDS: INSULIN LISPRO 100 UNIT/ML SC SCH ×3 (09:35→18:09)
--- NOTE | 2018-01-13 14:25 | HOSPPROG ---
Hospitalist Progress Note Assessment/Plan: 62 yo F with hx of partial quad, ileal conduit with urostomy presenting with severe sepsis # severe sepsis: presumably 2/2 urinary infection as next, work up otherwise unrevealing. Vitals improved, WBC trending down, lactate cleared. Was started on vanc/cefepime and now transitioned to levofloxacin as next. Resolved # complicated UTI: in the setting of ileal conduit with urostomy in place and multiple infections in the past, cultures currently with enterobacter, pseudomonas and morganella all of which are sensitive to levofloxacin. Will plan a 14 day course. 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: patient living independently and given above is a bit weaker than usual baseline, will have pt/ot eval and likely dc home with home health # hx of c diff: ppx PO vanc # a fib: personally reviewed ecg, currently in SR with incomplete LBBB # hypothyroid: continue lt4 # IP status- Care plan reviewed with CM Subjective: no significant overnight events, patient somnolent Objective: Vital Signs Temp Pulse Resp BP Pulse Ox 36.8 C 84 12 158/90 H 95 01/13/18 14:21 01/13/18 14:21 01/13/18 14:21 01/13/18 14:21 01/13/18 14:21 Laboratory Results 01/11/18 05:10 01/11/18 05:10 01/12/18 01/13/18 01/14/18 05:59 05:59 05:59 Intake Total 2869 820 Output Total 2750 2550 525 Balance 119 -1730 -525 PT 14.2 SEC (12.0-15.0) 01/10/18 20:30 INR 1.08 (0.83-1.16) 01/10/18 20:30 awake alert anicteric op clear rrr no mrg cta dec bs at bases soft nt nd urostomy cdi no cce warm dry well perfused oriented appropriate ICD10 Worksheet Patient Problems: Problems Problem Status Onset Severe sepsis Acute UTI (urinary tract infection) Acute Candidiasis of vagina Acute Chronic incomplete flaccid quadriplegia Acute Decubital ulcer Acute Diarrhea Acute Fever Acute Hyponatremia Acute Leukocytosis Acute Paraplegia Acute Quadriplegia Acute Sepsis Acute Urethrovaginal fistula Acute Weakness Acute
[2018-01-13] MEDS: traZODone 50 MG TAB PO SCH (22:03)
[2018-01-13] MEDS: ZOLPIDEM TARTRATE 5 MG TAB PO SCH (22:03)
[2018-01-13] MEDS: HYDROCODONE/APAP 5/325 TAB PO PRN (22:03)
[2018-01-14] MEDS: DIAZEPAM 5 MG TAB PO PRN ×3 (00:30→21:57)
[2018-01-14] MEDS: IBUPROFEN 200 MG TAB PO PRN ×2 (00:30→19:27)
[2018-01-14] MEDS: LEVOTHYROXINE 88 MCG TAB PO SCH (03:54)
[2018-01-14] MEDS: HYDROCODONE/APAP 5/325 TAB PO PRN ×4 (03:54→21:57)
[2018-01-14] MEDS: INSULIN LISPRO 100 UNIT/ML SC SCH ×3 (08:57→18:11)
[2018-01-14] MEDS: ENOXAPARIN 40 MG/0.4 ML SYR SC SCH (09:03)
[2018-01-14] MEDS: VANCOMYCIN 125 MG/2.5 ML UDL PO SCH ×2 (09:03→21:58)
[2018-01-14] MEDS: BACLOFEN 20 MG TAB PO SCH ×3 (09:03→21:57)
[2018-01-14] MEDS: CITALOPRAM 20 MG TAB PO SCH (09:04)
[2018-01-14] MEDS: GABAPENTIN 100 MG CAP PO SCH ×3 (09:04→21:57)
[2018-01-14] MEDS ORDERED: BISACODYL 10 MG SUPP PR PRN (14:43)
--- NOTE | 2018-01-14 16:33 | HOSPPROG ---
Hospitalist Progress Note Assessment/Plan: 62 yo F with hx of partial quad, ileal conduit with urostomy presenting with severe sepsis # severe sepsis: presumably 2/2 urinary infection as next, work up otherwise unrevealing. Vitals improved, WBC trending down, lactate cleared. Was started on vanc/cefepime and now transitioned to levofloxacin as next. Resolved # complicated UTI: in the setting of ileal conduit with urostomy in place and multiple infections in the past, cultures showing enterobacter, pseudomonas and morganella all of which are sensitive to levofloxacin but now also with low colony counts of VRE which she has had 2 weeks ago as well. Will discuss with ID whether this is important to treat. 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: patient living independently and given above is a bit weaker than usual baseline, will have pt/ot eval and likely dc home with home health # hx of c diff: ppx PO vanc # a fib: personally reviewed ecg, currently in SR with incomplete LBBB # hypothyroid: continue lt4 # IP status-patient lives independently with assistance and will likely dc to same in coming 1-2 days Subjective: no significant overnight events, patient notes that she continues to feel weak but is otherwise feeling much better Objective: Vital Signs Temp Pulse Resp BP Pulse Ox 37 C 62 22 H 117/77 90 L 01/14/18 16:00 01/14/18 16:00 01/14/18 16:00 01/14/18 16:00 01/14/18 16:00 Laboratory Results 01/11/18 05:10 01/11/18 05:10 01/13/18 01/14/18 01/15/18 05:59 05:59 05:59 Intake Total 820 550 Output Total 2550 3325 700 Balance -2590 -2775 -700 PT 14.2 SEC (12.0-15.0) 01/10/18 20:30 INR 1.08 (0.83-1.16) 01/10/18 20:30 awake alert anicteric op clear rrr no mrg cta dec bs at bases soft nt nd urostomy cdi no cce warm dry well perfused oriented appropriate - Time Spent With Patient Time Spent with Patient: greater than 35 minutes Time Spent with Patient: Greater than 35 minutes spent on this patients care, greater than 50% of time spent counseling, educating, and coordinating care regarding the above mentioned plan. ICD10 Worksheet Patient Problems: Problems Problem Status Onset Severe sepsis Acute UTI (urinary tract infection) Acute Candidiasis of vagina Acute Chronic incomplete flaccid quadriplegia Acute Decubital ulcer Acute Diarrhea Acute Fever Acute Hyponatremia Acute Leukocytosis Acute Paraplegia Acute Quadriplegia Acute Sepsis Acute Urethrovaginal fistula Acute Weakness Acute
--- NOTE | 2018-01-14 16:49 | ASMTCMCOM ---
CM Note CM Note Notes: Spoke w/pt, she may need home health RN for wound care as well as her current caregivers through [facility]. CM sent referral to [facility] per colleagues previous note. DC Plan: Home w/[facility] (non-medical) and medical HC Date Signed: 01/14/2018 04:49 PM Electronically Signed By:Bernie Loredo RN
[2018-01-14] MEDS: traZODone 50 MG TAB PO SCH (21:56)
[2018-01-14] MEDS: ZOLPIDEM TARTRATE 5 MG TAB PO SCH (21:57)
[2018-01-15] MEDS: LEVOTHYROXINE 88 MCG TAB PO SCH (04:08)
[2018-01-15] MEDS: GABAPENTIN 100 MG CAP PO SCH ×3 (09:02→21:37)
[2018-01-15] MEDS: VANCOMYCIN 125 MG/2.5 ML UDL PO SCH ×2 (09:02→21:38)
[2018-01-15] MEDS: BACLOFEN 20 MG TAB PO SCH ×3 (09:03→21:37)
[2018-01-15] MEDS: CITALOPRAM 20 MG TAB PO SCH (09:03)
[2018-01-15] MEDS: INSULIN LISPRO 100 UNIT/ML SC SCH ×3 (09:03→17:48)
[2018-01-15] MEDS: ENOXAPARIN 40 MG/0.4 ML SYR SC SCH (09:03)
[2018-01-15] MEDS: HYDROCODONE/APAP 5/325 TAB PO PRN ×2 (11:08→19:44)
[2018-01-15] MEDS: LORazepam 0.5 MG TAB PO PRN ×2 (12:16→19:44)
[2018-01-15] MEDS: IBUPROFEN 200 MG TAB PO PRN ×2 (12:16→21:37)
--- NOTE | 2018-01-15 13:54 | ASMTCMCOM ---
CM Note CM Note Notes: Chart reviewed .62 year old quad with UTI declined by [facility] referral. More referrals via allscripts. Likely near baseline and patient has non medical providers in place [address]. CM to follow. Plan : home with current service and [facility] for RN to follow wound. Date Signed: 01/15/2018 01:53 PM Electronically Signed By:Rachel Richards RN
--- NOTE | 2018-01-15 15:56 | HOSPPROG ---
Hospitalist Progress Note Assessment/Plan: 62 yo F with hx of partial quad, ileal conduit with urostomy presenting with severe sepsis # severe sepsis: presumably 2/2 urinary infection as next, Vitals improved, WBC trending down, lactate cleared. Was started on vanc/cefepime and now transitioned to levofloxacin as next. Resolved # complicated UTI: in the setting of ileal conduit with urostomy in place and multiple infections in the past, cultures showing enterobacter, pseudomonas and morganella all of which are sensitive to levofloxacin which will be continued for at least 7 days (currently day 5 abx). Low colony counts of VRE noted, discussed with ID and given clinical improvement and low colony counts, no reason to specifically target that bacteria for tx. 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: patient living independently and given above is a bit weaker than usual baseline, will have pt/ot eval and likely dc home with home health # hx of c diff: ppx PO vanc # a fib: personally reviewed ecg, currently in SR with incomplete LBBB # hypothyroid: continue lt4 # IP status-patient lives independently with assistance and will likely dc to same in coming 1-2 days Subjective: no significant overnight events, patient is feeling stronger today, closer to her baseline, no fever or chills overnight Objective: Vital Signs Temp Pulse Resp BP Pulse Ox 37.1 C 74 18 144/81 H 96 01/15/18 11:55 01/15/18 11:55 01/15/18 11:55 01/15/18 13:00 01/15/18 11:55 Laboratory Results 01/11/18 05:10 01/11/18 05:10 01/14/18 01/15/18 01/16/18 05:59 05:59 05:59 Intake Total 550 2480 Output Total 3325 2600 1775 Balance -2775 -120 -1775 PT 14.2 SEC (12.0-15.0) 01/10/18 20:30 INR 1.08 (0.83-1.16) 01/10/18 20:30 awake alert anicteric op clear rrr no mrg cta dec bs at bases soft nt nd urostomy cdi no cce warm dry well perfused oriented appropriate ICD10 Worksheet Patient Problems: Problems Problem Status Onset Severe sepsis Acute UTI (urinary tract infection) Acute Candidiasis of vagina Acute Chronic incomplete flaccid quadriplegia Acute Decubital ulcer Acute Diarrhea Acute Fever Acute Hyponatremia Acute Leukocytosis Acute Paraplegia Acute Quadriplegia Acute Sepsis Acute Urethrovaginal fistula Acute Weakness Acute
[2018-01-15] MEDS: ZOLPIDEM TARTRATE 5 MG TAB PO SCH (21:36)
[2018-01-15] MEDS: DIAZEPAM 5 MG TAB PO PRN (21:37)
[2018-01-15] MEDS: traZODone 50 MG TAB PO SCH (21:37)
[2018-01-16] MEDS: DIAZEPAM 5 MG TAB PO PRN (04:30)
[2018-01-16] MEDS: HYDROCODONE/APAP 5/325 TAB PO PRN ×3 (04:30→16:15)
[2018-01-16] MEDS: LEVOTHYROXINE 88 MCG TAB PO SCH (04:30)
[2018-01-16] MEDS: GABAPENTIN 100 MG CAP PO SCH ×3 (08:29→21:49)
[2018-01-16] MEDS: CITALOPRAM 20 MG TAB PO SCH (08:29)
[2018-01-16] MEDS: BACLOFEN 20 MG TAB PO SCH ×3 (08:29→21:49)
[2018-01-16] MEDS: VANCOMYCIN 125 MG/2.5 ML UDL PO SCH ×2 (08:29→21:49)
[2018-01-16] MEDS: ENOXAPARIN 40 MG/0.4 ML SYR SC SCH (08:29)
[2018-01-16] MEDS: INSULIN LISPRO 100 UNIT/ML SC SCH ×3 (09:42→18:58)
--- NOTE | 2018-01-16 09:43 | PDIAF ---
- Diagnosis Diagnosis: sepsis Code Status: Full Code - Medication Management Discharge Medications: Medications to Continue on Transfer Baclofen [Baclofen 20 mg (*)] 20 mg PO TID 01/10/18 [Last Taken Unknown] Citalopram Hydrobromide [Citalopram HBr] 20 mg PO DAILY 01/10/18 [Last Taken Unknown] Diazepam [Valium 5 MG (*)] 5 mg PO Q6 PRN 01/10/18 [Last Taken Unknown] Gabapentin [Neurontin 100 MG (*)] 200 mg PO TID 01/10/18 [Last Taken Unknown] LORazepam [Ativan (*)] 0.5 mg PO QID PRN 01/10/18 [Last Taken Unknown] Levothyroxine [Synthroid 88 mcg (*)] 88 mcg PO DAILY06 01/10/18 [Last Taken Unknown] Ondansetron HCl 4 mg PO Q6 PRN 01/10/18 [Last Taken Unknown] Zolpidem Tartrate [Ambien] 10 mg PO HS 01/10/18 [Last Taken Unknown] traZODone [traZODONE 50MG (*)] 75 mg PO HS 01/10/18 [Last Taken Unknown] Acetaminophen [Tylenol 325mg (*)] 650 mg PO Q4HRS PRN tab 01/16/18 [Last Taken Unknown] Vancomycin [Vancocin Oral Liquid] 125 mg PO BID 7 Days #14 tab 01/16/18 [Last Taken Unknown] levOFLOXACIN [levAQUIN (*)] 750 mg PO DAILY AT 10AM #1 tab 01/16/18 [Last Taken Unknown] Discharge Medications: Refer to the Discharge Home Medication list for PRN reason. - Orders Services needed: Home Care, Registered Nurse, Physical Therapy, Occupational Therapy Home Care Face to Face: I certify that this patient was under my care and that I had the required [id number] encounter meeting the encounter requirements on the discharge day. My findings support the fact that the patient is homebound as defined in Home Care Face to Face Continued: CMS Chapter 7 Medicare Benefits Manual 30.1.1 , The condition of the patient is such that there exists a normal inability to leave home and consequently, leaving home would require a considerable and taxing effort. Isolation Type: Contact Isolation Additional Instructions: Bedsore (Pressure injury) care: You have a stage 4 pressure injury (also known as a bedsore) on the very lowest part of your back (the sacrum.) To help heal this wound and avoid further injury please do the followin. Reposition yourself frequently, at least every 15 minutes when sitting. Try to stand for at least 3 min every hour so that the tissues fully reperfuse with blood. We recommend sitting on an air cushion. Please never use a doughnut. 2. When youre in bed, try to rest on your side as much as possible, and change position every two hours (for example, turn or tilt from your right side toward your left).~ If you sleep on a sleep number or medical bed, keep the head of the bed below 30 degrees and keep all pressure off your low back for at least 5 minutes at least every two hours.~ 3. As needed, you may use Calazime, dimethicone moisture barrier cream, or any [id number] diaper rash cream to help prevent or treat a moisture- related rash to your bottom area and buttocks. 4. Please contact [facility] outpatient [facility] for an appointment, at , If your wounds re/open or dont improve, or if you have any further questions or concerns. Ligia Lopez [facility] Wound care orders Change dressings to Coccyx every 2 days and PRN. 1. Clean with NS and gauze 2. Skin prep tatum wound 3. Wound gel to wound bed 4. Cut a piece of non-bordered foam smaller than the wound to fill the wound space. 4. Cover with bordered Sacral dressing Lora Figueroa RN, Wound Care Team - Follow Up Care Current Providers and Referrals: NONE *PRIMARY CARE P,. [Primary Care Provider] - As per Instructions
--- NOTE | 2018-01-16 10:09 | ASMTLACE ---
LACE Length of stay for Answers: 4-6 days current admission Acuity / Level of Answers: Yes Care: Did the patient have an inpatient admission? Comorbidities - select Answers: Diabetes (uncontrolled or all that apply controlled) Other Notes: Partial paraplegic; AFib; GERD # of Emergency department Answers: 12+ visits in the last 6 months Social determinants Answers: Mental health diagnosis (anxiety, depression, pers onality disorders, etc.) Score: 18 Date Signed: 01/16/2018 10:08 AM Electronically Signed By:Bernie Loredo RN
--- NOTE | 2018-01-16 10:13 | ASMTDCNOTE ---
Case Management Discharge Discharge Order Complete? 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 Martha from [facility] notified and pt will call her caregiver Edmar at [facility] that she will be picked up at 1pm. Date Signed: 01/16/2018 10:12 AM Electronically Signed By:Bernie Loredo RN
[2018-01-16] MEDS: IBUPROFEN 200 MG TAB PO PRN (12:30)
--- NOTE | 2018-01-16 12:57 | ASMTCMCOM ---
CM Note CM Note Notes: Spoke w/RN, states pt now in considerable pain, discharge cancelled. Martha at [facility] notified and [facility] cancelled. Date Signed: 01/16/2018 12:56 PM Electronically Signed By:Bernie Loredo RN
[2018-01-16] MEDS: LIDOCAINE 4%/MENTHOL 1% PATCH TD SCH (13:12)
--- NOTE | 2018-01-16 15:25 | HOSPPROG ---
Hospitalist Progress Note Assessment/Plan: 62 yo F with hx of partial quad, ileal conduit with urostomy presenting with severe sepsis. First encounter, chart reviewed. D/W RN and CM. # severe sepsis: -presumably 2/2 urinary infection -Vitals stable -Was started on vanc/cefepime and now transitioned to levofloxacin # complicated UTI: -in the setting of ileal conduit with urostomy in place and multiple infections in the past, cultures showing enterobacter, pseudomonas and morganella all of which are sensitive to levofloxacin which will be continued for at least 7 days (currently day 6 abx). -Low colony counts of VRE noted, discussed with ID and given clinical improvement and low colony counts, no reason to specifically target that bacteria for tx. 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: -patient living independently and given above is a bit weaker than usual baseline, -pt/ot eval dc home with home health # hx of c diff: -ppx PO vanc # a fib: -currently in SR with incomplete LBBB # hypothyroid: -continue lt4 #Muscle spasm -try lidoderm patch -motrin # IP status-patient lives independently with assistance and will likely dc to same in coming 1-2 days Subjective: Feels fine. Tired. Objective: Vital Signs Temp Pulse Resp BP Pulse Ox 37.1 C 64 16 95/62 L 93 01/16/18 11:35 01/16/18 11:48 01/16/18 11:35 01/16/18 14:17 01/16/18 11:35 Laboratory Results 01/11/18 05:10 01/11/18 05:10 01/15/18 01/16/18 01/17/18 05:59 05:59 05:59 Intake Total 2480 400 Output Total 2600 4125 Balance -120 -3725 PT 14.2 SEC (12.0-15.0) 01/10/18 20:30 INR 1.08 (0.83-1.16) 01/10/18 20:30 - Physical Exam Constitutional: chronically ill appearing, obese, uncomfortable Eyes: PERRL, anicteric sclera, EOMI Ears, Nose, Mouth, Throat: moist mucous membranes, hearing normal, ears appear normal Cardiovascular: No JVD, No tachycardia, No edema Respiratory: no respiratory distress, no rales or rhonchi, reduced air movement Gastrointestinal: normoactive bowel sounds, No tenderness, No ascites Skin: warm, normal color, No mottled Musculoskeletal: pain with ROM, muscular tenderness, generalized weakness Neurologic: AAOx3 Psychiatric: not anxious, not encephalopathic, thought process linear, poor insight ICD10 Worksheet Patient Problems: Problems Problem Status Onset Chronic incomplete flaccid quadriplegia Acute UTI (urinary tract infection) Acute Severe sepsis Acute Weakness Acute Quadriplegia Acute Hyponatremia Acute Decubital ulcer Acute Diarrhea Acute Urethrovaginal fistula Acute Sepsis Acute Paraplegia Acute Fever Acute Leukocytosis Acute Candidiasis of vagina Acute
[2018-01-16] MEDS ORDERED: PATCH REMOVAL 1 EA PATCH TD SCH (21:00)
[2018-01-16] MEDS: traZODone 50 MG TAB PO SCH (21:49)
[2018-01-16] MEDS: ZOLPIDEM TARTRATE 5 MG TAB PO SCH (21:49)
[2018-01-17] MEDS: HYDROCODONE/APAP 5/325 TAB PO PRN ×2 (00:19→10:48)
[2018-01-17] MEDS: LEVOTHYROXINE 88 MCG TAB PO SCH (05:52)
[2018-01-17 08:19] VITALS: BP 124/70
--- NOTE | 2018-01-17 08:56 | PDIAF ---
- Diagnosis Diagnosis: sepsis Code Status: Full Code - Medication Management Discharge Medications: Medications to Continue on Transfer Baclofen [Baclofen 20 mg (*)] 20 mg PO TID 01/10/18 [Last Taken Unknown] Citalopram Hydrobromide [Citalopram HBr] 20 mg PO DAILY 01/10/18 [Last Taken Unknown] Diazepam [Valium 5 MG (*)] 5 mg PO Q6 PRN 01/10/18 [Last Taken Unknown] Gabapentin [Neurontin 100 MG (*)] 200 mg PO TID 01/10/18 [Last Taken Unknown] LORazepam [Ativan (*)] 0.5 mg PO QID PRN 01/10/18 [Last Taken Unknown] Levothyroxine [Synthroid 88 mcg (*)] 88 mcg PO DAILY06 01/10/18 [Last Taken Unknown] Ondansetron HCl 4 mg PO Q6 PRN 01/10/18 [Last Taken Unknown] Zolpidem Tartrate [Ambien] 10 mg PO HS 01/10/18 [Last Taken Unknown] traZODone [traZODONE 50MG (*)] 75 mg PO HS 01/10/18 [Last Taken Unknown] Acetaminophen [Tylenol 325mg (*)] 650 mg PO Q4HRS PRN tab 01/16/18 [Last Taken Unknown] Vancomycin [Vancocin Oral Liquid] 125 mg PO BID 7 Days #14 tab 01/16/18 [Last Taken Unknown] Lidocaine 4%/Menthol 1% [Icy Hot Lidocaine/Menthol 4%/1% Patch (*)] 1 patch TD DAILY #30 patch 01/17/18 [Last Taken Unknown] Patch Removal 1 ea TD DAILY21 patch 01/17/18 [Last Taken Unknown] Discharge Medications: Refer to the Discharge Home Medication list for PRN reason. - Orders Services needed: Home Care, Registered Nurse, Physical Therapy, Occupational Therapy Home Care Face to Face: I certify that this patient was under my care and that I had the required [id number] encounter meeting the encounter requirements on the discharge day. My findings support the fact that the patient is homebound as defined in Home Care Face to Face Continued: CMS Chapter 7 Medicare Benefits Manual 30.1.1 , The condition of the patient is such that there exists a normal inability to leave home and consequently, leaving home would require a considerable and taxing effort. 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 Reposition yourself frequently, at least every 15 minutes when sitting. Try to stand for at least 3 min every hour so that the tissues fully reperfuse with blood. We recommend sitting on an air cushion. Please never use a doughnut. 2. When youre in bed, try to rest on your side as much as possible, and change position every two hours (for example, turn or tilt from your right side toward your left).~ If you sleep on a sleep number or medical bed, keep the head of the bed below 30 degrees and keep all pressure off your low back for at least 5 minutes at least every two hours.~ 3. As needed, you may use Calazime, dimethicone moisture barrier cream, or any vbtd-fhy-nytggaq diaper rash cream to help prevent or treat a moisture- related rash to your bottom area and buttocks. 4. Please contact [facility] for an appointment, at , If your wounds re/open or dont improve, or if you have any further questions or concerns. Ligia NEWSOME Wound care orders Change dressings to Coccyx every 2 days and PRN. 1. Clean with NS and gauze 2. Skin prep tatum wound 3. Wound gel to wound bed 4. Cut a piece of non-bordered foam smaller than the wound to fill the wound space. 4. Cover with bordered Sacral dressing Lora Figueroa RN, Wound Care Team - Follow Up Care Current Providers and Referrals: NONE *PRIMARY CARE P,. [Primary Care Provider] - As per Instructions
[2018-01-17] MEDS: INSULIN LISPRO 100 UNIT/ML SC SCH (08:58)
[2018-01-17] MEDS: ENOXAPARIN 40 MG/0.4 ML SYR SC SCH (09:10)
[2018-01-17] MEDS: VANCOMYCIN 125 MG/2.5 ML UDL PO SCH (09:10)
[2018-01-17] MEDS: CITALOPRAM 20 MG TAB PO SCH (09:10)
[2018-01-17] MEDS: GABAPENTIN 100 MG CAP PO SCH (09:11)
[2018-01-17] MEDS: BACLOFEN 20 MG TAB PO SCH (09:11)
[2018-01-17] MEDS: LIDOCAINE 4%/MENTHOL 1% PATCH TD SCH (09:11)
--- NOTE | 2018-01-17 12:05 | ASMTCMCOM ---
CM Note CM Note Notes: Spoke w/pt, she is agreeable to discharge today, CM asked if she wanted to go to rehab, pt politely declined. States she has good support in place at home. CM spoke w/Ronda STAFFORD at [facility], she has a staff member ready to meet pt at home and will stay overnight for a few nights until pt is settled in at home. CM will fax a copy of the orders to: [phone]. CM sent orders via [employer] to Martha at [facility]. DC Plan: Home w/current home care and [facility] Date Signed: 01/17/2018 12:04 PM Electronically Signed By:Bernie Loredo RN
--- NOTE | 2018-01-17 12:38 | GDS ---
[f rep st] DISCHARGE SUMMARY DISCHARGE DIAGNOSES: 1. Hypotension. 2. Severe sepsis. 3. Complicated urinary tract infection. 4. Diabetes. 5. History of Clostridium difficile. 6. Coccyx decubitus. 7. Muscle spasms. 8. Atrial fibrillation. 9. Partial quadriplegia. STUDIES AND PROCEDURES: 1. CT of the cervical spine. 2. CT of the head. PHYSICAL EXAM: GENERAL: The patient is alert. VITAL SIGNS: Afebrile at 36.8, pulse 63. Respirato ry rate is 20. Blood pressure is 124/70. She is saturating greater than 90% on room air. I have se en and evaluated the patient on the day of discharge. HOSPITAL COURSE: The patient is a 62-year-old female who has a history of partial quadriplegia. She presented to the emergency room for shoulder pain and evaluated. She was diagnosed with: 1. Severe sepsis. It was likely secondary to patient's urinary tract infection. She received antib iotic treatment during this hospitalization. Her sepsis has resolved. 2. Complicated UTI. This is in the setting of ileal conduit and urostomy. She has had multiple inf ections in the past. She did receive a consultation during this hospitalization and was treated with Levaquin for a total of 7 days. No further antibiotic therapy is recommended at this time. 3. Diabetes mellitus. This is stable. 4. History of C difficile. She is being prophylactically treated with oral vancomycin. A prescript ion has been provided at the time of disposition. 5. History of atrial fibrillation. This appears to be stable. 6. Hypothyroidism. Her medications have been continued. 7. Severe muscle spasm. Will try to continue her Lidoderm patch and Motrin in the outpatient settin g. 8. Coccyx decubitus. This was present on admission. The patient has received wound care during thi s hospitalization and will continue her outpatient care. DISPOSITION: The patient will be discharged home with her previously prescribed home health care. I have offered her halfway facility at the time of disposition. However, she is refusing and wishing to go home. She understands that if she does not thrive at home, she will have to return to the hospital and be transferred to a halfway facility. I have discussed the patient's dispos ition with the welfare case worker. Home care has been arranged for the patient at the time of disposition. I spent greater than 35 minutes in the care, coordination, and management of this patient's dispositi on. DISCHARGE MEDICATIONS: Please refer to EMR form. I have provided a prescription for oral vancomycin for the patient at the time of disposition. FOLLOWUP: Followup will be with her primary care physician. /[id number]/MODL
--- NOTE | 2018-01-17 17:24 | ASDISCHSUM ---
Discharge Information Plan Status:Home with Home Health Medically Cleared to Leave: Discharge Date:01/17/2018 12:45 PM CM D/C Disposition:Home Health Service ADT D/C Disposition:HHSNOTBCH Projected Discharge Date:01/17/2018 11:00 AM Transportation at D/C:ALS/BLS Discharge Delay Reason: Follow-Up Date:01/17/2018 11:00 AM Discharge Slot: Final Diagnosis: Placement Information Referral Type:*Home Health Care Services Referral ID:[id number] Provider Name:[facility] ([facility]) [address] [place] [address] Address 2: City:[place] Selection Factors: State:[place] Patient Contact Information Contact Name:BARBIEDEMETRIO Relationship:Cousin Address: Work Phone: City: [facility] Phone: [facility]/Zip Code: Email: Financial Information Financial Class:Medicare Advantage Plans Primary Plan Desc:[employer] [facility] [employer] Primary Plan Number:[id number] Secondary Plan Desc:[place] Secondary Plan Number:[id number] Assessment Information LACE LACE Length of stay for Answers: 4-6 days current admission Acuity / Level of Answers: Yes Care: Did the patient have an inpatient admission? Comorbidities - select Answers: Diabetes (uncontrolled or all that apply controlled) Other Notes: Partial paraplegic; AFib; GERD # of Emergency department Answers: 12+ visits in the last 6 months Social determinants Answers: Mental health diagnosis (anxiety, depression, pers onality disorders, etc.) Score: 18 Date Signed: 01/16/2018 10:08 AM Electronically Signed By:Bernie Loredo RN [facility] CM Progress Note CM Note CM Note Notes: Pt was admitted with UTI and severe sepsis. She is a partial quadriplegic and has a urostomy and has a hx of DM2. She is receiving wound care for a coccyx pressure injury. Pt's RN to request PT/OT orders. Pt has been to [facility] and had [facility] and [facility] in the past. Per previous notes, she has care from 7am-8pm through [facility]. She has transitioned to po ABX and may need ongoing wound care. Pt sleeping at this time so CM unable to see. CM will follow for any d/c needs. Date Signed: 01/12/2018 04:17 PM Electronically Signed By:TONIO Chan [facility] CM Progress Note CM Note CM Note Notes: Spoke w/pt, she may need home health RN for wound care as well as her current caregivers through [facility]. CM sent referral to [facility] per colleagues previous note. DC Plan: Home w/[facility] (non-medical) and medical HC Date Signed: 01/14/2018 04:49 PM Electronically Signed By:Bernie Loredo RN [facility] CM Progress Note CM Note CM Note Notes: Chart reviewed .62 year old quad with UTI declined by [facility] referral. More referrals via allscripts. Likely near baseline and patient has non medical providers in place [facility]. CM to follow. Plan : home with current service and [facility] for RN to follow wound. Date Signed: 01/15/2018 01:53 PM Electronically Signed By:Rachel Richards RN Case Management Discharge Plan Note Case Management Discharge Discharge Order Complete? Answers: Yes Patient to Obtain Answers: Independently Medications Transportation Arranged Answers: [facility] will Pick (Date 01/16/2018 01:00 PM & Time) Case Management Transport Answers: Yes Form Complete Faxed Final Orders Answers: Yes Family Notified Answers: No Discharge Comments Notes: D/w [employer], final orders faxed. Martha from [facility] notified and pt will call her caregiver Edmar at [facility] that she will be picked up at 1pm. Date Signed: 01/16/2018 10:12 AM Electronically Signed By:Bernie Loredo RN [facility] CM Progress Note CM Note CM Note Notes: Spoke w/RN, states pt now in considerable pain, discharge cancelled. Martha at [facility] notified and DAR cancelled. Date Signed: 01/16/2018 12:56 PM Electronically Signed By:Bernie Loredo RN [facility] CM Progress Note CM Note CM Note Notes: Spoke w/pt, she is agreeable to discharge today, CM asked if she wanted to go to rehab, pt politely declined. States she has good support in place at home. CM spoke w/Ronda STAFFORD at [facility], she has a staff member ready to meet pt at home and will stay overnight for a few nights until pt is settled in at home. CM will fax a copy of the orders to: [phone]. CM sent orders via [employer] to Martha at [facility]. DC Plan: Home w/current home care and [facility] Date Signed: 01/17/2018 12:04 PM Electronically Signed By:Bernie Loredo RN Intervention Information Intervention Type:*IM-Signed Date of Service:01/16/2018 12:26 PM Patient Type:Inpatient Staff Member:Kate Griffin Hours: Discipline: Severity: Comment:Patient stated she feels she is not re alcira to discharge due to pain. She was unable to physically sign the IM form consenting to her Medicare rights. CM Light Bulb Tester discussed interaction with NYDIA Cruz and floor NICOLE Gibbs.
== END 2018-01-17 12:45 | disposition home health service (06) | DRG 871 ==
LOC: EDUNIT# → OBSVTOIN 21:52 → F2N 22:15 → F3E 01-12 22:30
PROVIDERS: ADMIT Student in an Organized Health Care Education/Training Program; ATTEND Internal Medicine
DX: A41.9 Sepsis, unspecified organism (principal); R65.21 Severe sepsis with septic shock; N39.0 Urinary tract infection, site not specified; G82.54 Quadriplegia, C5-C7 incomplete; E11.622 Type 2 diabetes mellitus with other skin ulcer; L89.154 Pressure ulcer of sacral region, stage 4; M62.838 Other muscle spasm; I48.91 Unspecified atrial fibrillation; K21.9 Gastro-esophageal reflux disease without esophagitis; E03.9 Hypothyroidism, unspecified
CPT/HCPCS: 96365; 97165-GO; 97535-GO; G8987-GO-CM; G8988-GO-CM; G8989-GO-CM; J0692; J1650; J1815; J3370